=== PATIENT | female | born 1985 | race African-American/Black ===

== ENCOUNTER 2016-08-26 10:21 | Inpatient (IN) | payer OTHER ==
[~2016-08-26] VITALS: Ht 160 cm; Wt 59.0 kg
[2016-08-26 10:40] VITALS: BP 129/76
[2016-08-26] MEDS ORDERED: Clindamycin 900mg 50 ML IVPB ONE (10:45)
--- NOTE | 2016-08-26 11:16 | Emergency Room Report ---
History of Present Illness General Chief Complaint: Skin Rash/Abscess Source: Patient Present Illness HPI 31YOF sent by Dr De La Vega for concern for gluteal infection s/p silicone injections 2 years ago for gluteal enhancement. Surgery was done "illegally" outside of insurance. Patient doesnt give the surgeon's name. Endorses a few days of pain to buttocks, fever measured 102F at home, and "pustules that keep busting" on the right buttock. Denies abd pain, nausea/vomiting, urinary complaints. Allergies: Coded Allergies: IODINE (Verified Allergy, Unknown, 08/26/16) PENICILLINS (Verified Allergy, Unknown, 08/26/16) Patient History Past Medical History: none Past Surgical History: none Pertinent Family History: none Social History: Denies: alcohol use, drug use, smoking Last Menstrual Period: 08/11/16 Now: No Immunizations: UTD Reviewed Nursing Documentation: PMH: Agreed, PSxH: Agreed Nursing Documentation-PMH Past Medical History: No History, Except For Review of Systems All Other Systems: negative except mentioned in HPI Physical Exam Vital Signs Date Time Temp Pulse Resp B/P Pulse Ox O2 Delivery O2 Flow Rate FiO2 08/26/16 10:32 97.9 76 18 121/80 100 Room Air Sp02 EP Interpretation: reviewed, normal General Appearance: normal inspection, well appearing, no apparent distress, alert, GCS 15, non-toxic Head: normocephalic, atraumatic Eyes: bilateral eye EOMI, bilateral eye PERRL ENT: normal ENT inspection, hearing 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, normal voice Neck: normal inspection, full range of motion, supple, no bony tend Respiratory: normal inspection, lungs clear, normal breath sounds, no respiratory distress, no retraction, no wheezing Cardiovascular #1: regular rate, rhythm, no edema Gastrointestinal: normal inspection, normal bowel sounds, non tender, soft, no guarding, no hernia Genitourinary: no CVA tenderness Musculoskeletal: normal inspection, back normal, normal range of motion, Sandy' s Sign negative Neurologic: normal inspection, alert, oriented x3, responsive, bagman/woman III-XII nml as tested, motor strength/tone normal, speech normal Psychiatric: normal inspection, judgement/insight normal, mood/affect normal Skin: normal inspection, normal color, other - RN Consuelo present for buttocks exam: No bean abscess seen or palpated. There is an old healing pustule on right buttock midline. No obvious cellulitis Medical Decision Making Diagnostic Impression: Primary Impression: Buttock pain Additional Impressions: Qualified Codes: Z33.1 - state, incidental Abnormal LFTs ER Course 31YOF with buttock pain, measured fever at home VSS. Afebrile. Labs: No leuks. H&H stable. Urine preg +. UA with hematuria. CXR not done given ECG is NSR. No ischemia. Empiric Abx given Admitting physician requesting MRI LS, pelvis - understands non-emergent MRI unavailable on Weekends. Doesnt want CT. I ordered MRI for tomorrow Endorsed to Dr De La Vega for med/surg admission at 1130am EKG Diagnostic Results Rate: normal Rhythm: NSR ST Segments: no acute changes ASA given to the pt in ED: No Last Vital Signs Date Time Temp Pulse Resp B/P Pulse Ox O2 Delivery O2 Flow Rate FiO2 08/26/16 10:32 97.9 76 18 121/80 100 Room Air Status: improved Disposition: ADMITTED INPATIENT Condition: Serious Referrals: NOT CHOSEN IPA/,REFERRING (PCP) SALAZAR ARAUJO M.D. Aug 26, 2016 11:16
[2016-08-26 11:25] LABS: BASOPHILS % (AUTO) 0.9 % (0.0-2.0); EOSINOPHILS % (AUTO) 1.6 % (0.0-3.0); KETONES,URINE NEGATIVE (NEGATIVE); LEUKOCYTE ESTERASE ,URINE 2+ (NEGATIVE); LYMPHOCYTES % (AUTO) 30.3 % (20.0-45.0); MEAN CORPUSCULAR HEMOGLOBIN 28.1 PG (27.0-31.0); MEAN CORPUSCULAR HGB CONC 32.3 G/DL (32.0-36.0); MEAN CORPUSCULAR VOLUME 87 FL (80-99); MEAN PLATELET VOLUME 6.9 FL (6.5-10.1); MONOCYTES % (AUTO) 11.9 % (1.0-10.0); NEUTROPHILS % (AUTO) 55.3 % (45.0-75.0); NITRITE,URINE NEGATIVE (NEGATIVE); PH,URINE 7 (4.5-8.0); PLATELET COUNT 260 K/UL (150-450); PROTEIN,URINE NEGATIVE (NEGATIVE); RED BLOOD COUNT 4.59 M/UL (4.20-5.40); RED CELL DISTRIBUTION WIDTH 12.6 % (11.6-14.8); UROBILINOGEN,URINE NORMAL MG/DL (0.0-1.0); WHITE BLOOD COUNT 8.3 K/UL (4.8-10.8)
[2016-08-26 11:30] LABS: PROTHROMBIN TIME 10.2 SEC (9.30-11.50)
[2016-08-26 11:33] LABS: ALANINE AMINOTRANSFERASE 272 U/L (3-33); ALBUMIN/GLOBULIN RATIO 1.2 (1.0-2.7); ANION GAP 11 (5-15); APPEARANCE,URINE CLEAR; ASPARTATE AMINO TRANSFERASE 131 U/L (5-40); CALCIUM 9.2 mg/dL (8.6-10.2); CARBON DIOXIDE 28 mEQ/L (20-30); CHLORIDE 96 mEQ/L (98-107); CREATININE 0.9 mg/dL (0.5-0.9); GLOMERULAR FILTRATION RATE > 60 mL/min (>60); HEMOLYSIS 1; LIPASE 21 U/L (< 60); POTASSIUM 3.3 mEQ/L (3.4-4.9); SODIUM 135 mEQ/L (135-145)
[2016-08-26 11:38] LABS: BACTERIA,URINE FEW /HPF; SQUAMOUS EPITHELIAL CELL,UR FEW /LPF (NONE/OCC)
--- NOTE | 2016-08-26 12:38 | Diagnostic Imaging Report ---
Indication: Is in Comparison: None A single view chest radiograph was obtained. Findings: Cardiomediastinal appearance is within normal limits for age. Pulmonary vascularity is appropriate. The diaphragmatic contour is smooth and costophrenic angles are sharp. No pleural effusions are identified. The bones are unremarkable. Impression: No acute findings
[2016-08-26] MEDS ORDERED: Mylanta II UD 30ml ORAL PRN (14:45)
[2016-08-26] MEDS ORDERED: Miralax 17gm pkt ORAL PRN (14:45)
[2016-08-26] MEDS ORDERED: LORazepam Inj 2mg/ml 1ml IV PRN (14:45)
[2016-08-26] MEDS ORDERED: Morphine Sulfate 2mg/ml Inj IVP PRN (14:45)
[2016-08-26 16:00] VITALS: BP 125/78
[2016-08-26] MEDS: Lactobacillus-GG tablet ORAL SCH (17:34)
[2016-08-26] MEDS: D5NS 1,000 ML IV SCH (17:36)
--- NOTE | 2016-08-26 18:36 | History and Physical ---
History of Present Illness General Date patient seen: Aug 26, 2016 Time patient seen: 22:11 Reason for Hospitalization: Abscess Present Illness HPI 31 y/o female presents to the ED with c/o gluteal pain, fevers, and low back pain, she is concerned about a gluteal infection s/p silicone injections 2 years ago for gluteal enhancement. Details surrounding the original silicone injection are unclear. She endorses a few days of pain to buttocks, fever measured 102F at home, and "pustules that keep busting" on the right buttock. Denies abd pain, nausea/vomiting, urinary complaints. She does c/o severe fatigue/malaise, headaches, numbness/tingling down her legs, and dyspnea on exertion. Of note, the pt recently had a , s/p voluntary termination/ performed in [place] on 08/18. Pt has the documentation to support this. Allergies: Coded Allergies: IODINE (Verified Allergy, Unknown, 08/26/16) PENICILLINS (Verified Allergy, Unknown, 08/26/16) Patient History History Provided By: Patient Healthcare decision maker Resuscitation status FC Advanced Directive on File Past Medical/Surgical History Past Medical/Surgical History: (1) No significant past medical history Family History Family History: Patient reports no known family medical history. Social History Social History: (1) No significant social history Review of Systems All Other Systems: negative except mentioned in HPI Physical Exam Physical Exam Narrative General: alert, cooperative, no distress, appears stated age Head: normocephalic, without obvious abnormality, atraumatic Eyes: conjunctivae/corneas clear. PERRL, EOM's intact Throat: lips, mucosa, and tongue normal. MMM Neck: supple, symmetrical, trachea midline, and no JVD Lungs: clear to auscultation bilaterally Heart: regular rate and rhythm, S1, S2 normal, no murmur, click, rub or gallop Abdomen: soft, non-tender, non-distended, bowel sounds normal; no masses or organomegaly Extremities: multiple areas of induration, +rubor, +tenderness to palpation in the gluteal region bilaterally Pulses: 2+ and symmetric Skin: skin color, texture, turgor normal; no rashes or lesions Neurologic: 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, no focal deficits Last 24 Hour Vital Signs Date Time Temp Pulse Resp B/P Pulse Ox O2 Delivery O2 Flow Rate FiO2 08/26/16 16:48 98.1 08/26/16 16:00 98.1 73 18 125/78 98 Room Air 08/26/16 14:33 75 17 117/68 Room Air 08/26/16 10:40 98.0 73 16 129/76 100 Room Air 08/26/16 10:32 97.9 76 18 121/80 100 Room Air Laboratory Tests Test 08/26/16 10:49 08/26/16 11:09 Erythrocyte Sedimentation Rate 31 MM/HR (0-20) H C-Reactive Protein, Quantitative < 0.3 mg/dL (< 0.5) Urine Immunofixation Pending Anti-Nuclear Antibody Screen Pending White Blood Count 8.3 K/UL (4.8-10.8) Red Blood Count 4.59 M/UL (4.20-5.40) Hemoglobin 12.9 G/DL (12.0-16.0) Hematocrit 39.9 % (37.0-47.0) Mean Corpuscular Volume 87 FL (80-99) Mean Corpuscular Hemoglobin 28.1 PG (27.0-31.0) Mean Corpuscular Hemoglobin Concent 32.3 G/DL (32.0-36.0) Red Cell Distribution Width 12.6 % (11.6-14.8) Platelet Count 260 K/UL (150-450) Mean Platelet Volume 6.9 FL (6.5-10.1) Neutrophils (%) (Auto) 55.3 % (45.0-75.0) Lymphocytes (%) (Auto) 30.3 % (20.0-45.0) Monocytes (%) (Auto) 11.9 % (1.0-10.0) H Eosinophils (%) (Auto) 1.6 % (0.0-3.0) Basophils (%) (Auto) 0.9 % (0.0-2.0) Prothrombin Time 10.2 SEC (9.30-11.50) Prothromb Time International Ratio 1.0 (0.9-1.1) Activated Partial Thromboplast Time 25 SEC (23-33) Urine Color Yellow Urine Appearance Clear Urine pH 7 (4.5-8.0) Urine Specific [place] 1.010 (1.005-1.035) Urine Protein Negative (NEGATIVE) Urine Glucose (UA) Negative (NEGATIVE) Urine Ketones Negative (NEGATIVE) Urine Occult Blood 3+ (NEGATIVE) H Urine Nitrite Negative (NEGATIVE) Urine Bilirubin Negative (NEGATIVE) Urine Urobilinogen Normal MG/DL (0.0-1.0) Urine Leukocyte Esterase 2+ (NEGATIVE) H Urine RBC 5-10 /HPF (0 - 2) H Urine WBC 2-4 /HPF (0 - 2) Urine Squamous Epithelial Cells Few /LPF (NONE/OCC) Urine Bacteria Few /HPF (NONE) Urine HCG, Qualitative Positive Sodium Level 135 mEQ/L (135-145) Potassium Level 3.3 mEQ/L (3.4-4.9) L Chloride Level 96 mEQ/L (98-107) L Carbon Dioxide Level 28 mEQ/L (20-30) Anion Gap 11 (5-15) Blood Urea Nitrogen 9 mg/dL (7-23) Creatinine 0.9 mg/dL (0.5-0.9) Estimat Glomerular Filtration Rate > 60 mL/min (>60) Glucose Level 96 mg/dL (74-106) Calcium Level 9.2 mg/dL (8.6-10.2) Total Bilirubin 0.4 mg/dL (0.0-1.2) Aspartate Amino Transf (AST/SGOT) 131 U/L (5-40) H Alanine Aminotransferase (ALT/SGPT) 272 U/L (3-33) H Alkaline Phosphatase 40 U/L (35-104) Total Protein 8.0 g/dL (6.6-8.7) Albumin 4.5 g/dL (3.5-5.2) Globulin 3.5 g/dL Albumin/Globulin Ratio 1.2 (1.0-2.7) Lipase 21 U/L (< 60) Height (Feet): 5 Height (Inches): 3.00 Weight (Pounds): 130 Medications Current Medications Medications (Trade) Dose Ordered Sig/Yamileth Route PRN Reason Start Time Stop Time Status Last Admin Dose Admin Acetaminophen (Tylenol) 650 mg Q4H PRN ORAL Mild Pain (Pain Scale 1-3) 08/26/16 14:45 09/25/16 14:44 Acetaminophen (Tylenol) 650 mg Q4H PRN ORAL fever 08/26/16 14:45 09/25/16 14:44 Al Hydroxide/Mg Hydroxide (Mylanta II) 30 ml Q6H PRN ORAL dyspepsia 08/26/16 14:45 09/25/16 14:44 Bisacodyl (Dulcolax) 10 mg HSPRN PRN RECTAL Constipation 08/26/16 14:45 09/25/16 14:44 Clindamycin HCl/ Dextrose (Cleocin 300mg) 50 ml @ 100 mls/hr Q8HR@0200,1000,1800 IV 08/26/16 17:00 09/02/16 16:59 08/26/16 17:35 Dextrose STAT PRN IV Hypoglycemia 08/26/16 14:45 09/25/16 14:44 Dextrose/Sodium Chloride (D5ns) 1,000 ml @ 50 mls/hr Q20H IV 08/26/16 17:00 09/25/16 16:59 08/26/16 17:36 Diphenhydramine HCl (Benadryl) 25 mg Q6H PRN ORAL Itching/Pruritis 08/26/16 14:45 09/25/16 14:44 Docusate Sodium (Colace) 100 mg EVERY 12 HOURS ORAL 08/26/16 21:00 09/25/16 20:59 Lactobacillus Acidophilus (Culturelle) 1 tab TWICE A DAY ORAL 08/26/16 18:00 09/25/16 17:59 08/26/16 17:34 Lorazepam (Ativan 2mg/ml 1ml) 0.5 mg Q4H PRN IV For Anxiety 08/26/16 14:45 09/02/16 14:44 Magnesium Hydroxide (Mom) 30 ml HSPRN PRN ORAL Constipation 08/26/16 14:45 09/25/16 14:44 Morphine Sulfate (Morphine Sulfate) 2 mg Q4HR PRN IVP Moderate Pain (Pain Scale 4-6) 08/26/16 14:45 09/02/16 14:44 08/26/16 16:18 Morphine Sulfate (Morphine Sulfate) 4 mg Q4HR PRN IVP Severe Pain (Pain Scale 7-10) 08/26/16 14:45 09/02/16 14:44 Ondansetron HCl (Zofran) 4 mg Q6H PRN IVP Nausea & Vomiting 08/26/16 14:45 09/25/16 14:44 Polyethylene Glycol (Miralax) 17 gm HSPRN PRN ORAL Constipation 08/26/16 14:45 09/25/16 14:44 Temazepam (Restoril) 15 mg HSPRN PRN ORAL Insomnia 08/26/16 14:45 09/02/16 14:44 Assessment/Plan Problem List: (1) Abscess Assessment & Plan: Admit to inpatient Will need to r/o AURORA syndrome given silicone injections and onset of systemic symptoms, full autoimmune panel ordered MRI L spine and pelvis to r/o acute abscesses, fluid collections research professor consult due to recent , s/p voluntary termination on 08/18, pt has records that document this. Blood cx x2 Surgical consult Start IV unasyn Supp care Pain control Psychiatry consult as well If patient is required to have surgery, based on the patient's medical history, and other available ancillary data, the patient is a LOW risk for an INTERMEDIATE risk procedure. Per the most recent ACC/AHA guidelines, the patient does not need any further cardiopulmonary testing prior to the procedure and there do not appear to be any clear medical contraindications to proceeding with the proposed procedure. A total of 32 mins of additional time was spent with this patient including coordination of care in addition to face to face time ICD Codes: L02.91 - Cutaneous abscess, unspecified SNOMED: [id number] PETERSON COTTO Aug 26, 2016 18:36
[2016-08-26 20:00] VITALS: BP 140/89
[2016-08-26] MEDS: Docusate 100mg cap ORAL SCH (21:01)
[2016-08-26] MEDS: Morphine Sulfate 4mg/ml Inj IVP PRN (21:02)
[2016-08-27] VITALS (14 sets, daily range): BP systolic 126–157; BP diastolic 72–96
[2016-08-27 07:03] LABS: BASOPHILS % (AUTO) 1.8 % (0.0-2.0); EOSINOPHILS % (AUTO) 3.1 % (0.0-3.0); LYMPHOCYTES % (AUTO) 38.6 % (20.0-45.0); MEAN CORPUSCULAR HEMOGLOBIN 28.1 PG (27.0-31.0); MEAN CORPUSCULAR HGB CONC 32.4 G/DL (32.0-36.0); MEAN CORPUSCULAR VOLUME 87 FL (80-99); MEAN PLATELET VOLUME 5.8 FL (6.5-10.1); MONOCYTES % (AUTO) 8.6 % (1.0-10.0); NEUTROPHILS % (AUTO) 47.8 % (45.0-75.0); PLATELET COUNT 210 K/UL (150-450); RED BLOOD COUNT 4.16 M/UL (4.20-5.40); RED CELL DISTRIBUTION WIDTH 12.6 % (11.6-14.8)
[2016-08-27 07:24] LABS: ANION GAP 14 (5-15); CALCIUM 8.9 mg/dL (8.6-10.2); CARBON DIOXIDE 25 mEQ/L (20-30); CHLORIDE 101 mEQ/L (98-107); CREATININE 0.8 mg/dL (0.5-0.9); GLOMERULAR FILTRATION RATE > 60 mL/min (>60); HEMOLYSIS 1; SODIUM 140 mEQ/L (135-145)
--- NOTE | 2016-08-27 08:59 | Consultation ---
Consult Note Consult Note Chart Reviewed Patient is in MRI Urine HCG Pos LFT elevated Serum B-HCG now - Stat Assessment/Plan B-HCG now Full evaluation to follow KEN CASEY Aug 27, 2016 08:58
[2016-08-27] MEDS: Lactobacillus-GG tablet ORAL SCH ×2 (09:50→18:31)
[2016-08-27] MEDS: Docusate 100mg cap ORAL SCH ×2 (09:50→21:23)
[2016-08-27] MEDS: Morphine Sulfate 4mg/ml Inj IVP PRN (09:51)
[2016-08-27] MEDS: D5NS 1,000 ML IV SCH (13:10)
--- NOTE | 2016-08-27 13:39 | Diagnostic Imaging Report ---
Indication: Silicone Injections and back/buttock pain Technique: MRI examination of the Lumbar spine was performed in a 1.5 Rachael magnet. Sequences obtained include sagittal and axial T1 and T2 fast spin echo, and sagittal STIR. No IV gadolinium was given Comparison: none Findings: Multinodular subcutaneous foci exhibiting low T1/high T2 signal noted posterior to the lower part of the lumbar spine and visualized gluteal region consistent with silicone injections. There is no confluent fluid collection or abscess identified. All of the foci. Extrafascial within the subcutaneous space. Lumbar spine demonstrates normal bone marrow signal for age. The configuration and signal of the intervertebral discs appear normal. Facet joints appear unremarkable. There is no neural impingement or canal stenosis identified. Conus medullaris is demonstrated at L1 and appears unremarkable. Impression: Subcutaneous silicone injections noted as described above. Negative examination of the lumbar spine otherwise.
--- NOTE | 2016-08-27 13:43 | Diagnostic Imaging Report ---
Indication: Silicone injections Technique: MRI of the pelvis was imaged in a 1.5 Rachael magnet. Pulse sequences obtained include multiplanar T1 fast spin-echo, STIR, T2 FSE w/ fat saturation. Comparison: None Findings: Examination demonstrates multiple mainly subcutaneous foci overlying the gluteal regions bilaterally consistent with the given history of silicone injections. No confluent areas or abnormal fluid collections are definitely seen to suggest abscess. Some of the foci extend into the superficial fibers of the gluteus musculature. Bone marrow signal is normal. The study was not performed for internal derangement or evaluation of the acetabula/hips. That said no gross abnormalities are identified. Impression: Subcutaneous silicone injections as described above.
--- NOTE | 2016-08-27 14:16 | Pre-Procedure Note/Attestation ---
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 I attest that, if there was a reasonable possibility of needing a blood transfusion, the patient (or the patient's legal sales representative church [employer]) was given the [place] Department [employer] standardized written summary, pursuant to the Edgardo Geraldine Blood Safety Act ([place] Health and Safety Code # 1645, as amended). I attest that I re-evaluated the patient just prior to the surgery and that there has been no change in the patient's H&P, except as documented below: Betty Chance M.D. Aug 27, 2016 14:16
[2016-08-27] MEDS ORDERED: Bacitracin 50000 Units Vial ONE (14:22)
[2016-08-27] MEDS ORDERED: Propofol 10mg/ml 20ml IV ONE ×2 (14:26→14:30)
[2016-08-27] MEDS ORDERED: LR 1000ml ONE (14:30)
[2016-08-27] MEDS ORDERED: Midazolam 2mg/2ml Inj ONE (14:30)
[2016-08-27] MEDS ORDERED: Sterile Water Irrig 1000ml IRRIG ONE (14:30)
[2016-08-27] MEDS ORDERED: NS Irrig 1000ml ONE (14:30)
[2016-08-27] MEDS ORDERED: Morphine Sulfate 10mg/ml Inj ONE (14:30)
[2016-08-27] MEDS ORDERED: fentaNYL 100 mcg/2 mL IV ONE (14:30)
--- NOTE | 2016-08-27 15:08 | General Progress Note ---
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 Blood cx x2 Surgical consult appreciated, pt will need surgical debridement Cont IV unasyn Supp care Pain control Psychiatry consult appreciated If patient is required to have surgery, based on the patient's medical history, and other available ancillary data, the patient is a LOW risk for an INTERMEDIATE risk procedure. Per the most recent ACC/AHA guidelines, the patient does not need any further cardiopulmonary testing prior to the procedure and there do not appear to be any clear medical contraindications to proceeding with the proposed procedure. A total of 32 mins of additional time was spent with this patient including coordination of care in addition to face to face time ICD Codes: L02.91 - Cutaneous abscess, unspecified SNOMED: [id number] Subjective Date patient seen: Aug 27, 2016 Time patient seen: 15:06 ROS Limited/Unobtainable: No Allergies: Coded Allergies: IODINE (Verified Allergy, Unknown, 08/26/16) PENICILLINS (Verified Allergy, Unknown, 08/26/16) Subjective No acute overnight events, no new complaints. No chest pain or dyspnea, pain well controlled. Objective Last 24 Hour Vital Signs Date Time Temp Pulse Resp B/P Pulse Ox O2 Delivery O2 Flow Rate FiO2 08/27/16 11:45 97.8 84 20 135/80 99 Room Air 08/27/16 10:21 97.9 08/27/16 07:54 97.9 100 20 126/72 98 Room Air 08/27/16 06:44 97.3 78 19 138/80 100 Room Air 08/27/16 04:00 98.0 77 18 135/78 Room Air 08/27/16 00:00 97.7 74 20 135/87 100 Room Air 08/26/16 20:00 97.5 76 20 140/89 100 Room Air 08/26/16 16:48 98.1 08/26/16 16:00 98.1 73 18 125/78 98 Room Air Intake and Output 08/26/16 08/27/16 19:00 07:00 Intake Total 250 ml 1400 ml Balance 250 ml 1400 ml Intake Oral 200 ml 800 ml IV Total 50 ml 600 ml # Voids 1 3 Laboratory Tests 08/27/16 05:25: White Blood Count [Pending], Red Blood Count 4.16L, Hemoglobin 11.7L, Hematocrit 36.0L, Mean Corpuscular Volume 87, Mean Corpuscular Hemoglobin 28.1, Mean Corpuscular Hemoglobin Concent 32.4, Red Cell Distribution Width 12.6, Platelet Count 210, Mean Platelet Volume 5.8L, Neutrophils (%) (Auto) 47.8, Lymphocytes (%) (Auto) 38.6, Monocytes (%) (Auto) 8.6, Eosinophils (%) (Auto) 3.1H, Basophils (%) (Auto) 1.8, Lymphocytes [Pending], Lupus Anticoagulant [ Pending], Lupus Anticoagulant PTT Baseline [Pending], Lupus Anticoag DRVVT Screen Ratio [Pending], DRVVT Confirmation Interpretation [Pending], Hexagonal Phase Comment [Pending], Sodium Level 140, Potassium Level 4.0, Chloride Level 101, Carbon Dioxide Level 25, Anion Gap 14, Blood Urea Nitrogen 10, Creatinine 0.8, Estimat Glomerular Filtration Rate > 60, Glucose Level 90, Calcium Level 8.9, Human Chorionic Gonadotropin, Quant 39, Immunoglobulin G [Pending], Immunoglobulin A [Pending], Immunoglobulin M [Pending], Immunofixation Screen [ Pending], Percent CD3 Cells [Pending], Absolute CD3 Count [Pending], Percent CD4 Cells [Pending], Absolute CD4 Count [Pending], T-Lymphocyte CD4/CD8 Ratio [ Pending], Percent CD8 Cells [Pending], Absolute CD8 Count [Pending] Height (Feet): 5 Height (Inches): 3.00 Weight (Pounds): 130 Objective General: alert, cooperative, no distress, appears stated age Head: normocephalic, without obvious abnormality, atraumatic Eyes: conjunctivae/corneas clear. PERRL, EOM's intact Throat: lips, mucosa, and tongue normal. MMM Neck: supple, symmetrical, trachea midline, and no JVD Lungs: clear to auscultation bilaterally Heart: regular rate and rhythm, S1, S2 normal, no murmur, click, rub or gallop Abdomen: soft, non-tender, non-distended, bowel sounds normal; no masses or organomegaly Extremities: +tenderness to palpation, +rubor, +indurations (multiple) in bilateral gluteal area Pulses: 2+ and symmetric Skin: skin color, texture, turgor normal; no rashes or lesions Neurologic: 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, no focal deficits PETERSON COTTO Aug 27, 2016 15:08
[2016-08-27] MEDS ORDERED: Clindamycin 600mg 50 ML IV ONE (15:10)
[2016-08-27] MEDS ORDERED: LR 1000ml 1,000 ML IVLG SCH (16:16)
--- NOTE | 2016-08-27 16:21 | Anethesia Preoperative Eval ---
Anesthesia Pre-op PMH/ROS General Date of Evaluation: Aug 27, 2016 Time of Evaluation: 14:20 Anesthesiologist: Fatuma ASA Score: ASA 1 Mallampati Score Class I : Soft palate, uvula, fauces, pillars visible Class II: Soft palate, uvula, fauces visible Class III: Soft palate, base of uvula visible Class IV: Only hard plate visible Mallampati Classification: Class II Diagnosis: Necrotic tissue bilateral buttocks, cellulitis Surgical Procedure: Debridement of necrotic tissue Allergies: Coded Allergies: IODINE (Verified Allergy, Unknown, 08/26/16) PENICILLINS (Verified Allergy, Unknown, 08/26/16) Medications: see eMAR Past Medical History Cardiovascular: Denies: CAD, HTN, NM, arrhythmia, other, valve dz Pulmonary: Denies: COPD, NORBERT, asthma, other Gastrointestinal/Genitourinary: Denies: CRI, ESRD, GERD, other Neurologic/Psychiatric: Denies: CVA, TIA, dementia, depression/anxiety, other Endocrine: Denies: DM, hypothyroidism, other, steroids HEENT: Denies: MI'KMAQ (L), MI'KMAQ (R), cataract (L), cataract (R), glaucoma, other Hematology/Immune: Denies: DVT, anemia, bleeding disorder, other Musculoskeletal/Integumentary: Denies: DDD, DJD, OA, RA, edema, other PMH Narrative: Denies significant PMH PSxH Narrative: Sinus surgery, C/S, buttocks surgery Anesthesia Pre-op Phys. Exam Physician Exam Last Vital Signs Date Time Temp Pulse Resp B/P Pulse Ox O2 Delivery O2 Flow Rate FiO2 08/27/16 11:45 97.8 84 20 135/80 99 Room Air Constitutional: NAD Neurologic: CN 2-12 intact Cardiovascular: RRR, no M/R/G Respiratory: CTA Gastrointestinal: S/NT/ND Airway Exam Mallampati Score: Class II MO: full ROM: full Teeth: intact Anesthesia Pre-op A/P Labs Hematology Test 08/27/16 05:25 White Blood Count Pending Red Blood Count 4.16 M/UL (4.20-5.40) L Hemoglobin 11.7 G/DL (12.0-16.0) L Hematocrit 36.0 % (37.0-47.0) L Mean Corpuscular Volume 87 FL (80-99) Mean Corpuscular Hemoglobin 28.1 PG (27.0-31.0) Mean Corpuscular Hemoglobin Concent 32.4 G/DL (32.0-36.0) Red Cell Distribution Width 12.6 % (11.6-14.8) Platelet Count 210 K/UL (150-450) Mean Platelet Volume 5.8 FL (6.5-10.1) L Neutrophils (%) (Auto) 47.8 % (45.0-75.0) Lymphocytes (%) (Auto) 38.6 % (20.0-45.0) Monocytes (%) (Auto) 8.6 % (1.0-10.0) Eosinophils (%) (Auto) 3.1 % (0.0-3.0) H Basophils (%) (Auto) 1.8 % (0.0-2.0) Lymphocytes Pending Coagulation Test 08/27/16 05:25 Lupus Anticoagulant Pending Lupus Anticoagulant PTT Baseline Pending Lupus Anticoag DRVVT Screen Ratio Pending DRVVT Confirmation Interpretation Pending Hexagonal Phase Comment Pending Chemistry Test 08/27/16 05:25 Sodium Level 140 mEQ/L (135-145) Potassium Level 4.0 mEQ/L (3.4-4.9) Chloride Level 101 mEQ/L (98-107) Carbon Dioxide Level 25 mEQ/L (20-30) Anion Gap 14 (5-15) Blood Urea Nitrogen 10 mg/dL (7-23) Creatinine 0.8 mg/dL (0.5-0.9) Estimat Glomerular Filtration Rate > 60 mL/min (>60) Glucose Level 90 mg/dL (74-106) Calcium Level 8.9 mg/dL (8.6-10.2) Human Chorionic Gonadotropin, Quant 39 mIU/mL Risk Assessment & Plan Assessment: Healthy female for debridement of necrotic tissue b/l buttocks Plan: GETA, transfusion Status Change Before Surgery: No Pre-Antibiotics Drug: Clindamycin Given Within 1 Hr of Incision: Yes Time Given: 14:55 TEMITOPE DEE M.D. Aug 27, 2016 16:21
--- NOTE | 2016-08-27 16:22 | Immediate Post-Op Evaluation ---
Immediate Post-Op Evalulation Immediate Post-Op Evalulation Procedure: Debridement of necrotic tissue bilateral buttocks Date of Evaluation: Aug 27, 2016 Time of Evaluation: 17:05 IV Fluids: 1500 Blood Products: 250 Estimated Blood Loss: 300 Urinary Output: 150 Blood Pressure Systolic: 157 Blood Pressure Diastolic: 94 Pulse Rate: 104 Respiratory Rate: 15 O2 Sat by Pulse Oximetry: 100 Temperature (Fahrenheit): 97.4 Pain Score (1-10): 4 Nausea: No Vomiting: No Complications No complication Patient Status: awake, patent, extubated, none Hydration Status: adequate Drug: Clindamycin Given Within 1 Hr of Incision: Yes Time Given: 14:55 TEMITOPE DEE M.D. Aug 27, 2016 16:22
[2016-08-27] MEDS ORDERED: Meperidine 25mg/0.5ml Inj IV PRN (16:30)
[2016-08-27] MEDS ORDERED: LORazepam Inj 2mg/ml 1ml IV PRN (16:30)
[2016-08-27] MEDS ORDERED: DiphenhydrAMINE 50mg/ml Inj IVP PRN ×2 (16:30→16:45)
[2016-08-27] MEDS ORDERED: Hydromorphone 0.5mg/0.5ml inj IVP PRN (16:30)
[2016-08-27] MEDS ORDERED: LORazepam 1mg tab ORAL PRN (16:45)
[2016-08-27] MEDS ORDERED: Naloxone 0.4mg/ml Inj IVP PRN (16:45)
[2016-08-27] MEDS ORDERED: Rate Change PCA 1 Each MISC PRN (16:45)
--- NOTE | 2016-08-27 16:48 | Operative Note - PDOC ---
Operative Note Operative Note Date of Operation/Procedure: Aug 27, 2016 Pre-op Diagnosis: bilateral buttock soft tissue necrosis, cellulitis, open wounds buttocks Procedure: staged debridement of bilateral buttock necrotic soft tissue, flap delay and vac placement Post-op Diagnosis: same Post-op Diagnosis: same as pre-op Surgeon: tricia Kiln Transfer Operator: claudio Anesthesiologist: sandra Anesthesia: general Specimen: yes - b/l buttock necrotis soft tissue Complications: none Condition: stable Fluids: 1 prbc Estimated Blood Loss: volume - 300 Drains: wound vac Implant(s) used?: No Indications for Procedure bilateral buttock necrotic soft tissue open wound cellulitis Description of Procedure see op note Betty Chance M.D. Aug 27, 2016 16:48
[2016-08-27] MEDS: PCA HYDROmorphone 1mg/ml 30 ML IV PRN (17:05)
[2016-08-27] MEDS: LR 1000ml 1,000 ML IV SCH (18:47)
[2016-08-27] MEDS: PCA shift volume MISC SCH (19:00)
[2016-08-28 00:07] VITALS: BP 125/80
[2016-08-28 04:00] VITALS: BP 110/57
--- NOTE | 2016-08-28 04:45 | Consultation ---
DATE OF CONSULTATION: 08/26/2016 CONSULTING PHYSICIAN: Horacio Good M.D. REASON FOR CONSULT: Assessment of mental capacity preoperatively. This is a late dictation due to inability of using the dictation service of the hospital yesterday. The patient is seen, chart reviewed, and case discussed with the staff. Per staff, the patient has been doing okay. She does not have any behavioral issues. On [id number], the patient denies having any past psychiatric history and denies ever being on any psychotropic medications. The patient also understands the nature of the operation. We discussed the following points with the patient. 1. The patient understands that it is impossible to remove all the particles. 2. She understands also that some of the particles may migrate to other parts of her body. 3. She understands that she may need multiple surgeries in several years after this surgery. 4. She also understands that there is a chance that this could be cosmetically disfiguring. 5. She also understands that there is a chance that she may not improve after the surgery. She, however, understands that and still wants to move forward with the surgery. PAST PSYCHIATRIC HISTORY: Denies any. MEDICATIONS: The patient is not on any psychotropic medications. SOCIAL HISTORY: The patient lives in a private resident. INTOXICATION: Denies history of alcohol or drug abuse. MENTAL STATUS EXAMINATION: The patient is alert and oriented to place, person, time, and situation. Fairly groomed female. Mood is euthymic. Affect is full range. She denies auditory or visual hallucinations. Denies suicidal or homicidal ideations. ASSESSMENT: No psychiatric diagnosis. PLAN: 1. From the psychiatric standpoint, the patient has a mental capacity to make decision about this operation. She understands all the risks and benefits of this operation and agrees to all that. 2. Thank you for this interesting consult. Horacio Good DR: RAMESH JOB#: [id number] CC:
[2016-08-28] MEDS: Heparin 5000 units/ml inj SUBQ SCH ×3 (05:59→21:00)
[2016-08-28] MEDS: LR 1000ml 1,000 ML IV SCH ×3 (06:00→18:36)
[2016-08-28 06:32] LABS: EOSINOPHILS % (AUTO) 1.3 % (0.0-3.0); LYMPHOCYTES % (AUTO) 19.2 % (20.0-45.0); MEAN CORPUSCULAR HEMOGLOBIN 28.2 PG (27.0-31.0); MEAN CORPUSCULAR HGB CONC 32.9 G/DL (32.0-36.0); MEAN CORPUSCULAR VOLUME 86 FL (80-99); MEAN PLATELET VOLUME 6.4 FL (6.5-10.1); MONOCYTES % (AUTO) 7.8 % (1.0-10.0); NEUTROPHILS % (AUTO) 70.8 % (45.0-75.0); PLATELET COUNT 184 K/UL (150-450); RED BLOOD COUNT 3.99 M/UL (4.20-5.40); WHITE BLOOD COUNT 9.6 K/UL (4.8-10.8)
[2016-08-28 06:45] LABS: ANION GAP 11 (5-15); CALCIUM 8.4 mg/dL (8.6-10.2); CARBON DIOXIDE 28 mEQ/L (20-30); CHLORIDE 97 mEQ/L (98-107); CREATININE 0.9 mg/dL (0.5-0.9); GLOMERULAR FILTRATION RATE > 60 mL/min (>60); HEMOLYSIS 2; POTASSIUM 3.8 mEQ/L (3.4-4.9); SODIUM 136 mEQ/L (135-145)
[2016-08-28] MEDS: PCA shift volume MISC SCH ×2 (07:23→19:21)
[2016-08-28 08:00] VITALS: BP 105/81
--- NOTE | 2016-08-28 10:47 | 48 Hour Post Anesthesia Eval ---
Post Anesthesia Evaluation Procedure: Debridement of necrotic tissue bilateral buttocks Date of Evaluation: Aug 28, 2016 Time of Evaluation: 09:10 Blood Pressure Systolic: 105 0: 81 Pulse Rate: 78 Respiratory Rate: 18 Temperature (Fahrenheit): 97.7 O2 Sat by Pulse Oximetry: 93 Airway: patent Nausea: No Vomiting: No Pain Intensity: 2 Hydration Status: adequate Cardiopulmonary Status: Stable Mental Status/LOC: patient returned to baseline Follow-up Care/Observations: As per surgery Post-Anesthesia Complications: No anesthetic complication Follow-up care needed: N/A TEMITOPE DEE M.D. Aug 28, 2016 10:46
[2016-08-28] MEDS: Lactobacillus-GG tablet ORAL SCH ×2 (11:24→18:36)
[2016-08-28] MEDS: Docusate 100mg cap ORAL SCH ×2 (11:24→21:00)
[2016-08-28 12:00] VITALS: BP 111/74
[2016-08-28 12:19] LABS: IMMUNOGLOBULIN A 133 mg/dL (87-352); IMMUNOGLOBULIN G 1273 mg/dL (700-1600); IMMUNOGLOBULIN M 123 mg/dL (26-217)
[2016-08-28 13:19] LABS: CD3 ABSOLUTE 1960 /uL (622-2402); CD4 ABSOLUTE 1400 /uL (359-1519); CD8 ABSOLUTE 501 /uL (109-897); LYMPHOCYTES ABSOLUTE 2.8 x10E3/uL (0.7-3.1); LYMPHS 40 % (.); WBC 7.1 x10E3/uL (3.4-10.8)
--- NOTE | 2016-08-28 14:14 | General Progress Note ---
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 Per the most recent ACC/AHA guidelines, the patient does not need any further cardiopulmonary testing prior to the procedure and there do not appear to be any clear medical contraindications to proceeding with the proposed procedure. A total of 32 mins of additional time was spent with this patient including coordination of care in addition to face to face time ICD Codes: L02.91 - Cutaneous abscess, unspecified SNOMED: 658351660 Subjective Date patient seen: Aug 28, 2016 Time patient seen: 14:12 ROS Limited/Unobtainable: No Allergies: Coded Allergies: IODINE (Verified Allergy, Unknown, 08/26/16) PENICILLINS (Verified Allergy, Unknown, 08/26/16) Subjective s/p debridement of buttocks, POD#1, no periop or postop complications. No chest pain or dyspnea, pain well controlled. Objective Last 24 Hour Vital Signs Date Time Temp Pulse Resp B/P Pulse Ox O2 Delivery O2 Flow Rate FiO2 08/28/16 12:00 17 08/28/16 12:00 98.8 80 17 111/74 98 Room Air 08/28/16 10:46 78 18 93 08/28/16 08:00 16 08/28/16 08:00 97.7 78 18 105/81 93 Room Air 08/28/16 06:30 98.4 08/28/16 04:00 98.4 105 17 110/57 100 Nasal Cannula 2.0 08/28/16 04:00 16 08/28/16 00:07 98.1 89 19 125/80 100 Nasal Cannula 2.0 08/28/16 00:00 16 08/27/16 20:05 97.3 77 19 132/73 100 Nasal Cannula 2.0 08/27/16 20:00 16 08/27/16 19:05 16 08/27/16 18:35 16 08/27/16 18:05 16 08/27/16 17:48 97.8 73 16 132/87 100 Nasal Cannula 3.0 08/27/16 17:45 15 08/27/16 17:40 74 14 142/92 100 Nasal Cannula 3.0 08/27/16 17:38 97.8 08/27/16 17:37 97.8 08/27/16 17:37 97.8 08/27/16 17:30 80 13 138/94 100 Nasal Cannula 3.0 08/27/16 17:30 16 08/27/16 17:15 88 18 144/93 100 Nasal Cannula 3.0 08/27/16 17:15 21 08/27/16 17:10 93 20 149/96 100 Nasal Cannula 3.0 08/27/16 17:05 22 08/27/16 17:05 103 21 137/84 100 Simple Mask 6.0 08/27/16 17:01 104 15 100 08/27/16 17:00 106 24 157/94 100 Simple Mask 6.0 08/27/16 16:55 97.0 110 22 151/92 100 Simple Mask 6.0 Intake and Output 08/27/16 08/28/16 19:00 07:00 Intake Total 1875 ml 1440 ml Output Total 550 ml 1550 ml Balance 1325 ml -110 ml Intake Oral 240 ml IV Total 1625 ml 1200 ml Blood Product 250 ml Output Urine Total 250 ml 1100 ml Estimated Blood Loss 300 ml Other 450 ml # Voids 1 # Bowel Movements 1 Laboratory Tests 08/28/16 05:50: White Blood Count 9.6, Red Blood Count 3.99L, Hemoglobin 11.3L, Hematocrit 34.3L , Mean Corpuscular Volume 86, Mean Corpuscular Hemoglobin 28.2, Mean Corpuscular Hemoglobin Concent 32.9, Red Cell Distribution Width 13.0, Platelet Count 184, Mean Platelet Volume 6.4L, Neutrophils (%) (Auto) 70.8, Lymphocytes ( %) (Auto) 19.2L, Monocytes (%) (Auto) 7.8, Eosinophils (%) (Auto) 1.3, Basophils (%) (Auto) 1.0, Sodium Level 136, Potassium Level 3.8, Chloride Level 97L, Carbon Dioxide Level 28, Anion Gap 11, Blood Urea Nitrogen 8, Creatinine 0.9, Estimat Glomerular Filtration Rate > 60, Glucose Level 98, Calcium Level 8.4L Height (Feet): 5 Height (Inches): 3.00 Weight (Pounds): 130 Neck: paraspinous muscle tender Objective General: alert, cooperative, no distress, appears stated age Head: normocephalic, without obvious abnormality, atraumatic Eyes: conjunctivae/corneas clear. PERRL, EOM's intact Throat: lips, mucosa, and tongue normal. MMM Neck: supple, symmetrical, trachea midline, and no JVD Lungs: clear to auscultation bilaterally Heart: regular rate and rhythm, S1, S2 normal, no murmur, click, rub or gallop Abdomen: soft, non-tender, non-distended, bowel sounds normal; no masses or organomegaly Extremities: +tenderness to palpation, +rubor, +indurations (multiple) in bilateral gluteal area. Incisions c/d/i Pulses: 2+ and symmetric Skin: skin color, texture, turgor normal; no rashes or lesions Neurologic: 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, no focal deficits PETERSON COTTO Aug 28, 2016 14:14
--- NOTE | 2016-08-28 14:53 | Pre-Procedure Note/Attestation ---
Pre-Procedure Note/Attestation Complete Prior to Procedure Planned Procedure: bilateral Procedure Narrative: to or for staged debridement of bilateral buttock and back necrotic soft tissue , possible advancement flap closure and any necessary procedures Indications for Procedure Pre-Operative Diagnosis: bilateral buttock soft tissue necrosis, cellulitis, open wounds buttocks Attestation I attest that I discussed the nature of the procedure; its benefits; risks and complications; and alternatives (and the risks and benefits of such alternatives ), prior to the procedure, with the patient (or the patient's legal inbound customer service representative). I attest that, if there was a reasonable possibility of needing a blood transfusion, the patient (or the patient's legal inbound customer service representative) was given the [place] Department [employer] standardized written summary, pursuant to the Edgardo Jo Blood Safety Act ([place] Health and Safety Code # 1645, as amended). I attest that I re-evaluated the patient just prior to the surgery and that there has been no change in the patient's H&P, except as documented below: Betty Chance M.D. Aug 28, 2016 14:53
--- NOTE | 2016-08-28 15:00 | General Progress Note ---
Progress Note Progress Note pt doing well and reports resolution of pre-op symptoms including back/buttock pain and burning and itching and fatigue as well as shortness of breath and is getting more oxygen in lungs. AF/VSS H/H stable PE: flaps viable (-) collection/signs of infection VACS in place, output appropriate A/P. 1. cont abx, DVT ppx, OOB w assistance 2. cont vac 3. daily cbc 4. to OR for stage 2 debridement tmw and likely flap closure; NPO/IVF after MN 5. minimal pressure/sitting on buttocks Betty Chance M.D. Aug 28, 2016 15:00
[2016-08-28] MEDS ORDERED: D5NS 1000ml IV ONE (15:52)
[2016-08-28] MEDS ORDERED: Tubing IV Secondary IV ONE (15:52)
[2016-08-28] MEDS ORDERED: D5W 275ml ONE (15:52)
[2016-08-28 16:00] VITALS: BP 113/61
--- NOTE | 2016-08-28 16:09 | Anethesia Preoperative Eval ---
Anesthesia Pre-op PMH/ROS General Date of Evaluation: Aug 28, 2016 Time of Evaluation: 16:06 Anesthesiologist: Kendrick ASA Score: ASA 2 Mallampati Score Class I : Soft palate, uvula, fauces, pillars visible Class II: Soft palate, uvula, fauces visible Class III: Soft palate, base of uvula visible Class IV: Only hard plate visible Mallampati Classification: Class II Surgeon: Robson Diagnosis: Bilateral buttock soft tissue necrosis Surgical Procedure: Bilateral buttok wounds revision Anesthesia History: none Family History: no anesthesia problems Allergies: Coded Allergies: IODINE (Verified Allergy, Unknown, 08/26/16) PENICILLINS (Verified Allergy, Unknown, 08/26/16) Medications: see eMAR Past Medical History Cardiovascular: Denies: CAD, HTN, NM, arrhythmia, other, valve dz Pulmonary: Denies: COPD, NORBERT, asthma, other Gastrointestinal/Genitourinary: Reports: GERD - mild, Denies: CRI, ESRD, other Neurologic/Psychiatric: Denies: CVA, TIA, dementia, depression/anxiety, other Endocrine: Denies: DM, hypothyroidism, other, steroids HEENT: Denies: MESA GRANDE (L), M[place] (R), cataract (L), cataract (R), glaucoma, other Hematology/Immune: Denies: DVT, anemia, bleeding disorder, other Musculoskeletal/Integumentary: Denies: DDD, DJD, OA, RA, edema, other PMH Narrative: as above PSxH Narrative: Bilateral debridement Anesthesia Pre-op Phys. Exam Physician Exam Last Vital Signs Date Time Temp Pulse Resp B/P Pulse Ox O2 Delivery O2 Flow Rate FiO2 08/28/16 12:00 17 08/28/16 12:00 98.8 80 111/74 98 Room Air 08/28/16 04:00 2.0 Constitutional: NAD Neurologic: CN 2-12 intact Cardiovascular: RRR, no M/R/G Respiratory: CTA Gastrointestinal: S/NT/ND Airway Exam Mallampati Score: Class II MO: full Neck: flexible ROM: full Teeth: intact Dentures: no lower, no upper Anesthesia Pre-op A/P Labs Hematology Test 08/28/16 05:50 White Blood Count 9.6 K/UL (4.8-10.8) Red Blood Count 3.99 M/UL (4.20-5.40) L Hemoglobin 11.3 G/DL (12.0-16.0) L Hematocrit 34.3 % (37.0-47.0) L Mean Corpuscular Volume 86 FL (80-99) Mean Corpuscular Hemoglobin 28.2 PG (27.0-31.0) Mean Corpuscular Hemoglobin Concent 32.9 G/DL (32.0-36.0) Red Cell Distribution Width 13.0 % (11.6-14.8) Platelet Count 184 K/UL (150-450) Mean Platelet Volume 6.4 FL (6.5-10.1) L Neutrophils (%) (Auto) 70.8 % (45.0-75.0) Lymphocytes (%) (Auto) 19.2 % (20.0-45.0) L Monocytes (%) (Auto) 7.8 % (1.0-10.0) Eosinophils (%) (Auto) 1.3 % (0.0-3.0) Basophils (%) (Auto) 1.0 % (0.0-2.0) Chemistry Test 08/28/16 05:50 Sodium Level 136 mEQ/L (135-145) Potassium Level 3.8 mEQ/L (3.4-4.9) Chloride Level 97 mEQ/L (98-107) L Carbon Dioxide Level 28 mEQ/L (20-30) Anion Gap 11 (5-15) Blood Urea Nitrogen 8 mg/dL (7-23) Creatinine 0.9 mg/dL (0.5-0.9) Estimat Glomerular Filtration Rate > 60 mL/min (>60) Glucose Level 98 mg/dL (74-106) Calcium Level 8.4 mg/dL (8.6-10.2) L Risk Assessment & Plan Assessment: ASA 2 Plan: GA with ETT prone position Status Change Before Surgery: RAVI Chino M.D. Aug 28, 2016 16:09
[2016-08-28] MEDS: PCA HYDROmorphone 1mg/ml 30 ML IV PRN (19:27)
[2016-08-28 20:26] VITALS: BP 105/71
[2016-08-29] VITALS (15 sets, daily range): BP systolic 106–157; BP diastolic 44–85
[2016-08-29 05:09] LABS: BASOPHILS % (AUTO) 0.9 % (0.0-2.0); EOSINOPHILS % (AUTO) 1.2 % (0.0-3.0); LYMPHOCYTES % (AUTO) 16.5 % (20.0-45.0); MEAN CORPUSCULAR HEMOGLOBIN 27.7 PG (27.0-31.0); MEAN CORPUSCULAR HGB CONC 32.4 G/DL (32.0-36.0); MEAN CORPUSCULAR VOLUME 85 FL (80-99); MEAN PLATELET VOLUME 6.4 FL (6.5-10.1); MONOCYTES % (AUTO) 8.2 % (1.0-10.0); NEUTROPHILS % (AUTO) 73.3 % (45.0-75.0); PLATELET COUNT 163 K/UL (150-450); RED BLOOD COUNT 3.68 M/UL (4.20-5.40); RED CELL DISTRIBUTION WIDTH 13.2 % (11.6-14.8)
[2016-08-29] MEDS: Heparin 5000 units/ml inj SUBQ SCH ×3 (05:20→20:54)
[2016-08-29] MEDS: LR 1000ml 1,000 ML IV SCH ×2 (05:37→20:47)
[2016-08-29 05:47] LABS: ANION GAP 6 (5-15); CALCIUM 8.3 mg/dL (8.6-10.2); CARBON DIOXIDE 26 mEQ/L (20-30); CHLORIDE 97 mEQ/L (98-107); CREATININE 0.8 mg/dL (0.5-0.9); GLOMERULAR FILTRATION RATE > 60 mL/min (>60); HEMOLYSIS 5; POTASSIUM 3.9 mEQ/L (3.4-4.9); SODIUM 129 mEQ/L (135-145)
[2016-08-29] MEDS: PCA shift volume MISC SCH ×2 (07:00→19:56)
[2016-08-29] MEDS: Docusate 100mg cap ORAL SCH ×2 (09:00→20:48)
[2016-08-29] MEDS: Lactobacillus-GG tablet ORAL SCH ×2 (09:00→20:48)
[2016-08-29] MEDS ORDERED: Clindamycin 4 ML ONE (13:27)
[2016-08-29] MEDS ORDERED: Propofol 10mg/ml 20ml IV ONE (13:30)
[2016-08-29] MEDS ORDERED: Glycopyrrolate 0.2mg/ml 1ml Vial ONE (13:30)
[2016-08-29] MEDS ORDERED: Neostigmine 1mg/ml 10ml Inj ONE (13:30)
[2016-08-29] MEDS ORDERED: Sterile Water Irrig 1000ml IRRIG ONE (13:30)
[2016-08-29] MEDS ORDERED: LR 1000ml ONE (13:30)
[2016-08-29] MEDS ORDERED: NS Irrig 1000ml ONE ×2 (13:30)
[2016-08-29] MEDS ORDERED: Nimbex 2mg/ml Inj 10ML IVP ONE (13:30)
[2016-08-29] MEDS ORDERED: Lidocaine 1% MPF 10mg/ml 5ml ONE (13:30)
[2016-08-29] MEDS ORDERED: fentaNYL 100 mcg/2 mL IV ONE (13:30)
[2016-08-29] MEDS ORDERED: Midazolam 2mg/2ml Inj ONE (13:30)
[2016-08-29] MEDS ORDERED: Dexamethasone Elixir 0.25mg/2.5ml ONE (13:30)
[2016-08-29] MEDS ORDERED: Bacitracin 50000 Units Vial ONE (13:36)
[2016-08-29] MEDS ORDERED: NS Irrig 1000ml IRRIG ONE (13:40)
[2016-08-29] MEDS ORDERED: LR 1000ml 1,000 ML IVLG SCH (14:17)
--- NOTE | 2016-08-29 14:19 | Immediate Post-Op Evaluation ---
Immediate Post-Op Evalulation Immediate Post-Op Evalulation Procedure: Debridement of necrotic tissue bilateral buttocks, closure Date of Evaluation: Aug 29, 2016 Time of Evaluation: 17:54 IV Fluids: 1000 LR Blood Products: 0 Estimated Blood Loss: 150 Urinary Output: 400 Blood Pressure Systolic: 157 Blood Pressure Diastolic: 44 Pulse Rate: 88 Respiratory Rate: 16 O2 Sat by Pulse Oximetry: 100 Temperature (Fahrenheit): 97.2 Pain Score (1-10): 2 Nausea: No Vomiting: No Complications 0 Patient Status: awake, reacts, patent, extubated, none Hydration Status: adequate Dru Gram Ancef IV Given Within 1 Hr of Incision: Yes Time Given: 13:46 Tomas Morgan MD Aug 29, 2016 14:19
[2016-08-29] MEDS ORDERED: Norco 5mg/325mg tab ORAL PRN (14:30)
[2016-08-29] MEDS ORDERED: Midazolam 2mg/2ml Inj IVP PRN (14:30)
[2016-08-29] MEDS ORDERED: Hydromorphone 0.5mg/0.5ml inj IVP PRN (14:30)
[2016-08-29] MEDS ORDERED: Meperidine 25mg/0.5ml Inj IV PRN (14:30)
[2016-08-29] MEDS ORDERED: LORazepam Inj 2mg/ml 1ml IV PRN (14:30)
[2016-08-29] MEDS ORDERED: Norco 7.5mg/325mg tab ORAL PRN (14:30)
[2016-08-29] MEDS ORDERED: fentaNYL 100 mcg/2 mL IV PRN (14:30)
[2016-08-29] MEDS ORDERED: Atropine Inj 1mg/10ml Syr IV PRN (14:30)
[2016-08-29] MEDS ORDERED: Metoclopramide 10mg/2ml Inj IVP PRN (14:30)
[2016-08-29] MEDS ORDERED: Oxycodone/Acetaminophen 5-325 ORAL PRN (14:30)
[2016-08-29] MEDS ORDERED: Bacitracin Oint 15gm Tube TOPIC ONE (16:31)
--- NOTE | 2016-08-29 17:23 | Operative Note - PDOC ---
Operative Note Operative Note Pre-op Diagnosis: bilateral buttock soft tissue necrosis, cellulitis, open wounds buttocks Procedure: staged debridement of bilateral buttock necrotic soft tissue, flap delay and vac placement Post-op Diagnosis: same Post-op Diagnosis: same as pre-op Surgeon: tricia Tax Assistant: claudio Anesthesiologist: sherry Anesthesia: general Specimen: yes - b/l buttock and back necrotic soft tissue and skin Complications: none Condition: stable Estimated Blood Loss: volume - 300 Drains: ILIANA - x5 Indications for Procedure staged debridement of necrotic soft tissue from b/l back/hip/buttock and advancement flap closure over drains Description of Procedure see dictation Betty Chance M.D. Aug 29, 2016 17:23
[2016-08-29] MEDS ORDERED: Rate Change PCA 1 Each MISC PRN (17:30)
[2016-08-29] MEDS ORDERED: DiphenhydrAMINE 50mg/ml Inj IVP PRN (17:30)
[2016-08-29] MEDS ORDERED: LORazepam 1mg tab ORAL PRN (17:30)
[2016-08-29] MEDS ORDERED: Naloxone 0.4mg/ml Inj IVP PRN (17:30)
[2016-08-29] MEDS: PCA HYDROmorphone 1mg/ml 30 ML IV PRN (18:00)
[2016-08-29] MEDS: DiphenhydrAMINE 50mg/ml Inj IVP PRN ×2 (18:45→18:47)
--- NOTE | 2016-08-29 21:29 | General Progress Note ---
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 , s/p voluntary termination on 08/18 , pt has records that document this, cleared for surgery by OBGyn f/u Blood cx x2 Wound care per Surgery Cont IV unasyn Supp care Pain control Psychiatry consult appreciated A total of 32 mins of additional time was spent with this patient including coordination of care in addition to face to face time ICD Codes: L02.91 - Cutaneous abscess, unspecified SNOMED: [id number] Subjective Date patient seen: Aug 29, 2016 Time patient seen: 21:28 ROS Limited/Unobtainable: No Allergies: Coded Allergies: IODINE (Verified Allergy, Unknown, 08/26/16) PENICILLINS (Verified Allergy, Unknown, 08/26/16) Subjective s/p debridement of buttocks, POD#2, no periop or postop complications. No chest pain or dyspnea, pain well controlled. Objective Last 24 Hour Vital Signs Date Time Temp Pulse Resp B/P Pulse Ox O2 Delivery O2 Flow Rate FiO2 08/29/16 20:30 97.9 103 18 124/70 99 Nasal Cannula 2.0 08/29/16 20:00 16 08/29/16 19:30 102.0 109 18 123/70 99 Nasal Cannula 2.0 08/29/16 19:00 98.5 100 18 130/71 100 Nasal Cannula 3.0 08/29/16 18:45 102 16 133/72 100 Nasal Cannula 3.0 08/29/16 18:45 16 08/29/16 18:30 86 18 132/61 100 Nasal Cannula 3.0 08/29/16 18:30 14 08/29/16 18:20 97.2 08/29/16 18:20 97.2 08/29/16 18:20 96 14 130/72 100 Nasal Cannula 3.0 08/29/16 18:15 15 08/29/16 18:10 98 15 125/75 100 Nasal Cannula 6.0 08/29/16 18:00 88 16 121/77 100 Simple Mask 6.0 08/29/16 18:00 16 08/29/16 17:45 92 20 145/71 100 Simple Mask 6.0 08/29/16 17:44 88 16 100 08/29/16 17:43 97.3 89 18 157/44 100 Simple Mask 6.0 08/29/16 12:00 18 08/29/16 12:00 99.9 101 20 106/69 99 Room Air 08/29/16 08:00 18 08/29/16 08:00 98.1 87 18 113/85 99 Room Air 08/29/16 04:00 97.9 107 20 124/72 96 Room Air 08/29/16 00:08 98.1 99 18 122/74 95 Room Air Intake and Output 08/28/16 08/29/16 19:00 07:00 Intake Total 2000 ml 800 ml Output Total 500 ml 1760 ml Balance 1500 ml -960 ml Intake Oral 550 ml IV Total 1450 ml 800 ml Output Urine Total 300 ml 1550 ml Drainage Total 200 ml 210 ml # Bowel Movements 1 Laboratory Tests 08/29/16 04:40: White Blood Count 12.0H, Red Blood Count 3.68L, Hemoglobin 10.2L, Hematocrit 31.5L, Mean Corpuscular Volume 85, Mean Corpuscular Hemoglobin 27.7, Mean Corpuscular Hemoglobin Concent 32.4, Red Cell Distribution Width 13.2, Platelet Count 163, Mean Platelet Volume 6.4L, Neutrophils (%) (Auto) 73.3, Lymphocytes ( %) (Auto) 16.5L, Monocytes (%) (Auto) 8.2, Eosinophils (%) (Auto) 1.2, Basophils (%) (Auto) 0.9, Sodium Level 129L, Potassium Level 3.9, Chloride Level 97L, Carbon Dioxide Level 26, Anion Gap 6, Blood Urea Nitrogen 7, Creatinine 0.8, Estimat Glomerular Filtration Rate > 60, Glucose Level 124H, Calcium Level 8.3L Height (Feet): 5 Height (Inches): 3.00 Weight (Pounds): 130 Objective General: alert, cooperative, no distress, appears stated age Head: normocephalic, without obvious abnormality, atraumatic Eyes: conjunctivae/corneas clear. PERRL, EOM's intact Throat: lips, mucosa, and tongue normal. MMM Neck: supple, symmetrical, trachea midline, and no JVD Lungs: clear to auscultation bilaterally Heart: regular rate and rhythm, S1, S2 normal, no murmur, click, rub or gallop Abdomen: soft, non-tender, non-distended, bowel sounds normal; no masses or organomegaly Extremities: +tenderness to palpation, +rubor, +indurations (multiple) in bilateral gluteal area. Incisions c/d/i Pulses: 2+ and symmetric Skin: skin color, texture, turgor normal; no rashes or lesions Neurologic: 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, no focal deficits PETERSON COTTO Aug 29, 2016 21:29
[2016-08-30 00:30] VITALS: BP 100/56
[2016-08-30] MEDS: LR 1000ml 1,000 ML IV SCH ×2 (00:52→07:18)
[2016-08-30 04:00] VITALS: BP 122/65
[2016-08-30] MEDS: Heparin 5000 units/ml inj SUBQ SCH ×3 (05:12→21:13)
[2016-08-30 06:19] LABS: BASOPHILS % (AUTO) 0.5 % (0.0-2.0); EOSINOPHILS % (AUTO) 0.1 % (0.0-3.0); LYMPHOCYTES % (AUTO) 10.2 % (20.0-45.0); MEAN CORPUSCULAR HGB CONC 32.6 G/DL (32.0-36.0); MEAN CORPUSCULAR VOLUME 86 FL (80-99); MEAN PLATELET VOLUME 5.9 FL (6.5-10.1); MONOCYTES % (AUTO) 8.5 % (1.0-10.0); NEUTROPHILS % (AUTO) 80.8 % (45.0-75.0); PLATELET COUNT 145 K/UL (150-450); RED BLOOD COUNT 3.29 M/UL (4.20-5.40); RED CELL DISTRIBUTION WIDTH 13.1 % (11.6-14.8)
[2016-08-30 07:05] LABS: ANION GAP 11 (5-15); CALCIUM 8.8 mg/dL (8.6-10.2); CARBON DIOXIDE 27 mEQ/L (20-30); CHLORIDE 97 mEQ/L (98-107); CREATININE 0.9 mg/dL (0.5-0.9); GLOMERULAR FILTRATION RATE > 60 mL/min (>60); HEMOLYSIS 3; POTASSIUM 4.2 mEQ/L (3.4-4.9); SODIUM 135 mEQ/L (135-145)
[2016-08-30] MEDS: PCA shift volume MISC SCH ×2 (07:14→19:14)
[2016-08-30 08:00] VITALS: BP 127/74
[2016-08-30] MEDS: Docusate 100mg cap ORAL SCH ×2 (08:45→20:11)
[2016-08-30] MEDS: Lactobacillus-GG tablet ORAL SCH ×2 (08:45→17:17)
--- NOTE | 2016-08-30 10:36 | General Progress Note ---
Progress Note Progress Note Pt feels great Tmax 101, VSS PE: flaps viable incision c/d/i (-) signs infection/collections ILIANA appropriate SS H/H 9.7 A/P POD # ! s/p debridement and flap closure of b/l buttocks and back necrotic soft tissue 1. ILIANA teaching, I & O 2. Cont IV abx 3. DVT ppx/ OOB/ minimal supine position 4. Incentive spirometer 5. repeat am cbc 6. d/c HUSEYIN beltre Tansar M.D. Aug 30, 2016 10:36
[2016-08-30 12:00] VITALS: BP 118/58
--- NOTE | 2016-08-30 12:03 | 48 Hour Post Anesthesia Eval ---
Post Anesthesia Evaluation Procedure: Debridement of necrotic tissue bilateral buttocks, closure Date of Evaluation: Aug 30, 2016 Time of Evaluation: 12:01 Blood Pressure Systolic: 108 0: 65 Pulse Rate: 72 Respiratory Rate: 20 Temperature (Fahrenheit): 97.5 O2 Sat by Pulse Oximetry: 98 Airway: patent Nausea: No Vomiting: No Pain Intensity: 3 Hydration Status: adequate Cardiopulmonary Status: stable Mental Status/LOC: patient returned to baseline Follow-up Care/Observations: n/a Post-Anesthesia Complications: none Follow-up care needed: N/A RAVI BALDWIN M.D. Aug 30, 2016 12:03
[2016-08-30 16:00] VITALS: BP 112/64
--- NOTE | 2016-08-30 17:11 | General Progress Note ---
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 , s/p voluntary termination on 08/18 , pt has records that document this, cleared for surgery by OBGyn f/u Blood cx x2 Wound care per Surgery Cont IV unasyn Supp care Pain control Psychiatry consult appreciated A total of 32 mins of additional time was spent with this patient including coordination of care in addition to face to face time ICD Codes: L02.91 - Cutaneous abscess, unspecified SNOMED: [id number] Subjective Date patient seen: Aug 30, 2016 Time patient seen: 17:10 ROS Limited/Unobtainable: No Allergies: Coded Allergies: IODINE (Verified Allergy, Unknown, 08/26/16) PENICILLINS (Verified Allergy, Unknown, 08/26/16) Subjective s/p debridement of buttocks, POD#3, no periop or postop complications. No chest pain or dyspnea, pain well controlled. Objective Last 24 Hour Vital Signs Date Time Temp Pulse Resp B/P Pulse Ox O2 Delivery O2 Flow Rate FiO2 08/30/16 16:00 18 08/30/16 14:13 98.2 08/30/16 13:44 97.5 08/30/16 12:03 72 20 98 08/30/16 12:00 100.2 122 18 118/58 98 Room Air 08/30/16 12:00 18 08/30/16 09:49 99.7 08/30/16 08:49 101.5 08/30/16 08:00 98.6 122 20 127/74 96 Room Air 08/30/16 08:00 18 08/30/16 04:00 16 08/30/16 04:00 98.2 104 18 122/65 99 Room Air 08/30/16 00:30 97.9 83 18 100/56 99 Room Air 08/30/16 00:00 16 08/29/16 21:30 98.1 102 16 116/67 99 Nasal Cannula 2.0 08/29/16 20:30 97.9 103 18 124/70 99 Nasal Cannula 2.0 08/29/16 20:00 16 08/29/16 19:30 102.0 109 18 123/70 99 Nasal Cannula 2.0 08/29/16 19:00 98.5 100 18 130/71 100 Nasal Cannula 3.0 08/29/16 18:45 102 16 133/72 100 Nasal Cannula 3.0 08/29/16 18:45 16 08/29/16 18:30 86 18 132/61 100 Nasal Cannula 3.0 08/29/16 18:30 14 08/29/16 18:20 97.2 08/29/16 18:20 97.2 08/29/16 18:20 96 14 130/72 100 Nasal Cannula 3.0 08/29/16 18:15 15 08/29/16 18:10 98 15 125/75 100 Nasal Cannula 6.0 08/29/16 18:00 88 16 121/77 100 Simple Mask 6.0 08/29/16 18:00 16 08/29/16 17:45 92 20 145/71 100 Simple Mask 6.0 08/29/16 17:44 88 16 100 08/29/16 17:43 97.3 89 18 157/44 100 Simple Mask 6.0 Intake and Output 08/29/16 08/30/16 19:00 07:00 Intake Total 1050 ml Output Total 1800 ml 2330 ml Balance -1800 ml -1280 ml Intake Oral 800 ml IV Total 250 ml Output Urine Total 1800 ml 2150 ml Drainage Total 180 ml Laboratory Tests 08/30/16 05:15: White Blood Count 15.0H, Red Blood Count 3.29L, Hemoglobin 9.2L, Hematocrit 28.2L, Mean Corpuscular Volume 86, Mean Corpuscular Hemoglobin 28.0, Mean Corpuscular Hemoglobin Concent 32.6, Red Cell Distribution Width 13.1, Platelet Count 145L, Mean Platelet Volume 5.9L, Neutrophils (%) (Auto) 80.8H, Lymphocytes (%) (Auto) 10.2L, Monocytes (%) (Auto) 8.5, Eosinophils (%) (Auto) 0.1, Basophils (%) (Auto) 0.5, Sodium Level 135, Potassium Level 4.2, Chloride Level 97L, Carbon Dioxide Level 27, Anion Gap 11, Blood Urea Nitrogen 7, Creatinine 0.9, Estimat Glomerular Filtration Rate > 60, Glucose Level 135H, Calcium Level 8.8 Height (Feet): 5 Height (Inches): 3.00 Weight (Pounds): 130 Objective General: alert, cooperative, no distress, appears stated age Head: normocephalic, without obvious abnormality, atraumatic Eyes: conjunctivae/corneas clear. PERRL, EOM's intact Throat: lips, mucosa, and tongue normal. MMM Neck: supple, symmetrical, trachea midline, and no JVD Lungs: clear to auscultation bilaterally Heart: regular rate and rhythm, S1, S2 normal, no murmur, click, rub or gallop Abdomen: soft, non-tender, non-distended, bowel sounds normal; no masses or organomegaly Extremities: +tenderness to palpation, +rubor, +indurations (multiple) in bilateral gluteal area. Incisions c/d/i Pulses: 2+ and symmetric Skin: skin color, texture, turgor normal; no rashes or lesions Neurologic: 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, no focal deficits PETERSON COTTO Aug 30, 2016 17:11
--- NOTE | 2016-08-30 17:31 | Consultation ---
History of Present Illness General Date patient seen: Aug 30, 2016 Present Illness Allergies: Coded Allergies: IODINE (Verified Allergy, Unknown, 08/26/16) PENICILLINS (Verified Allergy, Unknown, 08/26/16) Patient History Healthcare decision maker SELF Resuscitation status Full Code Advanced Directive on File Physical Exam Last 24 Hour Vital Signs Date Time Temp Pulse Resp B/P Pulse Ox O2 Delivery O2 Flow Rate FiO2 08/30/16 16:00 18 08/30/16 14:13 98.2 08/30/16 13:44 97.5 08/30/16 12:03 72 20 98 08/30/16 12:00 100.2 122 18 118/58 98 Room Air 08/30/16 12:00 18 08/30/16 09:49 99.7 08/30/16 08:49 101.5 08/30/16 08:00 98.6 122 20 127/74 96 Room Air 08/30/16 08:00 18 08/30/16 04:00 16 08/30/16 04:00 98.2 104 18 122/65 99 Room Air 08/30/16 00:30 97.9 83 18 100/56 99 Room Air 08/30/16 00:00 16 08/29/16 21:30 98.1 102 16 116/67 99 Nasal Cannula 2.0 08/29/16 20:30 97.9 103 18 124/70 99 Nasal Cannula 2.0 08/29/16 20:00 16 08/29/16 19:30 102.0 109 18 123/70 99 Nasal Cannula 2.0 08/29/16 19:00 98.5 100 18 130/71 100 Nasal Cannula 3.0 08/29/16 18:45 102 16 133/72 100 Nasal Cannula 3.0 08/29/16 18:45 16 08/29/16 18:30 86 18 132/61 100 Nasal Cannula 3.0 08/29/16 18:30 14 08/29/16 18:20 97.2 08/29/16 18:20 97.2 08/29/16 18:20 96 14 130/72 100 Nasal Cannula 3.0 08/29/16 18:15 15 08/29/16 18:10 98 15 125/75 100 Nasal Cannula 6.0 08/29/16 18:00 88 16 121/77 100 Simple Mask 6.0 08/29/16 18:00 16 08/29/16 17:45 92 20 145/71 100 Simple Mask 6.0 08/29/16 17:44 88 16 100 08/29/16 17:43 97.3 89 18 157/44 100 Simple Mask 6.0 Intake and Output 08/29/16 08/30/16 19:00 07:00 Intake Total 1050 ml Output Total 1800 ml 2330 ml Balance -1800 ml -1280 ml Intake Oral 800 ml IV Total 250 ml Output Urine Total 1800 ml 2150 ml Drainage Total 180 ml Laboratory Tests Test 08/30/16 05:15 White Blood Count 15.0 K/UL (4.8-10.8) H Red Blood Count 3.29 M/UL (4.20-5.40) L Hemoglobin 9.2 G/DL (12.0-16.0) L Hematocrit 28.2 % (37.0-47.0) L Mean Corpuscular Volume 86 FL (80-99) Mean Corpuscular Hemoglobin 28.0 PG (27.0-31.0) Mean Corpuscular Hemoglobin Concent 32.6 G/DL (32.0-36.0) Red Cell Distribution Width 13.1 % (11.6-14.8) Platelet Count 145 K/UL (150-450) L Mean Platelet Volume 5.9 FL (6.5-10.1) L Neutrophils (%) (Auto) 80.8 % (45.0-75.0) H Lymphocytes (%) (Auto) 10.2 % (20.0-45.0) L Monocytes (%) (Auto) 8.5 % (1.0-10.0) Eosinophils (%) (Auto) 0.1 % (0.0-3.0) Basophils (%) (Auto) 0.5 % (0.0-2.0) Sodium Level 135 mEQ/L (135-145) Potassium Level 4.2 mEQ/L (3.4-4.9) Chloride Level 97 mEQ/L (98-107) L Carbon Dioxide Level 27 mEQ/L (20-30) Anion Gap 11 (5-15) Blood Urea Nitrogen 7 mg/dL (7-23) Creatinine 0.9 mg/dL (0.5-0.9) Estimat Glomerular Filtration Rate > 60 mL/min (>60) Glucose Level 135 mg/dL (74-106) H Calcium Level 8.8 mg/dL (8.6-10.2) Height (Feet): 5 Height (Inches): 3.00 Weight (Pounds): 130 Medications Current Medications Medications (Trade) Dose Ordered Sig/Yamileth Route PRN Reason Start Time Stop Time Status Last Admin Dose Admin Acetaminophen (Tylenol) 650 mg Q4H PRN ORAL fever 08/26/16 14:45 09/25/16 14:44 08/30/16 13:14 Acetaminophen (Tylenol) 650 mg Q4H PRN ORAL Mild Pain (Pain Scale 1-3) 08/26/16 14:45 09/25/16 14:44 Al Hydroxide/Mg Hydroxide (Mylanta II) 30 ml Q6H PRN ORAL dyspepsia 08/26/16 14:45 09/25/16 14:44 Bisacodyl (Dulcolax) 10 mg HSPRN PRN RECTAL Constipation 08/26/16 14:45 09/25/16 14:44 Clindamycin HCl/ Dextrose (Cleocin 300mg) 50 ml @ 100 mls/hr Q8HR@0200,1000,1800 IV 08/26/16 17:00 09/02/16 16:59 08/30/16 17:17 Dextrose STAT PRN IV Hypoglycemia 08/26/16 14:45 09/25/16 14:44 Diphenhydramine HCl (Benadryl) 25 mg Q6H PRN IVP Itching/Pruritis 08/29/16 17:30 08/31/16 17:29 Docusate Sodium (Colace) 100 mg EVERY 12 HOURS ORAL 08/26/16 21:00 09/25/16 20:59 08/30/16 08:45 Heparin Sodium (Porcine) 5000 units 5,000 units EVERY 8 HOURS SUBQ 08/28/16 06:00 09/27/16 05:59 08/30/16 05:12 Hydromorphone HCl (Dilaudid) 2 mg Q3H PRN SUBQ Severe Pain (Pain Scale 7-10) 08/29/16 17:45 08/31/16 17:44 08/29/16 23:02 Hydromorphone HCl (Dilaudid) 2 mg Q4H PRN IVP Moderate Pain (Pain Scale 4-6) 08/29/16 17:45 08/31/16 17:44 08/30/16 13:14 Hydromorphone HCl (ARCHITECTURAL ADMINISTRATIVE ASSISTANT Dilaudid) 30 ml @ 0 mls/hr Q24H PRN IV For Pain 08/29/16 17:30 08/31/16 17:29 08/29/16 18:00 Lactobacillus Acidophilus (Culturelle) 1 tab TWICE A DAY ORAL 08/26/16 18:00 09/25/16 17:59 08/30/16 17:17 Lorazepam (Ativan) 1 mg Q4H PRN ORAL Muscle Spasm 08/29/16 17:30 08/31/16 17:29 Magnesium Hydroxide (Mom) 30 ml HSPRN PRN ORAL Constipation 08/26/16 14:45 09/25/16 14:44 Miscellaneous Medication (ARCHITECTURAL ADMINISTRATIVE ASSISTANT Rate Change) 1 ea DAILY PRN MISC rate change 08/29/16 17:30 08/31/16 17:29 Miscellaneous Medication (ARCHITECTURAL ADMINISTRATIVE ASSISTANT shift volume) 1 ea Q12HR@0700,1900 MISC 08/29/16 19:00 08/31/16 18:59 08/30/16 07:14 Naloxone HCl (Narcan) 0.1 mg Q1M PRN IVP RR<10/min OR SBP<90 mmHg 08/29/16 17:30 08/31/16 17:29 Ondansetron HCl (Zofran) 4 mg Q6H PRN IVP Nausea & Vomiting 08/29/16 17:30 08/31/16 17:29 Ondansetron HCl (Zofran) 4 mg Q6H PRN IVP Nausea & Vomiting 08/31/16 17:45 09/30/16 17:44 Polyethylene Glycol (Miralax) 17 gm HSPRN PRN ORAL Constipation 08/26/16 14:45 09/25/16 14:44 Temazepam (Restoril) 15 mg HSPRN PRN ORAL Insomnia 08/26/16 14:45 09/02/16 14:44 08/29/16 22:58 Assessment/Plan Assessment/Plan (1) Bilateral buttock soft tissue necrosis, cellulitis, open wounds buttocks (2) Abscess (3) Intractable pain (4) Staged debridement of bilateral buttock necrotic soft tissue, flap delay and vac placement Seen dictated NELLY JACK Aug 30, 2016 17:31
[2016-08-30] MEDS: PCA HYDROmorphone 1mg/ml 30 ML IV PRN (17:54)
[2016-08-30 20:00] VITALS: BP 123/65
[2016-08-31] VITALS: BP 151/67
[2016-08-31 04:00] VITALS: BP 134/74
[2016-08-31] MEDS: Heparin 5000 units/ml inj SUBQ SCH ×3 (05:07→20:27)
[2016-08-31 06:51] LABS: ANION GAP 11 (5-15); CALCIUM 8.3 mg/dL (8.6-10.2); CARBON DIOXIDE 27 mEQ/L (20-30); CHLORIDE 92 mEQ/L (98-107); CREATININE 0.8 mg/dL (0.5-0.9); GLOMERULAR FILTRATION RATE > 60 mL/min (>60); HEMOLYSIS 0; POTASSIUM 3.5 mEQ/L (3.4-4.9); SODIUM 130 mEQ/L (135-145)
[2016-08-31 07:04] LABS: MEAN CORPUSCULAR HEMOGLOBIN 28.3 PG (27.0-31.0); MEAN CORPUSCULAR HGB CONC 33.1 G/DL (32.0-36.0); MEAN CORPUSCULAR VOLUME 86 FL (80-99); PLATELET COUNT 178 K/UL (150-450); RED BLOOD COUNT 2.95 M/UL (4.20-5.40); RED CELL DISTRIBUTION WIDTH 12.8 % (11.6-14.8); WHITE BLOOD COUNT 18.8 K/UL (4.8-10.8)
--- NOTE | 2016-08-31 07:15 | Consultation ---
DATE OF CONSULTATION: 08/30/2016 PAIN MANAGEMENT CONSULTATION CONSULTING PHYSICIAN: Paulo Singh M.D. REFERRING PHYSICIAN: Ana María Christiansen M.D. PHYSICIAN CHILD WELFARE ASSISTANT: Andreas Gilbert CHIEF COMPLAINT: Buttock pain. HISTORY OF PRESENT ILLNESS: This is a 31-year-old female who is being seen on the medical/surgical floor of [facility] for initial comprehensive pain management consultation. The patient was admitted to the hospital on 08/26/2016 under the care of Dr. Christiansen complaining of buttock pain, reporting it at 10/10. It is a constant, sharp, and stabbing pain, which is burning, increased with movement and has been minimally reduced with CODING SUPPORT SPECIALIST Dilaudid, which is 0.2 mg lockout interval every 6 minutes and she has used 9 mg in less than four hours. At this time, the patient is in pain. Wound VAC applied. The patient is status post debridement and flap delay. Due the the pain, we were consulted so that the patient would have adequate pain control while here in the hospital. PAST MEDICAL HISTORY: Thyroid issues. PAST SURGICAL HISTORY: . MEDICATIONS: Medications here in the hospital are Tylenol, Mylanta, Dulcolax, dextrose, Benadryl, Colace, heparin, Dilaudid, Ativan, Narcan, Zofran, MiraLax, and Restoril. ALLERGIES: Penicillin and iodine. SOCIAL HISTORY: Denies smoking tobacco, drinking alcohol, or drug abuse. REVIEW OF SYSTEMS: Denies rash, fever, chills, sweating, dizziness, drowsiness, blurred vision, sore throat, or change in her weight. No shortness of breath or chest pain. No nausea, vomiting, or blood in the stool or urine. No bowel or bladder incontinence. She is complaining of buttock pain. PHYSICAL EXAMINATION: GENERAL: Alert, awake, and oriented x3. VITAL SIGNS: Blood pressure 118/58, heart rate is 102, oxygen saturation 98%, respiratory rate is 18, and temperature is 100 degrees Fahrenheit. Height is 5 feet 3 inches and weight is 130 pounds. HEENT: PERRLA. NECK: Range of motion is full in all directions. No tenderness to paracervical muscles. No adenopathy. LUNGS: Clear. HEART: Regular. ABDOMEN: Benign. BACK: Range of motion is decreased in flexion and extension with tenderness to paraspinal muscles with bandages noted on the buttock area with wound VAC seen. Tenderness to palpation. EXTREMITIES: Upper extremity range of motion is full in all directions. Motor is intact. No cyanosis. No clubbing. No edema. Sensory is intact. Reflexes are unobtainable. No adenopathy. Lower extremity range of motion is diseased due to the patient's clinical condition. Motor is intact. No cyanosis. No clubbing. No edema. Sensory is intact. Reflexes are unobtainable. No adenopathy. ASSESSMENT AND PLAN: This is a 31-year-old female with bilateral buttock soft tissue necrosis, cellulitis, open wounds on the buttocks, abscess, intractable pain, status post staged debridement of the bilateral buttock necrotic soft tissue with flap delay and VAC placement. The patient will be continued on CODING SUPPORT SPECIALIST Dilaudid 0.2 mg lockout interval at 6 minutes, Dilaudid 2 mg IV every four hours as needed for moderate pain. And Dilaudid 2 mg subcutaneous every three hours as needed for severe pain. She will be started on Neurontin 300 mg tablet at bedtime. The patient was discussed with Dr. Singh and Dr. Singh concurred. We will follow the patient. Thank you very much for the courtesy of this consultation. Paulo Singh M.D. WM Gilbert DR: Toña JOB#: [id number] CC:
[2016-08-31] MEDS: PCA shift volume MISC SCH (07:31)
[2016-08-31 08:00] VITALS: BP 127/67
[2016-08-31 08:22] LABS: BAND NEUTROPHILS % (MANUAL) 1 % (0-8); BASOPHILS % (MANUAL) 0 % (0-2); EOSINOPHILS % (MANUAL) 2 % (0-3); LYMPHOCYTES % (MANUAL) 16 % (20-45); NEUTROPHILS % (MANUAL) 70 % (45-75); PLATELET ESTIMATE ADEQUATE; PLATELET MORPHOLOGY NORMAL; TOTAL CELLS COUNTED 100
[2016-08-31 08:23] LABS: HYPOCHROMASIA 1+
[2016-08-31] MEDS: Lactobacillus-GG tablet ORAL SCH ×2 (08:44→18:23)
[2016-08-31] MEDS: Docusate 100mg cap ORAL SCH ×2 (08:44→20:25)
[2016-08-31 08:48] LABS: APPEARANCE,URINE CLEAR; KETONES,URINE NEGATIVE (NEGATIVE); LEUKOCYTE ESTERASE ,URINE 1+ (NEGATIVE); NITRITE,URINE NEGATIVE (NEGATIVE); PH,URINE 7 (4.5-8.0); PROTEIN,URINE NEGATIVE (NEGATIVE); UROBILINOGEN,URINE NORMAL MG/DL (0.0-1.0)
[2016-08-31 09:02] LABS: BACTERIA,URINE FEW /HPF; SQUAMOUS EPITHELIAL CELL,UR FEW /LPF (NONE/OCC)
--- NOTE | 2016-08-31 09:56 | General Progress Note ---
Assessment/Plan Assessment/Plan (1) Bilateral buttock soft tissue necrosis, cellulitis, open wounds buttocks (2) Abscess (3) Intractable pain (4) Staged debridement of bilateral buttock necrotic soft tissue, flap delay and vac placement The patient is to be dicontinued off the TAX EXPERT Dilaudid, and we will continued the Dilaudid Injection at 1mg IVP Q4H PRN severe pain, Neurontin. We will start Percocet 10/325mg PO 1 tab Q4H PRN pain to transition from Injection to PO medication. The patient was discussed with Dr. Singh and concurred. Subjective Date patient seen: Aug 31, 2016 Time patient seen: 09:45 - am Constitutional: Reports: chills, fever, weakness HEENT: Reports: no symptoms Cardiovascular: Reports: no symptoms Respiratory: Reports: no symptoms Gastrointestinal/Abdominal: Reports: no symptoms Genitourinary: Reports: no symptoms Neurologic/Psychiatric: Reports: weakness Endocrine: Reports: no symptoms Hematologic/Lymphatic: Reports: no symptoms Allergies: Coded Allergies: IODINE (Verified Allergy, Unknown, 08/26/16) PENICILLINS (Verified Allergy, Unknown, 08/26/16) Subjective Patient reports that her pain has been reduced on the TAX EXPERT Dilaudid and has used 7.2mg of it in the last 24hrs. She is c/o feeling fever and chills. Dr. Christiansen has ordered cultures and will asses the patient for infection. Objective Last 24 Hour Vital Signs Date Time Temp Pulse Resp B/P Pulse Ox O2 Delivery O2 Flow Rate FiO2 08/31/16 08:00 16 08/31/16 08:00 98.6 112 18 127/67 98 Room Air 08/31/16 05:40 100.4 08/31/16 04:00 102.0 124 18 134/74 99 Room Air 08/31/16 04:00 16 08/31/16 00:00 99.5 118 18 151/67 99 Room Air 08/31/16 00:00 16 08/30/16 20:00 99.0 126 20 123/65 100 Room Air 08/30/16 20:00 16 08/30/16 18:24 98.2 08/30/16 16:00 96.8 118 20 112/64 99 Room Air 08/30/16 16:00 18 08/30/16 13:44 97.5 08/30/16 12:03 72 20 98 08/30/16 12:00 100.2 122 18 118/58 98 Room Air 08/30/16 12:00 18 Intake and Output 08/30/16 08/31/16 19:00 07:00 Intake Total 480 ml Output Total 1120 ml 265 ml Balance -640 ml -265 ml Intake Oral 480 ml Output Urine Total 950 ml Drainage Total 150 ml 220 ml Other 20 ml 45 ml # Voids 2 Laboratory Tests 08/31/16 05:50: White Blood Count 18.8H, Red Blood Count 2.95L, Hemoglobin 8.4L, Hematocrit 25.3L, Mean Corpuscular Volume 86, Mean Corpuscular Hemoglobin 28.3, Mean Corpuscular Hemoglobin Concent 33.1, Red Cell Distribution Width 12.8, Platelet Count 178, Mean Platelet Volume 6.0L, Neutrophils (%) (Auto) , Lymphocytes (%) ( Auto) , Monocytes (%) (Auto) , Eosinophils (%) (Auto) , Basophils (%) (Auto) , Differential Total Cells Counted 100, Neutrophils % (Manual) 70, Lymphocytes % ( Manual) 16L, Monocytes % (Manual) 11H, Eosinophils % (Manual) 2, Basophils % ( Manual) 0, Band Neutrophils 1, Platelet Estimate Adequate, Platelet Morphology Normal, Hypochromasia 1+, Sodium Level 130L, Potassium Level 3.5, Chloride Level 92L, Carbon Dioxide Level 27, Anion Gap 11, Blood Urea Nitrogen 6L, Creatinine 0.8, Estimat Glomerular Filtration Rate > 60, Glucose Level 116H, Calcium Level 8.3L 08/31/16 08:31: Urine Color Pale yellow, Urine Appearance Clear, Urine pH 7, Urine Specific [place] 1.005, Urine Protein Negative, Urine Glucose (UA) Negative, Urine Ketones Negative, Urine Occult Blood 2+H, Urine Nitrite Negative, Urine Bilirubin Negative, Urine Urobilinogen Normal, Urine Leukocyte Esterase 1+H, Urine RBC 2-4H, Urine WBC 2-4, Urine Squamous Epithelial Cells Few, Urine Bacteria Few Height (Feet): 5 Height (Inches): 3.00 Weight (Pounds): 130 General Appearance: no apparent distress, alert EENT: PERRL/EOMI, normal ENT inspection Neck: non-tender, normal alignment Cardiovascular: normal rate, regular rhythm Respiratory/Chest: lungs clear, normal breath sounds Abdomen: non tender, soft Extremities: non-tender Edema: no edema noted Arm (L), no edema noted Arm (R), no edema noted Leg (L), no edema noted Leg (R), no edema noted Pedal (L), no edema noted Pedal (R), no edema noted Generalized Neurologic: alert, oriented x 3 Skin: other - bandages applied to buttock area with tenderness to palpation NELLY JACK Aug 31, 2016 09:56
[2016-08-31] MEDS ORDERED: Tubing IV Secondary IV ONE (10:00)
[2016-08-31] MEDS ORDERED: LR 1000ml ONE (10:00)
--- NOTE | 2016-08-31 11:00 | Diagnostic Imaging Report ---
Indication: Fever, status post recent surgery Technique: One view of the chest Comparison: 08/26/2016 Findings: Lungs and pleural spaces are clear. Heart size is normal . No significant change Impression: No acute process
[2016-08-31 12:00] VITALS: BP 100/56
--- NOTE | 2016-08-31 14:36 | Infectious Diseases Prog Note ---
Assessment/Plan Assessment/Plan Full consult dictated: A) 1) fevers, leukocytosis post-op 2) s/p debridement of bilateral buttock necrosis with cellulitis, now with open wounds and wound vac/flap 3) hx gluteal silicone infectios 4) recent terminated 5) r/u AURORA autoimmune syndrome 6) pain mgt, anemia, hyponatremia 7) allergies - pcn and iodine, sh-negative, mar noted, notes and records reviewed 8) d/w RN P) 1) clindamycin and ciprofloxacin 2) check cultures 3) watch labs 4) continue treatment per Dr. Christiansen and surgery 5) orders noted and entered 6) d/w Dr. Christiansen 7) thank you Subjective Allergies: Coded Allergies: IODINE (Verified Allergy, Unknown, 08/26/16) PENICILLINS (Verified Allergy, Unknown, 08/26/16) Objective Vital Signs Last 24 Hour Vital Signs Date Time Temp Pulse Resp B/P Pulse Ox O2 Delivery O2 Flow Rate FiO2 08/31/16 13:15 100.4 08/31/16 12:00 97.9 106 20 100/56 98 Room Air 08/31/16 12:00 16 08/31/16 08:00 16 08/31/16 08:00 98.6 112 18 127/67 98 Room Air 08/31/16 05:40 100.4 08/31/16 04:00 102.0 124 18 134/74 99 Room Air 08/31/16 04:00 16 08/31/16 00:00 99.5 118 18 151/67 99 Room Air 08/31/16 00:00 16 08/30/16 20:00 99.0 126 20 123/65 100 Room Air 08/30/16 20:00 16 08/30/16 18:24 98.2 08/30/16 16:00 96.8 118 20 112/64 99 Room Air 08/30/16 16:00 18 Height (Feet): 5 Height (Inches): 3.00 Weight (Pounds): 130 Laboratory Tests Test 08/31/16 05:50 08/31/16 08:31 08/31/16 08:45 White Blood Count 18.8 K/UL (4.8-10.8) H Red Blood Count 2.95 M/UL (4.20-5.40) L Hemoglobin 8.4 G/DL (12.0-16.0) L Hematocrit 25.3 % (37.0-47.0) L Mean Corpuscular Volume 86 FL (80-99) Mean Corpuscular Hemoglobin 28.3 PG (27.0-31.0) Mean Corpuscular Hemoglobin Concent 33.1 G/DL (32.0-36.0) Red Cell Distribution Width 12.8 % (11.6-14.8) Platelet Count 178 K/UL (150-450) Mean Platelet Volume 6.0 FL (6.5-10.1) L Neutrophils (%) (Auto) % (45.0-75.0) Lymphocytes (%) (Auto) % (20.0-45.0) Monocytes (%) (Auto) % (1.0-10.0) Eosinophils (%) (Auto) % (0.0-3.0) Basophils (%) (Auto) % (0.0-2.0) Differential Total Cells Counted 100 Neutrophils % (Manual) 70 % (45-75) Lymphocytes % (Manual) 16 % (20-45) L Monocytes % (Manual) 11 % (1-10) H Eosinophils % (Manual) 2 % (0-3) Basophils % (Manual) 0 % (0-2) Band Neutrophils 1 % (0-8) Platelet Estimate Adequate Platelet Morphology Normal Hypochromasia 1+ Sodium Level 130 mEQ/L (135-145) L Potassium Level 3.5 mEQ/L (3.4-4.9) Chloride Level 92 mEQ/L (98-107) L Carbon Dioxide Level 27 mEQ/L (20-30) Anion Gap 11 (5-15) Blood Urea Nitrogen 6 mg/dL (7-23) L Creatinine 0.8 mg/dL (0.5-0.9) Estimat Glomerular Filtration Rate > 60 mL/min (>60) Glucose Level 116 mg/dL (74-106) H Calcium Level 8.3 mg/dL (8.6-10.2) L Urine Color Pale yellow Pending Urine Appearance Clear Pending Urine pH 7 (4.5-8.0) Pending Urine Specific [place] 1.005 (1.005-1.035) Pending Urine Protein Negative (NEGATIVE) Pending Urine Glucose (UA) Negative (NEGATIVE) Pending Urine Ketones Negative (NEGATIVE) Pending Urine Occult Blood 2+ (NEGATIVE) H Pending Urine Nitrite Negative (NEGATIVE) Pending Urine Bilirubin Negative (NEGATIVE) Pending Urine Urobilinogen Normal MG/DL (0.0-1.0) Pending Urine Leukocyte Esterase 1+ (NEGATIVE) H Pending Urine RBC 2-4 /HPF (0 - 2) H Pending Urine WBC 2-4 /HPF (0 - 2) Pending Urine Squamous Epithelial Cells Few /LPF (NONE/OCC) Pending Urine Bacteria Few /HPF (NONE) Pending Current Medications Medications (Trade) Dose Ordered Sig/Yamileth Route PRN Reason Start Time Stop Time Status Last Admin Dose Admin Acetaminophen (Tylenol) 650 mg Q4H PRN ORAL fever 08/26/16 14:45 09/25/16 14:44 08/31/16 04:32 Acetaminophen (Tylenol) 650 mg Q4H PRN ORAL Mild Pain (Pain Scale 1-3) 08/26/16 14:45 09/25/16 14:44 Al Hydroxide/Mg Hydroxide (Mylanta II) 30 ml Q6H PRN ORAL dyspepsia 08/26/16 14:45 09/25/16 14:44 Bisacodyl (Dulcolax) 10 mg HSPRN PRN RECTAL Constipation 08/26/16 14:45 09/25/16 14:44 Ciprofloxacin (Cipro 400mg/ 200ml premix bag) 200 ml @ 200 mls/hr Q12HR IV 08/31/16 12:30 09/07/16 12:29 08/31/16 12:35 Dextrose (Dextrose 50%) STAT PRN IV Hypoglycemia 08/26/16 14:45 09/25/16 14:44 Docusate Sodium (Colace) 100 mg EVERY 12 HOURS ORAL 08/26/16 21:00 09/25/16 20:59 08/31/16 08:44 Gabapentin (Neurontin) 300 mg BEDTIME ORAL 08/30/16 21:00 09/29/16 20:59 08/30/16 20:11 Heparin Sodium (Porcine) (Heparin 5000 units/ml) 5,000 units EVERY 8 HOURS SUBQ 08/28/16 06:00 09/27/16 05:59 08/30/16 05:12 Hydromorphone HCl 1 mg 1 mg Q4H PRN IVP Severe Pain (Pain Scale 7-10) 08/31/16 09:30 09/07/16 09:29 Lactobacillus Acidophilus (Culturelle) 1 tab TWICE A DAY ORAL 08/26/16 18:00 09/25/16 17:59 08/31/16 08:44 Magnesium Hydroxide (Mom) 30 ml HSPRN PRN ORAL Constipation 08/26/16 14:45 09/25/16 14:44 Naloxone HCl (Narcan) 0.1 mg Q1M PRN IVP RR<10/min OR SBP<90 mmHg 08/29/16 17:30 08/31/16 17:29 Ondansetron HCl (Zofran) 4 mg Q6H PRN IVP Nausea & Vomiting 08/31/16 17:45 09/30/16 17:44 Oxycodone/ Acetaminophen (Percocet 10/325) 1 tab Q4H PRN ORAL MODERATE BREAKTHROUGH PAIN 08/31/16 09:30 09/07/16 09:29 08/31/16 12:16 Polyethylene Glycol (Miralax) 17 gm HSPRN PRN ORAL Constipation 08/26/16 14:45 09/25/16 14:44 Temazepam (Restoril) 15 mg HSPRN PRN ORAL Insomnia 08/26/16 14:45 09/02/16 14:44 08/29/16 22:58 BLU KATHLEEN Aug 31, 2016 14:36
[2016-08-31] MEDS: HYDROmorphone 1mg/ml Carpuject IVP PRN ×3 (14:39→22:59)
--- NOTE | 2016-08-31 15:29 | General Progress Note ---
Progress Note Progress Note pt doing well except for fever TM 102, VSS PE: buttock incision c/d/i flaps viable ? area erythema/tender (-) fluctuance (-) collections b/l calves soft (-) edema WBC 18 H/H 8.5/24 A/P 1. d/c clindamycin; change to CIPRO IV BID 2. fever workup per medicine- CXR, U/A, blood cx 3. CT pelvis if fever persists 4. IS/ DVT ppx 5. OOB, freq position changes; Betty De La Torre M.D. Aug 31, 2016 15:29
[2016-08-31 16:00] VITALS: BP 137/68
--- NOTE | 2016-08-31 16:31 | General Progress Note ---
Assessment/Plan Problem List: (1) Abscess Assessment & Plan: s/p debridement of buttocks POD#4 R/o AURORA syndrome given silicone injections and onset of systemic symptoms, full autoimmune panel ordered Blood cx, UA, CXR Wound care per Surgery Cont IV clindamycin, add IV cipro per ID recs Supp care Pain control A total of 32 mins of additional time was spent with this patient including coordination of care in addition to face to face time ICD Codes: L02.91 - Cutaneous abscess, unspecified SNOMED: [id number] Subjective Date patient seen: Aug 31, 2016 Time patient seen: 16:27 ROS Limited/Unobtainable: No Allergies: Coded Allergies: IODINE (Verified Allergy, Unknown, 08/26/16) PENICILLINS (Verified Allergy, Unknown, 08/26/16) Subjective s/p debridement of buttocks, POD#4, no periop or postop complications. No chest pain or dyspnea, pain well controlled. Pt spiked fever of 102 earlier this AM, wbc up to 18. CXR, UA, blood cx sent. Pt denies cough or dyspnea, Objective Last 24 Hour Vital Signs Date Time Temp Pulse Resp B/P Pulse Ox O2 Delivery O2 Flow Rate FiO2 08/31/16 15:09 98.2 08/31/16 14:00 14 08/31/16 13:15 100.4 08/31/16 12:00 97.9 106 20 100/56 98 Room Air 08/31/16 12:00 16 08/31/16 08:00 16 08/31/16 08:00 98.6 112 18 127/67 98 Room Air 08/31/16 05:40 100.4 08/31/16 04:00 102.0 124 18 134/74 99 Room Air 08/31/16 04:00 16 08/31/16 00:00 99.5 118 18 151/67 99 Room Air 08/31/16 00:00 16 08/30/16 20:00 99.0 126 20 123/65 100 Room Air 08/30/16 20:00 16 08/30/16 18:24 98.2 Intake and Output 08/30/16 08/31/16 19:00 07:00 Intake Total 480 ml Output Total 1120 ml 265 ml Balance -640 ml -265 ml Intake Oral 480 ml Output Urine Total 950 ml Drainage Total 150 ml 220 ml Other 20 ml 45 ml # Voids 2 Laboratory Tests 08/31/16 05:50: White Blood Count 18.8H, Red Blood Count 2.95L, Hemoglobin 8.4L, Hematocrit 25.3L, Mean Corpuscular Volume 86, Mean Corpuscular Hemoglobin 28.3, Mean Corpuscular Hemoglobin Concent 33.1, Red Cell Distribution Width 12.8, Platelet Count 178, Mean Platelet Volume 6.0L, Neutrophils (%) (Auto) , Lymphocytes (%) ( Auto) , Monocytes (%) (Auto) , Eosinophils (%) (Auto) , Basophils (%) (Auto) , Differential Total Cells Counted 100, Neutrophils % (Manual) 70, Lymphocytes % ( Manual) 16L, Monocytes % (Manual) 11H, Eosinophils % (Manual) 2, Basophils % ( Manual) 0, Band Neutrophils 1, Platelet Estimate Adequate, Platelet Morphology Normal, Hypochromasia 1+, Sodium Level 130L, Potassium Level 3.5, Chloride Level 92L, Carbon Dioxide Level 27, Anion Gap 11, Blood Urea Nitrogen 6L, Creatinine 0.8, Estimat Glomerular Filtration Rate > 60, Glucose Level 116H, Calcium Level 8.3L 08/31/16 08:31: Urine Color Pale yellow, Urine Appearance Clear, Urine pH 7, Urine Specific [place] 1.005, Urine Protein Negative, Urine Glucose (UA) Negative, Urine Ketones Negative, Urine Occult Blood 2+H, Urine Nitrite Negative, Urine Bilirubin Negative, Urine Urobilinogen Normal, Urine Leukocyte Esterase 1+H, Urine RBC 2-4H, Urine WBC 2-4, Urine Squamous Epithelial Cells Few, Urine Bacteria Few 08/31/16 08:45: Urine Color [Pending], Urine Appearance [Pending], Urine pH [Pending], Urine Specific [place] [Pending], Urine Protein [Pending], Urine Glucose (UA) [Pending ], Urine Ketones [Pending], Urine Occult Blood [Pending], Urine Nitrite [Pending ], Urine Bilirubin [Pending], Urine Urobilinogen [Pending], Urine Leukocyte Esterase [Pending], Urine RBC [Pending], Urine WBC [Pending], Urine Squamous Epithelial Cells [Pending], Urine Bacteria [Pending] Height (Feet): 5 Height (Inches): 3.00 Weight (Pounds): 130 Objective General: alert, cooperative, no distress, appears stated age Head: normocephalic, without obvious abnormality, atraumatic Eyes: conjunctivae/corneas clear. PERRL, EOM's intact Throat: lips, mucosa, and tongue normal. MMM Neck: supple, symmetrical, trachea midline, and no JVD Lungs: clear to auscultation bilaterally Heart: regular rate and rhythm, S1, S2 normal, no murmur, click, rub or gallop Abdomen: soft, non-tender, non-distended, bowel sounds normal; no masses or organomegaly Extremities: +tenderness to palpation, +rubor, +indurations (multiple) in bilateral gluteal area. Incisions c/d/i Pulses: 2+ and symmetric Skin: skin color, texture, turgor normal; no rashes or lesions Neurologic: 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, no focal deficits PETERSON COTTO Aug 31, 2016 16:31
[2016-08-31 20:00] VITALS: BP 119/65
--- NOTE | 2016-08-31 21:45 | Consultation ---
DATE OF CONSULTATION: 08/31/2016 INFECTIOUS DISEASE CONSULTATION CONSULTING PHYSICIAN: Alyssa Zavala M.D. ATTENDING PHYSICIAN: Ana María Christiansen M.D. REASON FOR CONSULTATION: Leukocytosis and fevers. CHIEF COMPLAINT: The patient's chief complaint coming in is bilateral buttock abscess, cellulitis, and necrosis. HISTORY OF PRESENT ILLNESS: This is a 31-year-old female with history of silicone injections in the bilateral buttock area, gluteal. The patient was admitted to [facility] with bilateral buttock necrosis and cellulitis. The patient at the time of admission had back pain and fevers. The patient underwent debridement of the bilateral buttock area with open wounds and wound VAC. The patient now has postoperative fevers and leukocytosis with white count of 18.8. Her temperatures have been as high as 102 degrees. Infectious disease consultation requested for antibiotic management in this patient. The patient is allergic to penicillin. She was on clindamycin. I am adding Cipro and this was discussed with Dr. Christiansen. The patient has been recultured. Imaging studies showed today chest x-ray is negative. MAR was noted. Orders were noted. Notes were reviewed. Case was discussed with RN. PAST MEDICAL HISTORY: She has no other significant past medical history. No history of diabetes or hypertension. She does have history of bilateral gluteal silicone injections. MEDICATIONS: Upon reviewing the MAR, the patient is on the following medications. She is on clindamycin, Cipro, Zofran, Percocet, Dilaudid, Neurontin, Narcan, heparin, lactobacillus, acetaminophen, bisacodyl, MOM, MiraLAX, Restoril, and Mylanta. Please see medications in medical order and past medical history in medical order. ALLERGIES: Iodine and penicillin. SOCIAL HISTORY: Negative for smoking, alcohol, or drug use. FAMILY HISTORY: Noncontributory. REVIEW OF SYSTEMS: Constitutional: She has generalized weakness, fatigue, and postoperative pain. She has fevers, but no chills at this time. Head And Neck: No head pain or neck pain. No thrush or dysphagia. Cardiac: On pressors. No chest pain. Gastrointestinal: No nausea, vomiting, or diarrhea. Genitourinary: She has no Mason. Pulmonary: No congestion or shortness of breath. Skin: No rash or itching. She has wound VAC and drains. Extremities: No extremity pain. Neurologic: No seizures. PHYSICAL EXAMINATION: GENERAL: Alert, responsive, in no acute distress, oriented x3. VITAL SIGNS: Temperature 102 degrees. Pulse rate 106, respiratory rate 16, temperature 97.9 degrees at this time, blood pressure 100/56, and saturation 98%. HEAD AND NECK: Oral exam, no thrush. Eye exam, no icterus. Neck is supple. No JVD. No sinus tenderness. Normocephalic. No facial droop. No neck stiffness. LUNGS: Clear bilaterally. No rhonchi or crackles. HEART: Regular. No gallop or murmur. Tachycardic. ABDOMEN: Soft. Positive bowel sounds. SKIN: No rash or dermatitis. MUSCULOSKELETAL: No effusion or contractures. Lower extremities without cellulitis. PERIPHERAL VASCULAR: No cyanosis or gangrene. GENITOURINARY: No Mason. LINES: Line sites are without phlebitis. NEUROLOGIC: Intact. Alert and oriented x3. Wounds were reviewed with the RN at the bedside and was limited exam because of the pain, but the wound incision looks clean and dry, the one on the right buttock, otherwise it is limited exam because of pain. LABORATORY AND DIAGNOSTIC DATA: Laboratory data are as follows. Creatinine 0.8. White count 18.8 and hemoglobin 9.4. Cultures are pending. UA was pending. Chest x-ray was negative. Previous MRI of the pelvis showed subcutaneous silicone injections, but no of fluid collections definitely seen to suggest abscess. ASSESSMENT AND PLAN: 1. The patient has bilateral buttock necrosis with cellulitis and questionable abscess. The patient is status post bleeding with open wounds. The patient has postoperative leukocytosis and fevers. The patient will be continued on clindamycin and Cipro because of penicillin allergy. Continue antibiotics. Check cultures and labs. Chest x-ray is negative. Check urinalysis. Certainly, it is common to have postoperative fevers and leukocytosis. The surgery was done on 08/29/2016. Continue antibiotics, clindamycin and Cipro pending cultures and labs. 2. History of bilateral gluteal silicone injections. 3. Rule out AURORA syndrome, which is an autoimmune syndrome. 4. Recent terminated . 5. Pain management. 6. Anemia. 7. 8. Continue treatment per Dr. Christiansen and Surgery. 9. Allergies to iodine and penicillin. 10. MAR was noted. 11. Case was discussed with RN. 12. Social history is negative. 13. Family history noncontributory. 14. Case was discussed with Dr. Christiansen. 15. Notes were reviewed. Alyssa Zavala M.D. DR: BERTIN JOB#: [id number] CC:
[2016-08-31] MEDS: Clindamycin 600mg 50 ML IVPB SCH (22:00)
[2016-09-01] VITALS: BP 130/58
[2016-09-01] MEDS: HYDROmorphone 1mg/ml Carpuject IVP PRN ×5 (02:59→21:19)
--- NOTE | 2016-09-01 03:00 | Consultation ---
DATE OF CONSULTATION: 08/27/2016 EMERGENCY CONSULTATION SURGEON: Betty Chance M.D. HISTORY OF PRESENT ILLNESS: This is a 31-year-old female, who presented to the emergency room at [facility] yesterday complaining of open wound of her right buttocks as well as in the past having bilateral buttock pain and back pain as well as fevers and chills as well as paresthesias of bilateral lower extremities over the past couple of days that acutely worsened. The patient was admitted to the medical service at [facility] and treated with IV antibiotics for cellulitis of bilateral buttocks as well as for her open wound. Ordered MRIs of her lumbar spine and pelvis. MRI of the lumbar spine showed some migration of foreign material, likely silicone up to L3 on her lumbar spine. Pelvic MRI showed significant infiltration of bilateral gluteus soft tissue and subcutaneous tissue as well as gluteus frank muscles, there is drain likely through the patient's open wound of the right buttock. I was consulted by Dr. Christiansen to see the patient on an emergent basis. The patient stated that several years ago, she received injections into bilateral buttocks and hips of unknown material, likely silicone. The patient has been intermittently hospitalized over the past many years for open wound infection. She also [place] and have it removed with an incision in the midportion of bilateral buttocks. The patient states that she has burning and itching of her buttocks. She has back pain and buttock pain, some leg swelling, and now she has chronic symptoms such as edema, low energy and difficulty breathing. PHYSICAL EXAMINATION: Bilateral buttocks were hypoinflated, significant multiple tender nodules on bilateral buttocks, the skin less than a mm thick on the right buttock. There was an opening giving the diagnosis of an open wound. There is erythema and warmth of bilateral buttocks consistent with cellulitis. The buttocks appeared as if they were two basketball size balls. The patient has had intermittent problems that had progressed to the point that she could not take it any more with pain, burning, itching, and paresthesias of her legs, for which she presented to the emergency room and recurrent infections and an open wound. I explained to the patient she would benefit from emergent exploratory operation and staged debridement of bilateral buttocks and back necrotic soft tissue, treatment with VAC therapy. The patient has been cleared by the medical team. Blood work was done to rule out AURORA syndrome and she was asked to be seen by a psychiatrist and pain management to optimize for the operation. Betty Chance M.D. DR: Popeye JOB#: [id number] CC:
[2016-09-01 04:00] VITALS: BP 114/71
[2016-09-01] MEDS: Clindamycin 600mg 50 ML IVPB SCH ×3 (06:00→21:18)
--- NOTE | 2016-09-01 06:00 | Operative Note - Dictated ---
DATE OF OPERATION: 08/27/2016 NOTE: "POOR AUDIO QUALITY" SURGEON: Betty Chance M.D. SUPERVISOR FORCE ADJUSTMENT SURGEON: Lory Cabral M.D. ANESTHESIOLOGIST: Edgardo Burris M.D. ANESTHESIA: General endotracheal tube anesthesia. PREOPERATIVE DIAGNOSES: 1. Open wound, right buttock. 2. Cellulitis of bilateral buttocks. 3. Bilateral buttocks and hip and back soft tissue necrosis secondary to foreign body reaction. POSTOPERATIVE DIAGNOSES: 1. Open wound, right buttock. 2. Cellulitis of bilateral buttocks. 3. Bilateral buttocks and hip and back soft tissue necrosis secondary to foreign body reaction. PROCEDURE PERFORMED: 1. Staged partial removal of foreign material from bilateral buttocks, hips, and back. 2. Elevation in the right superiorly based gluteal fasciocutaneous flap. 3. Elevation in the right inferiorly based gluteal fasciocutaneous flap. 4. Elevation in the left superiorly based gluteal fasciocutaneous flap. 5. Elevation in the left inferiorly based gluteal fasciocutaneous flap. 6. Radical resection of 600 sq.cm of right buttock and hip necrotic soft tissue mass. 7. Radical resection of 484 sq.cm of left buttock and hip necrotic soft tissue mass. 8. Debridement of bilateral necrotic gluteus frank muscle. 9. Pulse jet lavage irrigation of bilateral buttocks open wounds. 10. Wound VAC placement in the bilateral buttocks. INDICATION FOR THE OPERATION: This is a 31-year-old female where I previously dictated an emergency consultation on when I saw the patient earlier in the day emergently for soft tissue necrosis of bilateral buttocks as well as cellulitis of bilateral buttocks and open wound in the right buttock secondary to foreign material that was injected to her. The patient has been on the medical service injected getting intravenous antibiotics with some improvement of her cellulitis. She was also worked up for AURORA syndrome with blood work pending. She was also seen by a psychiatrist, who was asked to see the patient and has the capacity to understand what she was about to undergo until the following details that this was a staged partial removal of foreign material that was injected into bilateral buttocks and her hips that migrated to the back. There is no guarantee she would get better, with the possibility she would get worse, with the possibility the silicone may migrate and certainly would not going to be taking all of it out because that will be impossible do so and there is a strong likelihood that some of the silicone has already migrated and will continue to migrate in the future. It was also told to the patient that this has the potential for being cosmetically disfiguring. There could be a very poor cosmetic outcome and she may need multiple surgeries over many years. The benefits of the proposed operation would be to debulk and remove as much of the foreign body burden as possible, which should take the pressure off of the buttocks and her back and the nerves of the paraspinal muscles and the gluteus frank muscle that should relieve her pain and the neuropathy for which she presented to the emergency room. This will also allow her immune system to reset so she is not going to be as prone to recurrent infection and opportunistic infections and to try to prevent further migration of the material to other parts of the body. We told the patient that this would be a staged procedure. The goal today would be to elevate four flaps of her buttocks, delay them and debride and debulk as much of the foreign material as we can safely based on amount of blood loss, the amount of soft tissue necrosis that can be debrided until they need to delay the flaps as the skin is very thin and likely will need to be debrided because it is going to necrose in a couple of days and we treated it with a wound VAC therapy in the interim and continue her on intravenous antibiotics. It was explained to the patient since her skin is paper thin, she is at very, very high risk for wound dehiscence, wound break down, poor scarring, and need for multiple operations and infections. We explained to the patient it is unknown how much of the foreign material we would take out but we would take out whatever is visible and palpable in a safe and effective manner. We told that she may have poor scarring, the wound may break down, and she may need multiple reconstructive surgeries over the next many years. Her buttocks may come out cosmetically deformed and disfigured, however, we wonder if she did nothing, the skin would eventually necrose requiring much more radical surgeries and grafts and flaps. The risks and benefits of the proposed operation include, but not limited to bleeding, hematoma, seroma, infection, DVT, pulmonary embolism, myocardial infarction, and . Necrosis of skin flaps, open wounds, delayed healing, hypertrophic scarring, keloid scarring, skin necrosis, damage to sensory and motor nerves, difficulty ambulating, chronic pain, and embolization of the silicone to other parts of the body. This was all discussed with the patient and all questions were answered. In the preop holding area, we are going to use the same incision, which was previously made by another surgeon couple of years ago and in the mid-portion of her buttocks, the areas corresponding to MRI of soft tissue necrosis and physical exam mass findings were reinforced with a surgical marker. DESCRIPTION OF PROCEDURE: The patient was taken to the operating room and SCDs were put on. Perioperative antibiotics were given. The patient was then placed under general endotracheal tube anesthesia in the supine position. She was then flipped to the prone position. After appropriate position and padding on the operating room table, the area was prepped and draped in the usual clean and sterile manner and the anus was covered with a blue towel and an Ioban dressing was placed. We started the operation with a #10 scalpel and used electrocautery all the way down to the gluteus frank muscle fascia. We then elevated four flaps, left and right superiorly based gluteal fasciocutaneous flaps and left and right inferiorly based gluteal fasciocutaneous flaps with electrocautery going approximately 12 cm superior and 5 cm inferior to the incision that we made. After doing this, in a plane just deep to Alfredo fascia with a combination of sharp dissection and electrocautery debulk, a significant amount of soft tissue necrosis, which is lot of silicone granulomas, liquid silicone as well as soft tissue necrosis in the right buttock that we radically debrided 600 sq. cm of soft tissue necrotic mass. In the left buttock and hip, we radically debrided 400 sq. cm of necrotic soft tissue mass. We then had to debride bilateral gluteus frank muscle, but 15% of that that was necrotic, with electrocautery as well. Sharp dissection of superficial and intramuscular granulomas that we saw were popped, superficial to the granulomas and the skin flaps were also popped. After doing this, a significant amount of debulking and then elevating the flaps, we decided at this point we would irrigate the wound with antibiotic irrigation of 2 liters and ensured hemostasis with electrocautery. We then placed the wound VAC sponges so that we can truly delay the flap and that needs to be debrided. So, again after using electrocautery for hemostasis, we then placed the VAC sponges underneath each buttocks incision. Stapled the wound partially closed, set the wound VAC to 125 mmHg, and then flipped the patient over, extubated her, transferred to recovery room in stable condition. SPECIMENS: 1. skin 2. Right buttock necrotic soft tissue mass. 3. Left buttock necrotic soft tissue mass. ESTIMATED BLOOD LOSS: 250 mL. She got one unit of packed red blood cells. DRAINS: Wound VAC, bilateral buttocks. COMPLICATIONS: None. CONDITION: Stable. Betty Chance M.D. DR: SEN JOB#: [id number] CC: GABRIEL
--- NOTE | 2016-09-01 06:45 | Operative Note - Dictated ---
DATE OF OPERATION: 08/29/2016 SURGEON: Betty Chance M.D. UTILITY TELLER SURGEON: Lory Cabral M.D. ANESTHESIOLOGIST: Tomas Morgan M.D. ANESTHESIA: General endotracheal tube anesthesia. PREOPERATIVE DIAGNOSES: 1. Open bilateral buttock wounds status post radical debridement and resection of necrotic soft tissue. 2. Open wound right buttock. 3. Cellulitis of bilateral buttocks. 4. Bilateral buttock and hip and back soft tissue necrosis secondary to foreign body reaction. POSTOPERATIVE DIAGNOSES: 1. Open bilateral buttock wounds status post radical debridement and resection of necrotic soft tissue. 2. Open wound right buttock. 3. Cellulitis of bilateral buttocks. 4. Bilateral buttock and hip and back soft tissue necrosis secondary to foreign body reaction. OPERATIONS PERFORMED: 1. Staged partial removal of foreign bodies from bilateral buttocks, hips, and back. 2. Radical resection of 391 sq. cm in the right buttock and hip necrotic soft tissue mass. 3. Radical resection of 330 sq. cm in the left buttock and hip necrotic soft tissue mass. 4. Removal of 30 sq. cm of back foreign body/necrotic soft tissue. 5. Complex closure of 6 cm lumbar spine wound. 6. Local tissue rearrangement of 600 sq. cm of left buttock closure of open wound. 7. A 600 sq. cm local tissue rearrangement of right buttock wound closure. 8. Debridement of bilateral necrotic gluteus frank muscles. 9. Pulse lavage irrigation of bilateral buttocks. INDICATIONS OF PROCEDURE: This is a 31-year-old female, who I previously operated two days prior. In the interim, the patient has been treated with wound VAC therapy and intravenous antibiotics. The patient has reported resolution of pre-operating symptoms. The patient reports increased ability to breathe, increased energy, resolution of fatigue, resolution of buttock pain and burning and itching and is now able to ambulate without pain and discomfort. Her vitals and blood counts have remained stable on the floor. Today, the plan is to take the patient back for further debulking of the necrotic soft tissue in bilateral buttocks. A separate vertical incision was made in the back to remove the foreign material that was evident on MRI and tender on exam, probably a palpable mass. Again, we are going to debride and debulk more soft tissues from the buttocks and hips, as well as debride the skin and perform an internal rotation advancement flap closure since they suctioned an extensive amount of excess skin secondary to the debulking. So, today we are going to re-elevate the angulated flaps and debride them as necessary and back up in rotation flaps for closure with drains. Risks and benefits of the operation were fully discussed with the patient. Previous operation reiterated today. The patient agreed to proceed and signed informed consent. All questions were answered. DESCRIPTION OF PROCEDURE: The patient was taken to the operating room in the supine position and placed under general endotracheal tube anesthesia. Perioperative antibiotics were confirmed and SCDs were placed in bilateral lower extremities. The patient's wound VAC was removed. The area was prepped and draped in the usual clean and sterile manner. Ioban dressing was placed on top of the blue towel to block any bowel flow. We first started the operation by exploring for any bleeding. There was nothing significant. We then performed further debridement of the right buttock necrotic soft tissue mass, elevating the flaps, left and right superior and inferior gluteal fasciocutaneous flaps, and we elevated and incised the deep fascia on top of the gluteus frank muscle. After doing this, there was a significant amount of residual soft tissue necrotic tissue, superficial silicone granulomas and liquid silicone that was removed and radically excised, 391 sq. cm right buttock and hip necrotic soft tissue mass, 330 sq. cm of left buttock necrotic soft tissue mass, dissection and electrocautery and clipping. We also debrided the skin flaps with #10 scalpel as well. After we popped the superficial silicone granulomas and bilateral gluteus frank muscles which were necrotic involved, these were debrided sharply with electrocautery. We also quinn picked through the muscle and removed superficial silicone granulomas and bilateral gluteus frank muscle as possible. We then ensured hemostasis with electrocautery with pulse lavage with 2 liters of antibiotic irrigation. At this point, we then used Toombs clamps, we marked the proposed skin excision with Toombs clamps and made a local tissue rearrangement of 600 sq. cm of adjacent tissue transfer that was performed in right and left buttock in the same manner. Then we rotated the skin to close the space. After sterilely prepping the skin and ensuring hemostasis, we placed four 10 mm ILIANA drains. They were taken out through a separate anterior lateral hip incision. Stab incision sutured with 2-0 silk sutures and the drains in the subcutaneous. We then closed in the following manner, we lined up and approximated the Scarps's fascia in interrupted fashion with 0 Vicryl suture and approximated the deep dermis in interrupted fashion with 2-0 Vicryl and closed the subcuticular layer with a 3-0 Monocril suture. The midportion of the right buttock skin incision was reinforced with a running 3-0 Chromic suture because there was no substance to the dermis and the epidermis was paperthin. This was explained to the patient pre-operatively that this portion of the skin may not survive or heal. There was good capillary refill to the skin flaps with minimal tension and excellent contour was achieved. We then turned our incision to the back since the patient had mid gluteal incision, so we made a 6 cm vertical incision in the lumbar spine overlying the palpable fluctuant mass and correlating with the MRI findings. . We dissected down to the paraspinal muscles. We then elevated the deep Alfredo's fascia and we removed 30 sq cm of foreign material and soft tissue necrosis in the back and electrocautery was used for hemostasis. We irrigated and closed the 6 cm wound in a complex manner with #0 Vicryl sutures to approximate the Alfredo fascia, 2-0 Vicryl to approximate the deep dermis and a running 3-0 Monocryl subcuticular suture. Prior to doing this, we tried to close some of the space with 3-0 Vicryl in a progressive tension suturing technique. Sutures were also placed with 7 mm ILIANA in the back of space taken out through a separate stab incision secured with a 2-0 silk suture. Getting back to the bilateral gluteus wounds that we had, we also closed some of the space with progressive tension suture technique with #0 Vicryl sutures. At this point, all drains were attached to bulb suction. We then placed bacitracin, Xeroform, and gauze sterile dressing at all incisions. We then flipped the patient, extubated, and transferred to the recovery room in stable condition. FINDINGS: As above. ESTIMATED BLOOD LOSS: 250 mL. SPECIMENS: 1. Right buttock and hip necrotic soft tissue. 2. Left buttock and hip necrotic soft tissue. 3. Foreign material from the back/necrotic soft tissue. 4. Skin from bilateral buttocks. DRAINS: Five 10 mm ILIANA back and 10 mm ILIANA x4 in the bilateral buttocks. Betty Chance M.D. DR: HALLEY JOB#: [id number] CC: GABRIEL
[2016-09-01] MEDS: Heparin 5000 units/ml inj SUBQ SCH ×3 (06:49→21:19)
[2016-09-01] MEDS: Docusate 100mg cap ORAL SCH ×2 (08:11→20:07)
[2016-09-01] MEDS: Lactobacillus-GG tablet ORAL SCH ×2 (08:12→17:04)
[2016-09-01 08:15] VITALS: BP 115/68
[2016-09-01 08:36] LABS: ALANINE AMINOTRANSFERASE 51 U/L (3-33); ALBUMIN/GLOBULIN RATIO 0.8 (1.0-2.7); ANION GAP 12 (5-15); ASPARTATE AMINO TRANSFERASE 31 U/L (5-40); CALCIUM 8.8 mg/dL (8.6-10.2); CARBON DIOXIDE 29 mEQ/L (20-30); CHLORIDE 94 mEQ/L (98-107); CREATININE 0.8 mg/dL (0.5-0.9); GLOMERULAR FILTRATION RATE > 60 mL/min (>60); HEMOLYSIS 3; POTASSIUM 3.8 mEQ/L (3.4-4.9); SODIUM 135 mEQ/L (135-145); TOTAL PROTEIN 6.3 g/dL (6.6-8.7)
[2016-09-01 08:59] LABS: BASOPHILS % (AUTO) 0.9 % (0.0-2.0); EOSINOPHILS % (AUTO) 2.5 % (0.0-3.0); MEAN CORPUSCULAR HEMOGLOBIN 29.3 PG (27.0-31.0); MEAN CORPUSCULAR HGB CONC 33.6 G/DL (32.0-36.0); MEAN CORPUSCULAR VOLUME 87 FL (80-99); MEAN PLATELET VOLUME 5.1 FL (6.5-10.1); MONOCYTES % (AUTO) 9.1 % (1.0-10.0); NEUTROPHILS % (AUTO) 72.6 % (45.0-75.0); PLATELET COUNT 183 K/UL (150-450); RED BLOOD COUNT 2.98 M/UL (4.20-5.40); RED CELL DISTRIBUTION WIDTH 12.6 % (11.6-14.8); WHITE BLOOD COUNT 17.2 K/UL (4.8-10.8)
[2016-09-01 11:52] VITALS: BP 125/73
--- NOTE | 2016-09-01 12:54 | General Progress Note ---
Progress Note Progress Note pt doing better afebrile since yesterday, VSS PE: buttock incision c/d/i (-) signs infection or collections, (+) flaps viable CXR: (-) U/A (+) diptheroids WBC down to 17 (18) H/H stable A/P1. cont cipro and abx per ID 2. f/u urine and blood cx 3. RN to do daily xeroform dressing changes 4. d/c home when afebrile and WBC normalizes (trends down) on two weeks Cipro and pain rx 5. OOB, DVT ppx 6. f/u with Dr. ETHAN Cabral on 09/06/16 at [address] [facility], [address] Cabral will be covering for me from 09/02/16 on Betty Chance M.D. Sep 01, 2016 12:54
--- NOTE | 2016-09-01 14:01 | General Progress Note ---
Assessment/Plan Problem List: (1) Abscess Assessment & Plan: s/p debridement of buttocks POD#5 R/o AURORA syndrome given silicone injections and onset of systemic symptoms, full autoimmune panel ordered Blood cx, UA shows diphteroids, CXR neg Wound care per Surgery Cont IV clindamycin, add IV cipro per ID recs Supp care Pain control A total of 32 mins of additional time was spent with this patient including coordination of care in addition to face to face time ICD Codes: L02.91 - Cutaneous abscess, unspecified SNOMED: [id number] Subjective Date patient seen: Sep 01, 2016 Time patient seen: 14:00 ROS Limited/Unobtainable: No Allergies: Coded Allergies: IODINE (Verified Allergy, Unknown, 08/26/16) PENICILLINS (Verified Allergy, Unknown, 08/26/16) Subjective s/p debridement of buttocks, POD#5, no periop or postop complications. No chest pain or dyspnea, pain well controlled. Pt spiked fever of 102 earlier this AM, wbc up to 18. CXR, UA, blood cx sent. Pt denies cough or dyspnea, Objective Last 24 Hour Vital Signs Date Time Temp Pulse Resp B/P Pulse Ox O2 Delivery O2 Flow Rate FiO2 09/01/16 11:52 98.5 100 21 125/73 99 Nasal Cannula 2.0 09/01/16 08:15 97.9 100 20 115/68 97 Nasal Cannula 2.0 09/01/16 04:00 97.5 91 20 114/71 99 Room Air 09/01/16 03:29 98.2 09/01/16 01:38 98.2 09/01/16 00:00 98.2 113 24 130/58 100 Room Air 08/31/16 20:00 97.9 97 18 119/65 100 Room Air 08/31/16 16:00 98.1 101 20 137/68 99 Room Air Intake and Output 08/31/16 09/01/16 19:00 07:00 Intake Total 910 ml 580 ml Output Total 183 ml 125 ml Balance 727 ml 455 ml Intake Oral 660 ml 480 ml IV Total 250 ml 100 ml Drainage Total 153 ml 105 ml Other 30 ml 20 ml # Voids 3 3 Laboratory Tests 09/01/16 07:05: White Blood Count 17.2H, Red Blood Count 2.98L, Hemoglobin 8.7L, Hematocrit 26.0L, Mean Corpuscular Volume 87, Mean Corpuscular Hemoglobin 29.3, Mean Corpuscular Hemoglobin Concent 33.6, Red Cell Distribution Width 12.6, Platelet Count 183, Mean Platelet Volume 5.1L, Neutrophils (%) (Auto) 72.6, Lymphocytes ( %) (Auto) 15.0L, Monocytes (%) (Auto) 9.1, Eosinophils (%) (Auto) 2.5, Basophils (%) (Auto) 0.9, Sodium Level 135, Potassium Level 3.8, Chloride Level 94L, Carbon Dioxide Level 29, Anion Gap 12, Blood Urea Nitrogen 5L, Creatinine 0.8, Estimat Glomerular Filtration Rate > 60, Glucose Level 112H, Calcium Level 8.8, Total Bilirubin 0.3, Aspartate Amino Transf (AST/SGOT) 31, Alanine Aminotransferase (ALT/SGPT) 51H, Alkaline Phosphatase 74, Total Protein 6.3L, Albumin 2.9L, Globulin 3.4, Albumin/Globulin Ratio 0.8L Height (Feet): 5 Height (Inches): 3.00 Weight (Pounds): 130 Objective General: alert, cooperative, no distress, appears stated age Head: normocephalic, without obvious abnormality, atraumatic Eyes: conjunctivae/corneas clear. PERRL, EOM's intact Throat: lips, mucosa, and tongue normal. MMM Neck: supple, symmetrical, trachea midline, and no JVD Lungs: clear to auscultation bilaterally Heart: regular rate and rhythm, S1, S2 normal, no murmur, click, rub or gallop Abdomen: soft, non-tender, non-distended, bowel sounds normal; no masses or organomegaly Extremities: +tenderness to palpation, +rubor, +indurations (multiple) in bilateral gluteal area. Incisions c/d/i Pulses: 2+ and symmetric Skin: skin color, texture, turgor normal; no rashes or lesions Neurologic: 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, no focal deficits PETERSON COTTO Sep 01, 2016 14:01
[2016-09-01 16:03] VITALS: BP 101/54
[2016-09-01 20:00] VITALS: BP 108/62
[2016-09-02] VITALS: BP 105/61
[2016-09-02 04:00] VITALS: BP 121/77
[2016-09-02] MEDS: Clindamycin 600mg 50 ML IVPB SCH ×3 (05:30→22:00)
[2016-09-02] MEDS: Heparin 5000 units/ml inj SUBQ SCH ×3 (05:39→20:37)
[2016-09-02 08:49] VITALS: BP 119/70
[2016-09-02] MEDS: Lactobacillus-GG tablet ORAL SCH ×2 (08:49→18:00)
[2016-09-02] MEDS: Docusate 100mg cap ORAL SCH ×2 (08:49→20:36)
[2016-09-02 11:08] LABS: BASOPHILS % (AUTO) 1.3 % (0.0-2.0); LYMPHOCYTES % (AUTO) 9.3 % (20.0-45.0); MEAN CORPUSCULAR HEMOGLOBIN 27.1 PG (27.0-31.0); MEAN CORPUSCULAR HGB CONC 32.1 G/DL (32.0-36.0); MEAN CORPUSCULAR VOLUME 84 FL (80-99); MEAN PLATELET VOLUME 6.2 FL (6.5-10.1); MONOCYTES % (AUTO) 10.6 % (1.0-10.0); NEUTROPHILS % (AUTO) 75.9 % (45.0-75.0); PLATELET COUNT 258 K/UL (150-450); RED BLOOD COUNT 3.11 M/UL (4.20-5.40); RED CELL DISTRIBUTION WIDTH 12.5 % (11.6-14.8); WHITE BLOOD COUNT 13.8 K/UL (4.8-10.8)
[2016-09-02 11:17] LABS: ANION GAP 14 (5-15); CALCIUM 8.8 mg/dL (8.6-10.2); CARBON DIOXIDE 27 mEQ/L (20-30); CHLORIDE 94 mEQ/L (98-107); CREATININE 0.7 mg/dL (0.5-0.9); GLOMERULAR FILTRATION RATE > 60 mL/min (>60); HEMOLYSIS 1; POTASSIUM 3.7 mEQ/L (3.4-4.9); SODIUM 135 mEQ/L (135-145)
[2016-09-02 12:00] VITALS: BP 111/61
--- NOTE | 2016-09-02 12:38 | Infectious Diseases Prog Note ---
Assessment/Plan Assessment/Plan A) 1) fevers, leukocytosis post-op - improved 2) s/p debridement of bilateral buttock necrosis with cellulitis, now with open wounds and wound vac/flap 3) hx gluteal silicone infectios 4) recent terminated 5) r/u AURORA autoimmune syndrome 6) pain mgt, anemia, hyponatremia 7) allergies - pcn and iodine, sh-negative, mar noted, notes and records reviewed 8) d/w RN P) 1) clindamycin and ciprofloxacin for soft tissue infection coverage - day # 3 of abx 2) check final cultures, urine culture with diphtheroids is a contaminant 3) watch labs 4) continue treatment per Dr. Christiansen and surgery 5) orders noted and entered 6) d/w patient and answered questions Subjective Constitutional: Denies: fever HEENT: Denies: congestion Respiratory: Denies: shortness of breath Cardiovascular: Denies: chest pain Gastrointestinal/Abdominal: Denies: diarrhea, nausea, vomiting Genitourinary: Reports: other - no beltre Neurologic: Denies: headache Psychiatric: Denies: depression Skin: Denies: rash Hematologic: Denies: bleeding Musculoskeletal: Reports: pain Allergies: Coded Allergies: IODINE (Verified Allergy, Unknown, 08/26/16) PENICILLINS (Verified Allergy, Unknown, 08/26/16) Objective Vital Signs Last 24 Hour Vital Signs Date Time Temp Pulse Resp B/P Pulse Ox O2 Delivery O2 Flow Rate FiO2 09/02/16 08:49 97.7 92 18 119/70 99 Room Air 09/02/16 04:00 97.3 87 18 121/77 100 Room Air 09/02/16 00:00 97.5 105 18 105/61 99 Room Air 09/01/16 20:00 98.2 102 18 108/62 100 Room Air 09/01/16 16:03 99.0 103 20 101/54 99 Nasal Cannula 2.0 Height (Feet): 5 Height (Inches): 3.00 Weight (Pounds): 130 General Appearance: no acute distress HEENT: normocephalic, atraumatic, anicteric, mucous membranes moist, PERRL, EOMI, pharynx normal, supple, no JVD Respiratory/Chest: lungs clear, normal breath sounds, no respiratory distress, no accessory muscle use Cardiovascular: normal rate, regular rhythm, no gallop/murmur Abdomen: normal bowel sounds, soft, non tender, no organomegaly, non distended Genitourinary: other - no beltre Extremities: no cyanosis, other - wounds covered Skin: no rash 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, alert, oriented x 3, responsive Lymphatic: no neck adenopathy Musculoskeletal: normal muscle bulk Objective Labs Test 08/31/16 05:50 08/31/16 08:31 09/01/16 07:05 09/02/16 10:36 White Blood Count 18.8 K/UL (4.8-10.8) 17.2 K/UL (4.8-10.8) 13.8 K/UL (4.8-10.8) Red Blood Count 2.95 M/UL (4.20-5.40) 2.98 M/UL (4.20-5.40) 3.11 M/UL (4.20-5.40) Hemoglobin 8.4 G/DL (12.0-16.0) 8.7 G/DL (12.0-16.0) 8.4 G/DL (12.0-16.0) Hematocrit 25.3 % (37.0-47.0) 26.0 % (37.0-47.0) 26.3 % (37.0-47.0) Mean Corpuscular Volume 86 FL (80-99) 87 FL (80-99) 84 FL (80-99) Mean Corpuscular Hemoglobin 28.3 PG (27.0-31.0) 29.3 PG (27.0-31.0) 27.1 PG (27.0-31.0) Mean Corpuscular Hemoglobin Concent 33.1 G/DL (32.0-36.0) 33.6 G/DL (32.0-36.0) 32.1 G/DL (32.0-36.0) Red Cell Distribution Width 12.8 % (11.6-14.8) 12.6 % (11.6-14.8) 12.5 % (11.6-14.8) Platelet Count 178 K/UL (150-450) 183 K/UL (150-450) 258 K/UL (150-450) Mean Platelet Volume 6.0 FL (6.5-10.1) 5.1 FL (6.5-10.1) 6.2 FL (6.5-10.1) Neutrophils (%) (Auto) % (45.0-75.0) 72.6 % (45.0-75.0) 75.9 % (45.0-75.0) Lymphocytes (%) (Auto) % (20.0-45.0) 15.0 % (20.0-45.0) 9.3 % (20.0-45.0) Monocytes (%) (Auto) % (1.0-10.0) 9.1 % (1.0-10.0) 10.6 % (1.0-10.0) Eosinophils (%) (Auto) % (0.0-3.0) 2.5 % (0.0-3.0) 3.0 % (0.0-3.0) Basophils (%) (Auto) % (0.0-2.0) 0.9 % (0.0-2.0) 1.3 % (0.0-2.0) Differential Total Cells Counted 100 Neutrophils % (Manual) 70 % (45-75) Lymphocytes % (Manual) 16 % (20-45) Monocytes % (Manual) 11 % (1-10) Eosinophils % (Manual) 2 % (0-3) Basophils % (Manual) 0 % (0-2) Band Neutrophils 1 % (0-8) Platelet Estimate Adequate Platelet Morphology Normal Hypochromasia 1+ Sodium Level 130 mEQ/L (135-145) 135 mEQ/L (135-145) 135 mEQ/L (135-145) Potassium Level 3.5 mEQ/L (3.4-4.9) 3.8 mEQ/L (3.4-4.9) 3.7 mEQ/L (3.4-4.9) Chloride Level 92 mEQ/L (98-107) 94 mEQ/L (98-107) 94 mEQ/L (98-107) Carbon Dioxide Level 27 mEQ/L (20-30) 29 mEQ/L (20-30) 27 mEQ/L (20-30) Anion Gap 11 (5-15) 12 (5-15) 14 (5-15) Blood Urea Nitrogen 6 mg/dL (7-23) 5 mg/dL (7-23) 7 mg/dL (7-23) Creatinine 0.8 mg/dL (0.5-0.9) 0.8 mg/dL (0.5-0.9) 0.7 mg/dL (0.5-0.9) Estimat Glomerular Filtration Rate > 60 mL/min (>60) > 60 mL/min (>60) > 60 mL/min (>60) Glucose Level 116 mg/dL (74-106) 112 mg/dL (74-106) 116 mg/dL (74-106) Calcium Level 8.3 mg/dL (8.6-10.2) 8.8 mg/dL (8.6-10.2) 8.8 mg/dL (8.6-10.2) Urine Color Pale yellow Urine Appearance Clear Urine pH 7 (4.5-8.0) Urine Specific [place] 1.005 (1.005-1.035) Urine Protein Negative (NEGATIVE) Urine Glucose (UA) Negative (NEGATIVE) Urine Ketones Negative (NEGATIVE) Urine Occult Blood 2+ (NEGATIVE) Urine Nitrite Negative (NEGATIVE) Urine Bilirubin Negative (NEGATIVE) Urine Urobilinogen Normal MG/DL (0.0-1.0) Urine Leukocyte Esterase 1+ (NEGATIVE) Urine RBC 2-4 /HPF (0 - 2) Urine WBC 2-4 /HPF (0 - 2) Urine Squamous Epithelial Cells Few /LPF (NONE/OCC) Urine Bacteria Few /HPF (NONE) Total Bilirubin 0.3 mg/dL (0.0-1.2) Aspartate Amino Transf (AST/SGOT) 31 U/L (5-40) Alanine Aminotransferase (ALT/SGPT) 51 U/L (3-33) Alkaline Phosphatase 74 U/L (35-104) Total Protein 6.3 g/dL (6.6-8.7) Albumin 2.9 g/dL (3.5-5.2) Globulin 3.4 g/dL Albumin/Globulin Ratio 0.8 (1.0-2.7) chest x-ray - negative mri pelvis - report noted Microbiology Date/Time Source Procedure Growth Status 08/31/16 08:45 Blood Blood Culture - Preliminary NO GROWTH AFTER 24 HOURS Resulted 08/31/16 08:45 Blood Blood Culture - Preliminary NO GROWTH AFTER 24 HOURS Resulted 08/31/16 08:31 Urine,Clean Catch Urine Culture - Final Diphtheroids Complete Laboratory Tests Test 09/02/16 10:36 White Blood Count 13.8 K/UL (4.8-10.8) H Red Blood Count 3.11 M/UL (4.20-5.40) L Hemoglobin 8.4 G/DL (12.0-16.0) L Hematocrit 26.3 % (37.0-47.0) L Mean Corpuscular Volume 84 FL (80-99) Mean Corpuscular Hemoglobin 27.1 PG (27.0-31.0) Mean Corpuscular Hemoglobin Concent 32.1 G/DL (32.0-36.0) Red Cell Distribution Width 12.5 % (11.6-14.8) Platelet Count 258 K/UL (150-450) Mean Platelet Volume 6.2 FL (6.5-10.1) L Neutrophils (%) (Auto) 75.9 % (45.0-75.0) H Lymphocytes (%) (Auto) 9.3 % (20.0-45.0) L Monocytes (%) (Auto) 10.6 % (1.0-10.0) H Eosinophils (%) (Auto) 3.0 % (0.0-3.0) Basophils (%) (Auto) 1.3 % (0.0-2.0) Sodium Level 135 mEQ/L (135-145) Potassium Level 3.7 mEQ/L (3.4-4.9) Chloride Level 94 mEQ/L (98-107) L Carbon Dioxide Level 27 mEQ/L (20-30) Anion Gap 14 (5-15) Blood Urea Nitrogen 7 mg/dL (7-23) Creatinine 0.7 mg/dL (0.5-0.9) Estimat Glomerular Filtration Rate > 60 mL/min (>60) Glucose Level 116 mg/dL (74-106) H Calcium Level 8.8 mg/dL (8.6-10.2) Current Medications Medications (Trade) Dose Ordered Sig/Yamileth Route PRN Reason Start Time Stop Time Status Last Admin Dose Admin Acetaminophen (Tylenol) 650 mg Q4H PRN ORAL fever 08/26/16 14:45 09/25/16 14:44 08/31/16 04:32 Acetaminophen (Tylenol) 650 mg Q4H PRN ORAL Mild Pain (Pain Scale 1-3) 08/26/16 14:45 09/25/16 14:44 Al Hydroxide/Mg Hydroxide (Mylanta II) 30 ml Q6H PRN ORAL dyspepsia 08/26/16 14:45 09/25/16 14:44 Bisacodyl (Dulcolax) 10 mg HSPRN PRN RECTAL Constipation 08/26/16 14:45 09/25/16 14:44 Ciprofloxacin 200 ml @ 200 mls/hr Q12HR IV 08/31/16 12:30 09/07/16 12:29 09/02/16 08:49 Clindamycin HCl/ Dextrose (Cleocin 600mg) 50 ml @ 100 mls/hr Q8HR IVPB 08/31/16 22:00 09/07/16 21:59 09/02/16 05:30 Dextrose (Dextrose 50%) STAT PRN IV Hypoglycemia 08/26/16 14:45 09/25/16 14:44 Docusate Sodium (Colace) 100 mg EVERY 12 HOURS ORAL 08/26/16 21:00 09/25/16 20:59 09/02/16 08:49 Gabapentin (Neurontin) 300 mg BEDTIME ORAL 08/30/16 21:00 09/29/16 20:59 09/01/16 20:07 Heparin Sodium (Porcine) (Heparin 5000 units/ml) 5,000 units EVERY 8 HOURS SUBQ 08/28/16 06:00 09/27/16 05:59 09/02/16 05:39 Hydromorphone HCl 1 mg 1 mg Q4H PRN IVP Severe Pain (Pain Scale 7-10) 08/31/16 09:30 09/07/16 09:29 09/01/16 21:19 Lactobacillus Acidophilus (Culturelle) 1 tab TWICE A DAY ORAL 08/26/16 18:00 09/25/16 17:59 09/02/16 08:49 Magnesium Hydroxide (Mom) 30 ml HSPRN PRN ORAL Constipation 08/26/16 14:45 09/25/16 14:44 Ondansetron HCl (Zofran) 4 mg Q6H PRN IVP Nausea & Vomiting 08/31/16 17:45 09/30/16 17:44 09/02/16 08:54 Oxycodone/ Acetaminophen (Percocet 10/325) 1 tab Q4H PRN ORAL MODERATE BREAKTHROUGH PAIN 08/31/16 09:30 09/07/16 09:29 09/02/16 05:33 Polyethylene Glycol (Miralax) 17 gm HSPRN PRN ORAL Constipation 08/26/16 14:45 09/25/16 14:44 Temazepam (Restoril) 15 mg HSPRN PRN ORAL Insomnia 08/26/16 14:45 09/02/16 14:44 08/29/16 22:58 BLU KATHLEEN Sep 02, 2016 12:38
[2016-09-02] MEDS: HYDROmorphone 1mg/ml Carpuject IVP PRN ×2 (12:43→20:36)
--- NOTE | 2016-09-02 12:50 | General Progress Note ---
Progress Note Progress Note pt doing great AF/VSS PE: flaps viable; 1 x 0.2 cm superficial partial thickness open wound right inferior buttocks (-) signs infection/collections ILIANA appropriate SS Provena VAC in place WBC down to 13 A/P 1. cont IV abx; d/c home w/ CIPRO BID x 14 additional days in addition to ID recs 2. transition to PO pain rx 3. silvadene cream BID to right buttock partially open wound 4. no showers; ILIANA teaching; strict I & O 5. minimal sitting/laying on buttocks 6. f/u w Dr Cabral on this Thur 8 am; Dr Cabral covering for me from here on in 7. d/c per medical service 8. repeat am WBC Betty Chance M.D. Sep 02, 2016 12:50
--- NOTE | 2016-09-02 13:39 | General Progress Note ---
Assessment/Plan Problem List: (1) Abscess Assessment & Plan: s/p debridement of buttocks POD#6 R/o AURORA syndrome given silicone injections and onset of systemic symptoms, full autoimmune panel ordered Blood cx, UA shows diphteroids, CXR neg Wound care per Surgery Cont IV clindamycin, add IV cipro per ID recs Supp care Pain control A total of 32 mins of additional time was spent with this patient including coordination of care in addition to face to face time ICD Codes: L02.91 - Cutaneous abscess, unspecified SNOMED: [id number] Subjective Date patient seen: Sep 02, 2016 Time patient seen: 13:39 ROS Limited/Unobtainable: No Allergies: Coded Allergies: IODINE (Verified Allergy, Unknown, 08/26/16) PENICILLINS (Verified Allergy, Unknown, 08/26/16) Subjective s/p debridement of buttocks, POD#6, no periop or postop complications. No chest pain or dyspnea, pain well controlled. Pt spiked fever of 102 earlier this AM, wbc up to 18. CXR, UA, blood cx sent. Pt denies cough or dyspnea, Objective Last 24 Hour Vital Signs Date Time Temp Pulse Resp B/P Pulse Ox O2 Delivery O2 Flow Rate FiO2 09/02/16 12:00 97.9 94 18 111/61 99 Room Air 09/02/16 08:49 97.7 92 18 119/70 99 Room Air 09/02/16 04:00 97.3 87 18 121/77 100 Room Air 09/02/16 00:00 97.5 105 18 105/61 99 Room Air 09/01/16 20:00 98.2 102 18 108/62 100 Room Air 09/01/16 16:03 99.0 103 20 101/54 99 Nasal Cannula 2.0 Intake and Output 09/01/16 09/02/16 19:00 07:00 Intake Total 1420 ml 800 ml Output Total 130 ml 77 ml Balance 1290 ml 723 ml Intake Oral 1420 ml 800 ml Drainage Total 110 ml 67 ml Other 20 ml 10 ml # Voids 3 4 Laboratory Tests 09/02/16 10:36: White Blood Count 13.8H, Red Blood Count 3.11L, Hemoglobin 8.4L, Hematocrit 26.3L, Mean Corpuscular Volume 84, Mean Corpuscular Hemoglobin 27.1, Mean Corpuscular Hemoglobin Concent 32.1, Red Cell Distribution Width 12.5, Platelet Count 258, Mean Platelet Volume 6.2L, Neutrophils (%) (Auto) 75.9H, Lymphocytes (%) (Auto) 9.3L, Monocytes (%) (Auto) 10.6H, Eosinophils (%) (Auto) 3.0, Basophils (%) (Auto) 1.3, Sodium Level 135, Potassium Level 3.7, Chloride Level 94L, Carbon Dioxide Level 27, Anion Gap 14, Blood Urea Nitrogen 7, Creatinine 0.7, Estimat Glomerular Filtration Rate > 60, Glucose Level 116H, Calcium Level 8.8 Height (Feet): 5 Height (Inches): 3.00 Weight (Pounds): 130 Objective General: alert, cooperative, no distress, appears stated age Head: normocephalic, without obvious abnormality, atraumatic Eyes: conjunctivae/corneas clear. PERRL, EOM's intact Throat: lips, mucosa, and tongue normal. MMM Neck: supple, symmetrical, trachea midline, and no JVD Lungs: clear to auscultation bilaterally Heart: regular rate and rhythm, S1, S2 normal, no murmur, click, rub or gallop Abdomen: soft, non-tender, non-distended, bowel sounds normal; no masses or organomegaly Extremities: +tenderness to palpation, +rubor, +indurations (multiple) in bilateral gluteal area. Incisions c/d/i Pulses: 2+ and symmetric Skin: skin color, texture, turgor normal; no rashes or lesions Neurologic: 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, no focal deficits PETERSON COTTO Sep 02, 2016 13:39
[2016-09-02] MEDS: Silver Sulfadiazine Cream 25gm TOPIC SCH (14:52)
[2016-09-02 16:00] VITALS: BP 140/89
--- NOTE | 2016-09-02 16:06 | General Progress Note ---
Assessment/Plan Assessment/Plan (1) Bilateral buttock soft tissue necrosis, cellulitis, open wounds buttocks (2) Abscess (3) Intractable pain (4) Staged debridement of bilateral buttock necrotic soft tissue, flap delay The patient is to be continued on the Dilaudid and Percocet. The patient was discussed with Dr. Singh and concurred. Subjective Date patient seen: Sep 02, 2016 Time patient seen: 03:00 - pm Allergies: Coded Allergies: IODINE (Verified Allergy, Unknown, 08/26/16) PENICILLINS (Verified Allergy, Unknown, 08/26/16) Subjective Constitutional: Reports: no symptoms HEENT: Reports: no symptoms Cardiovascular: Reports: no symptoms Respiratory: Reports: no symptoms Gastrointestinal/Abdominal: Reports: no symptoms Genitourinary: Reports: no symptoms Neurologic/Psychiatric: Reports: weakness Endocrine: Reports: no symptoms Hematologic/Lymphatic: Reports: no symptoms Subjective Pain has been a controlled well and is at a 4/10 at this time. No longer c/o fever. Objective Last 24 Hour Vital Signs Date Time Temp Pulse Resp B/P Pulse Ox O2 Delivery O2 Flow Rate FiO2 09/02/16 12:00 97.9 94 18 111/61 99 Room Air 09/02/16 08:49 97.7 92 18 119/70 99 Room Air 09/02/16 04:00 97.3 87 18 121/77 100 Room Air 09/02/16 00:00 97.5 105 18 105/61 99 Room Air 09/01/16 20:00 98.2 102 18 108/62 100 Room Air Intake and Output 09/01/16 09/02/16 19:00 07:00 Intake Total 1420 ml 800 ml Output Total 130 ml 77 ml Balance 1290 ml 723 ml Intake Oral 1420 ml 800 ml Drainage Total 110 ml 67 ml Other 20 ml 10 ml # Voids 3 4 Laboratory Tests 09/02/16 10:36: White Blood Count 13.8H, Red Blood Count 3.11L, Hemoglobin 8.4L, Hematocrit 26.3L, Mean Corpuscular Volume 84, Mean Corpuscular Hemoglobin 27.1, Mean Corpuscular Hemoglobin Concent 32.1, Red Cell Distribution Width 12.5, Platelet Count 258, Mean Platelet Volume 6.2L, Neutrophils (%) (Auto) 75.9H, Lymphocytes (%) (Auto) 9.3L, Monocytes (%) (Auto) 10.6H, Eosinophils (%) (Auto) 3.0, Basophils (%) (Auto) 1.3, Sodium Level 135, Potassium Level 3.7, Chloride Level 94L, Carbon Dioxide Level 27, Anion Gap 14, Blood Urea Nitrogen 7, Creatinine 0.7, Estimat Glomerular Filtration Rate > 60, Glucose Level 116H, Calcium Level 8.8 Height (Feet): 5 Height (Inches): 3.00 Weight (Pounds): 130 Objective General Appearance: no apparent distress, alert EENT: PERRL/EOMI, normal ENT inspection Neck: non-tender, normal alignment Cardiovascular: normal rate, regular rhythm Respiratory/Chest: lungs clear, normal breath sounds Abdomen: non tender, soft Extremities: non-tender Edema: no edema noted Arm (L), no edema noted Arm (R), no edema noted Leg (L), no edema noted Leg (R), no edema noted Pedal (L), no edema noted Pedal (R), no edema noted Generalized Neurologic: alert, oriented x 3 Skin: other - bandages applied to buttock area with tenderness to palpation NELLY JACK Sep 02, 2016 16:06
[2016-09-02 20:05] VITALS: BP 116/61
[2016-09-02] MEDS ORDERED: NS 275ml ONE (20:49)
[2016-09-02] MEDS ORDERED: Tubing IV Secondary IV ONE (20:49)
--- NOTE | 2016-09-02 22:50 | Cardiology Report ---
APPROVED REPORT EKG Measurement Heart [id number] Normal sinus rhythm Normal ECG
[2016-09-03 00:19] VITALS: BP 103/50
[2016-09-03 04:00] VITALS: BP 102/57
[2016-09-03] MEDS: Clindamycin 600mg 50 ML IVPB SCH ×3 (06:00→21:24)
[2016-09-03] MEDS: Heparin 5000 units/ml inj SUBQ SCH ×3 (06:00→21:26)
[2016-09-03 07:06] LABS: ANION GAP 14 (5-15); CALCIUM 8.7 mg/dL (8.6-10.2); CARBON DIOXIDE 26 mEQ/L (20-30); CHLORIDE 95 mEQ/L (98-107); CREATININE 0.8 mg/dL (0.5-0.9); GLOMERULAR FILTRATION RATE > 60 mL/min (>60); HEMOLYSIS 2; SODIUM 135 mEQ/L (135-145)
[2016-09-03 07:27] LABS: BASOPHILS % (AUTO) 2.2 % (0.0-2.0); LYMPHOCYTES % (AUTO) 18.8 % (20.0-45.0); MEAN CORPUSCULAR HEMOGLOBIN 29.5 PG (27.0-31.0); MEAN CORPUSCULAR HGB CONC 34.3 G/DL (32.0-36.0); MEAN CORPUSCULAR VOLUME 86 FL (80-99); MEAN PLATELET VOLUME 4.9 FL (6.5-10.1); MONOCYTES % (AUTO) 11.9 % (1.0-10.0); NEUTROPHILS % (AUTO) 63.1 % (45.0-75.0); PLATELET COUNT 239 K/UL (150-450); RED BLOOD COUNT 2.81 M/UL (4.20-5.40); RED CELL DISTRIBUTION WIDTH 12.7 % (11.6-14.8); WHITE BLOOD COUNT 12.9 K/UL (4.8-10.8)
[2016-09-03 08:00] VITALS: BP 106/65
[2016-09-03] MEDS: Docusate 100mg cap ORAL SCH ×2 (08:33→21:24)
[2016-09-03] MEDS: Lactobacillus-GG tablet ORAL SCH ×2 (08:33→17:50)
[2016-09-03] MEDS: Silver Sulfadiazine Cream 25gm TOPIC SCH (08:33)
--- NOTE | 2016-09-03 08:46 | General Progress Note ---
Assessment/Plan Assessment/Plan (1) Bilateral buttock soft tissue necrosis, cellulitis, open wounds buttocks (2) Abscess (3) Intractable pain (4) Staged debridement of bilateral buttock necrotic soft tissue, flap delay The patient is to be continued on the Dilaudid and Percocet. The patient was discussed with Dr. Singh and concurred. Subjective Date patient seen: Sep 03, 2016 Time patient seen: 08:45 - am Allergies: Coded Allergies: IODINE (Verified Allergy, Unknown, 08/26/16) PENICILLINS (Verified Allergy, Unknown, 08/26/16) Subjective Constitutional: Reports: no symptoms HEENT: Reports: no symptoms Cardiovascular: Reports: no symptoms Respiratory: Reports: no symptoms Gastrointestinal/Abdominal: Reports: no symptoms Genitourinary: Reports: no symptoms Neurologic/Psychiatric: Reports: weakness Endocrine: Reports: no symptoms Hematologic/Lymphatic: Reports: no symptoms Subjective She is sitting up in chair and pain is a 3/10 at this time. Objective Last 24 Hour Vital Signs Date Time Temp Pulse Resp B/P Pulse Ox O2 Delivery O2 Flow Rate FiO2 09/03/16 04:00 98.1 78 19 102/57 98 Room Air 09/03/16 00:19 98.1 95 19 103/50 98 Room Air 09/02/16 20:05 98.2 107 20 116/61 98 Room Air 09/02/16 16:00 97.0 120 18 140/89 97 Room Air 09/02/16 12:00 97.9 94 18 111/61 99 Room Air 09/02/16 08:49 97.7 92 18 119/70 99 Room Air Intake and Output 09/02/16 09/03/16 19:00 07:00 Intake Total 770 ml 240 ml Output Total 125 ml 100 ml Balance 645 ml 140 ml Intake Oral 720 ml 240 ml IV Total 50 ml Drainage Total 120 ml 95 ml Other 5 ml 5 ml # Voids 2 2 Laboratory Tests 09/02/16 10:36: White Blood Count 13.8H, Red Blood Count 3.11L, Hemoglobin 8.4L, Hematocrit 26.3L, Mean Corpuscular Volume 84, Mean Corpuscular Hemoglobin 27.1, Mean Corpuscular Hemoglobin Concent 32.1, Red Cell Distribution Width 12.5, Platelet Count 258, Mean Platelet Volume 6.2L, Neutrophils (%) (Auto) 75.9H, Lymphocytes (%) (Auto) 9.3L, Monocytes (%) (Auto) 10.6H, Eosinophils (%) (Auto) 3.0, Basophils (%) (Auto) 1.3, Sodium Level 135, Potassium Level 3.7, Chloride Level 94L, Carbon Dioxide Level 27, Anion Gap 14, Blood Urea Nitrogen 7, Creatinine 0.7, Estimat Glomerular Filtration Rate > 60, Glucose Level 116H, Calcium Level 8.8 09/03/16 05:55: White Blood Count 12.9H, Red Blood Count 2.81L, Hemoglobin 8.3L, Hematocrit 24.1L, Mean Corpuscular Volume 86, Mean Corpuscular Hemoglobin 29.5, Mean Corpuscular Hemoglobin Concent 34.3, Red Cell Distribution Width 12.7, Platelet Count 239, Mean Platelet Volume 4.9L, Neutrophils (%) (Auto) 63.1, Lymphocytes ( %) (Auto) 18.8L, Monocytes (%) (Auto) 11.9H, Eosinophils (%) (Auto) 4.0H, Basophils (%) (Auto) 2.2H, Sodium Level 135, Potassium Level 4.0, Chloride Level 95L, Carbon Dioxide Level 26, Anion Gap 14, Blood Urea Nitrogen 6L, Creatinine 0.8, Estimat Glomerular Filtration Rate > 60, Glucose Level 105, Calcium Level 8.7 Height (Feet): 5 Height (Inches): 3.00 Weight (Pounds): 130 Objective General Appearance: no apparent distress, alert EENT: PERRL/EOMI, normal ENT inspection Neck: non-tender, normal alignment Cardiovascular: normal rate, regular rhythm Respiratory/Chest: lungs clear, normal breath sounds Abdomen: non tender, soft Extremities: non-tender Edema: no edema noted Arm (L), no edema noted Arm (R), no edema noted Leg (L), no edema noted Leg (R), no edema noted Pedal (L), no edema noted Pedal (R), no edema noted Generalized Neurologic: alert, oriented x 3 Skin: other - bandages applied to buttock area with tenderness to palpation NELLY JACK Sep 03, 2016 08:46
[2016-09-03 12:00] VITALS: BP 127/93
--- NOTE | 2016-09-03 15:04 | General Progress Note ---
Assessment/Plan Problem List: (1) Abscess Assessment & Plan: s/p debridement of buttocks POD#7 R/o AURORA syndrome given silicone injections and onset of systemic symptoms, full autoimmune panel ordered Blood cx, UA shows diphteroids, CXR neg Wound care per Surgery Cont IV clindamycin and IV cipro per ID recs Supp care Pain control A total of 32 mins of additional time was spent with this patient including coordination of care in addition to face to face time ICD Codes: L02.91 - Cutaneous abscess, unspecified SNOMED: 566815960 Subjective Date patient seen: Sep 03, 2016 Time patient seen: 15:03 ROS Limited/Unobtainable: No Allergies: Coded Allergies: IODINE (Verified Allergy, Unknown, 08/26/16) PENICILLINS (Verified Allergy, Unknown, 08/26/16) Subjective s/p debridement of buttocks, POD#7, no periop or postop complications. No chest pain or dyspnea, pain well controlled. No more fevers/chills, wbc decreasing Objective Last 24 Hour Vital Signs Date Time Temp Pulse Resp B/P Pulse Ox O2 Delivery O2 Flow Rate FiO2 09/03/16 12:00 97.5 91 20 127/93 100 Room Air 09/03/16 08:00 96.4 82 18 106/65 98 Room Air 09/03/16 04:00 98.1 78 19 102/57 98 Room Air 09/03/16 00:19 98.1 95 19 103/50 98 Room Air 09/02/16 20:05 98.2 107 20 116/61 98 Room Air 09/02/16 16:00 97.0 120 18 140/89 97 Room Air Intake and Output 09/02/16 09/03/16 19:00 07:00 Intake Total 770 ml 240 ml Output Total 125 ml 100 ml Balance 645 ml 140 ml Intake Oral 720 ml 240 ml IV Total 50 ml Drainage Total 120 ml 95 ml Other 5 ml 5 ml # Voids 2 2 Laboratory Tests 09/03/16 05:55: White Blood Count 12.9H, Red Blood Count 2.81L, Hemoglobin 8.3L, Hematocrit 24.1L, Mean Corpuscular Volume 86, Mean Corpuscular Hemoglobin 29.5, Mean Corpuscular Hemoglobin Concent 34.3, Red Cell Distribution Width 12.7, Platelet Count 239, Mean Platelet Volume 4.9L, Neutrophils (%) (Auto) 63.1, Lymphocytes ( %) (Auto) 18.8L, Monocytes (%) (Auto) 11.9H, Eosinophils (%) (Auto) 4.0H, Basophils (%) (Auto) 2.2H, Sodium Level 135, Potassium Level 4.0, Chloride Level 95L, Carbon Dioxide Level 26, Anion Gap 14, Blood Urea Nitrogen 6L, Creatinine 0.8, Estimat Glomerular Filtration Rate > 60, Glucose Level 105, Calcium Level 8.7 Height (Feet): 5 Height (Inches): 3.00 Weight (Pounds): 130 Objective General: alert, cooperative, no distress, appears stated age Head: normocephalic, without obvious abnormality, atraumatic Eyes: conjunctivae/corneas clear. PERRL, EOM's intact Throat: lips, mucosa, and tongue normal. MMM Neck: supple, symmetrical, trachea midline, and no JVD Lungs: clear to auscultation bilaterally Heart: regular rate and rhythm, S1, S2 normal, no murmur, click, rub or gallop Abdomen: soft, non-tender, non-distended, bowel sounds normal; no masses or organomegaly Extremities: +tenderness to palpation, +rubor, +indurations (multiple) in bilateral gluteal area. Incisions c/d/i Pulses: 2+ and symmetric Skin: skin color, texture, turgor normal; no rashes or lesions Neurologic: 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, no focal deficits PETERSON COTTO Sep 03, 2016 15:04
[2016-09-03 16:00] VITALS: BP 110/61
[2016-09-03] MEDS: HYDROmorphone 1mg/ml Carpuject IVP PRN ×2 (16:35→22:14)
[2016-09-03 20:00] VITALS: BP 98/60
[2016-09-04] VITALS (9 sets, daily range): BP systolic 102–136; BP diastolic 46–92
[2016-09-04] MEDS: Clindamycin 600mg 50 ML IVPB SCH ×2 (05:22→13:38)
[2016-09-04] MEDS: Heparin 5000 units/ml inj SUBQ SCH ×3 (05:29→23:16)
[2016-09-04 07:27] LABS: BASOPHILS % (AUTO) 1.3 % (0.0-2.0); EOSINOPHILS % (AUTO) 4.2 % (0.0-3.0); LYMPHOCYTES % (AUTO) 21.2 % (20.0-45.0); MEAN CORPUSCULAR HEMOGLOBIN 27.2 PG (27.0-31.0); MEAN CORPUSCULAR HGB CONC 32.1 G/DL (32.0-36.0); MEAN CORPUSCULAR VOLUME 85 FL (80-99); MEAN PLATELET VOLUME 4.9 FL (6.5-10.1); MONOCYTES % (AUTO) 13.1 % (1.0-10.0); NEUTROPHILS % (AUTO) 60.2 % (45.0-75.0); PLATELET COUNT 302 K/UL (150-450); RED CELL DISTRIBUTION WIDTH 12.9 % (11.6-14.8); WHITE BLOOD COUNT 13.4 K/UL (4.8-10.8)
[2016-09-04] MEDS: Milk of Magnesia 30ml Ud ORAL PRN (07:44)
[2016-09-04] MEDS: Lactobacillus-GG tablet ORAL SCH ×2 (08:26→17:31)
[2016-09-04] MEDS: Silver Sulfadiazine Cream 25gm TOPIC SCH (08:26)
[2016-09-04] MEDS: Docusate 100mg cap ORAL SCH ×2 (08:26→21:10)
--- NOTE | 2016-09-04 08:55 | General Progress Note ---
Assessment/Plan Assessment/Plan (1) Bilateral buttock soft tissue necrosis, cellulitis, open wounds buttocks (2) Abscess (3) Intractable pain (4) Staged debridement of bilateral buttock necrotic soft tissue, flap delay The patient is to be continued on the Dilaudid and Percocet. The patient was discussed with Dr. Singh and concurred. Subjective Date patient seen: Sep 04, 2016 Time patient seen: 08:00 - am Allergies: Coded Allergies: IODINE (Verified Allergy, Unknown, 08/26/16) PENICILLINS (Verified Allergy, Unknown, 08/26/16) Subjective Constitutional: Reports: no symptoms HEENT: Reports: no symptoms Cardiovascular: Reports: no symptoms Respiratory: Reports: no symptoms Gastrointestinal/Abdominal: Reports: no symptoms Genitourinary: Reports: no symptoms Neurologic/Psychiatric: Reports: weakness Endocrine: Reports: no symptoms Hematologic/Lymphatic: Reports: no symptoms Subjective Pain is tolerated on the medication and is 4/10 Objective Last 24 Hour Vital Signs Date Time Temp Pulse Resp B/P Pulse Ox O2 Delivery O2 Flow Rate FiO2 09/04/16 08:00 98.1 101 20 134/87 96 Room Air 09/04/16 04:00 98.4 89 19 104/58 99 Room Air 09/04/16 00:09 98.6 95 19 102/54 97 Room Air 09/03/16 20:00 97.9 98 20 98/60 99 Room Air 09/03/16 16:00 96.4 93 20 110/61 97 Room Air 09/03/16 12:00 97.5 91 20 127/93 100 Room Air Intake and Output 09/03/16 09/04/16 19:00 07:00 Intake Total 800 ml 150 ml Output Total 72 ml Balance 800 ml 78 ml Intake Oral 800 ml 150 ml Drainage Total 70 ml Other 2 ml # Voids 3 2 Laboratory Tests 09/04/16 04:30: White Blood Count 13.4H, Red Blood Count 3.00L, Hemoglobin 8.1L, Hematocrit 25.4L, Mean Corpuscular Volume 85, Mean Corpuscular Hemoglobin 27.2, Mean Corpuscular Hemoglobin Concent 32.1, Red Cell Distribution Width 12.9, Platelet Count 302, Mean Platelet Volume 4.9L, Neutrophils (%) (Auto) 60.2, Lymphocytes ( %) (Auto) 21.2, Monocytes (%) (Auto) 13.1H, Eosinophils (%) (Auto) 4.2H, Basophils (%) (Auto) 1.3 Height (Feet): 5 Height (Inches): 3.00 Weight (Pounds): 130 Objective General Appearance: no apparent distress, alert EENT: PERRL/EOMI, normal ENT inspection Neck: non-tender, normal alignment Cardiovascular: normal rate, regular rhythm Respiratory/Chest: lungs clear, normal breath sounds Abdomen: non tender, soft Extremities: non-tender Edema: no edema noted Arm (L), no edema noted Arm (R), no edema noted Leg (L), no edema noted Leg (R), no edema noted Pedal (L), no edema noted Pedal (R), no edema noted Generalized Neurologic: alert, oriented x 3 Skin: other - bandages applied to buttock area with tenderness to palpation NELLY JACK Sep 04, 2016 08:55
[2016-09-04] MEDS ORDERED: Lactulose 20gm/30ml UDC ORAL PRN (09:15)
[2016-09-04] MEDS: HYDROmorphone 1mg/ml Carpuject IVP PRN ×4 (10:35→23:12)
--- NOTE | 2016-09-04 10:55 | Infectious Diseases Prog Note ---
Assessment/Plan Assessment/Plan A) 1) fevers, leukocytosis post-op - improved overall, mild leukocytosis persists, fevers resolved 2) s/p debridement of bilateral buttock necrosis with cellulitis, now with open wounds and wound vac/flap 3) hx gluteal silicone infectios 4) recent terminated 5) r/u AURORA autoimmune syndrome 6) pain mgt, anemia, hyponatremia 7) allergies - pcn and iodine, sh-negative, mar noted, notes and records reviewed 8) d/w RN P) 1) clindamycin and ciprofloxacin for soft tissue infection coverage - day # 5 of abx 2) check final cultures, urine culture with diphtheroids is a contaminant 3) watch labs 4) continue treatment per Dr. Christiansen and surgery 5) orders noted and entered 6) d/w patient and answered questions Subjective Constitutional: Denies: fever HEENT: Denies: congestion Respiratory: Denies: shortness of breath Cardiovascular: Denies: chest pain Gastrointestinal/Abdominal: Denies: nausea Genitourinary: Denies: other Neurologic: Denies: headache, numbness Psychiatric: Denies: depression Skin: Denies: rash Musculoskeletal: Denies: pain Allergies: Coded Allergies: IODINE (Verified Allergy, Unknown, 08/26/16) PENICILLINS (Verified Allergy, Unknown, 08/26/16) Objective Vital Signs Last 24 Hour Vital Signs Date Time Temp Pulse Resp B/P Pulse Ox O2 Delivery O2 Flow Rate FiO2 09/04/16 08:00 98.1 101 20 134/87 96 Room Air 09/04/16 04:00 98.4 89 19 104/58 99 Room Air 09/04/16 00:09 98.6 95 19 102/54 97 Room Air 09/03/16 20:00 97.9 98 20 98/60 99 Room Air 09/03/16 16:00 96.4 93 20 110/61 97 Room Air 09/03/16 12:00 97.5 91 20 127/93 100 Room Air Height (Feet): 5 Height (Inches): 3.00 Weight (Pounds): 130 General Appearance: no acute distress HEENT: normocephalic, atraumatic, anicteric, mucous membranes moist, PERRL, EOMI, pharynx normal, supple, no JVD Respiratory/Chest: lungs clear, normal breath sounds, no respiratory distress, no accessory muscle use Cardiovascular: normal rate, regular rhythm, no gallop/murmur, no JVD Abdomen: normal bowel sounds, soft, non tender, no organomegaly, non distended Genitourinary: other - no beltre Extremities: no cyanosis Skin: no rash, other - wounds - covered Neurologic/Psychiatric: circuit tester II-XII 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, alert, oriented x 3 Lymphatic: no neck adenopathy Musculoskeletal: no effusion Objective Labs Test 08/31/16 05:50 08/31/16 08:31 09/01/16 07:05 09/02/16 10:36 White Blood Count 18.8 K/UL (4.8-10.8) 17.2 K/UL (4.8-10.8) 13.8 K/UL (4.8-10.8) Red Blood Count 2.95 M/UL (4.20-5.40) 2.98 M/UL (4.20-5.40) 3.11 M/UL (4.20-5.40) Hemoglobin 8.4 G/DL (12.0-16.0) 8.7 G/DL (12.0-16.0) 8.4 G/DL (12.0-16.0) Hematocrit 25.3 % (37.0-47.0) 26.0 % (37.0-47.0) 26.3 % (37.0-47.0) Mean Corpuscular Volume 86 FL (80-99) 87 FL (80-99) 84 FL (80-99) Mean Corpuscular Hemoglobin 28.3 PG (27.0-31.0) 29.3 PG (27.0-31.0) 27.1 PG (27.0-31.0) Mean Corpuscular Hemoglobin Concent 33.1 G/DL (32.0-36.0) 33.6 G/DL (32.0-36.0) 32.1 G/DL (32.0-36.0) Red Cell Distribution Width 12.8 % (11.6-14.8) 12.6 % (11.6-14.8) 12.5 % (11.6-14.8) Platelet Count 178 K/UL (150-450) 183 K/UL (150-450) 258 K/UL (150-450) Mean Platelet Volume 6.0 FL (6.5-10.1) 5.1 FL (6.5-10.1) 6.2 FL (6.5-10.1) Neutrophils (%) (Auto) % (45.0-75.0) 72.6 % (45.0-75.0) 75.9 % (45.0-75.0) Lymphocytes (%) (Auto) % (20.0-45.0) 15.0 % (20.0-45.0) 9.3 % (20.0-45.0) Monocytes (%) (Auto) % (1.0-10.0) 9.1 % (1.0-10.0) 10.6 % (1.0-10.0) Eosinophils (%) (Auto) % (0.0-3.0) 2.5 % (0.0-3.0) 3.0 % (0.0-3.0) Basophils (%) (Auto) % (0.0-2.0) 0.9 % (0.0-2.0) 1.3 % (0.0-2.0) Differential Total Cells Counted 100 Neutrophils % (Manual) 70 % (45-75) Lymphocytes % (Manual) 16 % (20-45) Monocytes % (Manual) 11 % (1-10) Eosinophils % (Manual) 2 % (0-3) Basophils % (Manual) 0 % (0-2) Band Neutrophils 1 % (0-8) Platelet Estimate Adequate Platelet Morphology Normal Hypochromasia 1+ Sodium Level 130 mEQ/L (135-145) 135 mEQ/L (135-145) 135 mEQ/L (135-145) Potassium Level 3.5 mEQ/L (3.4-4.9) 3.8 mEQ/L (3.4-4.9) 3.7 mEQ/L (3.4-4.9) Chloride Level 92 mEQ/L (98-107) 94 mEQ/L (98-107) 94 mEQ/L (98-107) Carbon Dioxide Level 27 mEQ/L (20-30) 29 mEQ/L (20-30) 27 mEQ/L (20-30) Anion Gap 11 (5-15) 12 (5-15) 14 (5-15) Blood Urea Nitrogen 6 mg/dL (7-23) 5 mg/dL (7-23) 7 mg/dL (7-23) Creatinine 0.8 mg/dL (0.5-0.9) 0.8 mg/dL (0.5-0.9) 0.7 mg/dL (0.5-0.9) Estimat Glomerular Filtration Rate > 60 mL/min (>60) > 60 mL/min (>60) > 60 mL/min (>60) Glucose Level 116 mg/dL (74-106) 112 mg/dL (74-106) 116 mg/dL (74-106) Calcium Level 8.3 mg/dL (8.6-10.2) 8.8 mg/dL (8.6-10.2) 8.8 mg/dL (8.6-10.2) Urine Color Pale yellow Urine Appearance Clear Urine pH 7 (4.5-8.0) Urine Specific [place] 1.005 (1.005-1.035) Urine Protein Negative (NEGATIVE) Urine Glucose (UA) Negative (NEGATIVE) Urine Ketones Negative (NEGATIVE) Urine Occult Blood 2+ (NEGATIVE) Urine Nitrite Negative (NEGATIVE) Urine Bilirubin Negative (NEGATIVE) Urine Urobilinogen Normal MG/DL (0.0-1.0) Urine Leukocyte Esterase 1+ (NEGATIVE) Urine RBC 2-4 /HPF (0 - 2) Urine WBC 2-4 /HPF (0 - 2) Urine Squamous Epithelial Cells Few /LPF (NONE/OCC) Urine Bacteria Few /HPF (NONE) Total Bilirubin 0.3 mg/dL (0.0-1.2) Aspartate Amino Transf (AST/SGOT) 31 U/L (5-40) Alanine Aminotransferase (ALT/SGPT) 51 U/L (3-33) Alkaline Phosphatase 74 U/L (35-104) Total Protein 6.3 g/dL (6.6-8.7) Albumin 2.9 g/dL (3.5-5.2) Globulin 3.4 g/dL Albumin/Globulin Ratio 0.8 (1.0-2.7) chest x-ray - negative mri pelvis - report noted Microbiology Date/Time Source Procedure Growth Status 08/31/16 08:45 Blood Blood Culture - Preliminary NO GROWTH AFTER 72 HOURS Resulted 08/31/16 08:31 Urine,Clean Catch Urine Culture - Final Diphtheroids Complete Laboratory Tests Test 09/04/16 04:30 White Blood Count 13.4 K/UL (4.8-10.8) H Red Blood Count 3.00 M/UL (4.20-5.40) L Hemoglobin 8.1 G/DL (12.0-16.0) L Hematocrit 25.4 % (37.0-47.0) L Mean Corpuscular Volume 85 FL (80-99) Mean Corpuscular Hemoglobin 27.2 PG (27.0-31.0) Mean Corpuscular Hemoglobin Concent 32.1 G/DL (32.0-36.0) Red Cell Distribution Width 12.9 % (11.6-14.8) Platelet Count 302 K/UL (150-450) Mean Platelet Volume 4.9 FL (6.5-10.1) L Neutrophils (%) (Auto) 60.2 % (45.0-75.0) Lymphocytes (%) (Auto) 21.2 % (20.0-45.0) Monocytes (%) (Auto) 13.1 % (1.0-10.0) H Eosinophils (%) (Auto) 4.2 % (0.0-3.0) H Basophils (%) (Auto) 1.3 % (0.0-2.0) Current Medications Medications (Trade) Dose Ordered Sig/Yamileth Route PRN Reason Start Time Stop Time Status Last Admin Dose Admin Acetaminophen (Tylenol) 650 mg Q4H PRN ORAL fever 08/26/16 14:45 09/25/16 14:44 08/31/16 04:32 Acetaminophen (Tylenol) 650 mg Q4H PRN ORAL Mild Pain (Pain Scale 1-3) 08/26/16 14:45 09/25/16 14:44 Al Hydroxide/Mg Hydroxide (Mylanta II) 30 ml Q6H PRN ORAL dyspepsia 08/26/16 14:45 09/25/16 14:44 Bisacodyl (Dulcolax) 10 mg HSPRN PRN RECTAL Constipation 09/04/16 09:28 09/25/16 14:44 Ciprofloxacin 200 ml @ 200 mls/hr Q12HR IV 08/31/16 12:30 09/07/16 12:29 09/04/16 08:25 Clindamycin HCl/ Dextrose (Cleocin 600mg) 50 ml @ 100 mls/hr Q8HR IVPB 08/31/16 22:00 09/07/16 21:59 09/04/16 05:22 Dextrose (Dextrose 50%) STAT PRN IV Hypoglycemia 08/26/16 14:45 09/25/16 14:44 Docusate Sodium (Colace) 100 mg EVERY 12 HOURS ORAL 08/26/16 21:00 09/25/16 20:59 09/04/16 08:26 Ferrous Sulfate (Feosol) 325 mg THREE TIMES A DAY ORAL 09/02/16 18:00 10/02/16 17:59 09/04/16 08:26 Gabapentin (Neurontin) 300 mg BEDTIME ORAL 08/30/16 21:00 09/29/16 20:59 09/03/16 21:24 Heparin Sodium (Porcine) (Heparin 5000 units/ml) 5,000 units EVERY 8 HOURS SUBQ 08/28/16 06:00 09/27/16 05:59 09/04/16 05:29 Hydromorphone HCl 1 mg 1 mg Q4H PRN IVP Severe Pain (Pain Scale 7-10) 08/31/16 09:30 09/07/16 09:29 09/04/16 10:35 Lactobacillus Acidophilus (Culturelle) 1 tab TWICE A DAY ORAL 08/26/16 18:00 09/25/16 17:59 09/04/16 08:26 Lactulose (Cephulac) 30 gm Q4H PRN ORAL constipation 09/04/16 09:15 10/04/16 09:14 Magnesium Hydroxide (Mom) 30 ml HSPRN PRN ORAL Constipation 08/26/16 14:45 09/25/16 14:44 09/04/16 07:44 Ondansetron HCl (Zofran) 4 mg Q6H PRN IVP Nausea & Vomiting 08/31/16 17:45 09/30/16 17:44 09/04/16 10:34 Oxycodone/ Acetaminophen (Percocet 10/325) 1 tab Q4H PRN ORAL MODERATE BREAKTHROUGH PAIN 08/31/16 09:30 09/07/16 09:29 09/04/16 04:35 Polyethylene Glycol (Miralax) 17 gm HSPRN PRN ORAL Constipation 09/04/16 09:29 09/25/16 14:44 Silver Sulfadiazine (Silvadene Cream 25gm) 1 applic DAILY TOPIC 09/02/16 14:00 10/02/16 13:59 09/04/16 08:26 BLU KATHLEEN Sep 04, 2016 10:55
[2016-09-04 16:48] LABS: APPEARANCE,URINE CLEAR; KETONES,URINE NEGATIVE (NEGATIVE); LEUKOCYTE ESTERASE ,URINE 1+ (NEGATIVE); NITRITE,URINE NEGATIVE (NEGATIVE); PH,URINE 7 (4.5-8.0); PROTEIN,URINE NEGATIVE (NEGATIVE); UROBILINOGEN,URINE NORMAL MG/DL (0.0-1.0)
[2016-09-04 17:01] LABS: BACTERIA,URINE FEW /HPF; RBC,URINE 0-2 /HPF (0 - 2); SQUAMOUS EPITHELIAL CELL,UR MODERATE /LPF (NONE/OCC); TRICHOMONAS,URINE FEW /HPF
--- NOTE | 2016-09-04 18:32 | General Progress Note ---
Assessment/Plan Problem List: (1) Abscess Assessment & Plan: s/p debridement of buttocks POD#8 Check blood cx x2, CXR, UA. d/w ID will broaden IV abx to vanco/aztreonam/flagyl stat CT pelvis, no contrast to r/o abscess or free air, d/w Surgery R/o AURORA syndrome given silicone injections and onset of systemic symptoms, full autoimmune panel ordered Blood cx, UA shows diphteroids, CXR neg Wound care per Surgery Cont IV clindamycin and IV cipro per ID recs Supp care Pain control A total of 32 mins of additional time was spent with this patient including coordination of care in addition to face to face time ICD Codes: L02.91 - Cutaneous abscess, unspecified SNOMED: [id number] Subjective Date patient seen: Sep 04, 2016 Time patient seen: 18:30 ROS Limited/Unobtainable: No Allergies: Coded Allergies: IODINE (Verified Allergy, Unknown, 08/26/16) PENICILLINS (Verified Allergy, Unknown, 08/26/16) Subjective s/p debridement of buttocks, POD#8, earlier today pt c/o chills, fever 101.8, tachy in the 130s, IV fluids ordered and cultured up, pt feels slightly better now. No chest pain or dyspnea, pain well controlled. No dysuria Objective Last 24 Hour Vital Signs Date Time Temp Pulse Resp B/P Pulse Ox O2 Delivery O2 Flow Rate FiO2 09/04/16 17:30 99.5 115 111/55 Room Air 09/04/16 16:30 101.8 126 107/52 Room Air 09/04/16 16:18 101.8 09/04/16 16:02 99.0 133 20 128/50 99 Room Air 09/04/16 14:30 97.9 119 120/92 Room Air 09/04/16 12:15 97.7 100 20 136/80 98 Room Air 09/04/16 08:00 98.1 101 20 134/87 96 Room Air 09/04/16 04:00 98.4 89 19 104/58 99 Room Air 09/04/16 00:09 98.6 95 19 102/54 97 Room Air 09/03/16 20:00 97.9 98 20 98/60 99 Room Air Intake and Output 09/03/16 09/04/16 19:00 07:00 Intake Total 800 ml 150 ml Output Total 72 ml Balance 800 ml 78 ml Intake Oral 800 ml 150 ml Drainage Total 70 ml Other 2 ml # Voids 3 2 Laboratory Tests 09/04/16 04:30: White Blood Count 13.4H, Red Blood Count 3.00L, Hemoglobin 8.1L, Hematocrit 25.4L, Mean Corpuscular Volume 85, Mean Corpuscular Hemoglobin 27.2, Mean Corpuscular Hemoglobin Concent 32.1, Red Cell Distribution Width 12.9, Platelet Count 302, Mean Platelet Volume 4.9L, Neutrophils (%) (Auto) 60.2, Lymphocytes ( %) (Auto) 21.2, Monocytes (%) (Auto) 13.1H, Eosinophils (%) (Auto) 4.2H, Basophils (%) (Auto) 1.3 09/04/16 16:30: Urine Color Pale yellow, Urine Appearance Clear, Urine pH 7, Urine Specific [place] 1.010, Urine Protein Negative, Urine Glucose (UA) Negative, Urine Ketones Negative, Urine Occult Blood Negative, Urine Nitrite Negative, Urine Bilirubin Negative, Urine Urobilinogen Normal, Urine Leukocyte Esterase 1+H, Urine RBC 0-2, Urine WBC 2-4, Urine Squamous Epithelial Cells ModerateH, Urine Bacteria Few, Urine Trichomonas FewH Height (Feet): 5 Height (Inches): 3.00 Weight (Pounds): 130 Objective General: alert, cooperative, no distress, appears stated age Head: normocephalic, without obvious abnormality, atraumatic Eyes: conjunctivae/corneas clear. PERRL, EOM's intact Throat: lips, mucosa, and tongue normal. MMM Neck: supple, symmetrical, trachea midline, and no JVD Lungs: clear to auscultation bilaterally Heart: regular rate and rhythm, S1, S2 normal, no murmur, click, rub or gallop Abdomen: soft, non-tender, non-distended, bowel sounds normal; no masses or organomegaly Extremities: +tenderness to palpation, +rubor, +indurations (multiple) in bilateral gluteal area. Incisions c/d/i, +malodorous Pulses: 2+ and symmetric Skin: skin color, texture, turgor normal; no rashes or lesions Neurologic: 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, no focal deficits PETERSON COTTO Sep 04, 2016 18:32
[2016-09-04] MEDS ORDERED: Vancomycin 1gm/D5W 275ml IVPB ONE ×2 (20:00)
[2016-09-04] MEDS: metroNIDAZOLE 500mg 100 ML IVPB SCH (23:13)
[2016-09-05] VITALS: BP 142/62
[2016-09-05] MEDS: Aztreonam Inj 1 GM in D5W 55 ML IVPB SCH ×4 (00:40→23:45)
[2016-09-05] MEDS: Miralax 17gm pkt ORAL PRN (01:47)
[2016-09-05] MEDS: Milk of Magnesia 30ml Ud ORAL PRN (01:47)
[2016-09-05 04:05] VITALS: BP 116/60
[2016-09-05] MEDS: metroNIDAZOLE 500mg 100 ML IVPB SCH ×3 (06:32→22:22)
[2016-09-05] MEDS: Heparin 5000 units/ml inj SUBQ SCH ×4 (06:34→22:23)
[2016-09-05] MEDS: HYDROmorphone 1mg/ml Carpuject IVP PRN ×4 (06:36→19:42)
[2016-09-05 08:00] VITALS: BP 122/55
--- NOTE | 2016-09-05 08:34 | General Progress Note ---
Assessment/Plan Assessment/Plan (1) Bilateral buttock soft tissue necrosis, cellulitis, open wounds buttocks (2) Abscess (3) Intractable pain (4) Staged debridement of bilateral buttock necrotic soft tissue, flap delay The patient is to be continued on the Dilaudid and Percocet. The patient was discussed with Dr. Singh and concurred. Subjective Date patient seen: Sep 05, 2016 Time patient seen: 07:45 - am Allergies: Coded Allergies: IODINE (Verified Allergy, Unknown, 08/26/16) PENICILLINS (Verified Allergy, Unknown, 08/26/16) Subjective Constitutional: Reports: no symptoms HEENT: Reports: no symptoms Cardiovascular: Reports: no symptoms Respiratory: Reports: no symptoms Gastrointestinal/Abdominal: Reports: no symptoms Genitourinary: Reports: no symptoms Neurologic/Psychiatric: Reports: weakness Endocrine: Reports: no symptoms Hematologic/Lymphatic: Reports: no symptoms Subjective She is in bed in no acute distress. Pain is a 4/10 and reduced on the medications. Objective Last 24 Hour Vital Signs Date Time Temp Pulse Resp B/P Pulse Ox O2 Delivery O2 Flow Rate FiO2 09/05/16 07:06 98.1 09/05/16 04:05 98.1 97 18 116/60 98 Room Air 09/05/16 00:00 97.9 89 18 142/62 99 Room Air 09/04/16 20:22 97.7 97 19 102/46 100 Room Air 09/04/16 17:30 99.5 115 111/55 Room Air 09/04/16 16:30 101.8 126 107/52 Room Air 09/04/16 16:18 101.8 09/04/16 16:02 99.0 133 20 128/50 99 Room Air 09/04/16 14:30 97.9 119 120/92 Room Air 09/04/16 12:15 97.7 100 20 136/80 98 Room Air Intake and Output 09/04/16 09/05/16 19:00 07:00 Intake Total 2359 ml 2325.000 ml Output Total 150 ml 110 ml Balance 2209 ml 2215.000 ml Intake Oral 840 ml 240 ml IV Total 1519 ml 2085.000 ml Drainage Total 140 ml 100 ml Other 10 ml 10 ml # Voids 4 2 Laboratory Tests 09/04/16 16:30: Urine Color Pale yellow, Urine Appearance Clear, Urine pH 7, Urine Specific [place] 1.010, Urine Protein Negative, Urine Glucose (UA) Negative, Urine Ketones Negative, Urine Occult Blood Negative, Urine Nitrite Negative, Urine Bilirubin Negative, Urine Urobilinogen Normal, Urine Leukocyte Esterase 1+H, Urine RBC 0-2, Urine WBC 2-4, Urine Squamous Epithelial Cells ModerateH, Urine Bacteria Few, Urine Trichomonas FewH Height (Feet): 5 Height (Inches): 3.00 Weight (Pounds): 130 Objective General Appearance: no apparent distress, alert EENT: PERRL/EOMI, normal ENT inspection Neck: non-tender, normal alignment Cardiovascular: normal rate, regular rhythm Respiratory/Chest: lungs clear, normal breath sounds Abdomen: non tender, soft Extremities: non-tender Edema: no edema noted Arm (L), no edema noted Arm (R), no edema noted Leg (L), no edema noted Leg (R), no edema noted Pedal (L), no edema noted Pedal (R), no edema noted Generalized Neurologic: alert, oriented x 3 Skin: other - bandages applied to buttock area with tenderness to palpation NELLY JACK Sep 05, 2016 08:34
--- NOTE | 2016-09-05 08:37 | Diagnostic Imaging Report ---
Indication: Is of breath Technique: One view of the chest Comparison: 08/31/2016 Findings: Lungs and pleural spaces are clear. Heart size is normal. No significant change Impression: No acute process
[2016-09-05] MEDS: Docusate 100mg cap ORAL SCH ×2 (08:41→22:22)
[2016-09-05] MEDS: Vancomycin 750mg/D5W 275ml IVPB SCH ×4 (08:41→19:42)
[2016-09-05] MEDS: Lactobacillus-GG tablet ORAL SCH ×2 (08:41→17:37)
[2016-09-05] MEDS: Silver Sulfadiazine Cream 25gm TOPIC SCH (08:50)
--- NOTE | 2016-09-05 09:07 | Diagnostic Imaging Report ---
Indication: Postoperative pain, status post buttock debridement of patient with prior silicone injections Technique: Noncontrast spiral acquisitions obtained through the pelvis. No IV contrast given due to prior history of contrast reaction. Multiplanar reconstructions generated. Total dose length product 356 mGycm. CTDIvol(s) 12 mGy. Dose reduction achieved using automated exposure control Comparison: MRI pelvis 08/26/2016 Findings: There has been interim debulking of the bilateral buttocks subcutaneous fat. Multiple drains are now present. There is stranding considerable of the residual subcutaneous fat as well as skin thickening. Although evaluation for such is somewhat limited in the absence of IV contrast, there are no findings to suggest fluid collection or abscess. Drains appear to be well positioned. Some residual nodules remain. No bony abnormality. The included pelvic viscera are unremarkable. Impression: Interim surgery for debulking of the bilateral buttocks indication status post local injections. Although evaluation is somewhat limited in the absence of there are no unexpected findings or findings to suggest postoperative abscess This agrees with the preliminary interpretation provided overnight by Dr. Pardo. Findings also discussed by phone with referring surgeon The CT scanner at [facility] is accredited by the [employer] and the scans are performed using protocols designed to limit radiation exposure to as low as reasonably achievable to attain images of sufficient resolution adequate for diagnostic evaluation.
--- NOTE | 2016-09-05 11:49 | Infectious Diseases Prog Note ---
Assessment/Plan Assessment/Plan A) 1) fevers, leukocytosis post-op - febrile again with tachycardia, ? sepsis, ? right buttock wound infection, ? other, ct pelvis negative for abscess -PE w/u in process, ua benign, doppler us legs negative for DVT, v/q scan pending - ua benign, chest x-ray negative 2) s/p debridement of bilateral buttock necrosis with cellulitis, now with open wounds and wound vac/flap 3) hx gluteal silicone infectios 4) recent terminated 5) r/u AURORA autoimmune syndrome 6) pain mgt, anemia, hyponatremia 7) allergies - pcn and iodine, sh-negative, mar noted, notes and records reviewed 8) d/w RN P) 1) change abx to vancomycin, flagyl and aztreonam 2) check final cultures, v/q scan, bc, labs 3) surgery f/u on wounds, ? debridement 4) continue treatment per Dr. Christiansen and surgery 5) orders noted and entered 6) d/w patient and answered questions Subjective Constitutional: Denies: fever HEENT: Denies: congestion Respiratory: Denies: shortness of breath Cardiovascular: Denies: chest pain Gastrointestinal/Abdominal: Denies: diarrhea, nausea, vomiting Genitourinary: Reports: other - no beltre Neurologic: Denies: headache Psychiatric: Denies: depression Skin: Denies: rash Hematologic: Denies: bleeding Musculoskeletal: Denies: pain Allergies: Coded Allergies: IODINE (Verified Allergy, Unknown, 08/26/16) PENICILLINS (Verified Allergy, Unknown, 08/26/16) Objective Vital Signs Last 24 Hour Vital Signs Date Time Temp Pulse Resp B/P Pulse Ox O2 Delivery O2 Flow Rate FiO2 09/05/16 08:00 98.2 101 18 122/55 98 Room Air 09/05/16 07:06 98.1 09/05/16 04:05 98.1 97 18 116/60 98 Room Air 09/05/16 00:00 97.9 89 18 142/62 99 Room Air 09/04/16 20:22 97.7 97 19 102/46 100 Room Air 09/04/16 17:30 99.5 115 111/55 Room Air 09/04/16 16:30 101.8 126 107/52 Room Air 09/04/16 16:18 101.8 09/04/16 16:02 99.0 133 20 128/50 99 Room Air 09/04/16 14:30 97.9 119 120/92 Room Air 09/04/16 12:15 97.7 100 20 136/80 98 Room Air Height (Feet): 5 Height (Inches): 3.00 Weight (Pounds): 130 General Appearance: no acute distress HEENT: normocephalic, atraumatic, anicteric, mucous membranes moist, PERRL, EOMI, pharynx normal, supple, no JVD Respiratory/Chest: lungs clear, normal breath sounds, no respiratory distress, no accessory muscle use Cardiovascular: normal rate, regular rhythm, no gallop/murmur, no JVD Abdomen: normal bowel sounds, soft, non tender, no organomegaly, non distended Genitourinary: other - no beltre Extremities: no cyanosis Skin: no rash, other - wounds - right buttocks 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, alert, oriented x 3, responsive Lymphatic: no neck adenopathy Musculoskeletal: no effusion Objective Labs Test 08/31/16 05:50 08/31/16 08:31 09/01/16 07:05 09/02/16 10:36 White Blood Count 18.8 K/UL (4.8-10.8) 17.2 K/UL (4.8-10.8) 13.8 K/UL (4.8-10.8) Red Blood Count 2.95 M/UL (4.20-5.40) 2.98 M/UL (4.20-5.40) 3.11 M/UL (4.20-5.40) Hemoglobin 8.4 G/DL (12.0-16.0) 8.7 G/DL (12.0-16.0) 8.4 G/DL (12.0-16.0) Hematocrit 25.3 % (37.0-47.0) 26.0 % (37.0-47.0) 26.3 % (37.0-47.0) Mean Corpuscular Volume 86 FL (80-99) 87 FL (80-99) 84 FL (80-99) Mean Corpuscular Hemoglobin 28.3 PG (27.0-31.0) 29.3 PG (27.0-31.0) 27.1 PG (27.0-31.0) Mean Corpuscular Hemoglobin Concent 33.1 G/DL (32.0-36.0) 33.6 G/DL (32.0-36.0) 32.1 G/DL (32.0-36.0) Red Cell Distribution Width 12.8 % (11.6-14.8) 12.6 % (11.6-14.8) 12.5 % (11.6-14.8) Platelet Count 178 K/UL (150-450) 183 K/UL (150-450) 258 K/UL (150-450) Mean Platelet Volume 6.0 FL (6.5-10.1) 5.1 FL (6.5-10.1) 6.2 FL (6.5-10.1) Neutrophils (%) (Auto) % (45.0-75.0) 72.6 % (45.0-75.0) 75.9 % (45.0-75.0) Lymphocytes (%) (Auto) % (20.0-45.0) 15.0 % (20.0-45.0) 9.3 % (20.0-45.0) Monocytes (%) (Auto) % (1.0-10.0) 9.1 % (1.0-10.0) 10.6 % (1.0-10.0) Eosinophils (%) (Auto) % (0.0-3.0) 2.5 % (0.0-3.0) 3.0 % (0.0-3.0) Basophils (%) (Auto) % (0.0-2.0) 0.9 % (0.0-2.0) 1.3 % (0.0-2.0) Differential Total Cells Counted 100 Neutrophils % (Manual) 70 % (45-75) Lymphocytes % (Manual) 16 % (20-45) Monocytes % (Manual) 11 % (1-10) Eosinophils % (Manual) 2 % (0-3) Basophils % (Manual) 0 % (0-2) Band Neutrophils 1 % (0-8) Platelet Estimate Adequate Platelet Morphology Normal Hypochromasia 1+ Sodium Level 130 mEQ/L (135-145) 135 mEQ/L (135-145) 135 mEQ/L (135-145) Potassium Level 3.5 mEQ/L (3.4-4.9) 3.8 mEQ/L (3.4-4.9) 3.7 mEQ/L (3.4-4.9) Chloride Level 92 mEQ/L (98-107) 94 mEQ/L (98-107) 94 mEQ/L (98-107) Carbon Dioxide Level 27 mEQ/L (20-30) 29 mEQ/L (20-30) 27 mEQ/L (20-30) Anion Gap 11 (5-15) 12 (5-15) 14 (5-15) Blood Urea Nitrogen 6 mg/dL (7-23) 5 mg/dL (7-23) 7 mg/dL (7-23) Creatinine 0.8 mg/dL (0.5-0.9) 0.8 mg/dL (0.5-0.9) 0.7 mg/dL (0.5-0.9) Estimat Glomerular Filtration Rate > 60 mL/min (>60) > 60 mL/min (>60) > 60 mL/min (>60) Glucose Level 116 mg/dL (74-106) 112 mg/dL (74-106) 116 mg/dL (74-106) Calcium Level 8.3 mg/dL (8.6-10.2) 8.8 mg/dL (8.6-10.2) 8.8 mg/dL (8.6-10.2) Urine Color Pale yellow Urine Appearance Clear Urine pH 7 (4.5-8.0) Urine Specific [place] 1.005 (1.005-1.035) Urine Protein Negative (NEGATIVE) Urine Glucose (UA) Negative (NEGATIVE) Urine Ketones Negative (NEGATIVE) Urine Occult Blood 2+ (NEGATIVE) Urine Nitrite Negative (NEGATIVE) Urine Bilirubin Negative (NEGATIVE) Urine Urobilinogen Normal MG/DL (0.0-1.0) Urine Leukocyte Esterase 1+ (NEGATIVE) Urine RBC 2-4 /HPF (0 - 2) Urine WBC 2-4 /HPF (0 - 2) Urine Squamous Epithelial Cells Few /LPF (NONE/OCC) Urine Bacteria Few /HPF (NONE) Total Bilirubin 0.3 mg/dL (0.0-1.2) Aspartate Amino Transf (AST/SGOT) 31 U/L (5-40) Alanine Aminotransferase (ALT/SGPT) 51 U/L (3-33) Alkaline Phosphatase 74 U/L (35-104) Total Protein 6.3 g/dL (6.6-8.7) Albumin 2.9 g/dL (3.5-5.2) Globulin 3.4 g/dL Albumin/Globulin Ratio 0.8 (1.0-2.7) chest x-ray - negative mri pelvis - report noted \ 09/04 - pelvic ct - no abscess 09/04 - chest x-ray - negative for pna Microbiology Date/Time Source Procedure Growth Status 08/31/16 08:45 Blood Blood Culture - Preliminary NO GROWTH AFTER 4 DAYS Resulted 08/31/16 08:31 Urine,Clean Catch Urine Culture - Final Diphtheroids Complete Laboratory Tests Test 09/04/16 16:30 Urine Color Pale yellow Urine Appearance Clear Urine pH 7 (4.5-8.0) Urine Specific [place] 1.010 (1.005-1.035) Urine Protein Negative (NEGATIVE) Urine Glucose (UA) Negative (NEGATIVE) Urine Ketones Negative (NEGATIVE) Urine Occult Blood Negative (NEGATIVE) Urine Nitrite Negative (NEGATIVE) Urine Bilirubin Negative (NEGATIVE) Urine Urobilinogen Normal MG/DL (0.0-1.0) Urine Leukocyte Esterase 1+ (NEGATIVE) H Urine RBC 0-2 /HPF (0 - 2) Urine WBC 2-4 /HPF (0 - 2) Urine Squamous Epithelial Cells Moderate /LPF (NONE/OCC) H Urine Bacteria Few /HPF (NONE) Urine Trichomonas Few /HPF (NONE) H Current Medications Medications (Trade) Dose Ordered Sig/Ymaileth Route PRN Reason Start Time Stop Time Status Last Admin Dose Admin Acetaminophen (Tylenol) 650 mg Q4H PRN ORAL fever 08/26/16 14:45 09/25/16 14:44 09/04/16 15:13 Acetaminophen (Tylenol) 650 mg Q4H PRN ORAL Mild Pain (Pain Scale 1-3) 08/26/16 14:45 09/25/16 14:44 Al Hydroxide/Mg Hydroxide (Mylanta II) 30 ml Q6H PRN ORAL dyspepsia 08/26/16 14:45 09/25/16 14:44 Aztreonam 1 gm/ Dextrose 55 ml @ 110 mls/hr Q8H IVPB 09/04/16 23:00 09/11/16 22:59 09/05/16 06:32 Bisacodyl (Dulcolax) 10 mg HSPRN PRN RECTAL Constipation 09/04/16 09:28 09/25/16 14:44 Dextrose (Dextrose 50%) STAT PRN IV Hypoglycemia 08/26/16 14:45 09/25/16 14:44 Docusate Sodium (Colace) 100 mg EVERY 12 HOURS ORAL 08/26/16 21:00 09/25/16 20:59 09/05/16 08:41 Ferrous Sulfate (Feosol) 325 mg THREE TIMES A DAY ORAL 09/02/16 18:00 10/02/16 17:59 09/05/16 08:41 Gabapentin (Neurontin) 300 mg BEDTIME ORAL 08/30/16 21:00 09/29/16 20:59 09/04/16 21:10 Heparin Sodium (Porcine) (Heparin 5000 units/ml) 5,000 units EVERY 8 HOURS SUBQ 08/28/16 06:00 09/27/16 05:59 09/05/16 06:34 Hydromorphone HCl (Dilaudid) 1 mg Q4H PRN IVP Severe Pain (Pain Scale 7-10) 08/31/16 09:30 09/07/16 09:29 09/05/16 06:36 Lactobacillus Acidophilus (Culturelle) 1 tab TWICE A DAY ORAL 08/26/16 18:00 09/25/16 17:59 09/05/16 08:41 Lactulose (Cephulac) 30 gm Q4H PRN ORAL constipation 09/04/16 09:15 10/04/16 09:14 Magnesium Hydroxide (Mom) 30 ml HSPRN PRN ORAL Constipation 08/26/16 14:45 09/25/16 14:44 09/05/16 01:47 Metronidazole 100 ml @ 100 mls/hr Q8HR IVPB 09/04/16 22:00 09/11/16 21:59 09/05/16 06:32 Ondansetron HCl (Zofran) 4 mg Q6H PRN IVP Nausea & Vomiting 08/31/16 17:45 09/30/16 17:44 09/04/16 10:34 Oxycodone/ Acetaminophen (Percocet 10/325) 1 tab Q4H PRN ORAL MODERATE BREAKTHROUGH PAIN 08/31/16 09:30 09/07/16 09:29 09/04/16 04:35 Polyethylene Glycol 17 gm 17 gm HSPRN PRN ORAL Constipation 09/04/16 09:29 09/25/16 14:44 09/05/16 01:47 Silver Sulfadiazine (Silvadene Cream 25gm) 1 applic DAILY TOPIC 09/02/16 14:00 10/02/16 13:59 09/05/16 08:50 Sodium Chloride (Sodium Chloride 1000ml bag) 1,000 ml @ 125 mls/hr Q8H IV 09/04/16 17:00 10/04/16 16:59 09/05/16 08:41 Vancomycin HCl 1 ea 1 ea DAILY MISC 09/04/16 18:45 10/04/16 18:44 Vancomycin HCl/ Dextrose (Vancomycin/D5W) 275 ml @ 183.708 mls/hr Q12HR@0800,2000 IVPB 09/05/16 08:00 09/10/16 07:59 09/05/16 08:41 BLU KATHLEEN Sep 05, 2016 11:49
[2016-09-05 12:00] VITALS: BP 112/50
--- NOTE | 2016-09-05 15:42 | General Progress Note ---
Assessment/Plan Problem List: (1) Abscess Assessment & Plan: s/p debridement of buttocks POD#9 f/u blood cx x2, CXR, UA. d/w ID will broaden IV abx to vanco/aztreonam/flagyl CT pelvis neg for abscess or free air, d/w Surgery NPO today for surgical followup later this evening f/u V/Q scan, duplex LE neg R/o AURORA syndrome given silicone injections and onset of systemic symptoms, full autoimmune panel ordered Wound care per Surgery Supp care Pain control A total of 32 mins of additional time was spent with this patient including coordination of care in addition to face to face time ICD Codes: L02.91 - Cutaneous abscess, unspecified SNOMED: [id number] Subjective Date patient seen: Sep 05, 2016 Time patient seen: 15:40 ROS Limited/Unobtainable: No Allergies: Coded Allergies: IODINE (Verified Allergy, Unknown, 08/26/16) PENICILLINS (Verified Allergy, Unknown, 08/26/16) Subjective s/p debridement of buttocks, POD#9, no further c/o chills, afebrile, Hr normalized, IV abx broadened, duplex LE neg, pt feels better now. No chest pain or dyspnea, pain well controlled. No dysuria Objective Last 24 Hour Vital Signs Date Time Temp Pulse Resp B/P Pulse Ox O2 Delivery O2 Flow Rate FiO2 09/05/16 12:00 97.9 86 17 112/50 95 Room Air 09/05/16 08:00 98.2 101 18 122/55 98 Room Air 09/05/16 07:06 98.1 09/05/16 04:05 98.1 97 18 116/60 98 Room Air 09/05/16 00:00 97.9 89 18 142/62 99 Room Air 09/04/16 20:22 97.7 97 19 102/46 100 Room Air 09/04/16 17:30 99.5 115 111/55 Room Air 09/04/16 16:30 101.8 126 107/52 Room Air 09/04/16 16:18 101.8 09/04/16 16:02 99.0 133 20 128/50 99 Room Air Intake and Output 09/04/16 09/05/16 19:00 07:00 Intake Total 2359 ml 2325.000 ml Output Total 150 ml 110 ml Balance 2209 ml 2215.000 ml Intake Oral 840 ml 240 ml IV Total 1519 ml 2085.000 ml Drainage Total 140 ml 100 ml Other 10 ml 10 ml # Voids 4 2 Laboratory Tests 09/04/16 16:30: Urine Color Pale yellow, Urine Appearance Clear, Urine pH 7, Urine Specific [place] 1.010, Urine Protein Negative, Urine Glucose (UA) Negative, Urine Ketones Negative, Urine Occult Blood Negative, Urine Nitrite Negative, Urine Bilirubin Negative, Urine Urobilinogen Normal, Urine Leukocyte Esterase 1+H, Urine RBC 0-2, Urine WBC 2-4, Urine Squamous Epithelial Cells ModerateH, Urine Bacteria Few, Urine Trichomonas FewH Height (Feet): 5 Height (Inches): 3.00 Weight (Pounds): 130 Objective General: alert, cooperative, no distress, appears stated age Head: normocephalic, without obvious abnormality, atraumatic Eyes: conjunctivae/corneas clear. PERRL, EOM's intact Throat: lips, mucosa, and tongue normal. MMM Neck: supple, symmetrical, trachea midline, and no JVD Lungs: clear to auscultation bilaterally Heart: regular rate and rhythm, S1, S2 normal, no murmur, click, rub or gallop Abdomen: soft, non-tender, non-distended, bowel sounds normal; no masses or organomegaly Extremities: +tenderness to palpation, +rubor, +indurations (multiple) in bilateral gluteal area. Incisions c/d/i, +malodorous Pulses: 2+ and symmetric Skin: skin color, texture, turgor normal; no rashes or lesions Neurologic: 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, no focal deficits PETERSON COTTO Sep 05, 2016 15:42
[2016-09-05 16:20] VITALS: BP 136/66
--- NOTE | 2016-09-05 16:43 | Diagnostic Imaging Report ---
Indications: Shortness of breath and chest pain Technique: IV administration 5.5 mCi 99m technetium macroaggregated albumin. Images obtained over the lungs in multiple projections. Previously, patient inhaled 40 mCi aerosolized 99M technetium DTPA. Images obtained over the lungs in multiple projections Comparison: Reference made to chest 09/04/2016 Findings: There is slight heterogeneity to tracer distribution on the perfusion images, most likely related to attenuation by overlying structures. No segmental or subsegmental perfusion defects. Normal aerosol images. No perfusion/aerosol mismatch Impression: Findings are deemed low probability for pulmonary embolus
[2016-09-05 20:00] VITALS: BP 117/79
[2016-09-05] MEDS ORDERED: Lidocaine 1% Plain 30 ml INJ ONE (21:00)
--- NOTE | 2016-09-05 22:14 | General Progress Note ---
Subjective Date patient seen: Sep 05, 2016 Allergies: Coded Allergies: IODINE (Verified Allergy, Unknown, 08/26/16) PENICILLINS (Verified Allergy, Unknown, 08/26/16) Subjective Patient seen and examined. Wound of the right buttocks with superior area of skin breakdown with some drainage Inferior aspect with 1 cm opening. Impression: Wound Infection of Right Buttocks Plan: Wound I&D tonight with 3 areas packed with Iodophor gauze. Local Wound Care with change of packing in 48 hours. Leave drains in for now. Continue antibiotics Objective Last 24 Hour Vital Signs Date Time Temp Pulse Resp B/P Pulse Ox O2 Delivery O2 Flow Rate FiO2 09/05/16 20:00 98.1 97 18 117/79 99 Room Air 09/05/16 16:20 97.0 106 20 136/66 97 Room Air 09/05/16 12:00 97.9 86 17 112/50 95 Room Air 09/05/16 08:00 98.2 101 18 122/55 98 Room Air 09/05/16 07:06 98.1 09/05/16 04:05 98.1 97 18 116/60 98 Room Air 09/05/16 00:00 97.9 89 18 142/62 99 Room Air Intake and Output 09/04/16 09/05/16 19:00 07:00 Intake Total 2359 ml 2325.000 ml Output Total 150 ml 110 ml Balance 2209 ml 2215.000 ml Intake Oral 840 ml 240 ml IV Total 1519 ml 2085.000 ml Drainage Total 140 ml 100 ml Other 10 ml 10 ml # Voids 4 2 Height (Feet): 5 Height (Inches): 3.00 Weight (Pounds): 130 Bebo Cabral M.D. (Steven) Sep 05, 2016 22:14
[2016-09-06] MEDS: HYDROmorphone 1mg/ml Carpuject IVP PRN ×5 (02:39→22:02)
[2016-09-06 04:00] VITALS: BP 122/75
[2016-09-06] MEDS: metroNIDAZOLE 500mg 100 ML IVPB SCH ×3 (05:15→22:27)
[2016-09-06] MEDS: Heparin 5000 units/ml inj SUBQ SCH ×3 (05:15→22:32)
[2016-09-06] MEDS: Aztreonam Inj 1 GM in D5W 55 ML IVPB SCH ×3 (06:19→22:41)
[2016-09-06 07:20] LABS: MEAN CORPUSCULAR HGB CONC 32.7 G/DL (32.0-36.0); MEAN CORPUSCULAR VOLUME 86 FL (80-99); PLATELET COUNT 300 K/UL (150-450); RED BLOOD COUNT 2.62 M/UL (4.20-5.40); RED CELL DISTRIBUTION WIDTH 13.5 % (11.6-14.8); WHITE BLOOD COUNT 14.8 K/UL (4.8-10.8)
[2016-09-06 07:34] LABS: ANION GAP 13 (5-15); CALCIUM 8.1 mg/dL (8.6-10.2); CARBON DIOXIDE 23 mEQ/L (20-30); CHLORIDE 100 mEQ/L (98-107); CREATININE 0.7 mg/dL (0.5-0.9); GLOMERULAR FILTRATION RATE > 60 mL/min (>60); HEMOLYSIS 0; POTASSIUM 4.2 mEQ/L (3.4-4.9); SODIUM 136 mEQ/L (135-145)
[2016-09-06 07:53] VITALS: BP 126/69
[2016-09-06] MEDS: Silver Sulfadiazine Cream 25gm TOPIC SCH (08:39)
[2016-09-06] MEDS: Lactobacillus-GG tablet ORAL SCH ×2 (08:39→18:12)
[2016-09-06] MEDS: Vancomycin 1250mg/D5W 275ml IVPB SCH ×4 (08:39→22:27)
[2016-09-06] MEDS: Docusate 100mg cap ORAL SCH ×2 (08:39→22:02)
--- NOTE | 2016-09-06 08:41 | General Progress Note ---
Assessment/Plan Assessment/Plan (1) Bilateral buttock soft tissue necrosis, cellulitis, open wounds buttocks (2) Abscess (3) Intractable pain (4) Staged debridement of bilateral buttock necrotic soft tissue, flap delay The patient is to be continued on the Dilaudid and Percocet. The patient was discussed with Dr. Singh and concurred. Subjective Date patient seen: Sep 06, 2016 Time patient seen: 07:00 - am Allergies: Coded Allergies: IODINE (Verified Allergy, Unknown, 08/26/16) PENICILLINS (Verified Allergy, Unknown, 08/26/16) Subjective Constitutional: Reports: no symptoms HEENT: Reports: no symptoms Cardiovascular: Reports: no symptoms Respiratory: Reports: no symptoms Gastrointestinal/Abdominal: Reports: no symptoms Genitourinary: Reports: no symptoms Neurologic/Psychiatric: Reports: weakness Endocrine: Reports: no symptoms Hematologic/Lymphatic: Reports: no symptoms Subjective Patient is feeling down that she is unable to be discharged and needs a blood transfusion Her pain has been controlled on the Percocet and Dilaudid. He pain is a 4/10. Objective Last 24 Hour Vital Signs Date Time Temp Pulse Resp B/P Pulse Ox O2 Delivery O2 Flow Rate FiO2 09/06/16 07:53 97.7 95 20 126/69 98 Room Air 09/06/16 04:00 97.0 82 18 122/75 100 Room Air 09/05/16 20:00 98.1 97 18 117/79 99 Room Air 09/05/16 16:20 97.0 106 20 136/66 97 Room Air 09/05/16 12:00 97.9 86 17 112/50 95 Room Air Intake and Output 09/05/16 09/06/16 18:59 06:59 Intake Total 2277.4 ml 1000 ml Output Total 126 ml 95 ml Balance 2151.4 ml 905 ml Intake Oral 350 ml IV Total 1927.4 ml 1000 ml Drainage Total 118 ml 85 ml Other 8 ml 10 ml # Voids 4 # Bowel Movements 2 Laboratory Tests 09/06/16 07:00: White Blood Count 14.8H, Red Blood Count 2.62L, Hemoglobin 7.4L, Hematocrit 22.5L, Mean Corpuscular Volume 86, Mean Corpuscular Hemoglobin 28.0, Mean Corpuscular Hemoglobin Concent 32.7, Red Cell Distribution Width 13.5, Platelet Count 300, Mean Platelet Volume 6.0L, Neutrophils (%) (Auto) , Lymphocytes (%) ( Auto) , Monocytes (%) (Auto) , Eosinophils (%) (Auto) , Basophils (%) (Auto) , Neutrophils % (Manual) [Pending], Lymphocytes % (Manual) [Pending], Platelet Estimate [Pending], Platelet Morphology [Pending], Sodium Level 136, Potassium Level 4.2, Chloride Level 100, Carbon Dioxide Level 23, Anion Gap 13, Blood Urea Nitrogen 4L, Creatinine 0.7, Estimat Glomerular Filtration Rate > 60, Glucose Level 101, Calcium Level 8.1L, Vancomycin Level Trough 6.7 Height (Feet): 5 Height (Inches): 3.00 Weight (Pounds): 130 Objective General Appearance: no apparent distress, alert EENT: PERRL/EOMI, normal ENT inspection Neck: non-tender, normal alignment Cardiovascular: normal rate, regular rhythm Respiratory/Chest: lungs clear, normal breath sounds Abdomen: non tender, soft Extremities: non-tender Edema: no edema noted Arm (L), no edema noted Arm (R), no edema noted Leg (L), no edema noted Leg (R), no edema noted Pedal (L), no edema noted Pedal (R), no edema noted Generalized Neurologic: alert, oriented x 3 Skin: other - bandages applied to buttock area with tenderness to palpation NELLY JACK Sep 06, 2016 08:41
[2016-09-06 10:18] LABS: BAND NEUTROPHILS % (MANUAL) 1 % (0-8); EOSINOPHILS % (MANUAL) 4 % (0-3); LYMPHOCYTES % (MANUAL) 12 % (20-45); NEUTROPHILS % (MANUAL) 72 % (45-75); TOTAL CELLS COUNTED 100
[2016-09-06 10:19] LABS: ANISOCYTOSIS 1+; BASOPHILS % (MANUAL) 0 % (0-2); HYPOCHROMASIA 1+; MICROCYTES 1+; PLATELET ESTIMATE ADEQUATE; PLATELET MORPHOLOGY NORMAL; POLYCHROMASIA OCCASIONAL
[2016-09-06 12:30] VITALS: BP 130/85
--- NOTE | 2016-09-06 14:19 | Infectious Diseases Prog Note ---
Assessment/Plan Assessment/Plan A) 1) right buttock wound infection, ? abscess - I/D per surgery, wound culture pending, fevers better, still with leukocytosis, pelvic ct without abscess 2) s/p debridement of bilateral buttock necrosis with cellulitis, now with open wounds and wound vac/flap 3) hx gluteal silicone infections 4) recent terminated 5) r/u AURORA autoimmune syndrome 6) pain mgt, anemia, hyponatremia 7) allergies - pcn and iodine, sh-negative, mar noted, notes and records reviewed 8) d/w RN P) 1) vancomycin, flagyl and aztreonam 2) check wound culture and labs 3) surgery f/u on wounds 4) continue treatment per Dr. Christiansen and surgery 5) orders noted and entered 6) d/w patient and answered questions Subjective Constitutional: Denies: fever HEENT: Denies: congestion Respiratory: Denies: shortness of breath Cardiovascular: Denies: chest pain Gastrointestinal/Abdominal: Denies: diarrhea, nausea, vomiting Genitourinary: Reports: other - no beltre, Denies: dysuria, frequency, hematuria Neurologic: Denies: headache Psychiatric: Denies: depression Skin: Denies: rash Hematologic: Denies: bleeding Musculoskeletal: Denies: pain Allergies: Coded Allergies: IODINE (Verified Allergy, Unknown, 08/26/16) PENICILLINS (Verified Allergy, Unknown, 08/26/16) Objective Vital Signs Last 24 Hour Vital Signs Date Time Temp Pulse Resp B/P Pulse Ox O2 Delivery O2 Flow Rate FiO2 09/06/16 12:30 98.1 95 20 130/85 100 Room Air 09/06/16 07:53 97.7 95 20 126/69 98 Room Air 09/06/16 04:00 97.0 82 18 122/75 100 Room Air 09/05/16 20:00 98.1 97 18 117/79 99 Room Air 09/05/16 16:20 97.0 106 20 136/66 97 Room Air Height (Feet): 5 Height (Inches): 3.00 Weight (Pounds): 130 General Appearance: no acute distress HEENT: normocephalic, atraumatic, anicteric, mucous membranes moist, PERRL, EOMI, pharynx normal, supple, no JVD Respiratory/Chest: lungs clear, normal breath sounds, no respiratory distress, no accessory muscle use Cardiovascular: normal rate, regular rhythm, no gallop/murmur, no JVD Abdomen: normal bowel sounds, soft, non tender, no organomegaly, non distended Genitourinary: other - no beltre Extremities: no cyanosis Skin: no rash, other - wound covered Neurologic/Psychiatric: private investigator surveillance II-XII 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, alert, oriented x 3, responsive Lymphatic: no neck adenopathy Musculoskeletal: no effusion Objective Labs Test 08/31/16 05:50 08/31/16 08:31 09/01/16 07:05 09/02/16 10:36 White Blood Count 18.8 K/UL (4.8-10.8) 17.2 K/UL (4.8-10.8) 13.8 K/UL (4.8-10.8) Red Blood Count 2.95 M/UL (4.20-5.40) 2.98 M/UL (4.20-5.40) 3.11 M/UL (4.20-5.40) Hemoglobin 8.4 G/DL (12.0-16.0) 8.7 G/DL (12.0-16.0) 8.4 G/DL (12.0-16.0) Hematocrit 25.3 % (37.0-47.0) 26.0 % (37.0-47.0) 26.3 % (37.0-47.0) Mean Corpuscular Volume 86 FL (80-99) 87 FL (80-99) 84 FL (80-99) Mean Corpuscular Hemoglobin 28.3 PG (27.0-31.0) 29.3 PG (27.0-31.0) 27.1 PG (27.0-31.0) Mean Corpuscular Hemoglobin Concent 33.1 G/DL (32.0-36.0) 33.6 G/DL (32.0-36.0) 32.1 G/DL (32.0-36.0) Red Cell Distribution Width 12.8 % (11.6-14.8) 12.6 % (11.6-14.8) 12.5 % (11.6-14.8) Platelet Count 178 K/UL (150-450) 183 K/UL (150-450) 258 K/UL (150-450) Mean Platelet Volume 6.0 FL (6.5-10.1) 5.1 FL (6.5-10.1) 6.2 FL (6.5-10.1) Neutrophils (%) (Auto) % (45.0-75.0) 72.6 % (45.0-75.0) 75.9 % (45.0-75.0) Lymphocytes (%) (Auto) % (20.0-45.0) 15.0 % (20.0-45.0) 9.3 % (20.0-45.0) Monocytes (%) (Auto) % (1.0-10.0) 9.1 % (1.0-10.0) 10.6 % (1.0-10.0) Eosinophils (%) (Auto) % (0.0-3.0) 2.5 % (0.0-3.0) 3.0 % (0.0-3.0) Basophils (%) (Auto) % (0.0-2.0) 0.9 % (0.0-2.0) 1.3 % (0.0-2.0) Differential Total Cells Counted 100 Neutrophils % (Manual) 70 % (45-75) Lymphocytes % (Manual) 16 % (20-45) Monocytes % (Manual) 11 % (1-10) Eosinophils % (Manual) 2 % (0-3) Basophils % (Manual) 0 % (0-2) Band Neutrophils 1 % (0-8) Platelet Estimate Adequate Platelet Morphology Normal Hypochromasia 1+ Sodium Level 130 mEQ/L (135-145) 135 mEQ/L (135-145) 135 mEQ/L (135-145) Potassium Level 3.5 mEQ/L (3.4-4.9) 3.8 mEQ/L (3.4-4.9) 3.7 mEQ/L (3.4-4.9) Chloride Level 92 mEQ/L (98-107) 94 mEQ/L (98-107) 94 mEQ/L (98-107) Carbon Dioxide Level 27 mEQ/L (20-30) 29 mEQ/L (20-30) 27 mEQ/L (20-30) Anion Gap 11 (5-15) 12 (5-15) 14 (5-15) Blood Urea Nitrogen 6 mg/dL (7-23) 5 mg/dL (7-23) 7 mg/dL (7-23) Creatinine 0.8 mg/dL (0.5-0.9) 0.8 mg/dL (0.5-0.9) 0.7 mg/dL (0.5-0.9) Estimat Glomerular Filtration Rate > 60 mL/min (>60) > 60 mL/min (>60) > 60 mL/min (>60) Glucose Level 116 mg/dL (74-106) 112 mg/dL (74-106) 116 mg/dL (74-106) Calcium Level 8.3 mg/dL (8.6-10.2) 8.8 mg/dL (8.6-10.2) 8.8 mg/dL (8.6-10.2) Urine Color Pale yellow Urine Appearance Clear Urine pH 7 (4.5-8.0) Urine Specific Gray 1.005 (1.005-1.035) Urine Protein Negative (NEGATIVE) Urine Glucose (UA) Negative (NEGATIVE) Urine Ketones Negative (NEGATIVE) Urine Occult Blood 2+ (NEGATIVE) Urine Nitrite Negative (NEGATIVE) Urine Bilirubin Negative (NEGATIVE) Urine Urobilinogen Normal MG/DL (0.0-1.0) Urine Leukocyte Esterase 1+ (NEGATIVE) Urine RBC 2-4 /HPF (0 - 2) Urine WBC 2-4 /HPF (0 - 2) Urine Squamous Epithelial Cells Few /LPF (NONE/OCC) Urine Bacteria Few /HPF (NONE) Total Bilirubin 0.3 mg/dL (0.0-1.2) Aspartate Amino Transf (AST/SGOT) 31 U/L (5-40) Alanine Aminotransferase (ALT/SGPT) 51 U/L (3-33) Alkaline Phosphatase 74 U/L (35-104) Total Protein 6.3 g/dL (6.6-8.7) Albumin 2.9 g/dL (3.5-5.2) Globulin 3.4 g/dL Albumin/Globulin Ratio 0.8 (1.0-2.7) chest x-ray - negative mri pelvis - report noted \ 09/04 - pelvic ct - no abscess 09/04 - chest x-ray - negative for pna v/q scan - low probability for PE Microbiology Date/Time Source Procedure Growth Status 09/04/16 16:45 Blood Blood Culture - Preliminary NO GROWTH AFTER 24 HOURS Resulted 09/04/16 16:35 Blood Blood Culture - Preliminary NO GROWTH AFTER 24 HOURS Resulted 09/05/16 11:00 Wound Gram Stain - Final Resulted 09/05/16 11:00 Wound Wound Culture - Preliminary Resulted Laboratory Tests Test 09/06/16 07:00 White Blood Count 14.8 K/UL (4.8-10.8) H Red Blood Count 2.62 M/UL (4.20-5.40) L Hemoglobin 7.4 G/DL (12.0-16.0) L Hematocrit 22.5 % (37.0-47.0) L Mean Corpuscular Volume 86 FL (80-99) Mean Corpuscular Hemoglobin 28.0 PG (27.0-31.0) Mean Corpuscular Hemoglobin Concent 32.7 G/DL (32.0-36.0) Red Cell Distribution Width 13.5 % (11.6-14.8) Platelet Count 300 K/UL (150-450) Mean Platelet Volume 6.0 FL (6.5-10.1) L Neutrophils (%) (Auto) % (45.0-75.0) Lymphocytes (%) (Auto) % (20.0-45.0) Monocytes (%) (Auto) % (1.0-10.0) Eosinophils (%) (Auto) % (0.0-3.0) Basophils (%) (Auto) % (0.0-2.0) Differential Total Cells Counted 100 Neutrophils % (Manual) 72 % (45-75) Lymphocytes % (Manual) 12 % (20-45) L Monocytes % (Manual) 11 % (1-10) H Eosinophils % (Manual) 4 % (0-3) H Basophils % (Manual) 0 % (0-2) Band Neutrophils 1 % (0-8) Platelet Estimate Adequate Platelet Morphology Normal Polychromasia Occasional Hypochromasia 1+ Anisocytosis 1+ Microcytosis 1+ Sodium Level 136 mEQ/L (135-145) Potassium Level 4.2 mEQ/L (3.4-4.9) Chloride Level 100 mEQ/L (98-107) Carbon Dioxide Level 23 mEQ/L (20-30) Anion Gap 13 (5-15) Blood Urea Nitrogen 4 mg/dL (7-23) L Creatinine 0.7 mg/dL (0.5-0.9) Estimat Glomerular Filtration Rate > 60 mL/min (>60) Glucose Level 101 mg/dL (74-106) Calcium Level 8.1 mg/dL (8.6-10.2) L Vancomycin Level Trough 6.7 ug/mL (5.0-12.0) Current Medications Medications (Trade) Dose Ordered Sig/Yamileth Route PRN Reason Start Time Stop Time Status Last Admin Dose Admin Acetaminophen (Tylenol) 650 mg Q4H PRN ORAL fever 08/26/16 14:45 09/25/16 14:44 09/04/16 15:13 Acetaminophen (Tylenol) 650 mg Q4H PRN ORAL Mild Pain (Pain Scale 1-3) 08/26/16 14:45 09/25/16 14:44 09/06/16 08:47 Al Hydroxide/Mg Hydroxide (Mylanta II) 30 ml Q6H PRN ORAL dyspepsia 08/26/16 14:45 09/25/16 14:44 Aztreonam 1 gm/ Dextrose 55 ml @ 110 mls/hr Q8H IVPB 09/04/16 23:00 09/11/16 22:59 09/06/16 06:19 Bisacodyl (Dulcolax) 10 mg HSPRN PRN RECTAL Constipation 09/04/16 09:28 09/25/16 14:44 Dextrose (Dextrose 50%) STAT PRN IV Hypoglycemia 08/26/16 14:45 09/25/16 14:44 Docusate Sodium (Colace) 100 mg EVERY 12 HOURS ORAL 08/26/16 21:00 09/25/16 20:59 09/06/16 08:39 Ferrous Sulfate (Feosol) 325 mg THREE TIMES A DAY ORAL 09/02/16 18:00 10/02/16 17:59 09/06/16 13:46 Gabapentin (Neurontin) 300 mg BEDTIME ORAL 08/30/16 21:00 09/29/16 20:59 09/05/16 22:22 Heparin Sodium (Porcine) (Heparin 5000 units/ml) 5,000 units EVERY 8 HOURS SUBQ 08/28/16 06:00 09/27/16 05:59 09/06/16 05:15 Hydromorphone HCl (Dilaudid) 1 mg Q4H PRN IVP Severe Pain (Pain Scale 7-10) 08/31/16 09:30 09/07/16 09:29 09/06/16 13:47 Lactobacillus Acidophilus (Culturelle) 1 tab TWICE A DAY ORAL 08/26/16 18:00 09/25/16 17:59 09/06/16 08:39 Lactulose (Cephulac) 30 gm Q4H PRN ORAL constipation 09/04/16 09:15 10/04/16 09:14 Magnesium Hydroxide (Mom) 30 ml HSPRN PRN ORAL Constipation 08/26/16 14:45 09/25/16 14:44 09/05/16 01:47 Metronidazole 100 ml @ 100 mls/hr Q8HR IVPB 09/04/16 22:00 09/11/16 21:59 09/06/16 13:46 Ondansetron HCl (Zofran) 4 mg Q6H PRN IVP Nausea & Vomiting 08/31/16 17:45 09/30/16 17:44 09/05/16 22:30 Oxycodone/ Acetaminophen (Percocet 10/325) 1 tab Q4H PRN ORAL MODERATE BREAKTHROUGH PAIN 08/31/16 09:30 09/07/16 09:29 09/04/16 04:35 Polyethylene Glycol 17 gm 17 gm HSPRN PRN ORAL Constipation 09/04/16 09:29 09/25/16 14:44 09/05/16 01:47 Silver Sulfadiazine (Silvadene Cream 25gm) 1 applic DAILY TOPIC 09/02/16 14:00 10/02/16 13:59 09/06/16 08:39 Sodium Chloride (Sodium Chloride 1000ml bag) 1,000 ml @ 125 mls/hr Q8H IV 09/04/16 17:00 10/04/16 16:59 09/06/16 08:38 Vancomycin HCl 1 ea 1 ea DAILY MISC 09/04/16 18:45 10/04/16 18:44 09/06/16 09:05 Vancomycin HCl/ Dextrose (Vancomycin/D5W) 275 ml @ 183.333 mls/hr Q12HR IVPB 09/06/16 09:00 09/11/16 08:59 09/06/16 08:39 BLU KATHLEEN Sep 06, 2016 14:19
[2016-09-06 16:15] VITALS: BP 137/95
--- NOTE | 2016-09-06 18:27 | General Progress Note ---
Assessment/Plan Problem List: (1) Abscess Assessment & Plan: s/p bedside I+D last night by surgery POD#1 s/p debridement of buttocks POD#10 f/u blood cx x2, cont IV abx to vanco/aztreonam/flagyl CT pelvis neg for abscess or free air, d/w Surgery f/u V/Q scan, duplex LE neg R/o AURORA syndrome given silicone injections and onset of systemic symptoms, full autoimmune panel ordered Wound care per Surgery Supp care Pain control A total of 32 mins of additional time was spent with this patient including coordination of care in addition to face to face time ICD Codes: L02.91 - Cutaneous abscess, unspecified SNOMED: [id number] Subjective Date patient seen: Sep 06, 2016 Time patient seen: 18:25 ROS Limited/Unobtainable: No Allergies: Coded Allergies: IODINE (Verified Allergy, Unknown, 08/26/16) PENICILLINS (Verified Allergy, Unknown, 08/26/16) Subjective Last night had bedside I+D in 3 areas in the buttocks POD#1. No further c/o chills, afebrile. No chest pain or dyspnea, pain well controlled. No dysuria Objective Last 24 Hour Vital Signs Date Time Temp Pulse Resp B/P Pulse Ox O2 Delivery O2 Flow Rate FiO2 09/06/16 16:15 98.1 88 20 137/95 100 Room Air 09/06/16 12:30 98.1 95 20 130/85 100 Room Air 09/06/16 07:53 97.7 95 20 126/69 98 Room Air 09/06/16 04:00 97.0 82 18 122/75 100 Room Air 09/05/16 20:00 98.1 97 18 117/79 99 Room Air Intake and Output 09/05/16 09/06/16 19:00 07:00 Intake Total 2247.4 ml 875 ml Output Total 126 ml 95 ml Balance 2121.4 ml 780 ml Intake Oral 350 ml IV Total 1897.4 ml 875 ml Drainage Total 118 ml 85 ml Other 8 ml 10 ml # Voids 4 # Bowel Movements 2 Laboratory Tests 09/06/16 07:00: White Blood Count 14.8H, Red Blood Count 2.62L, Hemoglobin 7.4L, Hematocrit 22.5L, Mean Corpuscular Volume 86, Mean Corpuscular Hemoglobin 28.0, Mean Corpuscular Hemoglobin Concent 32.7, Red Cell Distribution Width 13.5, Platelet Count 300, Mean Platelet Volume 6.0L, Neutrophils (%) (Auto) , Lymphocytes (%) ( Auto) , Monocytes (%) (Auto) , Eosinophils (%) (Auto) , Basophils (%) (Auto) , Differential Total Cells Counted 100, Neutrophils % (Manual) 72, Lymphocytes % ( Manual) 12L, Monocytes % (Manual) 11H, Eosinophils % (Manual) 4H, Basophils % ( Manual) 0, Band Neutrophils 1, Platelet Estimate Adequate, Platelet Morphology Normal, Polychromasia Occasional, Hypochromasia 1+, Anisocytosis 1+, Microcytosis 1+, Sodium Level 136, Potassium Level 4.2, Chloride Level 100, Carbon Dioxide Level 23, Anion Gap 13, Blood Urea Nitrogen 4L, Creatinine 0.7, Estimat Glomerular Filtration Rate > 60, Glucose Level 101, Calcium Level 8.1L, Vancomycin Level Trough 6.7 Height (Feet): 5 Height (Inches): 3.00 Weight (Pounds): 130 Objective General: alert, cooperative, no distress, appears stated age Head: normocephalic, without obvious abnormality, atraumatic Eyes: conjunctivae/corneas clear. PERRL, EOM's intact Throat: lips, mucosa, and tongue normal. MMM Neck: supple, symmetrical, trachea midline, and no JVD Lungs: clear to auscultation bilaterally Heart: regular rate and rhythm, S1, S2 normal, no murmur, click, rub or gallop Abdomen: soft, non-tender, non-distended, bowel sounds normal; no masses or organomegaly Extremities: +tenderness to palpation, +rubor, +indurations (multiple) in bilateral gluteal area. Incisions c/d/i, +malodorous Pulses: 2+ and symmetric Skin: skin color, texture, turgor normal; no rashes or lesions Neurologic: 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, no focal deficits PETERSON COTTO Sep 06, 2016 18:27
[2016-09-06 20:00] VITALS: BP 147/81
[2016-09-07] VITALS (7 sets, daily range): BP systolic 99–156; BP diastolic 56–81
[2016-09-07] MEDS: HYDROmorphone 1mg/ml Carpuject IVP PRN ×4 (02:35→20:35)
[2016-09-07] MEDS: metroNIDAZOLE 500mg 100 ML IVPB SCH ×3 (06:57→22:21)
[2016-09-07] MEDS: Aztreonam Inj 1 GM in D5W 55 ML IVPB SCH ×3 (06:57→22:21)
[2016-09-07] MEDS: Heparin 5000 units/ml inj SUBQ SCH ×3 (07:00→22:23)
[2016-09-07 07:18] LABS: BASOPHILS % (AUTO) 1.1 % (0.0-2.0); EOSINOPHILS % (AUTO) 3.7 % (0.0-3.0); LYMPHOCYTES % (AUTO) 18.1 % (20.0-45.0); MEAN CORPUSCULAR HEMOGLOBIN 28.6 PG (27.0-31.0); MEAN CORPUSCULAR HGB CONC 33.5 G/DL (32.0-36.0); MEAN CORPUSCULAR VOLUME 86 FL (80-99); MEAN PLATELET VOLUME 4.9 FL (6.5-10.1); NEUTROPHILS % (AUTO) 68.1 % (45.0-75.0); PLATELET COUNT 292 K/UL (150-450); RED BLOOD COUNT 3.36 M/UL (4.20-5.40); RED CELL DISTRIBUTION WIDTH 13.3 % (11.6-14.8); WHITE BLOOD COUNT 14.7 K/UL (4.8-10.8)
[2016-09-07] MEDS: Vancomycin 1250mg/D5W 275ml IVPB SCH ×4 (09:08→20:36)
[2016-09-07] MEDS: Lactobacillus-GG tablet ORAL SCH ×2 (09:09→18:26)
[2016-09-07] MEDS: Silver Sulfadiazine Cream 25gm TOPIC SCH (09:09)
[2016-09-07] MEDS: Docusate 100mg cap ORAL SCH ×2 (09:09→20:28)
[2016-09-07 09:14] LABS: OTHERS PATHOLOGIST COMMENT
--- NOTE | 2016-09-07 09:36 | General Progress Note ---
Assessment/Plan Assessment/Plan (1) Bilateral buttock soft tissue necrosis, cellulitis, open wounds buttocks (2) Abscess (3) Intractable pain (4) Staged debridement of bilateral buttock necrotic soft tissue, flap delay The patient is to be continued on the Dilaudid and Percocet. The patient was discussed with Dr. Singh and concurred. Subjective Time patient seen: 07:15 - am Allergies: Coded Allergies: IODINE (Verified Allergy, Unknown, 08/26/16) PENICILLINS (Verified Allergy, Unknown, 08/26/16) Subjective Constitutional: Reports: no symptoms HEENT: Reports: no symptoms Cardiovascular: Reports: no symptoms Respiratory: Reports: no symptoms Gastrointestinal/Abdominal: Reports: N/V Genitourinary: Reports: no symptoms Neurologic/Psychiatric: Reports: weakness Endocrine: Reports: no symptoms Hematologic/Lymphatic: Reports: no symptoms Subjective Patient is in no acute distress has been using the Dilaudid more than the Percocet due to c/o N/V caused by antibiotics. I advised patient that if N/V is reduced to use the Percocet. She understands. Objective Last 24 Hour Vital Signs Date Time Temp Pulse Resp B/P Pulse Ox O2 Delivery O2 Flow Rate FiO2 09/07/16 08:00 98.2 84 18 125/75 96 Room Air 09/07/16 04:00 98.0 81 18 99/56 99 Room Air 09/07/16 02:45 97.6 98 18 156/81 99 Room Air 09/07/16 00:00 98.6 84 18 112/65 98 Room Air 09/06/16 20:00 99.0 88 18 147/81 100 Room Air 09/06/16 16:15 98.1 88 20 137/95 100 Room Air 09/06/16 12:30 98.1 95 20 130/85 100 Room Air Intake and Output 09/06/16 09/07/16 19:00 07:00 Intake Total 1865 ml Output Total 140 ml Balance 1865 ml -140 ml Intake Oral 1240 ml IV Total 625 ml Drainage Total 60 ml Other 80 ml # Voids 3 2 Laboratory Tests 09/07/16 06:25: White Blood Count 14.7H, Red Blood Count 3.36L, Hemoglobin 9.6L, Hematocrit 28.8L, Mean Corpuscular Volume 86, Mean Corpuscular Hemoglobin 28.6, Mean Corpuscular Hemoglobin Concent 33.5, Red Cell Distribution Width 13.3, Platelet Count 292, Mean Platelet Volume 4.9L, Neutrophils (%) (Auto) 68.1, Lymphocytes ( %) (Auto) 18.1L, Monocytes (%) (Auto) 9.0, Eosinophils (%) (Auto) 3.7H, Basophils (%) (Auto) 1.1 Height (Feet): 5 Height (Inches): 3.00 Weight (Pounds): 130 Objective General Appearance: no apparent distress, alert EENT: PERRL/EOMI, normal ENT inspection Neck: non-tender, normal alignment Cardiovascular: normal rate, regular rhythm Respiratory/Chest: lungs clear, normal breath sounds Abdomen: non tender, soft Extremities: non-tender Edema: no edema noted Arm (L), no edema noted Arm (R), no edema noted Leg (L), no edema noted Leg (R), no edema noted Pedal (L), no edema noted Pedal (R), no edema noted Generalized Neurologic: alert, oriented x 3 Skin: other - bandages applied to buttock area with tenderness to palpation NELLY JACK Sep 07, 2016 09:36
[2016-09-07] MEDS ORDERED: Tubing IV Secondary IV ONE (10:43)
[2016-09-07] MEDS ORDERED: NS 275ml ONE (10:43)
[2016-09-07] MEDS ORDERED: NS 550ML IV ONE (10:49)
[2016-09-07] MEDS ORDERED: Tubing Blood Filter IV ONE (10:49)
[2016-09-07] MEDS ORDERED: HYDROmorphone 1mg/ml Carpuject IVP ONE (12:30)
--- NOTE | 2016-09-07 12:44 | Infectious Diseases Prog Note ---
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 Christiansen and surgery 5) orders noted and entered 6) d/w patient and answered questions Subjective Constitutional: Denies: fever HEENT: Denies: congestion Respiratory: Denies: shortness of breath Cardiovascular: Denies: chest pain Gastrointestinal/Abdominal: Denies: diarrhea, nausea, vomiting Genitourinary: Reports: other - no beltre Neurologic: Denies: headache Psychiatric: Denies: depression Skin: Denies: rash Hematologic: Denies: bleeding Musculoskeletal: Denies: pain Allergies: Coded Allergies: IODINE (Verified Allergy, Unknown, 08/26/16) PENICILLINS (Verified Allergy, Unknown, 08/26/16) Objective Vital Signs Last 24 Hour Vital Signs Date Time Temp Pulse Resp B/P Pulse Ox O2 Delivery O2 Flow Rate FiO2 09/07/16 12:00 97.9 86 18 137/66 98 Room Air 09/07/16 08:00 98.2 84 18 125/75 96 Room Air 09/07/16 04:00 98.0 81 18 99/56 99 Room Air 09/07/16 02:45 97.6 98 18 156/81 99 Room Air 09/07/16 00:00 98.6 84 18 112/65 98 Room Air 09/06/16 20:00 99.0 88 18 147/81 100 Room Air 09/06/16 16:15 98.1 88 20 137/95 100 Room Air Height (Feet): 5 Height (Inches): 3.00 Weight (Pounds): 130 General Appearance: no acute distress HEENT: normocephalic, atraumatic, anicteric, mucous membranes moist, PERRL, EOMI, pharynx normal, supple, no JVD Respiratory/Chest: lungs clear, normal breath sounds, no respiratory distress, no accessory muscle use Cardiovascular: normal rate, regular rhythm, no gallop/murmur, no JVD Abdomen: normal bowel sounds, soft, non tender, no organomegaly, non distended Genitourinary: other - no beltre Extremities: no cyanosis Skin: no rash, other - wounds noted and look clean on right buttock, examined with RN in room 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, alert, oriented x 3, responsive Lymphatic: no neck adenopathy Musculoskeletal: no effusion Objective Labs Test 08/31/16 05:50 08/31/16 08:31 09/01/16 07:05 09/02/16 10:36 White Blood Count 18.8 K/UL (4.8-10.8) 17.2 K/UL (4.8-10.8) 13.8 K/UL (4.8-10.8) Red Blood Count 2.95 M/UL (4.20-5.40) 2.98 M/UL (4.20-5.40) 3.11 M/UL (4.20-5.40) Hemoglobin 8.4 G/DL (12.0-16.0) 8.7 G/DL (12.0-16.0) 8.4 G/DL (12.0-16.0) Hematocrit 25.3 % (37.0-47.0) 26.0 % (37.0-47.0) 26.3 % (37.0-47.0) Mean Corpuscular Volume 86 FL (80-99) 87 FL (80-99) 84 FL (80-99) Mean Corpuscular Hemoglobin 28.3 PG (27.0-31.0) 29.3 PG (27.0-31.0) 27.1 PG (27.0-31.0) Mean Corpuscular Hemoglobin Concent 33.1 G/DL (32.0-36.0) 33.6 G/DL (32.0-36.0) 32.1 G/DL (32.0-36.0) Red Cell Distribution Width 12.8 % (11.6-14.8) 12.6 % (11.6-14.8) 12.5 % (11.6-14.8) Platelet Count 178 K/UL (150-450) 183 K/UL (150-450) 258 K/UL (150-450) Mean Platelet Volume 6.0 FL (6.5-10.1) 5.1 FL (6.5-10.1) 6.2 FL (6.5-10.1) Neutrophils (%) (Auto) % (45.0-75.0) 72.6 % (45.0-75.0) 75.9 % (45.0-75.0) Lymphocytes (%) (Auto) % (20.0-45.0) 15.0 % (20.0-45.0) 9.3 % (20.0-45.0) Monocytes (%) (Auto) % (1.0-10.0) 9.1 % (1.0-10.0) 10.6 % (1.0-10.0) Eosinophils (%) (Auto) % (0.0-3.0) 2.5 % (0.0-3.0) 3.0 % (0.0-3.0) Basophils (%) (Auto) % (0.0-2.0) 0.9 % (0.0-2.0) 1.3 % (0.0-2.0) Differential Total Cells Counted 100 Neutrophils % (Manual) 70 % (45-75) Lymphocytes % (Manual) 16 % (20-45) Monocytes % (Manual) 11 % (1-10) Eosinophils % (Manual) 2 % (0-3) Basophils % (Manual) 0 % (0-2) Band Neutrophils 1 % (0-8) Platelet Estimate Adequate Platelet Morphology Normal Hypochromasia 1+ Sodium Level 130 mEQ/L (135-145) 135 mEQ/L (135-145) 135 mEQ/L (135-145) Potassium Level 3.5 mEQ/L (3.4-4.9) 3.8 mEQ/L (3.4-4.9) 3.7 mEQ/L (3.4-4.9) Chloride Level 92 mEQ/L (98-107) 94 mEQ/L (98-107) 94 mEQ/L (98-107) Carbon Dioxide Level 27 mEQ/L (20-30) 29 mEQ/L (20-30) 27 mEQ/L (20-30) Anion Gap 11 (5-15) 12 (5-15) 14 (5-15) Blood Urea Nitrogen 6 mg/dL (7-23) 5 mg/dL (7-23) 7 mg/dL (7-23) Creatinine 0.8 mg/dL (0.5-0.9) 0.8 mg/dL (0.5-0.9) 0.7 mg/dL (0.5-0.9) Estimat Glomerular Filtration Rate > 60 mL/min (>60) > 60 mL/min (>60) > 60 mL/min (>60) Glucose Level 116 mg/dL (74-106) 112 mg/dL (74-106) 116 mg/dL (74-106) Calcium Level 8.3 mg/dL (8.6-10.2) 8.8 mg/dL (8.6-10.2) 8.8 mg/dL (8.6-10.2) Urine Color Pale yellow Urine Appearance Clear Urine pH 7 (4.5-8.0) Urine Specific [place] 1.005 (1.005-1.035) Urine Protein Negative (NEGATIVE) Urine Glucose (UA) Negative (NEGATIVE) Urine Ketones Negative (NEGATIVE) Urine Occult Blood 2+ (NEGATIVE) Urine Nitrite Negative (NEGATIVE) Urine Bilirubin Negative (NEGATIVE) Urine Urobilinogen Normal MG/DL (0.0-1.0) Urine Leukocyte Esterase 1+ (NEGATIVE) Urine RBC 2-4 /HPF (0 - 2) Urine WBC 2-4 /HPF (0 - 2) Urine Squamous Epithelial Cells Few /LPF (NONE/OCC) Urine Bacteria Few /HPF (NONE) Total Bilirubin 0.3 mg/dL (0.0-1.2) Aspartate Amino Transf (AST/SGOT) 31 U/L (5-40) Alanine Aminotransferase (ALT/SGPT) 51 U/L (3-33) Alkaline Phosphatase 74 U/L (35-104) Total Protein 6.3 g/dL (6.6-8.7) Albumin 2.9 g/dL (3.5-5.2) Globulin 3.4 g/dL Albumin/Globulin Ratio 0.8 (1.0-2.7) chest x-ray - negative mri pelvis - report noted \ 09/04 - pelvic ct - no abscess 09/04 - chest x-ray - negative for pna v/q scan - low probability for PE Microbiology Date/Time Source Procedure Growth Status 09/04/16 16:45 Blood Blood Culture - Preliminary NO GROWTH AFTER 48 HOURS Resulted 09/04/16 16:35 Blood Blood Culture - Preliminary NO GROWTH AFTER 48 HOURS Resulted 09/05/16 11:00 Wound Gram Stain - Final Resulted 09/05/16 11:00 Wound Culture - Preliminary Gram Negative Ramy Staphylococcus Sp Coag Neg Resulted Laboratory Tests Test 09/07/16 06:25 White Blood Count 14.7 K/UL (4.8-10.8) H Red Blood Count 3.36 M/UL (4.20-5.40) L Hemoglobin 9.6 G/DL (12.0-16.0) L Hematocrit 28.8 % (37.0-47.0) L Mean Corpuscular Volume 86 FL (80-99) Mean Corpuscular Hemoglobin 28.6 PG (27.0-31.0) Mean Corpuscular Hemoglobin Concent 33.5 G/DL (32.0-36.0) Red Cell Distribution Width 13.3 % (11.6-14.8) Platelet Count 292 K/UL (150-450) Mean Platelet Volume 4.9 FL (6.5-10.1) L Neutrophils (%) (Auto) 68.1 % (45.0-75.0) Lymphocytes (%) (Auto) 18.1 % (20.0-45.0) L Monocytes (%) (Auto) 9.0 % (1.0-10.0) Eosinophils (%) (Auto) 3.7 % (0.0-3.0) H Basophils (%) (Auto) 1.1 % (0.0-2.0) cr - 0.7 Current Medications Medications (Trade) Dose Ordered Sig/Yamileth Route PRN Reason Start Time Stop Time Status Last Admin Dose Admin Acetaminophen (Tylenol) 650 mg Q4H PRN ORAL fever 08/26/16 14:45 09/25/16 14:44 09/04/16 15:13 Acetaminophen (Tylenol) 650 mg Q4H PRN ORAL Mild Pain (Pain Scale 1-3) 08/26/16 14:45 09/25/16 14:44 09/06/16 08:47 Al Hydroxide/Mg Hydroxide (Mylanta II) 30 ml Q6H PRN ORAL dyspepsia 08/26/16 14:45 09/25/16 14:44 Aztreonam 1 gm/ Dextrose 55 ml @ 110 mls/hr Q8H IVPB 09/04/16 23:00 09/11/16 22:59 09/07/16 06:57 Bisacodyl (Dulcolax) 10 mg HSPRN PRN RECTAL Constipation 09/04/16 09:28 09/25/16 14:44 Dextrose (Dextrose 50%) STAT PRN IV Hypoglycemia 08/26/16 14:45 09/25/16 14:44 Docusate Sodium (Colace) 100 mg EVERY 12 HOURS ORAL 08/26/16 21:00 09/25/16 20:59 09/07/16 09:09 Ferrous Sulfate (Feosol) 325 mg THREE TIMES A DAY ORAL 09/02/16 18:00 10/02/16 17:59 09/07/16 12:28 Gabapentin (Neurontin) 300 mg BEDTIME ORAL 08/30/16 21:00 09/29/16 20:59 09/06/16 22:02 Heparin Sodium (Porcine) (Heparin 5000 units/ml) 5,000 units EVERY 8 HOURS SUBQ 08/28/16 06:00 09/27/16 05:59 09/07/16 07:00 Hydromorphone HCl (Dilaudid) 1 mg Q4H PRN IVP Severe Pain (Pain Scale 7-10) 09/07/16 09:45 09/14/16 09:44 09/07/16 09:57 Lactobacillus Acidophilus (Culturelle) 1 tab TWICE A DAY ORAL 08/26/16 18:00 09/25/16 17:59 09/07/16 09:09 Lactulose (Cephulac) 30 gm Q4H PRN ORAL constipation 09/04/16 09:15 10/04/16 09:14 Magnesium Hydroxide (Mom) 30 ml HSPRN PRN ORAL Constipation 08/26/16 14:45 09/25/16 14:44 09/05/16 01:47 Metronidazole 100 ml @ 100 mls/hr Q8HR IVPB 09/04/16 22:00 09/11/16 21:59 09/07/16 06:57 Ondansetron HCl (Zofran) 4 mg Q6H PRN IVP Nausea & Vomiting 08/31/16 17:45 09/30/16 17:44 09/06/16 20:07 Oxycodone/ Acetaminophen (Percocet 10/325) 1 tab Q4H PRN ORAL Moderate Pain (Pain Scale 4-6) 09/07/16 09:45 09/14/16 09:44 Polyethylene Glycol 17 gm 17 gm HSPRN PRN ORAL Constipation 09/04/16 09:29 09/25/16 14:44 09/05/16 01:47 Silver Sulfadiazine (Silvadene Cream 25gm) 1 applic DAILY TOPIC 09/02/16 14:00 10/02/16 13:59 09/07/16 09:09 Sodium Chloride (Sodium Chloride 1000ml bag) 1,000 ml @ 125 mls/hr Q8H IV 09/04/16 17:00 10/04/16 16:59 09/07/16 09:08 Vancomycin HCl 1 ea 1 ea DAILY MISC 09/04/16 18:45 10/04/16 18:44 09/07/16 09:09 Vancomycin HCl/ Dextrose (Vancomycin/D5W) 275 ml @ 183.333 mls/hr Q12HR IVPB 09/06/16 09:00 09/11/16 08:59 09/07/16 09:08 BUL KATHLEEN Sep 07, 2016 12:43
--- NOTE | 2016-09-07 19:07 | General Progress Note ---
Assessment/Plan Problem List: (1) Abscess Assessment & Plan: s/p bedside I+D last night by surgery POD#2 cont IV abx to vanco/aztreonam/flagyl CT pelvis neg for abscess or free air, d/w Surgery Neg V/Q scan, duplex LE neg R/o AURORA syndrome given silicone injections and onset of systemic symptoms, full autoimmune panel ordered, will f/u results Wound care per Surgery Supp care Pain control A total of 32 mins of additional time was spent with this patient including coordination of care in addition to face to face time Upon review of previous documentation including the ED note, it states that the patient was sent into the ED by me. I believe this represents a miscommunication between myself and the ED physician, Dr. Shen. The pt was referred to go to the ED by another physician, who asked me to evaluate her in the ED upon arrival for possible admission. I then called the ED physician and provided them advanced notice that the pt was en route to the ED along with some background medical history of the patient to assist in their medical evaluation. I had not seen this patient prior to her arrival in the ED. I will f /u with Dr. Adame on Saturday to discuss this matter and clarify the medical record. ICD Codes: L02.91 - Cutaneous abscess, unspecified SNOMED: 326869384 Subjective Date patient seen: Sep 07, 2016 Time patient seen: 18:58 ROS Limited/Unobtainable: No Allergies: Coded Allergies: IODINE (Verified Allergy, Unknown, 08/26/16) PENICILLINS (Verified Allergy, Unknown, 08/26/16) Subjective Last night had bedside I+D in 3 areas in the buttocks POD#2. No further c/o chills, afebrile. No chest pain or dyspnea, pain well controlled. No dysuria Upon discussion with pt, she shared with me additional historical info about her disease. She states that she went to the ED in [place] twice before in the past 6 months, and both times received abx and was sent home, with ED doctors telling her that she needed a special surgeon to treat her. She then sought one of these surgeons, and her insurance company denied authorization initially for the MRI, then after approving the MRI, the surgery was denied on unclear grounds , the pt then continued to have pain in the area, with lumbar radiculopathy symptoms, burning, fevers of 102 at home, fatigue, malaise. Objective Last 24 Hour Vital Signs Date Time Temp Pulse Resp B/P Pulse Ox O2 Delivery O2 Flow Rate FiO2 09/07/16 16:00 97.7 83 19 129/59 98 Room Air 09/07/16 12:00 97.9 86 18 137/66 98 Room Air 09/07/16 08:00 98.2 84 18 125/75 96 Room Air 09/07/16 04:00 98.0 81 18 99/56 99 Room Air 09/07/16 02:45 97.6 98 18 156/81 99 Room Air 09/07/16 00:00 98.6 84 18 112/65 98 Room Air 09/06/16 20:00 99.0 88 18 147/81 100 Room Air Intake and Output 09/06/16 09/07/16 19:00 07:00 Intake Total 2240 ml 125 ml Output Total 140 ml Balance 2240 ml -15 ml Intake Oral 1240 ml IV Total 1000 ml 125 ml Drainage Total 60 ml Other 80 ml # Voids 3 2 Laboratory Tests 09/07/16 06:25: White Blood Count 14.7H, Red Blood Count 3.36L, Hemoglobin 9.6L, Hematocrit 28.8L, Mean Corpuscular Volume 86, Mean Corpuscular Hemoglobin 28.6, Mean Corpuscular Hemoglobin Concent 33.5, Red Cell Distribution Width 13.3, Platelet Count 292, Mean Platelet Volume 4.9L, Neutrophils (%) (Auto) 68.1, Lymphocytes ( %) (Auto) 18.1L, Monocytes (%) (Auto) 9.0, Eosinophils (%) (Auto) 3.7H, Basophils (%) (Auto) 1.1 Height (Feet): 5 Height (Inches): 3.00 Weight (Pounds): 130 Objective General: alert, cooperative, no distress, appears stated age Head: normocephalic, without obvious abnormality, atraumatic Eyes: conjunctivae/corneas clear. PERRL, EOM's intact Throat: lips, mucosa, and tongue normal. MMM Neck: supple, symmetrical, trachea midline, and no JVD Lungs: clear to auscultation bilaterally Heart: regular rate and rhythm, S1, S2 normal, no murmur, click, rub or gallop Abdomen: soft, non-tender, non-distended, bowel sounds normal; no masses or organomegaly Extremities: dressing appear clean/dry/intact, drains present Pulses: 2+ and symmetric Skin: skin color, texture, turgor normal; no rashes or lesions Neurologic: 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, no focal deficits PETERSON COTTO Sep 07, 2016 19:07
[2016-09-08 00:36] VITALS: BP 114/64
[2016-09-08] MEDS: HYDROmorphone 1mg/ml Carpuject IVP PRN ×3 (01:38→14:26)
[2016-09-08 04:00] VITALS: BP 124/76
[2016-09-08] MEDS: metroNIDAZOLE 500mg 100 ML IVPB SCH ×3 (06:00→22:23)
[2016-09-08] MEDS: Heparin 5000 units/ml inj SUBQ SCH ×3 (06:00→22:34)
[2016-09-08] MEDS: Aztreonam Inj 1 GM in D5W 55 ML IVPB SCH ×3 (07:09→22:22)
[2016-09-08 08:00] VITALS: BP 121/90
[2016-09-08] MEDS: Docusate 100mg cap ORAL SCH ×2 (08:29→20:14)
[2016-09-08] MEDS: Silver Sulfadiazine Cream 25gm TOPIC SCH (08:29)
[2016-09-08] MEDS: Lactobacillus-GG tablet ORAL SCH ×2 (08:29→17:47)
[2016-09-08] MEDS: Vancomycin 1250mg/D5W 275ml IVPB SCH ×4 (08:30→20:14)
--- NOTE | 2016-09-08 12:03 | General Progress Note ---
Assessment/Plan Problem List: (1) Abscess Assessment & Plan: s/p bedside I+D by surgery POD#4 Plan for surgical re-eval tomorrow, if wounds look improved, hope to be able to dc pt home on Saturday cont IV abx to vanco/aztreonam/flagyl CT pelvis neg for abscess or free air, d/w Surgery Neg V/Q scan, duplex LE neg R/o AURORA syndrome given silicone injections and onset of systemic symptoms, full autoimmune panel ordered, will f/u results Wound care per Surgery Supp care Pain control A total of 32 mins of additional time was spent with this patient including coordination of care in addition to face to face time Upon review of previous documentation including the ED note, it states that the patient was sent into the ED by me. I believe this represents a miscommunication between myself and the ED physician, Dr. Shen. The pt was referred to go to the ED by another physician, who asked me to evaluate her in the ED upon arrival for possible admission. I then called the ED physician and provided them advanced notice that the pt was en route to the ED along with some background medical history of the patient to assist in their medical evaluation. I had not seen this patient prior to her arrival in the ED. I will f /u with Dr. Adame on Saturday to discuss this matter and clarify the medical record. ICD Codes: L02.91 - Cutaneous abscess, unspecified SNOMED: [id number] Subjective Date patient seen: Sep 08, 2016 Time patient seen: 12:01 ROS Limited/Unobtainable: No Allergies: Coded Allergies: IODINE (Verified Allergy, Unknown, 08/26/16) PENICILLINS (Verified Allergy, Unknown, 08/26/16) Subjective Last night had bedside I+D in 3 areas in the buttocks POD#3. No further c/o chills, afebrile, still c/o sweats. No chest pain or dyspnea, pain well controlled. No dysuria Upon discussion with pt, she shared with me additional historical info about her disease. She states that she went to the ED in [place] twice before in the past 6 months, and both times received abx and was sent home, with ED doctors telling her that she needed a special surgeon to treat her. She then sought one of these surgeons, and her insurance company denied authorization initially for the MRI, then after approving the MRI, the surgery was denied on unclear grounds , the pt then continued to have pain in the area, with lumbar radiculopathy symptoms, burning, fevers of 102 at home, fatigue, malaise. Objective Last 24 Hour Vital Signs Date Time Temp Pulse Resp B/P Pulse Ox O2 Delivery O2 Flow Rate FiO2 09/08/16 08:00 98.1 93 20 121/90 93 Room Air 09/08/16 04:00 97.5 78 17 124/76 99 Room Air 09/08/16 00:36 97.7 82 19 114/64 96 Room Air 09/07/16 20:18 97.9 89 18 128/76 99 Room Air 09/07/16 16:00 97.7 83 19 129/59 98 Room Air Intake and Output 09/07/16 09/08/16 19:00 07:00 Intake Total 1700 ml 1365 ml Output Total 70 ml Balance 1630 ml 1365 ml Intake Oral 450 ml 240 ml IV Total 1250 ml 1125 ml Drainage Total 50 ml Other 20 ml # Voids 2 2 Laboratory Tests 09/07/16 20:20: Vancomycin Level Trough 11.5 Height (Feet): 5 Height (Inches): 3.00 Weight (Pounds): 130 Objective General: alert, cooperative, no distress, appears stated age Head: normocephalic, without obvious abnormality, atraumatic Eyes: conjunctivae/corneas clear. PERRL, EOM's intact Throat: lips, mucosa, and tongue normal. MMM Neck: supple, symmetrical, trachea midline, and no JVD Lungs: clear to auscultation bilaterally Heart: regular rate and rhythm, S1, S2 normal, no murmur, click, rub or gallop Abdomen: soft, non-tender, non-distended, bowel sounds normal; no masses or organomegaly Extremities: dressing appear clean/dry/intact, drains present Pulses: 2+ and symmetric Skin: skin color, texture, turgor normal; no rashes or lesions Neurologic: 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, no focal deficits PETERSON COTTO Sep 08, 2016 12:03
--- NOTE | 2016-09-08 12:49 | Infectious Diseases Prog Note ---
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 abscess - I/D per surgery , fevers better, still with leukocytosis, pelvic ct without abscess 2) s/p debridement of bilateral buttock necrosis with cellulitis, now with open wounds and wound vac/flap 3) hx gluteal silicone infections 4) recent terminated 5) r/u AURORA autoimmune syndrome 6) pain mgt, anemia, hyponatremia 7) allergies - pcn and iodine, sh-negative, mar noted, notes and records reviewed 8) d/w RN P) 1) vancomycin, flagyl and aztreonam for now 2) check wound culture final and labs 3) surgery f/u on wounds 4) continue treatment per Dr. Christiansen and surgery 5) orders noted and entered 6) d/w patient and answered questions 7) d/w micro regarding sensitivities Subjective Constitutional: Denies: fever HEENT: Denies: congestion Respiratory: Denies: shortness of breath Cardiovascular: Denies: chest pain Gastrointestinal/Abdominal: Denies: diarrhea, nausea, vomiting Neurologic: Denies: headache Psychiatric: Denies: depression Skin: Denies: rash Hematologic: Denies: bleeding Musculoskeletal: Denies: pain Allergies: Coded Allergies: IODINE (Verified Allergy, Unknown, 08/26/16) PENICILLINS (Verified Allergy, Unknown, 08/26/16) Objective Vital Signs Last 24 Hour Vital Signs Date Time Temp Pulse Resp B/P Pulse Ox O2 Delivery O2 Flow Rate FiO2 09/08/16 08:00 98.1 93 20 121/90 93 Room Air 09/08/16 04:00 97.5 78 17 124/76 99 Room Air 09/08/16 00:36 97.7 82 19 114/64 96 Room Air 09/07/16 20:18 97.9 89 18 128/76 99 Room Air 09/07/16 16:00 97.7 83 19 129/59 98 Room Air Height (Feet): 5 Height (Inches): 3.00 Weight (Pounds): 130 General Appearance: no acute distress HEENT: normocephalic, atraumatic, anicteric, mucous membranes moist, PERRL, EOMI, pharynx normal, supple, no JVD Respiratory/Chest: lungs clear, normal breath sounds, no respiratory distress, no accessory muscle use Cardiovascular: normal rate, regular rhythm, no gallop/murmur, no JVD Abdomen: normal bowel sounds, soft, non tender, no organomegaly, non distended Genitourinary: other - no beltre Extremities: no cyanosis Skin: no rash Neurologic/Psychiatric: binder selector II-XII 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, no motor/sensory deficits, abnormal gait, alert, oriented x 3, responsive Lymphatic: no neck adenopathy Musculoskeletal: no effusion Objective Labs Test 08/31/16 05:50 08/31/16 08:31 09/01/16 07:05 09/02/16 10:36 White Blood Count 18.8 K/UL (4.8-10.8) 17.2 K/UL (4.8-10.8) 13.8 K/UL (4.8-10.8) Red Blood Count 2.95 M/UL (4.20-5.40) 2.98 M/UL (4.20-5.40) 3.11 M/UL (4.20-5.40) Hemoglobin 8.4 G/DL (12.0-16.0) 8.7 G/DL (12.0-16.0) 8.4 G/DL (12.0-16.0) Hematocrit 25.3 % (37.0-47.0) 26.0 % (37.0-47.0) 26.3 % (37.0-47.0) Mean Corpuscular Volume 86 FL (80-99) 87 FL (80-99) 84 FL (80-99) Mean Corpuscular Hemoglobin 28.3 PG (27.0-31.0) 29.3 PG (27.0-31.0) 27.1 PG (27.0-31.0) Mean Corpuscular Hemoglobin Concent 33.1 G/DL (32.0-36.0) 33.6 G/DL (32.0-36.0) 32.1 G/DL (32.0-36.0) Red Cell Distribution Width 12.8 % (11.6-14.8) 12.6 % (11.6-14.8) 12.5 % (11.6-14.8) Platelet Count 178 K/UL (150-450) 183 K/UL (150-450) 258 K/UL (150-450) Mean Platelet Volume 6.0 FL (6.5-10.1) 5.1 FL (6.5-10.1) 6.2 FL (6.5-10.1) Neutrophils (%) (Auto) % (45.0-75.0) 72.6 % (45.0-75.0) 75.9 % (45.0-75.0) Lymphocytes (%) (Auto) % (20.0-45.0) 15.0 % (20.0-45.0) 9.3 % (20.0-45.0) Monocytes (%) (Auto) % (1.0-10.0) 9.1 % (1.0-10.0) 10.6 % (1.0-10.0) Eosinophils (%) (Auto) % (0.0-3.0) 2.5 % (0.0-3.0) 3.0 % (0.0-3.0) Basophils (%) (Auto) % (0.0-2.0) 0.9 % (0.0-2.0) 1.3 % (0.0-2.0) Differential Total Cells Counted 100 Neutrophils % (Manual) 70 % (45-75) Lymphocytes % (Manual) 16 % (20-45) Monocytes % (Manual) 11 % (1-10) Eosinophils % (Manual) 2 % (0-3) Basophils % (Manual) 0 % (0-2) Band Neutrophils 1 % (0-8) Platelet Estimate Adequate Platelet Morphology Normal Hypochromasia 1+ Sodium Level 130 mEQ/L (135-145) 135 mEQ/L (135-145) 135 mEQ/L (135-145) Potassium Level 3.5 mEQ/L (3.4-4.9) 3.8 mEQ/L (3.4-4.9) 3.7 mEQ/L (3.4-4.9) Chloride Level 92 mEQ/L (98-107) 94 mEQ/L (98-107) 94 mEQ/L (98-107) Carbon Dioxide Level 27 mEQ/L (20-30) 29 mEQ/L (20-30) 27 mEQ/L (20-30) Anion Gap 11 (5-15) 12 (5-15) 14 (5-15) Blood Urea Nitrogen 6 mg/dL (7-23) 5 mg/dL (7-23) 7 mg/dL (7-23) Creatinine 0.8 mg/dL (0.5-0.9) 0.8 mg/dL (0.5-0.9) 0.7 mg/dL (0.5-0.9) Estimat Glomerular Filtration Rate > 60 mL/min (>60) > 60 mL/min (>60) > 60 mL/min (>60) Glucose Level 116 mg/dL (74-106) 112 mg/dL (74-106) 116 mg/dL (74-106) Calcium Level 8.3 mg/dL (8.6-10.2) 8.8 mg/dL (8.6-10.2) 8.8 mg/dL (8.6-10.2) Urine Color Pale yellow Urine Appearance Clear Urine pH 7 (4.5-8.0) Urine Specific [place] 1.005 (1.005-1.035) Urine Protein Negative (NEGATIVE) Urine Glucose (UA) Negative (NEGATIVE) Urine Ketones Negative (NEGATIVE) Urine Occult Blood 2+ (NEGATIVE) Urine Nitrite Negative (NEGATIVE) Urine Bilirubin Negative (NEGATIVE) Urine Urobilinogen Normal MG/DL (0.0-1.0) Urine Leukocyte Esterase 1+ (NEGATIVE) Urine RBC 2-4 /HPF (0 - 2) Urine WBC 2-4 /HPF (0 - 2) Urine Squamous Epithelial Cells Few /LPF (NONE/OCC) Urine Bacteria Few /HPF (NONE) Total Bilirubin 0.3 mg/dL (0.0-1.2) Aspartate Amino Transf (AST/SGOT) 31 U/L (5-40) Alanine Aminotransferase (ALT/SGPT) 51 U/L (3-33) Alkaline Phosphatase 74 U/L (35-104) Total Protein 6.3 g/dL (6.6-8.7) Albumin 2.9 g/dL (3.5-5.2) Globulin 3.4 g/dL Albumin/Globulin Ratio 0.8 (1.0-2.7) chest x-ray - negative mri pelvis - report noted \ 09/04 - pelvic ct - no abscess 09/04 - chest x-ray - negative for pna v/q scan - low probability for PE Microbiology Date/Time Source Procedure Growth Status 09/04/16 16:45 Blood Blood Culture - Preliminary NO GROWTH AFTER 48 HOURS Resulted 09/05/16 11:00 Wound Gram Stain - Final Complete 09/05/16 11:00 Wound Culture - Final Pseudomonas Aeruginosa Staphylococcus Sp Coag Neg Complete 08/31/16 08:31 Urine,Clean Catch Urine Culture - Final Diphtheroids Complete Laboratory Tests Test 09/07/16 20:20 Vancomycin Level Trough 11.5 ug/mL (5.0-12.0) Current Medications Medications (Trade) Dose Ordered Sig/Yamileth Route PRN Reason Start Time Stop Time Status Last Admin Dose Admin Acetaminophen (Tylenol) 650 mg Q4H PRN ORAL fever 08/26/16 14:45 09/25/16 14:44 09/04/16 15:13 Acetaminophen (Tylenol) 650 mg Q4H PRN ORAL Mild Pain (Pain Scale 1-3) 08/26/16 14:45 09/25/16 14:44 09/06/16 08:47 Al Hydroxide/Mg Hydroxide (Mylanta II) 30 ml Q6H PRN ORAL dyspepsia 08/26/16 14:45 09/25/16 14:44 Aztreonam 1 gm/ Dextrose 55 ml @ 110 mls/hr Q8H IVPB 09/04/16 23:00 09/11/16 22:59 09/08/16 07:09 Bisacodyl (Dulcolax) 10 mg HSPRN PRN RECTAL Constipation 09/04/16 09:28 09/25/16 14:44 Dextrose (Dextrose 50%) STAT PRN IV Hypoglycemia 08/26/16 14:45 09/25/16 14:44 Docusate Sodium (Colace) 100 mg EVERY 12 HOURS ORAL 08/26/16 21:00 09/25/16 20:59 09/08/16 08:29 Ferrous Sulfate (Feosol) 325 mg THREE TIMES A DAY ORAL 09/02/16 18:00 10/02/16 17:59 09/08/16 08:29 Gabapentin (Neurontin) 300 mg BEDTIME ORAL 08/30/16 21:00 09/29/16 20:59 09/07/16 20:28 Heparin Sodium (Porcine) (Heparin 5000 units/ml) 5,000 units EVERY 8 HOURS SUBQ 08/28/16 06:00 09/27/16 05:59 09/08/16 06:00 Hydromorphone HCl (Dilaudid) 1 mg Q4H PRN IVP Severe Pain (Pain Scale 7-10) 09/07/16 09:45 09/14/16 09:44 09/08/16 08:28 Lactobacillus Acidophilus (Culturelle) 1 tab TWICE A DAY ORAL 08/26/16 18:00 09/25/16 17:59 09/08/16 08:29 Lactulose (Cephulac) 30 gm Q4H PRN ORAL constipation 09/04/16 09:15 10/04/16 09:14 Magnesium Hydroxide (Mom) 30 ml HSPRN PRN ORAL Constipation 08/26/16 14:45 09/25/16 14:44 09/05/16 01:47 Metronidazole 100 ml @ 100 mls/hr Q8HR IVPB 09/04/16 22:00 09/11/16 21:59 09/08/16 06:00 Ondansetron HCl (Zofran) 4 mg Q6H PRN IVP Nausea & Vomiting 08/31/16 17:45 09/30/16 17:44 09/06/16 20:07 Oxycodone/ Acetaminophen (Percocet 10/325) 1 tab Q4H PRN ORAL Moderate Pain (Pain Scale 4-6) 09/07/16 09:45 09/14/16 09:44 Polyethylene Glycol 17 gm 17 gm HSPRN PRN ORAL Constipation 09/04/16 09:29 09/25/16 14:44 09/05/16 01:47 Silver Sulfadiazine (Silvadene Cream 25gm) 1 applic DAILY TOPIC 09/02/16 14:00 10/02/16 13:59 09/08/16 08:29 Sodium Chloride (Sodium Chloride 1000ml bag) 1,000 ml @ 125 mls/hr Q8H IV 09/04/16 17:00 10/04/16 16:59 09/08/16 10:53 Vancomycin HCl 1 ea 1 ea DAILY MISC 09/04/16 18:45 10/04/16 18:44 09/08/16 08:30 Vancomycin HCl/ Dextrose (Vancomycin/D5W) 275 ml @ 183.333 mls/hr Q12HR IVPB 09/06/16 09:00 09/11/16 08:59 09/08/16 08:30 BLU KATHLEEN Sep 08, 2016 12:49
[2016-09-08 16:00] VITALS: BP 137/81
[2016-09-08] MEDS ORDERED: Tubing IV Secondary IV ONE (17:01)
[2016-09-08] MEDS ORDERED: NS 275ml ONE (17:01)
[2016-09-08] MEDS ORDERED: Tubing Blood Filter IV ONE (17:01)
[2016-09-08 20:00] VITALS: BP 122/73
[2016-09-09] VITALS: BP_SYST 111; BP_SYST 117; BP_DIAS 73; BP_DIAS 77
[2016-09-09 04:00] VITALS: BP 114/79
[2016-09-09] MEDS: metroNIDAZOLE 500mg 100 ML IVPB SCH ×3 (05:35→22:35)
[2016-09-09] MEDS: Aztreonam Inj 1 GM in D5W 55 ML IVPB SCH ×3 (05:35→22:35)
[2016-09-09] MEDS: Heparin 5000 units/ml inj SUBQ SCH ×3 (05:41→22:34)
[2016-09-09 07:09] LABS: ANION GAP 11 (5-15); CALCIUM 8.1 mg/dL (8.6-10.2); CARBON DIOXIDE 25 mEQ/L (20-30); CHLORIDE 103 mEQ/L (98-107); CREATININE 0.7 mg/dL (0.5-0.9); GLOMERULAR FILTRATION RATE > 60 mL/min (>60); HEMOLYSIS 3; POTASSIUM 3.9 mEQ/L (3.4-4.9); SODIUM 139 mEQ/L (135-145)
[2016-09-09 07:12] LABS: BASOPHILS % (AUTO) 1.9 % (0.0-2.0); EOSINOPHILS % (AUTO) 3.7 % (0.0-3.0); MEAN CORPUSCULAR HEMOGLOBIN 28.8 PG (27.0-31.0); MEAN CORPUSCULAR HGB CONC 33.6 G/DL (32.0-36.0); MEAN CORPUSCULAR VOLUME 86 FL (80-99); MEAN PLATELET VOLUME 5.3 FL (6.5-10.1); MONOCYTES % (AUTO) 6.9 % (1.0-10.0); NEUTROPHILS % (AUTO) 63.5 % (45.0-75.0); PLATELET COUNT 342 K/UL (150-450); RED BLOOD COUNT 3.44 M/UL (4.20-5.40); RED CELL DISTRIBUTION WIDTH 13.8 % (11.6-14.8); WHITE BLOOD COUNT 14.5 K/UL (4.8-10.8)
[2016-09-09 08:00] VITALS: BP 124/73
[2016-09-09] MEDS: Docusate 100mg cap ORAL SCH ×2 (08:25→19:58)
[2016-09-09] MEDS: Lactobacillus-GG tablet ORAL SCH ×2 (08:25→17:20)
[2016-09-09] MEDS: Silver Sulfadiazine Cream 25gm TOPIC SCH (08:27)
[2016-09-09] MEDS: Vancomycin 1250mg/D5W 275ml IVPB SCH ×4 (08:43→19:57)
[2016-09-09 12:00] VITALS: BP 111/76
--- NOTE | 2016-09-09 14:03 | General Progress Note ---
Assessment/Plan Assessment/Plan (1) Bilateral buttock soft tissue necrosis, cellulitis, open wounds buttocks (2) Abscess (3) Intractable pain (4) Staged debridement of bilateral buttock necrotic soft tissue, flap delay The patient is to be continued on the Dilaudid and Percocet. The patient was discussed with Dr. Singh and concurred. Subjective Date patient seen: Sep 09, 2016 Time patient seen: 01:00 - pm Allergies: Coded Allergies: IODINE (Verified Allergy, Unknown, 08/26/16) PENICILLINS (Verified Allergy, Unknown, 08/26/16) Subjective Constitutional: Reports: no symptoms HEENT: Reports: no symptoms Cardiovascular: Reports: no symptoms Respiratory: Reports: no symptoms Gastrointestinal/Abdominal: Reports: N/V Genitourinary: Reports: no symptoms Neurologic/Psychiatric: Reports: weakness Endocrine: Reports: no symptoms Hematologic/Lymphatic: Reports: no symptoms Subjective Her pain has been severe due to dressing changes and drainage tubes. She was started on Dilaudid 2mg IV Q4H PRN severe breakthrough pain and continued on Dilaudid 1mg IV Q4H PRN severe pain and Percocet 10/325mg PO 1 tab Q4H Moderate pain. She is comfortable in bed in no sign of pain or distress at this time. Objective Last 24 Hour Vital Signs Date Time Temp Pulse Resp B/P Pulse Ox O2 Delivery O2 Flow Rate FiO2 09/09/16 12:00 97.9 81 17 111/76 98 Room Air 09/09/16 08:00 97.0 79 18 124/73 99 Room Air 09/09/16 04:00 97.6 83 18 114/79 99 Room Air 09/09/16 01:04 97.9 09/09/16 00:00 97.9 89 20 111/77 100 Room Air 09/09/16 00:00 97.9 76 20 117/73 100 Room Air 09/08/16 20:00 97.9 87 18 122/73 100 Room Air 09/08/16 16:00 97.7 94 20 137/81 99 Room Air Intake and Output 09/08/16 09/09/16 19:00 07:00 Intake Total 1910 ml 1625 ml Output Total 1 ml 66 ml Balance 1909 ml 1559 ml Intake Oral 660 ml 400 ml IV Total 1250 ml 1225 ml Output Urine Total 1 ml Drainage Total 41 ml Other 25 ml # Voids 3 2 Laboratory Tests 09/09/16 06:25: White Blood Count 14.5H, Red Blood Count 3.44L, Hemoglobin 9.9L, Hematocrit 29.5L, Mean Corpuscular Volume 86, Mean Corpuscular Hemoglobin 28.8, Mean Corpuscular Hemoglobin Concent 33.6, Red Cell Distribution Width 13.8, Platelet Count 342, Mean Platelet Volume 5.3L, Neutrophils (%) (Auto) 63.5, Lymphocytes ( %) (Auto) 24.0, Monocytes (%) (Auto) 6.9, Eosinophils (%) (Auto) 3.7H, Basophils (%) (Auto) 1.9, Sodium Level 139, Potassium Level 3.9, Chloride Level 103, Carbon Dioxide Level 25, Anion Gap 11, Blood Urea Nitrogen 3L, Creatinine 0.7, Estimat Glomerular Filtration Rate > 60, Glucose Level 101, Calcium Level 8.1L Height (Feet): 5 Height (Inches): 3.00 Weight (Pounds): 130 Objective General Appearance: no apparent distress, alert EENT: PERRL/EOMI, normal ENT inspection Neck: non-tender, normal alignment Cardiovascular: normal rate, regular rhythm Respiratory/Chest: lungs clear, normal breath sounds Abdomen: non tender, soft Extremities: non-tender Edema: no edema noted Arm (L), no edema noted Arm (R), no edema noted Leg (L), no edema noted Leg (R), no edema noted Pedal (L), no edema noted Pedal (R), no edema noted Generalized Neurologic: alert, oriented x 3 Skin: other - bandages applied to buttock area with tenderness to palpation NELLY JACK PRosendo Sep 09, 2016 14:03
--- NOTE | 2016-09-09 14:05 | General Progress Note ---
Assessment/Plan Problem List: (1) Abscess ICD Codes: L02.91 - Cutaneous abscess, unspecified SNOMED: 337663680 (2) Buttock pain ICD Codes: M79.1 - Myalgia SNOMED: 270716233 (3) Sepsis ICD Codes: A41.9 - Sepsis, unspecified organism SNOMED: 71395378 (4) Abnormal LFTs ICD Codes: R79.89 - Other specified abnormal findings of blood chemistry SNOMED: 070022498 Status: stable Assessment/Plan s/p bedside I+D by surgery POD#5 Plan for surgical re-eval later today--if wounds look improved, hope to be able to dc pt home on Saturday cont IV vanco/aztreonam/flagyl CT pelvis neg for abscess or free air, d/w Surgery Neg V/Q scan, duplex LE neg R/o AURORA syndrome given silicone injections and onset of systemic symptoms, full autoimmune panel ordered, will f/u results Wound care per Surgery Supp care Pain control A total of 31 mins of extra time was spent with this patient face to face in addition to normal encounter time for care/coordination and counseling. Subjective Date patient seen: Sep 09, 2016 Time patient seen: 14:04 ROS Limited/Unobtainable: No Constitutional: Reports: no symptoms HEENT: Reports: no symptoms Cardiovascular: Reports: no symptoms Respiratory: Reports: no symptoms Gastrointestinal/Abdominal: Reports: no symptoms Genitourinary: Reports: no symptoms Neurologic/Psychiatric: Reports: no symptoms Endocrine: Reports: no symptoms Hematologic/Lymphatic: Reports: no symptoms Allergies: Coded Allergies: IODINE (Verified Allergy, Unknown, 08/26/16) PENICILLINS (Verified Allergy, Unknown, 08/26/16) All Systems: reviewed and negative except above Subjective Doing well Pain controlled Ambulated yesterday but feels tired today Denies f/c, n/v, d/c, chest pain, SOB, abd pain Objective Last 24 Hour Vital Signs Date Time Temp Pulse Resp B/P Pulse Ox O2 Delivery O2 Flow Rate FiO2 09/09/16 12:59 97.0 09/09/16 12:00 97.9 81 17 111/76 98 Room Air 09/09/16 08:00 97.0 79 18 124/73 99 Room Air 09/09/16 04:00 97.6 83 18 114/79 99 Room Air 09/09/16 00:00 97.9 89 20 111/77 100 Room Air 09/09/16 00:00 97.9 76 20 117/73 100 Room Air 09/08/16 20:00 97.9 87 18 122/73 100 Room Air 09/08/16 16:00 97.7 94 20 137/81 99 Room Air Intake and Output 09/08/16 09/09/16 19:00 07:00 Intake Total 1910 ml 1625 ml Output Total 1 ml 66 ml Balance 1909 ml 1559 ml Intake Oral 660 ml 400 ml IV Total 1250 ml 1225 ml Output Urine Total 1 ml Drainage Total 41 ml Other 25 ml # Voids 3 2 Laboratory Tests 09/09/16 06:25: White Blood Count 14.5H, Red Blood Count 3.44L, Hemoglobin 9.9L, Hematocrit 29.5L, Mean Corpuscular Volume 86, Mean Corpuscular Hemoglobin 28.8, Mean Corpuscular Hemoglobin Concent 33.6, Red Cell Distribution Width 13.8, Platelet Count 342, Mean Platelet Volume 5.3L, Neutrophils (%) (Auto) 63.5, Lymphocytes ( %) (Auto) 24.0, Monocytes (%) (Auto) 6.9, Eosinophils (%) (Auto) 3.7H, Basophils (%) (Auto) 1.9, Sodium Level 139, Potassium Level 3.9, Chloride Level 103, Carbon Dioxide Level 25, Anion Gap 11, Blood Urea Nitrogen 3L, Creatinine 0.7, Estimat Glomerular Filtration Rate > 60, Glucose Level 101, Calcium Level 8.1L Height (Feet): 5 Height (Inches): 3.00 Weight (Pounds): 130 Objective General: alert, cooperative, no distress, appears stated age Head: normocephalic, without obvious abnormality, atraumatic Eyes: conjunctivae/corneas clear. PERRL, EOM's intact Throat: lips, mucosa, and tongue normal. MMM Neck: supple, symmetrical, trachea midline, and no JVD Lungs: clear to auscultation bilaterally Heart: regular rate and rhythm, S1, S2 normal, no murmur, click, rub or gallop Abdomen: soft, non-tender, non-distended, bowel sounds normal; no masses or organomegaly Extremities: extremities normal, atraumatic, no cyanosis or edema +ILIANA drains w/ ss drainage Dressings c/d/i Pulses: 2+ and symmetric Skin: skin color, texture, turgor normal; no rashes or lesions Neurologic: 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, no focal deficits Gabriela Shi M.D. Sep 09, 2016 14:05
[2016-09-09 16:00] VITALS: BP 131/78
[2016-09-09] MEDS: HYDROmorphone 1mg/ml Carpuject IVP PRN (18:11)
--- NOTE | 2016-09-09 20:01 | General Progress Note ---
Subjective Allergies: Coded Allergies: IODINE (Verified Allergy, Unknown, 08/26/16) PENICILLINS (Verified Allergy, Unknown, 08/26/16) Subjective Patient seen and examined. Wound of the right buttocks with superior area of skin breakdown with some drainage Inferior aspect with 1 cm opening. Impression: Wound Infection of Right Buttocks Plan: Wound I&D tonight with 3 areas packed with Iodophor gauze. Local Wound Care with change of packing in 48 hours. Leave drains in for now. Continue antibiotics Objective Last 24 Hour Vital Signs Date Time Temp Pulse Resp B/P Pulse Ox O2 Delivery O2 Flow Rate FiO2 09/09/16 18:41 97.5 09/09/16 16:00 97.5 87 18 131/78 98 Room Air 09/09/16 12:59 97.0 09/09/16 12:00 97.9 81 17 111/76 98 Room Air 09/09/16 08:00 97.0 79 18 124/73 99 Room Air 09/09/16 04:00 97.6 83 18 114/79 99 Room Air 09/09/16 00:00 97.9 89 20 111/77 100 Room Air 09/09/16 00:00 97.9 76 20 117/73 100 Room Air Intake and Output 09/08/16 09/09/16 19:00 07:00 Intake Total 1910 ml 1625 ml Output Total 1 ml 66 ml Balance 1909 ml 1559 ml Intake Oral 660 ml 400 ml IV Total 1250 ml 1225 ml Output Urine Total 1 ml Drainage Total 41 ml Other 25 ml # Voids 3 2 Laboratory Tests 09/09/16 06:25: White Blood Count 14.5H, Red Blood Count 3.44L, Hemoglobin 9.9L, Hematocrit 29.5L, Mean Corpuscular Volume 86, Mean Corpuscular Hemoglobin 28.8, Mean Corpuscular Hemoglobin Concent 33.6, Red Cell Distribution Width 13.8, Platelet Count 342, Mean Platelet Volume 5.3L, Neutrophils (%) (Auto) 63.5, Lymphocytes ( %) (Auto) 24.0, Monocytes (%) (Auto) 6.9, Eosinophils (%) (Auto) 3.7H, Basophils (%) (Auto) 1.9, Sodium Level 139, Potassium Level 3.9, Chloride Level 103, Carbon Dioxide Level 25, Anion Gap 11, Blood Urea Nitrogen 3L, Creatinine 0.7, Estimat Glomerular Filtration Rate > 60, Glucose Level 101, Calcium Level 8.1L Height (Feet): 5 Height (Inches): 3.00 Weight (Pounds): 130 Bebo Cabral M.D. ([facility]) Sep 09, 2016 20:01
--- NOTE | 2016-09-09 20:04 | General Progress Note ---
Subjective Date patient seen: Sep 09, 2016 Allergies: Coded Allergies: IODINE (Verified Allergy, Unknown, 08/26/16) PENICILLINS (Verified Allergy, Unknown, 08/26/16) Subjective Patient seen and examined. Wound of the right buttocks with superior area of skin breakdown with some drainage more clear Inferior aspect with 1 cm opening.Mid Buttock with I&D wound Impression: Wound Infection of Right Buttocks Plan: Local Wound Care with change of packing in 48 hours. Two drains removed from right side. Continue antibiotics Objective Last 24 Hour Vital Signs Date Time Temp Pulse Resp B/P Pulse Ox O2 Delivery O2 Flow Rate FiO2 09/09/16 18:41 97.5 09/09/16 16:00 97.5 87 18 131/78 98 Room Air 09/09/16 12:59 97.0 09/09/16 12:00 97.9 81 17 111/76 98 Room Air 09/09/16 08:00 97.0 79 18 124/73 99 Room Air 09/09/16 04:00 97.6 83 18 114/79 99 Room Air 09/09/16 00:00 97.9 89 20 111/77 100 Room Air 09/09/16 00:00 97.9 76 20 117/73 100 Room Air Intake and Output 09/08/16 09/09/16 19:00 07:00 Intake Total 1910 ml 1625 ml Output Total 1 ml 66 ml Balance 1909 ml 1559 ml Intake Oral 660 ml 400 ml IV Total 1250 ml 1225 ml Output Urine Total 1 ml Drainage Total 41 ml Other 25 ml # Voids 3 2 Laboratory Tests 09/09/16 06:25: White Blood Count 14.5H, Red Blood Count 3.44L, Hemoglobin 9.9L, Hematocrit 29.5L, Mean Corpuscular Volume 86, Mean Corpuscular Hemoglobin 28.8, Mean Corpuscular Hemoglobin Concent 33.6, Red Cell Distribution Width 13.8, Platelet Count 342, Mean Platelet Volume 5.3L, Neutrophils (%) (Auto) 63.5, Lymphocytes ( %) (Auto) 24.0, Monocytes (%) (Auto) 6.9, Eosinophils (%) (Auto) 3.7H, Basophils (%) (Auto) 1.9, Sodium Level 139, Potassium Level 3.9, Chloride Level 103, Carbon Dioxide Level 25, Anion Gap 11, Blood Urea Nitrogen 3L, Creatinine 0.7, Estimat Glomerular Filtration Rate > 60, Glucose Level 101, Calcium Level 8.1L Height (Feet): 5 Height (Inches): 3.00 Weight (Pounds): 130 Bebo Cabral M.D. ([facility]) Sep 09, 2016 20:04
[2016-09-09 20:32] VITALS: BP 134/83
[2016-09-10 00:08] VITALS: BP 116/70
[2016-09-10 04:11] VITALS: BP 120/80
[2016-09-10] MEDS: metroNIDAZOLE 500mg 100 ML IVPB SCH ×3 (05:46→22:52)
[2016-09-10] MEDS: Aztreonam Inj 1 GM in D5W 55 ML IVPB SCH ×4 (05:47→23:56)
[2016-09-10] MEDS: Heparin 5000 units/ml inj SUBQ SCH ×3 (05:49→22:53)
[2016-09-10 07:58] LABS: EOSINOPHILS % (AUTO) 4.7 % (0.0-3.0); LYMPHOCYTES % (AUTO) 23.6 % (20.0-45.0); MEAN CORPUSCULAR HEMOGLOBIN 27.6 PG (27.0-31.0); MEAN CORPUSCULAR HGB CONC 31.8 G/DL (32.0-36.0); MEAN CORPUSCULAR VOLUME 87 FL (80-99); MEAN PLATELET VOLUME 5.4 FL (6.5-10.1); NEUTROPHILS % (AUTO) 65.7 % (45.0-75.0); PLATELET COUNT 316 K/UL (150-450); RED BLOOD COUNT 3.48 M/UL (4.20-5.40); RED CELL DISTRIBUTION WIDTH 13.6 % (11.6-14.8); WHITE BLOOD COUNT 12.8 K/UL (4.8-10.8)
[2016-09-10 08:00] VITALS: BP 117/77
--- NOTE | 2016-09-10 08:11 | General Progress Note ---
Assessment/Plan Assessment/Plan (1) Bilateral buttock soft tissue necrosis, cellulitis, open wounds buttocks (2) Abscess (3) Intractable pain (4) Staged debridement of bilateral buttock necrotic soft tissue, flap delay The patient is to be continued on the Dilaudid and Percocet. The patient was discussed with Dr. Singh and concurred. Subjective Date patient seen: Sep 10, 2016 Time patient seen: 07:00 - am Allergies: Coded Allergies: IODINE (Verified Allergy, Unknown, 08/26/16) PENICILLINS (Verified Allergy, Unknown, 08/26/16) Subjective Constitutional: Reports: no symptoms HEENT: Reports: no symptoms Cardiovascular: Reports: no symptoms Respiratory: Reports: no symptoms Gastrointestinal/Abdominal: Reports: no symptoms Genitourinary: Reports: no symptoms Neurologic/Psychiatric: Reports: weakness Endocrine: Reports: no symptoms Hematologic/Lymphatic: Reports: no symptoms Subjective Pain is has been stable and tolerated on the medications. She continues to c/o burning sharp pain with movement, dressing changes and laying long periods. Patient has been using the Dilaudid which is reducing her pain. Objective Last 24 Hour Vital Signs Date Time Temp Pulse Resp B/P Pulse Ox O2 Delivery O2 Flow Rate FiO2 09/10/16 04:11 97.9 90 18 120/80 99 Room Air 09/10/16 00:08 98.1 95 19 116/70 98 Room Air 09/09/16 20:32 97.7 89 18 134/83 96 Room Air 09/09/16 18:41 97.5 09/09/16 16:00 97.5 87 18 131/78 98 Room Air 09/09/16 12:59 97.0 09/09/16 12:00 97.9 81 17 111/76 98 Room Air Intake and Output 09/09/16 09/10/16 19:00 07:00 Intake Total 2142.5 ml 940 ml Output Total 92 ml 25 ml Balance 2050.5 ml 915 ml Intake Oral 650 ml 440 ml IV Total 1492.5 ml 500 ml Emesis 75 ml Drainage Total 17 ml 15 ml Other 10 ml # Voids 3 3 Laboratory Tests 09/10/16 07:25: White Blood Count 12.8H, Red Blood Count 3.48L, Hemoglobin 9.6L, Hematocrit 30.3L, Mean Corpuscular Volume 87, Mean Corpuscular Hemoglobin 27.6, Mean Corpuscular Hemoglobin Concent 31.8L, Red Cell Distribution Width 13.6, Platelet Count 316, Mean Platelet Volume 5.4L, Neutrophils (%) (Auto) 65.7, Lymphocytes (%) (Auto) 23.6, Monocytes (%) (Auto) 5.0, Eosinophils (%) (Auto) 4.7H, Basophils (%) (Auto) 1.0 Height (Feet): 5 Height (Inches): 3.00 Weight (Pounds): 130 Objective General Appearance: no apparent distress, alert EENT: PERRL/EOMI, normal ENT inspection Neck: non-tender, normal alignment Cardiovascular: normal rate, regular rhythm Respiratory/Chest: lungs clear, normal breath sounds Abdomen: non tender, soft Extremities: non-tender Edema: no edema noted Arm (L), no edema noted Arm (R), no edema noted Leg (L), no edema noted Leg (R), no edema noted Pedal (L), no edema noted Pedal (R), no edema noted Generalized Neurologic: alert, oriented x 3 Skin: other - bandages applied to buttock area with tenderness to palpation NELLY JACK Sep 10, 2016 08:10
[2016-09-10] MEDS ORDERED: Bacitracin Oint UD TOPIC ONE (09:00)
[2016-09-10] MEDS: HYDROmorphone 1mg/ml Carpuject IVP PRN ×2 (09:12→17:18)
[2016-09-10] MEDS: Silver Sulfadiazine Cream 25gm TOPIC SCH (09:31)
[2016-09-10] MEDS: Vancomycin 1250mg/D5W 275ml IVPB SCH ×4 (09:31→20:40)
[2016-09-10] MEDS: Docusate 100mg cap ORAL SCH ×2 (09:31→20:40)
[2016-09-10] MEDS: Lactobacillus-GG tablet ORAL SCH ×2 (09:31→17:17)
--- NOTE | 2016-09-10 11:17 | General Progress Note ---
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 Pt states she feels much better, no further chills/fevers, diaphoretic complaints diminished today compared to last week. No chest pain or dyspnea, no n/v, postop pain much better controlled. Upon discussion with pt, she shared with me additional historical info about her disease. She states that she went to the ED in [place] twice before in the past 6 months, and both times received abx and was sent home, with ED doctors telling her that she needed a special surgeon to treat her. She then sought one of these surgeons, and her insurance company denied authorization initially for the MRI, then after approving the MRI, the surgery was denied on unclear grounds , the pt then continued to have pain in the area, with lumbar radiculopathy symptoms, burning, fevers of 102 at home, fatigue, malaise. Objective Last 24 Hour Vital Signs Date Time Temp Pulse Resp B/P Pulse Ox O2 Delivery O2 Flow Rate FiO2 09/10/16 08:00 98.1 87 18 117/77 97 Room Air 09/10/16 04:11 97.9 90 18 120/80 99 Room Air 09/10/16 00:08 98.1 95 19 116/70 98 Room Air 09/09/16 20:32 97.7 89 18 134/83 96 Room Air 09/09/16 18:41 97.5 09/09/16 16:00 97.5 87 18 131/78 98 Room Air 09/09/16 12:59 97.0 09/09/16 12:00 97.9 81 17 111/76 98 Room Air Intake and Output 09/09/16 09/10/16 19:00 07:00 Intake Total 2142.5 ml 940 ml Output Total 92 ml 25 ml Balance 2050.5 ml 915 ml Intake Oral 650 ml 440 ml IV Total 1492.5 ml 500 ml Emesis 75 ml Drainage Total 17 ml 15 ml Other 10 ml # Voids 3 3 Laboratory Tests 09/10/16 07:25: White Blood Count 12.8H, Red Blood Count 3.48L, Hemoglobin 9.6L, Hematocrit 30.3L, Mean Corpuscular Volume 87, Mean Corpuscular Hemoglobin 27.6, Mean Corpuscular Hemoglobin Concent 31.8L, Red Cell Distribution Width 13.6, Platelet Count 316, Mean Platelet Volume 5.4L, Neutrophils (%) (Auto) 65.7, Lymphocytes (%) (Auto) 23.6, Monocytes (%) (Auto) 5.0, Eosinophils (%) (Auto) 4.7H, Basophils (%) (Auto) 1.0 Height (Feet): 5 Height (Inches): 3.00 Weight (Pounds): 130 Objective General: alert, cooperative, no distress, appears stated age Head: normocephalic, without obvious abnormality, atraumatic Eyes: conjunctivae/corneas clear. PERRL, EOM's intact Throat: lips, mucosa, and tongue normal. MMM Neck: supple, symmetrical, trachea midline, and no JVD Lungs: clear to auscultation bilaterally Heart: regular rate and rhythm, S1, S2 normal, no murmur, click, rub or gallop Abdomen: soft, non-tender, non-distended, bowel sounds normal; no masses or organomegaly Extremities: dressing appear clean/dry/intact, drains present with serosanguinous drainage Pulses: 2+ and symmetric Skin: skin color, texture, turgor normal; no rashes or lesions Neurologic: 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, no focal deficits PETERSON COTTO Sep 10, 2016 11:17
[2016-09-10 12:00] VITALS: BP 130/83
[2016-09-10 15:32] VITALS: BP 135/76
--- NOTE | 2016-09-10 18:56 | Infectious Diseases Prog Note ---
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 Christiansen and surgery 5) orders noted and entered 6) d/w patient and answered questions 7) d/w micro regarding sensitivities Subjective Constitutional: Denies: fever HEENT: Denies: congestion Respiratory: Denies: shortness of breath Cardiovascular: Denies: chest pain Gastrointestinal/Abdominal: Denies: diarrhea, nausea, vomiting Genitourinary: Reports: other - no belrte Neurologic: Denies: headache Psychiatric: Denies: depression Skin: Denies: rash Hematologic: Denies: bleeding Musculoskeletal: Denies: pain Allergies: Coded Allergies: IODINE (Verified Allergy, Unknown, 08/26/16) PENICILLINS (Verified Allergy, Unknown, 08/26/16) Objective Vital Signs Last 24 Hour Vital Signs Date Time Temp Pulse Resp B/P Pulse Ox O2 Delivery O2 Flow Rate FiO2 09/10/16 15:32 97.7 82 18 135/76 99 09/10/16 12:00 97.9 72 18 130/83 99 Room Air 09/10/16 08:00 98.1 87 18 117/77 97 Room Air 09/10/16 04:11 97.9 90 18 120/80 99 Room Air 09/10/16 00:08 98.1 95 19 116/70 98 Room Air 09/09/16 20:32 97.7 89 18 134/83 96 Room Air Height (Feet): 5 Height (Inches): 3.00 Weight (Pounds): 130 General Appearance: no acute distress HEENT: normocephalic, atraumatic, anicteric, mucous membranes moist, PERRL, EOMI, pharynx normal, supple, no JVD Respiratory/Chest: lungs clear, normal breath sounds, no respiratory distress, no accessory muscle use Cardiovascular: normal rate, regular rhythm, no gallop/murmur, no JVD Abdomen: normal bowel sounds, soft, non tender, no organomegaly, non distended Genitourinary: other - no beltre Extremities: no cyanosis Skin: no rash Neurologic/Psychiatric: bilingual spanish 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, no motor/sensory deficits, abnormal gait, alert, oriented x 3, responsive Lymphatic: no neck adenopathy Musculoskeletal: no effusion Objective Labs Test 08/31/16 05:50 08/31/16 08:31 09/01/16 07:05 09/02/16 10:36 White Blood Count 18.8 K/UL (4.8-10.8) 17.2 K/UL (4.8-10.8) 13.8 K/UL (4.8-10.8) Red Blood Count 2.95 M/UL (4.20-5.40) 2.98 M/UL (4.20-5.40) 3.11 M/UL (4.20-5.40) Hemoglobin 8.4 G/DL (12.0-16.0) 8.7 G/DL (12.0-16.0) 8.4 G/DL (12.0-16.0) Hematocrit 25.3 % (37.0-47.0) 26.0 % (37.0-47.0) 26.3 % (37.0-47.0) Mean Corpuscular Volume 86 FL (80-99) 87 FL (80-99) 84 FL (80-99) Mean Corpuscular Hemoglobin 28.3 PG (27.0-31.0) 29.3 PG (27.0-31.0) 27.1 PG (27.0-31.0) Mean Corpuscular Hemoglobin Concent 33.1 G/DL (32.0-36.0) 33.6 G/DL (32.0-36.0) 32.1 G/DL (32.0-36.0) Red Cell Distribution Width 12.8 % (11.6-14.8) 12.6 % (11.6-14.8) 12.5 % (11.6-14.8) Platelet Count 178 K/UL (150-450) 183 K/UL (150-450) 258 K/UL (150-450) Mean Platelet Volume 6.0 FL (6.5-10.1) 5.1 FL (6.5-10.1) 6.2 FL (6.5-10.1) Neutrophils (%) (Auto) % (45.0-75.0) 72.6 % (45.0-75.0) 75.9 % (45.0-75.0) Lymphocytes (%) (Auto) % (20.0-45.0) 15.0 % (20.0-45.0) 9.3 % (20.0-45.0) Monocytes (%) (Auto) % (1.0-10.0) 9.1 % (1.0-10.0) 10.6 % (1.0-10.0) Eosinophils (%) (Auto) % (0.0-3.0) 2.5 % (0.0-3.0) 3.0 % (0.0-3.0) Basophils (%) (Auto) % (0.0-2.0) 0.9 % (0.0-2.0) 1.3 % (0.0-2.0) Differential Total Cells Counted 100 Neutrophils % (Manual) 70 % (45-75) Lymphocytes % (Manual) 16 % (20-45) Monocytes % (Manual) 11 % (1-10) Eosinophils % (Manual) 2 % (0-3) Basophils % (Manual) 0 % (0-2) Band Neutrophils 1 % (0-8) Platelet Estimate Adequate Platelet Morphology Normal Hypochromasia 1+ Sodium Level 130 mEQ/L (135-145) 135 mEQ/L (135-145) 135 mEQ/L (135-145) Potassium Level 3.5 mEQ/L (3.4-4.9) 3.8 mEQ/L (3.4-4.9) 3.7 mEQ/L (3.4-4.9) Chloride Level 92 mEQ/L (98-107) 94 mEQ/L (98-107) 94 mEQ/L (98-107) Carbon Dioxide Level 27 mEQ/L (20-30) 29 mEQ/L (20-30) 27 mEQ/L (20-30) Anion Gap 11 (5-15) 12 (5-15) 14 (5-15) Blood Urea Nitrogen 6 mg/dL (7-23) 5 mg/dL (7-23) 7 mg/dL (7-23) Creatinine 0.8 mg/dL (0.5-0.9) 0.8 mg/dL (0.5-0.9) 0.7 mg/dL (0.5-0.9) Estimat Glomerular Filtration Rate > 60 mL/min (>60) > 60 mL/min (>60) > 60 mL/min (>60) Glucose Level 116 mg/dL (74-106) 112 mg/dL (74-106) 116 mg/dL (74-106) Calcium Level 8.3 mg/dL (8.6-10.2) 8.8 mg/dL (8.6-10.2) 8.8 mg/dL (8.6-10.2) Urine Color Pale yellow Urine Appearance Clear Urine pH 7 (4.5-8.0) Urine Specific [place] 1.005 (1.005-1.035) Urine Protein Negative (NEGATIVE) Urine Glucose (UA) Negative (NEGATIVE) Urine Ketones Negative (NEGATIVE) Urine Occult Blood 2+ (NEGATIVE) Urine Nitrite Negative (NEGATIVE) Urine Bilirubin Negative (NEGATIVE) Urine Urobilinogen Normal MG/DL (0.0-1.0) Urine Leukocyte Esterase 1+ (NEGATIVE) Urine RBC 2-4 /HPF (0 - 2) Urine WBC 2-4 /HPF (0 - 2) Urine Squamous Epithelial Cells Few /LPF (NONE/OCC) Urine Bacteria Few /HPF (NONE) Total Bilirubin 0.3 mg/dL (0.0-1.2) Aspartate Amino Transf (AST/SGOT) 31 U/L (5-40) Alanine Aminotransferase (ALT/SGPT) 51 U/L (3-33) Alkaline Phosphatase 74 U/L (35-104) Total Protein 6.3 g/dL (6.6-8.7) Albumin 2.9 g/dL (3.5-5.2) Globulin 3.4 g/dL Albumin/Globulin Ratio 0.8 (1.0-2.7) chest x-ray - negative mri pelvis - report noted \ 09/04 - pelvic ct - no abscess 09/04 - chest x-ray - negative for pna v/q scan - low probability for PE Microbiology Date/Time Source Procedure Growth Status 09/04/16 16:45 Blood Blood Culture - Final NO GROWTH AFTER 5 DAYS Complete 09/05/16 11:00 Wound Gram Stain - Final Complete 09/05/16 11:00 Wound Culture - Final Pseudomonas Aeruginosa Staphylococcus Sp Coag Neg Complete 08/31/16 08:31 Urine,Clean Catch Urine Culture - Final Diphtheroids Complete Laboratory Tests Test 09/10/16 07:25 White Blood Count 12.8 K/UL (4.8-10.8) H Red Blood Count 3.48 M/UL (4.20-5.40) L Hemoglobin 9.6 G/DL (12.0-16.0) L Hematocrit 30.3 % (37.0-47.0) L Mean Corpuscular Volume 87 FL (80-99) Mean Corpuscular Hemoglobin 27.6 PG (27.0-31.0) Mean Corpuscular Hemoglobin Concent 31.8 G/DL (32.0-36.0) L Red Cell Distribution Width 13.6 % (11.6-14.8) Platelet Count 316 K/UL (150-450) Mean Platelet Volume 5.4 FL (6.5-10.1) L Neutrophils (%) (Auto) 65.7 % (45.0-75.0) Lymphocytes (%) (Auto) 23.6 % (20.0-45.0) Monocytes (%) (Auto) 5.0 % (1.0-10.0) Eosinophils (%) (Auto) 4.7 % (0.0-3.0) H Basophils (%) (Auto) 1.0 % (0.0-2.0) cr - 0.7 Current Medications Medications (Trade) Dose Ordered Sig/Yamileth Route PRN Reason Start Time Stop Time Status Last Admin Dose Admin Acetaminophen (Tylenol) 650 mg Q4H PRN ORAL fever 08/26/16 14:45 09/25/16 14:44 09/04/16 15:13 Acetaminophen (Tylenol) 650 mg Q4H PRN ORAL Mild Pain (Pain Scale 1-3) 08/26/16 14:45 09/25/16 14:44 09/06/16 08:47 Al Hydroxide/Mg Hydroxide (Mylanta II) 30 ml Q6H PRN ORAL dyspepsia 08/26/16 14:45 09/25/16 14:44 Aztreonam 1 gm/ Dextrose 55 ml @ 110 mls/hr Q8H IVPB 09/04/16 23:00 09/13/16 22:59 09/10/16 17:00 Bisacodyl (Dulcolax) 10 mg HSPRN PRN RECTAL Constipation 09/04/16 09:28 09/25/16 14:44 Dextrose (Dextrose 50%) STAT PRN IV Hypoglycemia 08/26/16 14:45 09/25/16 14:44 Docusate Sodium (Colace) 100 mg EVERY 12 HOURS ORAL 08/26/16 21:00 09/25/16 20:59 09/10/16 09:31 Ferrous Sulfate (Feosol) 325 mg THREE TIMES A DAY ORAL 09/02/16 18:00 10/02/16 17:59 09/10/16 17:17 Gabapentin (Neurontin) 300 mg BEDTIME ORAL 08/30/16 21:00 09/29/16 20:59 09/09/16 19:58 Heparin Sodium (Porcine) (Heparin 5000 units/ml) 5,000 units EVERY 8 HOURS SUBQ 08/28/16 06:00 09/27/16 05:59 09/10/16 14:17 Hydromorphone HCl (Dilaudid) 1 mg Q4H PRN IVP Severe Pain (Pain Scale 7-10) 09/07/16 09:45 09/14/16 09:44 09/10/16 17:18 Hydromorphone HCl (Dilaudid) 2 mg Q4H PRN IVP Severe breakthrough pain 09/09/16 16:00 09/16/16 15:59 09/10/16 12:48 Lactobacillus Acidophilus (Culturelle) 1 tab TWICE A DAY ORAL 08/26/16 18:00 09/25/16 17:59 09/10/16 17:17 Lactulose (Cephulac) 30 gm Q4H PRN ORAL constipation 09/04/16 09:15 10/04/16 09:14 Magnesium Hydroxide (Mom) 30 ml HSPRN PRN ORAL Constipation 08/26/16 14:45 09/25/16 14:44 09/05/16 01:47 Metronidazole 100 ml @ 100 mls/hr Q8HR IVPB 09/04/16 22:00 09/13/16 21:59 09/10/16 15:23 Mupirocin (Bactroban Oint) 1 applic DAILY TOPIC 09/10/16 09:00 09/15/16 08:59 09/10/16 10:17 Ondansetron HCl (Zofran) 4 mg Q6H PRN IVP Nausea & Vomiting 08/31/16 17:45 09/30/16 17:44 09/09/16 14:50 Oxycodone/ Acetaminophen (Percocet 10/325) 1 tab Q4H PRN ORAL Moderate Pain (Pain Scale 4-6) 09/07/16 09:45 09/14/16 09:44 Polyethylene Glycol 17 gm 17 gm HSPRN PRN ORAL Constipation 09/04/16 09:29 09/25/16 14:44 09/05/16 01:47 Silver Sulfadiazine (Silvadene Cream 25gm) 1 applic DAILY TOPIC 09/02/16 14:00 10/02/16 13:59 09/10/16 09:31 Sodium Chloride 1,000 ml @ 125 mls/hr Q8H IV 09/04/16 17:00 10/04/16 16:59 09/10/16 09:31 Vancomycin HCl (Vanco rx to dose) 1 ea DAILY PRN MISC . 09/09/16 10:00 10/04/16 18:44 Vancomycin HCl/ Dextrose (Vancomycin/D5W) 275 ml @ 183.333 mls/hr Q12HR IVPB 09/06/16 09:00 09/13/16 08:59 09/10/16 09:31 BLU KATHLEEN Sep 10, 2016 18:56
[2016-09-10 20:19] VITALS: BP 115/71
[2016-09-11 00:16] VITALS: BP 120/80
[2016-09-11 04:27] VITALS: BP 125/83
[2016-09-11] MEDS: Heparin 5000 units/ml inj SUBQ SCH ×3 (06:00→22:33)
[2016-09-11] MEDS: metroNIDAZOLE 500mg 100 ML IVPB SCH ×3 (06:00→22:32)
[2016-09-11] MEDS: Aztreonam Inj 1 GM in D5W 55 ML IVPB SCH ×3 (07:03→23:34)
[2016-09-11 08:00] VITALS: BP 131/64
[2016-09-11] MEDS: Docusate 100mg cap ORAL SCH ×2 (08:25→22:31)
[2016-09-11] MEDS: Miralax 17gm pkt ORAL PRN (08:25)
[2016-09-11] MEDS: Silver Sulfadiazine Cream 25gm TOPIC SCH (08:25)
[2016-09-11] MEDS: Lactobacillus-GG tablet ORAL SCH ×2 (08:25→17:31)
--- NOTE | 2016-09-11 08:49 | General Progress Note ---
Assessment/Plan Assessment/Plan (1) Bilateral buttock soft tissue necrosis, cellulitis, open wounds buttocks (2) Abscess (3) Intractable pain (4) Staged debridement of bilateral buttock necrotic soft tissue, flap delay The patient is to be continued on the Dilaudid and Percocet. The patient was discussed with Dr. Singh and concurred. Subjective Date patient seen: Sep 11, 2016 Time patient seen: 07:00 - am Allergies: Coded Allergies: IODINE (Verified Allergy, Unknown, 08/26/16) PENICILLINS (Verified Allergy, Unknown, 08/26/16) Subjective Constitutional: Reports: no symptoms HEENT: Reports: no symptoms Cardiovascular: Reports: no symptoms Respiratory: Reports: no symptoms Gastrointestinal/Abdominal: Reports: N/V Genitourinary: Reports: no symptoms Neurologic/Psychiatric: Reports: weakness Endocrine: Reports: no symptoms Hematologic/Lymphatic: Reports: no symptoms Subjective Pt again is c/o N/V and has been unable to take tabs. However She will try to use the Zofran before the Percocet. She has been tolerating the pain on the Dilaudid. Objective Last 24 Hour Vital Signs Date Time Temp Pulse Resp B/P Pulse Ox O2 Delivery O2 Flow Rate FiO2 09/11/16 08:00 97.7 95 18 131/64 99 Room Air 09/11/16 04:27 98.1 80 16 125/83 96 Room Air 09/11/16 00:16 97.9 98 18 120/80 99 Room Air 09/10/16 20:19 97.7 97 19 115/71 98 Room Air 09/10/16 15:32 97.7 82 18 135/76 99 09/10/16 12:00 97.9 72 18 130/83 99 Room Air Intake and Output 09/10/16 09/11/16 19:00 07:00 Intake Total 1180 ml 1635 ml Output Total 10 ml 15 ml Balance 1170 ml 1620 ml Intake Oral 400 ml 760 ml IV Total 780 ml 875 ml Drainage Total 10 ml 15 ml # Voids 2 5 Height (Feet): 5 Height (Inches): 3.00 Weight (Pounds): 130 Objective General Appearance: no apparent distress, alert EENT: PERRL/EOMI, normal ENT inspection Neck: non-tender, normal alignment Cardiovascular: normal rate, regular rhythm Respiratory/Chest: lungs clear, normal breath sounds Abdomen: non tender, soft Extremities: non-tender Edema: no edema noted Arm (L), no edema noted Arm (R), no edema noted Leg (L), no edema noted Leg (R), no edema noted Pedal (L), no edema noted Pedal (R), no edema noted Generalized Neurologic: alert, oriented x 3 Skin: other - bandages applied to buttock area with tenderness to palpation NELLY JACK. Sep 11, 2016 08:49
[2016-09-11] MEDS: Vancomycin 1250mg/D5W 275ml IVPB SCH ×4 (09:48→22:32)
[2016-09-11] MEDS: HYDROmorphone 1mg/ml Carpuject IVP PRN ×2 (11:39→22:31)
[2016-09-11 12:00] VITALS: BP 132/93
--- NOTE | 2016-09-11 15:46 | Infectious Diseases Prog Note ---
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 Christiansen and surgery 5) orders noted and entered 6) d/w patient and answered questions 7) d/w Dr. Christiansen Subjective Constitutional: Denies: fever HEENT: Denies: congestion Respiratory: Denies: shortness of breath Cardiovascular: Denies: chest pain Gastrointestinal/Abdominal: Denies: diarrhea, nausea, vomiting Genitourinary: Reports: other - no beltre, Denies: dysuria, hematuria Neurologic: Denies: headache Psychiatric: Denies: depression Skin: Denies: rash Hematologic: Denies: bleeding Musculoskeletal: Denies: pain Allergies: Coded Allergies: IODINE (Verified Allergy, Unknown, 08/26/16) PENICILLINS (Verified Allergy, Unknown, 08/26/16) Objective Vital Signs Last 24 Hour Vital Signs Date Time Temp Pulse Resp B/P Pulse Ox O2 Delivery O2 Flow Rate FiO2 09/11/16 12:09 97.7 09/11/16 12:00 98.2 90 18 132/93 99 Room Air 09/11/16 08:00 97.7 95 18 131/64 99 Room Air 09/11/16 04:27 98.1 80 16 125/83 96 Room Air 09/11/16 00:16 97.9 98 18 120/80 99 Room Air 09/10/16 20:19 97.7 97 19 115/71 98 Room Air Height (Feet): 5 Height (Inches): 3.00 Weight (Pounds): 130 General Appearance: no acute distress HEENT: normocephalic, atraumatic, anicteric, mucous membranes moist, PERRL, EOMI, pharynx normal, supple, no JVD Respiratory/Chest: lungs clear, normal breath sounds, no respiratory distress, no accessory muscle use Cardiovascular: normal rate, regular rhythm, no gallop/murmur, no JVD Abdomen: normal bowel sounds, soft, non tender, no organomegaly, non distended Genitourinary: other - no beltre Extremities: no cyanosis Skin: no rash, no lesions 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0-31.0) 29.3 PG (27.0-31.0) 27.1 PG (27.0-31.0) Mean Corpuscular Hemoglobin Concent 33.1 G/DL (32.0-36.0) 33.6 G/DL (32.0-36.0) 32.1 G/DL (32.0-36.0) Red Cell Distribution Width 12.8 % (11.6-14.8) 12.6 % (11.6-14.8) 12.5 % (11.6-14.8) Platelet Count 178 K/UL (150-450) 183 K/UL (150-450) 258 K/UL (150-450) Mean Platelet Volume 6.0 FL (6.5-10.1) 5.1 FL (6.5-10.1) 6.2 FL (6.5-10.1) Neutrophils (%) (Auto) % (45.0-75.0) 72.6 % (45.0-75.0) 75.9 % (45.0-75.0) Lymphocytes (%) (Auto) % (20.0-45.0) 15.0 % (20.0-45.0) 9.3 % (20.0-45.0) Monocytes (%) (Auto) % (1.0-10.0) 9.1 % (1.0-10.0) 10.6 % (1.0-10.0) Eosinophils (%) (Auto) % (0.0-3.0) 2.5 % (0.0-3.0) 3.0 % (0.0-3.0) Basophils (%) (Auto) % (0.0-2.0) 0.9 % (0.0-2.0) 1.3 % (0.0-2.0) Differential Total Cells Counted 100 Neutrophils % (Manual) 70 % (45-75) Lymphocytes % (Manual) 16 % (20-45) Monocytes % (Manual) 11 % (1-10) Eosinophils % (Manual) 2 % (0-3) Basophils % (Manual) 0 % (0-2) Band Neutrophils 1 % (0-8) Platelet Estimate Adequate Platelet Morphology Normal Hypochromasia 1+ Sodium Level 130 mEQ/L (135-145) 135 mEQ/L (135-145) 135 mEQ/L (135-145) Potassium Level 3.5 mEQ/L (3.4-4.9) 3.8 mEQ/L (3.4-4.9) 3.7 mEQ/L (3.4-4.9) Chloride Level 92 mEQ/L (98-107) 94 mEQ/L (98-107) 94 mEQ/L (98-107) Carbon Dioxide Level 27 mEQ/L (20-30) 29 mEQ/L (20-30) 27 mEQ/L (20-30) Anion Gap 11 (5-15) 12 (5-15) 14 (5-15) Blood Urea Nitrogen 6 mg/dL (7-23) 5 mg/dL (7-23) 7 mg/dL (7-23) Creatinine 0.8 mg/dL (0.5-0.9) 0.8 mg/dL (0.5-0.9) 0.7 mg/dL (0.5-0.9) Estimat Glomerular Filtration Rate > 60 mL/min (>60) > 60 mL/min (>60) > 60 mL/min (>60) Glucose Level 116 mg/dL (74-106) 112 mg/dL (74-106) 116 mg/dL (74-106) Calcium Level 8.3 mg/dL (8.6-10.2) 8.8 mg/dL (8.6-10.2) 8.8 mg/dL (8.6-10.2) Urine Color Pale yellow Urine Appearance Clear Urine pH 7 (4.5-8.0) Urine Specific Allison 1.005 (1.005-1.035) Urine Protein Negative (NEGATIVE) Urine Glucose (UA) Negative (NEGATIVE) Urine Ketones Negative (NEGATIVE) Urine Occult Blood 2+ (NEGATIVE) Urine Nitrite Negative (NEGATIVE) Urine Bilirubin Negative (NEGATIVE) Urine Urobilinogen Normal MG/DL (0.0-1.0) Urine Leukocyte Esterase 1+ (NEGATIVE) Urine RBC 2-4 /HPF (0 - 2) Urine WBC 2-4 /HPF (0 - 2) Urine Squamous Epithelial Cells Few /LPF (NONE/OCC) Urine Bacteria Few /HPF (NONE) Total Bilirubin 0.3 mg/dL (0.0-1.2) Aspartate Amino Transf (AST/SGOT) 31 U/L (5-40) Alanine Aminotransferase (ALT/SGPT) 51 U/L (3-33) Alkaline Phosphatase 74 U/L (35-104) Total Protein 6.3 g/dL (6.6-8.7) Albumin 2.9 g/dL (3.5-5.2) Globulin 3.4 g/dL Albumin/Globulin Ratio 0.8 (1.0-2.7) chest x-ray - negative mri pelvis - report noted \ 09/04 - pelvic ct - no abscess 09/04 - chest x-ray - negative for pna v/q scan - low probability for PE Microbiology Date/Time Source Procedure Growth Status 09/04/16 16:45 Blood Blood Culture - Final NO GROWTH AFTER 5 DAYS Complete 09/05/16 11:00 Wound Gram Stain - Final Complete 09/05/16 11:00 Wound Culture - Final Pseudomonas Aeruginosa Staphylococcus Sp Coag Neg Complete 08/31/16 08:31 Urine,Clean Catch Urine Culture - Final Diphtheroids Complete Labs Test 09/09/16 06:25 09/10/16 07:25 White Blood Count 14.5 K/UL (4.8-10.8) 12.8 K/UL (4.8-10.8) Red Blood Count 3.44 M/UL (4.20-5.40) 3.48 M/UL (4.20-5.40) Hemoglobin 9.9 G/DL (12.0-16.0) 9.6 G/DL (12.0-16.0) Hematocrit 29.5 % (37.0-47.0) 30.3 % (37.0-47.0) Mean Corpuscular Volume 86 FL (80-99) 87 FL (80-99) Mean Corpuscular Hemoglobin 28.8 PG (27.0-31.0) 27.6 PG (27.0-31.0) Mean Corpuscular Hemoglobin Concent 33.6 G/DL (32.0-36.0) 31.8 G/DL (32.0-36.0) Red Cell Distribution Width 13.8 % (11.6-14.8) 13.6 % (11.6-14.8) Platelet Count 342 K/UL (150-450) 316 K/UL (150-450) Mean Platelet Volume 5.3 FL (6.5-10.1) 5.4 FL (6.5-10.1) Neutrophils (%) (Auto) 63.5 % (45.0-75.0) 65.7 % (45.0-75.0) Lymphocytes (%) (Auto) 24.0 % (20.0-45.0) 23.6 % (20.0-45.0) Monocytes (%) (Auto) 6.9 % (1.0-10.0) 5.0 % (1.0-10.0) Eosinophils (%) (Auto) 3.7 % (0.0-3.0) 4.7 % (0.0-3.0) Basophils (%) (Auto) 1.9 % (0.0-2.0) 1.0 % (0.0-2.0) Sodium Level 139 mEQ/L (135-145) Potassium Level 3.9 mEQ/L (3.4-4.9) Chloride Level 103 mEQ/L (98-107) Carbon Dioxide Level 25 mEQ/L (20-30) Anion Gap 11 (5-15) Blood Urea Nitrogen 3 mg/dL (7-23) Creatinine 0.7 mg/dL (0.5-0.9) Estimat Glomerular Filtration Rate > 60 mL/min (>60) Glucose Level 101 mg/dL (74-106) Calcium Level 8.1 mg/dL (8.6-10.2) Current Medications Medications (Trade) Dose Ordered Sig/Yamileth Route PRN Reason Start Time Stop Time Status Last Admin Dose Admin Acetaminophen (Tylenol) 650 mg Q4H PRN ORAL fever 08/26/16 14:45 09/25/16 14:44 09/04/16 15:13 Acetaminophen (Tylenol) 650 mg Q4H PRN ORAL Mild Pain (Pain Scale 1-3) 08/26/16 14:45 09/25/16 14:44 09/06/16 08:47 Al Hydroxide/Mg Hydroxide (Mylanta II) 30 ml Q6H PRN ORAL dyspepsia 08/26/16 14:45 09/25/16 14:44 Aztreonam 1 gm/ Dextrose 55 ml @ 110 mls/hr Q8H IVPB 09/04/16 23:00 09/13/16 22:59 09/11/16 07:03 Bisacodyl (Dulcolax) 10 mg HSPRN PRN RECTAL Constipation 09/04/16 09:28 09/25/16 14:44 Dextrose (Dextrose 50%) STAT PRN IV Hypoglycemia 08/26/16 14:45 09/25/16 14:44 Docusate Sodium (Colace) 100 mg EVERY 12 HOURS ORAL 08/26/16 21:00 09/25/16 20:59 09/11/16 08:25 Ferrous Sulfate (Feosol) 325 mg THREE TIMES A DAY ORAL 09/02/16 18:00 10/02/16 17:59 09/11/16 14:44 Gabapentin (Neurontin) 300 mg BEDTIME ORAL 08/30/16 21:00 09/29/16 20:59 09/10/16 20:40 Heparin Sodium (Porcine) (Heparin 5000 units/ml) 5,000 units EVERY 8 HOURS SUBQ 08/28/16 06:00 09/27/16 05:59 09/11/16 06:00 Hydromorphone HCl (Dilaudid) 1 mg Q4H PRN IVP Severe Pain (Pain Scale 7-10) 09/07/16 09:45 09/14/16 09:44 09/11/16 11:39 Hydromorphone HCl (Dilaudid) 2 mg Q4H PRN IVP Severe breakthrough pain 09/09/16 16:00 09/16/16 15:59 09/11/16 14:45 Lactobacillus Acidophilus (Culturelle) 1 tab TWICE A DAY ORAL 08/26/16 18:00 09/25/16 17:59 09/11/16 08:25 Lactulose (Cephulac) 30 gm Q4H PRN ORAL constipation 09/04/16 09:15 10/04/16 09:14 Magnesium Hydroxide (Mom) 30 ml HSPRN PRN ORAL Constipation 08/26/16 14:45 09/25/16 14:44 09/05/16 01:47 Metronidazole 100 ml @ 100 mls/hr Q8HR IVPB 09/04/16 22:00 09/13/16 21:59 09/11/16 14:44 Mupirocin (Bactroban Oint) 1 applic DAILY TOPIC 09/10/16 09:00 09/15/16 08:59 09/11/16 08:26 Ondansetron HCl (Zofran) 4 mg Q6H PRN IVP Nausea & Vomiting 08/31/16 17:45 09/30/16 17:44 09/11/16 08:34 Oxycodone/ Acetaminophen (Percocet 10/325) 1 tab Q4H PRN ORAL Moderate Pain (Pain Scale 4-6) 09/07/16 09:45 09/14/16 09:44 Polyethylene Glycol 17 gm 17 gm HSPRN PRN ORAL Constipation 09/04/16 09:29 09/25/16 14:44 09/11/16 08:25 Silver Sulfadiazine (Silvadene Cream 25gm) 1 applic DAILY TOPIC 09/02/16 14:00 10/02/16 13:59 09/11/16 08:25 Sodium Chloride 1,000 ml @ 125 mls/hr Q8H IV 09/04/16 17:00 10/04/16 16:59 09/11/16 08:26 Vancomycin HCl (Vanco rx to dose) 1 ea DAILY PRN MISC . 09/09/16 10:00 10/04/16 18:44 Vancomycin HCl/ Dextrose (Vancomycin/D5W) 275 ml @ 183.333 mls/hr Q12HR IVPB 09/06/16 09:00 09/13/16 08:59 09/11/16 09:48 BLU KATHLEEN Sep 11, 2016 15:46
[2016-09-11 16:00] VITALS: BP 135/78
[2016-09-11] MEDS ORDERED: BACTRIM DS TAB1 EAC1 ORAL (16:24)
[2016-09-11] MEDS ORDERED: LEVAQUIN500 MG ORAL (16:24)
[2016-09-11] MEDS ORDERED: ZOFRAN ODT4 MG ORAL (16:25)
[2016-09-11] MEDS ORDERED: PERCOCET 10-321 EACH ORAL (16:25)
--- NOTE | 2016-09-11 18:15 | Operative Note - Dictated ---
DATE OF OPERATION: 09/05/2016 SURGEON: Bebo Cabral M.D. ANESTHESIA: Local. PREOPERATIVE DIAGNOSES: 1. Right buttock abscess/cellulitis. 2. Open wound, right buttock. 3. Partial skin necrosis, right buttock. POSTOPERATIVE DIAGNOSES: 1. Right buttock abscess/cellulitis. 2. Open wound, right buttock. 3. Partial skin necrosis, right buttock. PROCEDURE PERFORMED: 1. Incision and drainage deep complicated of right buttock abscess. 2. Debridement of necrotic skin, right buttock. 3. Exploration of right buttock. INDICATION FOR PROCEDURE: This is a 31-year-old female, who has been in the hospital since 08/26/2016. The patient presented to the emergency room with soft tissue necrosis of her bilateral buttocks and she had an open wound on the right buttock. The patient went to the operating room twice. The most recent one week ago. At which time, she had a radical debridement of bilateral buttocks and flap closure in the past week. The patient has been having fevers and elevated white count. The patient's white count was elevated to near 15 and she was having spiking fevers. The patient had iodine allergy, so we could get the scan with intravenous contrast. However, on clinical exam, on the patient's right buttock, she had area of redness and tenderness. The incision where the skin was very thin, was breaking down. On the inferior gluteal crease, there was a partial open wound that has developed in the past week in the middle of these 2 portions where an area of fluctuance and erythema and tenderness that does not improve. Given the patient's physical exam findings and having fevers and elevated white count and right buttock pain and her left buttock with asymptomatic, it is my impression that there was an abscess underneath and there was open wound, which was dehiscence and needed to be surgically addressed. I explained to the patient after intravenous sedation as well as local anesthesia. I would open up the 3 areas of her wound and I explored the wounds, debride the necrotic tissue, pack the wounds and will send wound cultures. The patient has wound cultures from her, she has [address] in [address] The wound cultures have grown out Pseudomonas and coagulase negative staph or strep. Since, the patient has been on antibiotics on entire admission and the fact that there was still positive wound cultures that we would not adequately treating the infection with appropriate antibiotics or that the wound was colonized with preexisting abscesses and cellulitis from before admission. I explained to the patient that once I incision and drainage, there would be local wound care for several weeks to months. She may need more operations that may be poor scarring, may come out cosmetically disfiguring and again she may need to go to the operating room for formal opening up of the wound and further debridement and VAC therapy. The patient understood this and wished to proceed. Description Of Procedure: As follows: The patient was placed in the prone position, was given intravenous sedation. The area was prepped and draped in usual clean and sterile manner. I used 20 mL of 1% lidocaine with 1:100,000 epinephrine in 3 areas in the right inferior gluteal crease where there is now an open wounds and very thin skin in the midportion of the right buttock incision that was paper-thin and breaking down and in the midportion between these two. After doing this, with a number 15 blade, I made an incision and drainage in these 3 areas. I also considered the debrided the necrotic skin with scissor technique. I then explored the wound by making the incision larger with a clamp. There was some fluid and pus that came out. Wound cultures were sent and the 3 areas after fully explaining and breaking up any loculations, getting whatever fluid that I could out, I then packed the wound with half-inch iodoform packing. I then placed a dry sterile dressing. I left her a Salbador drain and placed, it was not holding suction. At this time, I told the patient if the wound closes . The patient tolerated the exploration, incision and drainage, and debridement well. The wounds were dressed and care was taken back to the medical team. The patient was to be on broad-spectrum antibiotics, was followed by the Infectious Disease doctor. Wound cultures were pending and the nurses are to do the dressing change in the next couple of days. Packing changes again it was reiterated to the patient. She may need to have multiple future operation or extended local wound care by the nurses and may take several weeks to months the wounds to heal. Tze Александр Cabral M.D. DR: HELLEN JOB#: [id number] CC:
[2016-09-11 20:00] VITALS: BP 127/76
[2016-09-12 00:19] VITALS: BP 120/82
[2016-09-12] MEDS: HYDROmorphone 1mg/ml Carpuject IVP PRN ×5 (03:18→20:25)
[2016-09-12 04:00] VITALS: BP 113/74
[2016-09-12] MEDS: metroNIDAZOLE 500mg 100 ML IVPB SCH ×2 (05:54→13:28)
[2016-09-12] MEDS: Heparin 5000 units/ml inj SUBQ SCH ×3 (05:59→20:23)
[2016-09-12] MEDS: Aztreonam Inj 1 GM in D5W 55 ML IVPB SCH ×3 (06:01→22:26)
[2016-09-12 08:00] VITALS: BP 123/72
--- NOTE | 2016-09-12 08:30 | General Progress Note ---
Assessment/Plan Assessment/Plan (1) Bilateral buttock soft tissue necrosis, cellulitis, open wounds buttocks (2) Abscess (3) Intractable pain (4) Staged debridement of bilateral buttock necrotic soft tissue, flap delay The patient is to be continued on the Dilaudid and Percocet. The patient was discussed with Dr. Singh and concurred. Subjective Date patient seen: Sep 12, 2016 Time patient seen: 07:00 - am Allergies: Coded Allergies: IODINE (Verified Allergy, Unknown, 08/26/16) PENICILLINS (Verified Allergy, Unknown, 08/26/16) Subjective Constitutional: Reports: no symptoms HEENT: Reports: no symptoms Cardiovascular: Reports: no symptoms Respiratory: Reports: no symptoms Gastrointestinal/Abdominal: Reports: N/V Genitourinary: Reports: no symptoms Neurologic/Psychiatric: Reports: weakness Endocrine: Reports: no symptoms Hematologic/Lymphatic: Reports: no symptoms Subjective No changes continues to c/o severe pain tolerated on the Dilaudid and Percocet. Continues to c/o N/V and will d/w ID specialist due to antibiotics. Objective Last 24 Hour Vital Signs Date Time Temp Pulse Resp B/P Pulse Ox O2 Delivery O2 Flow Rate FiO2 09/12/16 08:00 97.9 76 17 123/72 96 Room Air 09/12/16 04:00 97.8 83 20 113/74 95 Room Air 09/12/16 00:19 97.9 80 19 120/82 97 Room Air 09/11/16 20:00 97.7 80 19 127/76 97 Room Air 09/11/16 19:50 97.7 09/11/16 18:31 97.7 09/11/16 16:00 97.7 77 19 135/78 97 Room Air 09/11/16 12:09 97.7 09/11/16 12:00 98.2 90 18 132/93 99 Room Air Intake and Output 09/11/16 09/12/16 19:00 07:00 Intake Total 2446.666 ml 1865 ml Output Total 18 ml Balance 2446.666 ml 1847 ml Intake Oral 650 ml 240 ml IV Total 1796.666 ml 1625 ml Drainage Total 10 ml Other 8 ml # Voids 3 2 Height (Feet): 5 Height (Inches): 3.00 Weight (Pounds): 130 Objective General Appearance: no apparent distress, alert EENT: PERRL/EOMI, normal ENT inspection Neck: non-tender, normal alignment Cardiovascular: normal rate, regular rhythm Respiratory/Chest: lungs clear, normal breath sounds Abdomen: non tender, soft Extremities: non-tender Edema: no edema noted Arm (L), no edema noted Arm (R), no edema noted Leg (L), no edema noted Leg (R), no edema noted Pedal (L), no edema noted Pedal (R), no edema noted Generalized Neurologic: alert, oriented x 3 Skin: other - bandages applied to buttock area with tenderness to palpation NELLY JACK Sep 12, 2016 08:30
[2016-09-12] MEDS: Docusate 100mg cap ORAL SCH ×2 (08:46→20:21)
[2016-09-12] MEDS: Lactobacillus-GG tablet ORAL SCH ×2 (08:47→17:29)
[2016-09-12] MEDS: Vancomycin 1250mg/D5W 275ml IVPB SCH ×2 (09:07)
[2016-09-12] MEDS: Silver Sulfadiazine Cream 25gm TOPIC SCH (09:09)
--- NOTE | 2016-09-12 10:42 | Infectious Diseases Prog Note ---
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 abx, ? flagyl 4) hx gluteal silicone infections 5) recent terminated 6) r/u AURORA autoimmune syndrome 7) pain mgt, anemia, hyponatremia 8) allergies - pcn and iodine, sh-negative, mar noted, notes and records reviewed 9) d/w RN P) 1) continue vancomycin and aztreonam and discontinue flagyl - can transition to oral abx levofloxacin and bactrim upon discharge 2) check labs, cr, wbc 3) surgery f/u on wounds 4) continue treatment per Dr. Christiansen and surgery 5) orders noted and entered 6) d/w patient and answered questions 7) d/w pharmacy Subjective Constitutional: Denies: fever HEENT: Denies: congestion Respiratory: Denies: shortness of breath Cardiovascular: Denies: chest pain Gastrointestinal/Abdominal: Reports: nausea, vomiting, Denies: diarrhea Genitourinary: Denies: other Neurologic: Denies: headache Psychiatric: Denies: depression Skin: Denies: rash Hematologic: Denies: bleeding Musculoskeletal: Denies: pain Allergies: Coded Allergies: IODINE (Verified Allergy, Unknown, 08/26/16) PENICILLINS (Verified Allergy, Unknown, 08/26/16) Objective Vital Signs Last 24 Hour Vital Signs Date Time Temp Pulse Resp B/P Pulse Ox O2 Delivery O2 Flow Rate FiO2 09/12/16 08:00 97.9 76 17 123/72 96 Room Air 09/12/16 04:00 97.8 83 20 113/74 95 Room Air 09/12/16 00:19 97.9 80 19 120/82 97 Room Air 09/11/16 20:00 97.7 80 19 127/76 97 Room Air 09/11/16 19:50 97.7 09/11/16 18:31 97.7 09/11/16 16:00 97.7 77 19 135/78 97 Room Air 09/11/16 12:09 97.7 09/11/16 12:00 98.2 90 18 132/93 99 Room Air Height (Feet): 5 Height (Inches): 3.00 Weight (Pounds): 130 General Appearance: no acute distress HEENT: normocephalic, atraumatic, anicteric, mucous membranes moist, PERRL, EOMI, pharynx normal, supple, no JVD Respiratory/Chest: lungs clear, normal breath sounds, no respiratory distress, no accessory muscle use Cardiovascular: normal rate, regular rhythm, no gallop/murmur, no JVD Abdomen: soft, non tender, no organomegaly, non distended Genitourinary: other Extremities: no cyanosis Skin: no rash 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, alert, oriented x 3, responsive Lymphatic: no neck adenopathy Musculoskeletal: no effusion Objective Labs Test 08/31/16 05:50 08/31/16 08:31 09/01/16 07:05 09/02/16 10:36 White Blood Count 18.8 K/UL (4.8-10.8) 17.2 K/UL (4.8-10.8) 13.8 K/UL (4.8-10.8) Red Blood Count 2.95 M/UL (4.20-5.40) 2.98 M/UL (4.20-5.40) 3.11 M/UL (4.20-5.40) Hemoglobin 8.4 G/DL (12.0-16.0) 8.7 G/DL (12.0-16.0) 8.4 G/DL (12.0-16.0) Hematocrit 25.3 % (37.0-47.0) 26.0 % (37.0-47.0) 26.3 % (37.0-47.0) Mean Corpuscular Volume 86 FL (80-99) 87 FL (80-99) 84 FL (80-99) Mean Corpuscular Hemoglobin 28.3 PG (27.0-31.0) 29.3 PG (27.0-31.0) 27.1 PG (27.0-31.0) Mean Corpuscular Hemoglobin Concent 33.1 G/DL (32.0-36.0) 33.6 G/DL (32.0-36.0) 32.1 G/DL (32.0-36.0) Red Cell Distribution Width 12.8 % (11.6-14.8) 12.6 % (11.6-14.8) 12.5 % (11.6-14.8) Platelet Count 178 K/UL (150-450) 183 K/UL (150-450) 258 K/UL (150-450) Mean Platelet Volume 6.0 FL (6.5-10.1) 5.1 FL (6.5-10.1) 6.2 FL (6.5-10.1) Neutrophils (%) (Auto) % (45.0-75.0) 72.6 % (45.0-75.0) 75.9 % (45.0-75.0) Lymphocytes (%) (Auto) % (20.0-45.0) 15.0 % (20.0-45.0) 9.3 % (20.0-45.0) Monocytes (%) (Auto) % (1.0-10.0) 9.1 % (1.0-10.0) 10.6 % (1.0-10.0) Eosinophils (%) (Auto) % (0.0-3.0) 2.5 % (0.0-3.0) 3.0 % (0.0-3.0) Basophils (%) (Auto) % (0.0-2.0) 0.9 % (0.0-2.0) 1.3 % (0.0-2.0) Differential Total Cells Counted 100 Neutrophils % (Manual) 70 % (45-75) Lymphocytes % (Manual) 16 % (20-45) Monocytes % (Manual) 11 % (1-10) Eosinophils % (Manual) 2 % (0-3) Basophils % (Manual) 0 % (0-2) Band Neutrophils 1 % (0-8) Platelet Estimate Adequate Platelet Morphology Normal Hypochromasia 1+ Sodium Level 130 mEQ/L (135-145) 135 mEQ/L (135-145) 135 mEQ/L (135-145) Potassium Level 3.5 mEQ/L (3.4-4.9) 3.8 mEQ/L (3.4-4.9) 3.7 mEQ/L (3.4-4.9) Chloride Level 92 mEQ/L (98-107) 94 mEQ/L (98-107) 94 mEQ/L (98-107) Carbon Dioxide Level 27 mEQ/L (20-30) 29 mEQ/L (20-30) 27 mEQ/L (20-30) Anion Gap 11 (5-15) 12 (5-15) 14 (5-15) Blood Urea Nitrogen 6 mg/dL (7-23) 5 mg/dL (7-23) 7 mg/dL (7-23) Creatinine 0.8 mg/dL (0.5-0.9) 0.8 mg/dL (0.5-0.9) 0.7 mg/dL (0.5-0.9) Estimat Glomerular Filtration Rate > 60 mL/min (>60) > 60 mL/min (>60) > 60 mL/min (>60) Glucose Level 116 mg/dL (74-106) 112 mg/dL (74-106) 116 mg/dL (74-106) Calcium Level 8.3 mg/dL (8.6-10.2) 8.8 mg/dL (8.6-10.2) 8.8 mg/dL (8.6-10.2) Urine Color Pale yellow Urine Appearance Clear Urine pH 7 (4.5-8.0) Urine Specific [place] 1.005 (1.005-1.035) Urine Protein Negative (NEGATIVE) Urine Glucose (UA) Negative (NEGATIVE) Urine Ketones Negative (NEGATIVE) Urine Occult Blood 2+ (NEGATIVE) Urine Nitrite Negative (NEGATIVE) Urine Bilirubin Negative (NEGATIVE) Urine Urobilinogen Normal MG/DL (0.0-1.0) Urine Leukocyte Esterase 1+ (NEGATIVE) Urine RBC 2-4 /HPF (0 - 2) Urine WBC 2-4 /HPF (0 - 2) Urine Squamous Epithelial Cells Few /LPF (NONE/OCC) Urine Bacteria Few /HPF (NONE) Total Bilirubin 0.3 mg/dL (0.0-1.2) Aspartate Amino Transf (AST/SGOT) 31 U/L (5-40) Alanine Aminotransferase (ALT/SGPT) 51 U/L (3-33) Alkaline Phosphatase 74 U/L (35-104) Total Protein 6.3 g/dL (6.6-8.7) Albumin 2.9 g/dL (3.5-5.2) Globulin 3.4 g/dL Albumin/Globulin Ratio 0.8 (1.0-2.7) chest x-ray - negative mri pelvis - report noted \ 09/04 - pelvic ct - no abscess 09/04 - chest x-ray - negative for pna v/q scan - low probability for PE Microbiology Date/Time Source Procedure Growth Status 09/04/16 16:45 Blood Blood Culture - Final NO GROWTH AFTER 5 DAYS Complete 09/05/16 11:00 Wound Gram Stain - Final Complete 09/05/16 11:00 Wound Culture - Final Pseudomonas Aeruginosa Staphylococcus Sp Coag Neg Complete 08/31/16 08:31 Urine,Clean Catch Urine Culture - Final Diphtheroids Complete Labs Test 09/10/16 07:25 White Blood Count 12.8 K/UL (4.8-10.8) Red Blood Count 3.48 M/UL (4.20-5.40) Hemoglobin 9.6 G/DL (12.0-16.0) Hematocrit 30.3 % (37.0-47.0) Mean Corpuscular Volume 87 FL (80-99) Mean Corpuscular Hemoglobin 27.6 PG (27.0-31.0) Mean Corpuscular Hemoglobin Concent 31.8 G/DL (32.0-36.0) Red Cell Distribution Width 13.6 % (11.6-14.8) Platelet Count 316 K/UL (150-450) Mean Platelet Volume 5.4 FL (6.5-10.1) Neutrophils (%) (Auto) 65.7 % (45.0-75.0) Lymphocytes (%) (Auto) 23.6 % (20.0-45.0) Monocytes (%) (Auto) 5.0 % (1.0-10.0) Eosinophils (%) (Auto) 4.7 % (0.0-3.0) Basophils (%) (Auto) 1.0 % (0.0-2.0) cr - 0.7 Current Medications Medications (Trade) Dose Ordered Sig/Yamileth Route PRN Reason Start Time Stop Time Status Last Admin Dose Admin Acetaminophen (Tylenol) 650 mg Q4H PRN ORAL fever 08/26/16 14:45 09/25/16 14:44 09/04/16 15:13 Acetaminophen (Tylenol) 650 mg Q4H PRN ORAL Mild Pain (Pain Scale 1-3) 08/26/16 14:45 09/25/16 14:44 09/12/16 03:20 Acetaminophen/ Butalbital/ Caffeine (Fioricet) 1 tab Q6H PRN ORAL For headache 09/12/16 08:45 10/12/16 08:44 Al Hydroxide/Mg Hydroxide (Mylanta II) 30 ml Q6H PRN ORAL dyspepsia 08/26/16 14:45 09/25/16 14:44 Aztreonam 1 gm/ Dextrose 55 ml @ 110 mls/hr Q8H IVPB 09/04/16 23:00 09/13/16 22:59 09/12/16 06:01 Bisacodyl (Dulcolax) 10 mg HSPRN PRN RECTAL Constipation 09/04/16 09:28 09/25/16 14:44 Dextrose (Dextrose 50%) STAT PRN IV Hypoglycemia 08/26/16 14:45 09/25/16 14:44 Docusate Sodium (Colace) 100 mg EVERY 12 HOURS ORAL 08/26/16 21:00 09/25/16 20:59 09/11/16 22:31 Ferrous Sulfate (Feosol) 325 mg THREE TIMES A DAY ORAL 09/02/16 18:00 10/02/16 17:59 09/11/16 18:56 Gabapentin (Neurontin) 300 mg BEDTIME ORAL 08/30/16 21:00 09/29/16 20:59 09/11/16 22:31 Heparin Sodium (Porcine) (Heparin 5000 units/ml) 5,000 units EVERY 8 HOURS SUBQ 08/28/16 06:00 09/27/16 05:59 09/12/16 05:59 Hydromorphone HCl (Dilaudid) 1 mg Q4H PRN IVP Severe Pain (Pain Scale 7-10) 09/12/16 12:30 09/19/16 12:29 Hydromorphone HCl (Dilaudid) 2 mg Q4H PRN IVP Severe breakthrough pain 09/09/16 16:00 09/16/16 15:59 09/11/16 19:20 Lactobacillus Acidophilus (Culturelle) 1 tab TWICE A DAY ORAL 08/26/16 18:00 09/25/16 17:59 09/11/16 17:31 Lactulose (Cephulac) 30 gm Q4H PRN ORAL constipation 09/04/16 09:15 10/04/16 09:14 Magnesium Hydroxide (Mom) 30 ml HSPRN PRN ORAL Constipation 08/26/16 14:45 09/25/16 14:44 09/05/16 01:47 Metronidazole 100 ml @ 100 mls/hr Q8HR IVPB 09/04/16 22:00 09/13/16 21:59 09/12/16 05:54 Mupirocin (Bactroban Oint) 1 applic DAILY TOPIC 09/10/16 09:00 09/15/16 08:59 09/12/16 09:08 Ondansetron HCl (Zofran) 4 mg Q6H PRN IVP Nausea & Vomiting 08/31/16 17:45 09/30/16 17:44 09/12/16 08:38 Oxycodone/ Acetaminophen (Percocet 10/325) 1 tab Q4H PRN ORAL Moderate Pain (Pain Scale 4-6) 09/12/16 09:00 09/19/16 08:59 Polyethylene Glycol 17 gm 17 gm HSPRN PRN ORAL Constipation 09/04/16 09:29 09/25/16 14:44 09/11/16 08:25 Silver Sulfadiazine (Silvadene Cream 25gm) 1 applic DAILY TOPIC 09/02/16 14:00 10/02/16 13:59 09/12/16 09:09 Sodium Chloride 1,000 ml @ 125 mls/hr Q8H IV 09/04/16 17:00 10/04/16 16:59 09/11/16 17:38 Vancomycin HCl (Vanco rx to dose) 1 ea DAILY PRN MISC . 09/09/16 10:00 10/04/16 18:44 Vancomycin HCl/ Dextrose (Vancomycin/D5W) 275 ml @ 183.333 mls/hr Q12HR IVPB 09/06/16 09:00 09/13/16 08:59 09/12/16 09:07 BLU KATHLEEN Sep 12, 2016 10:42
[2016-09-12 11:15] LABS: BASOPHILS % (AUTO) 1.1 % (0.0-2.0); EOSINOPHILS % (AUTO) 5.8 % (0.0-3.0); LYMPHOCYTES % (AUTO) 23.4 % (20.0-45.0); MEAN CORPUSCULAR HEMOGLOBIN 28.3 PG (27.0-31.0); MEAN CORPUSCULAR HGB CONC 32.5 G/DL (32.0-36.0); MEAN CORPUSCULAR VOLUME 87 FL (80-99); MEAN PLATELET VOLUME 6.5 FL (6.5-10.1); NEUTROPHILS % (AUTO) 60.7 % (45.0-75.0); PLATELET COUNT 317 K/UL (150-450); RED BLOOD COUNT 3.48 M/UL (4.20-5.40); RED CELL DISTRIBUTION WIDTH 14.4 % (11.6-14.8); WHITE BLOOD COUNT 9.9 K/UL (4.8-10.8)
[2016-09-12 11:30] LABS: ALANINE AMINOTRANSFERASE 30 U/L (3-33); ALBUMIN/GLOBULIN RATIO 0.9 (1.0-2.7); ANION GAP 11 (5-15); ASPARTATE AMINO TRANSFERASE 33 U/L (5-40); CALCIUM 8.5 mg/dL (8.6-10.2); CARBON DIOXIDE 27 mEQ/L (20-30); CHLORIDE 100 mEQ/L (98-107); CREATININE 0.7 mg/dL (0.5-0.9); GLOMERULAR FILTRATION RATE > 60 mL/min (>60); HEMOLYSIS 4; POTASSIUM 3.8 mEQ/L (3.4-4.9); SODIUM 138 mEQ/L (135-145); TOTAL PROTEIN 5.6 g/dL (6.6-8.7)
[2016-09-12 12:00] VITALS: BP 135/91
[2016-09-12 16:00] VITALS: BP 118/83
--- NOTE | 2016-09-12 18:23 | General Progress Note ---
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 and onset of systemic symptoms, pos LINDA, pos ESR, low albumin Supp care Pain control ICD Codes: L02.91 - Cutaneous abscess, unspecified SNOMED: 101005405 Subjective Date patient seen: Sep 11, 2016 Time patient seen: 17:30 ROS Limited/Unobtainable: No Allergies: Coded Allergies: IODINE (Verified Allergy, Unknown, 08/26/16) PENICILLINS (Verified Allergy, Unknown, 08/26/16) Subjective This note is being placed today for a visit done yesterday, did not have a chance to document my visit yesterday Pt states she felt that her wound was hardening and was feeling RLE numbness/ tingling, later last night her dc was held due to nausea/vomiting Objective Last 24 Hour Vital Signs Date Time Temp Pulse Resp B/P Pulse Ox O2 Delivery O2 Flow Rate FiO2 09/12/16 16:55 97.5 09/12/16 16:00 97.5 75 17 118/83 96 Room Air 09/12/16 12:00 97.9 81 19 135/91 98 Room Air 09/12/16 11:38 97.9 09/12/16 08:00 97.9 76 17 123/72 96 Room Air 09/12/16 04:00 97.8 83 20 113/74 95 Room Air 09/12/16 00:19 97.9 80 19 120/82 97 Room Air 09/11/16 20:00 97.7 80 19 127/76 97 Room Air 09/11/16 19:50 97.7 09/11/16 18:31 97.7 Intake and Output 09/11/16 09/12/16 19:00 07:00 Intake Total 2446.666 ml 1990 ml Output Total 53 ml Balance 2446.666 ml 1937 ml Intake Oral 650 ml 240 ml IV Total 1796.666 ml 1750 ml Drainage Total 45 ml Other 8 ml # Voids 3 2 Laboratory Tests 6/21/17 11:04: White Blood Count 9.9, Red Blood Count 3.48L, Hemoglobin 9.8L, Hematocrit 30.3L , Mean Corpuscular Volume 87, Mean Corpuscular Hemoglobin 28.3, Mean Corpuscular Hemoglobin Concent 32.5, Red Cell Distribution Width 14.4, Platelet Count 317, Mean Platelet Volume 6.5, Neutrophils (%) (Auto) 60.7, Lymphocytes (% ) (Auto) 23.4, Monocytes (%) (Auto) 9.0, Eosinophils (%) (Auto) 5.8H, Basophils (%) (Auto) 1.1, Sodium Level 138, Potassium Level 3.8, Chloride Level 100, Carbon Dioxide Level 27, Anion Gap 11, Blood Urea Nitrogen 3L, Creatinine 0.7, Estimat Glomerular Filtration Rate > 60, Glucose Level 144H, Calcium Level 8.5L , Total Bilirubin 0.2, Aspartate Amino Transf (AST/SGOT) 33, Alanine Aminotransferase (ALT/SGPT) 30, Alkaline Phosphatase 32L, Total Protein 5.6L, Albumin 2.7L, Globulin 2.9, Albumin/Globulin Ratio 0.9L Height (Feet): 5 Height (Inches): 3.00 Weight (Pounds): 130 Objective General: alert, cooperative, no distress, appears stated age Head: normocephalic, without obvious abnormality, atraumatic Eyes: conjunctivae/corneas clear. PERRL, EOM's intact Throat: lips, mucosa, and tongue normal. MMM Neck: supple, symmetrical, trachea midline, and no JVD Lungs: clear to auscultation bilaterally Heart: regular rate and rhythm, S1, S2 normal, no murmur, click, rub or gallop Abdomen: soft, non-tender, non-distended, bowel sounds normal; no masses or organomegaly Extremities: dressing appear clean/dry/intact, drains present with serosanguinous drainage Pulses: 2+ and symmetric Skin: skin color, texture, turgor normal; no rashes or lesions Neurologic: 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, no focal deficits PETERSON COTTO Sep 12, 2016 18:23
--- NOTE | 2016-09-12 18:25 | General Progress Note ---
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 Cabral to see pt today to re-eval her wounds. No abd pain No further feelings of RLE numbness/tingling, later last night her dc was held due to nausea/vomiting Objective Last 24 Hour Vital Signs Date Time Temp Pulse Resp B/P Pulse Ox O2 Delivery O2 Flow Rate FiO2 09/12/16 16:55 97.5 09/12/16 16:00 97.5 75 17 118/83 96 Room Air 09/12/16 12:00 97.9 81 19 135/91 98 Room Air 09/12/16 11:38 97.9 09/12/16 08:00 97.9 76 17 123/72 96 Room Air 09/12/16 04:00 97.8 83 20 113/74 95 Room Air 09/12/16 00:19 97.9 80 19 120/82 97 Room Air 09/11/16 20:00 97.7 80 19 127/76 97 Room Air 09/11/16 19:50 97.7 09/11/16 18:31 97.7 Intake and Output 09/11/16 09/12/16 19:00 07:00 Intake Total 2446.666 ml 1990 ml Output Total 53 ml Balance 2446.666 ml 1937 ml Intake Oral 650 ml 240 ml IV Total 1796.666 ml 1750 ml Drainage Total 45 ml Other 8 ml # Voids 3 2 Laboratory Tests 09/12/16 11:04: White Blood Count 9.9, Red Blood Count 3.48L, Hemoglobin 9.8L, Hematocrit 30.3L , Mean Corpuscular Volume 87, Mean Corpuscular Hemoglobin 28.3, Mean Corpuscular Hemoglobin Concent 32.5, Red Cell Distribution Width 14.4, Platelet Count 317, Mean Platelet Volume 6.5, Neutrophils (%) (Auto) 60.7, Lymphocytes (% ) (Auto) 23.4, Monocytes (%) (Auto) 9.0, Eosinophils (%) (Auto) 5.8H, Basophils (%) (Auto) 1.1, Sodium Level 138, Potassium Level 3.8, Chloride Level 100, Carbon Dioxide Level 27, Anion Gap 11, Blood Urea Nitrogen 3L, Creatinine 0.7, Estimat Glomerular Filtration Rate > 60, Glucose Level 144H, Calcium Level 8.5L , Total Bilirubin 0.2, Aspartate Amino Transf (AST/SGOT) 33, Alanine Aminotransferase (ALT/SGPT) 30, Alkaline Phosphatase 32L, Total Protein 5.6L, Albumin 2.7L, Globulin 2.9, Albumin/Globulin Ratio 0.9L Height (Feet): 5 Height (Inches): 3.00 Weight (Pounds): 130 Objective General: alert, cooperative, no distress, appears stated age Head: normocephalic, without obvious abnormality, atraumatic Eyes: conjunctivae/corneas clear. PERRL, EOM's intact Throat: lips, mucosa, and tongue normal. MMM Neck: supple, symmetrical, trachea midline, and no JVD Lungs: clear to auscultation bilaterally Heart: regular rate and rhythm, S1, S2 normal, no murmur, click, rub or gallop Abdomen: soft, non-tender, non-distended, bowel sounds normal; no masses or organomegaly Extremities: dressing appear clean/dry/intact, drains present with serosanguinous drainage Pulses: 2+ and symmetric Skin: skin color, texture, turgor normal; no rashes or lesions Neurologic: 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, no focal deficits PETERSON COTTO Sep 12, 2016 18:25
[2016-09-12 20:14] VITALS: BP 118/81
[2016-09-12] MEDS: Vancomycin 1.25 GM in D5W 275 ML IVPB SCH (20:22)
[2016-09-12] MEDS ORDERED: HYDROmorphone 1mg/ml Carpuject IVP ONE (21:10)
[2016-09-12] MEDS ORDERED: Lidocaine 1% MPF 10mg/ml 5ml INJ ONE (21:15)
--- NOTE | 2016-09-12 23:18 | General Progress Note ---
Subjective Date patient seen: Sep 12, 2016 Allergies: Coded Allergies: IODINE (Verified Allergy, Unknown, 08/26/16) PENICILLINS (Verified Allergy, Unknown, 08/26/16) Subjective Patient seen and examined. Wound of the right buttocks Superior area of skin breakdown 3cm with deep undermining 7cm X 3 cm in area with drainage. Inferior aspect with 1 cm opening 10 cm deep undermining area Mid Buttock opening and some blood tingled purulent drainage Impression: Wound Infection of Right Buttocks still with drainage. Opening increase in size. Plan: Two drains. Tentatively to schedule wash -out and wound vac in the OR Continue antibiotics Objective Last 24 Hour Vital Signs Date Time Temp Pulse Resp B/P Pulse Ox O2 Delivery O2 Flow Rate FiO2 09/12/16 22:15 98.8 09/12/16 20:54 98.8 09/12/16 20:14 98.8 82 19 118/81 97 Room Air 09/12/16 16:00 97.5 75 17 118/83 96 Room Air 09/12/16 12:00 97.9 81 19 135/91 98 Room Air 09/12/16 11:38 97.9 09/12/16 08:00 97.9 76 17 123/72 96 Room Air 09/12/16 04:00 97.8 83 20 113/74 95 Room Air 09/12/16 00:19 97.9 80 19 120/82 97 Room Air Intake and Output 09/11/16 09/12/16 19:00 07:00 Intake Total 2446.666 ml 1990 ml Output Total 53 ml Balance 2446.666 ml 1937 ml Intake Oral 650 ml 240 ml IV Total 1796.666 ml 1750 ml Drainage Total 45 ml Other 8 ml # Voids 3 2 Laboratory Tests 09/12/16 11:04: White Blood Count 9.9, Red Blood Count 3.48L, Hemoglobin 9.8L, Hematocrit 30.3L , Mean Corpuscular Volume 87, Mean Corpuscular Hemoglobin 28.3, Mean Corpuscular Hemoglobin Concent 32.5, Red Cell Distribution Width 14.4, Platelet Count 317, Mean Platelet Volume 6.5, Neutrophils (%) (Auto) 60.7, Lymphocytes (% ) (Auto) 23.4, Monocytes (%) (Auto) 9.0, Eosinophils (%) (Auto) 5.8H, Basophils (%) (Auto) 1.1, Sodium Level 138, Potassium Level 3.8, Chloride Level 100, Carbon Dioxide Level 27, Anion Gap 11, Blood Urea Nitrogen 3L, Creatinine 0.7, Estimat Glomerular Filtration Rate > 60, Glucose Level 144H, Calcium Level 8.5L , Total Bilirubin 0.2, Aspartate Amino Transf (AST/SGOT) 33, Alanine Aminotransferase (ALT/SGPT) 30, Alkaline Phosphatase 32L, Total Protein 5.6L, Albumin 2.7L, Globulin 2.9, Albumin/Globulin Ratio 0.9L Height (Feet): 5 Height (Inches): 3.00 Weight (Pounds): 130 Bebo Cabral M.D. (Steven) Sep 12, 2016 23:18
[2016-09-13] VITALS (15 sets, daily range): BP systolic 123–167; BP diastolic 69–96
[2016-09-13] MEDS: HYDROmorphone 1mg/ml Carpuject IVP PRN (02:00)
[2016-09-13] MEDS: Heparin 5000 units/ml inj SUBQ SCH ×3 (06:19→23:57)
[2016-09-13] MEDS: Aztreonam Inj 1 GM in D5W 55 ML IVPB SCH ×3 (07:33→23:54)
[2016-09-13] MEDS: Vancomycin 1.25 GM in D5W 275 ML IVPB SCH ×2 (08:51→21:15)
[2016-09-13] MEDS: Lactobacillus-GG tablet ORAL SCH ×2 (08:52→17:19)
[2016-09-13] MEDS: Docusate 100mg cap ORAL SCH ×2 (08:52→23:53)
[2016-09-13] MEDS: Silver Sulfadiazine Cream 25gm TOPIC SCH (08:53)
[2016-09-13 09:22] LABS: EOSINOPHILS % (AUTO) 7.6 % (0.0-3.0); LYMPHOCYTES % (AUTO) 34.2 % (20.0-45.0); MEAN CORPUSCULAR HEMOGLOBIN 29.3 PG (27.0-31.0); MEAN CORPUSCULAR HGB CONC 32.5 G/DL (32.0-36.0); MEAN CORPUSCULAR VOLUME 90 FL (80-99); MEAN PLATELET VOLUME 5.9 FL (6.5-10.1); NEUTROPHILS % (AUTO) 51.3 % (45.0-75.0); PLATELET COUNT 404 K/UL (150-450); RED CELL DISTRIBUTION WIDTH 14.9 % (11.6-14.8); WHITE BLOOD COUNT 8.5 K/UL (4.8-10.8)
[2016-09-13 09:38] LABS: ANION GAP 12 (5-15); CALCIUM 9.2 mg/dL (8.6-10.2); CARBON DIOXIDE 27 mEQ/L (20-30); CHLORIDE 100 mEQ/L (98-107); CREATININE 0.7 mg/dL (0.5-0.9); GLOMERULAR FILTRATION RATE > 60 mL/min (>60); HEMOLYSIS 2; POTASSIUM 3.6 mEQ/L (3.4-4.9); SODIUM 139 mEQ/L (135-145)
[2016-09-13] MEDS: LR 1000ml 1,000 ML IV SCH ×3 (09:46→21:00)
--- NOTE | 2016-09-13 14:22 | General Progress Note ---
Assessment/Plan Assessment/Plan (1) Bilateral buttock soft tissue necrosis, cellulitis, open wounds buttocks (2) Abscess (3) Intractable pain (4) Staged debridement of bilateral buttock necrotic soft tissue, flap delay The patient is to be continued on the Dilaudid and Percocet. The patient was discussed with Dr. Singh and concurred. Subjective Date patient seen: Sep 13, 2016 Time patient seen: 01:15 - pm Allergies: Coded Allergies: IODINE (Verified Allergy, Unknown, 08/26/16) PENICILLINS (Verified Allergy, Unknown, 08/26/16) Subjective Constitutional: Reports: no symptoms HEENT: Reports: no symptoms Cardiovascular: Reports: no symptoms Respiratory: Reports: no symptoms Gastrointestinal/Abdominal: Reports: no symptoms Genitourinary: Reports: no symptoms Neurologic/Psychiatric: Reports: weakness Endocrine: Reports: no symptoms Hematologic/Lymphatic: Reports: no symptoms Subjective Pt is comfortable at this time and is tolerating the pain on the medication. She is scheduled for surgery tonight with Dr. SAVAGE. Objective Last 24 Hour Vital Signs Date Time Temp Pulse Resp B/P Pulse Ox O2 Delivery O2 Flow Rate FiO2 09/13/16 10:49 97.5 09/13/16 08:38 97.5 79 20 133/86 98 Room Air 09/13/16 04:00 97.6 90 19 124/69 94 Room Air 09/13/16 00:31 97.5 88 20 134/81 99 Room Air 09/12/16 22:15 98.8 09/12/16 20:54 98.8 09/12/16 20:14 98.8 82 19 118/81 97 Room Air 09/12/16 16:00 97.5 75 17 118/83 96 Room Air Intake and Output 09/12/16 09/13/16 19:00 07:00 Intake Total 1700 ml 1565.000 ml Output Total 21 ml Balance 1679 ml 1565.000 ml Intake Oral 450 ml 360 ml IV Total 1250 ml 1205.000 ml Emesis 1 ml Drainage Total 15 ml Other 5 ml # Voids 1 3 Laboratory Tests 09/13/16 08:45: White Blood Count 8.5, Red Blood Count 3.90L, Hemoglobin 11.4L, Hematocrit 35.2L , Mean Corpuscular Volume 90, Mean Corpuscular Hemoglobin 29.3, Mean Corpuscular Hemoglobin Concent 32.5, Red Cell Distribution Width 14.9H, Platelet Count 404, Mean Platelet Volume 5.9L, Neutrophils (%) (Auto) 51.3, Lymphocytes (%) (Auto) 34.2, Monocytes (%) (Auto) 6.0, Eosinophils (%) (Auto) 7.6H, Basophils (%) (Auto) 1.0, Sodium Level 139, Potassium Level 3.6, Chloride Level 100, Carbon Dioxide Level 27, Anion Gap 12, Blood Urea Nitrogen 3L, Creatinine 0.7, Estimat Glomerular Filtration Rate > 60, Glucose Level 124H, Calcium Level 9.2 Height (Feet): 5 Height (Inches): 3.00 Weight (Pounds): 130 Objective General Appearance: no apparent distress, alert EENT: PERRL/EOMI, normal ENT inspection Neck: non-tender, normal alignment Cardiovascular: normal rate, regular rhythm Respiratory/Chest: lungs clear, normal breath sounds Abdomen: non tender, soft Extremities: non-tender Edema: no edema noted Arm (L), no edema noted Arm (R), no edema noted Leg (L), no edema noted Leg (R), no edema noted Pedal (L), no edema noted Pedal (R), no edema noted Generalized Neurologic: alert, oriented x 3 Skin: other - bandages applied to buttock area with tenderness to palpation NELLY JACK Sep 13, 2016 14:22
--- NOTE | 2016-09-13 14:49 | General Progress Note ---
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 Cabral last night, wounds re-packed, decision made for more debridement later this evening. Pain controlled, no fevers/chills, no diaphoresis No further feelings of RLE numbness/tingling, her nausea/vomiting are much improved. Objective Last 24 Hour Vital Signs Date Time Temp Pulse Resp B/P Pulse Ox O2 Delivery O2 Flow Rate FiO2 09/13/16 10:49 97.5 09/13/16 08:38 97.5 79 20 133/86 98 Room Air 09/13/16 04:00 97.6 90 19 124/69 94 Room Air 09/13/16 00:31 97.5 88 20 134/81 99 Room Air 09/12/16 22:15 98.8 09/12/16 20:54 98.8 09/12/16 20:14 98.8 82 19 118/81 97 Room Air 09/12/16 16:00 97.5 75 17 118/83 96 Room Air Intake and Output 09/12/16 09/13/16 19:00 07:00 Intake Total 1700 ml 1565.000 ml Output Total 21 ml Balance 1679 ml 1565.000 ml Intake Oral 450 ml 360 ml IV Total 1250 ml 1205.000 ml Emesis 1 ml Drainage Total 15 ml Other 5 ml # Voids 1 3 Laboratory Tests 09/13/16 08:45: White Blood Count 8.5, Red Blood Count 3.90L, Hemoglobin 11.4L, Hematocrit 35.2L , Mean Corpuscular Volume 90, Mean Corpuscular Hemoglobin 29.3, Mean Corpuscular Hemoglobin Concent 32.5, Red Cell Distribution Width 14.9H, Platelet Count 404, Mean Platelet Volume 5.9L, Neutrophils (%) (Auto) 51.3, Lymphocytes (%) (Auto) 34.2, Monocytes (%) (Auto) 6.0, Eosinophils (%) (Auto) 7.6H, Basophils (%) (Auto) 1.0, Sodium Level 139, Potassium Level 3.6, Chloride Level 100, Carbon Dioxide Level 27, Anion Gap 12, Blood Urea Nitrogen 3L, Creatinine 0.7, Estimat Glomerular Filtration Rate > 60, Glucose Level 124H, Calcium Level 9.2 Height (Feet): 5 Height (Inches): 3.00 Weight (Pounds): 130 Objective General: alert, cooperative, no distress, appears stated age Head: normocephalic, without obvious abnormality, atraumatic Eyes: conjunctivae/corneas clear. PERRL, EOM's intact Throat: lips, mucosa, and tongue normal. MMM Neck: supple, symmetrical, trachea midline, and no JVD Lungs: clear to auscultation bilaterally Heart: regular rate and rhythm, S1, S2 normal, no murmur, click, rub or gallop Abdomen: soft, non-tender, non-distended, bowel sounds normal; no masses or organomegaly Extremities: dressing appear clean/dry/intact, drains present with serosanguinous drainage Pulses: 2+ and symmetric Skin: skin color, texture, turgor normal; no rashes or lesions Neurologic: 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, no focal deficits PETERSON COTTO Sep 13, 2016 14:49
--- NOTE | 2016-09-13 15:29 | Anethesia Preoperative Eval ---
Anesthesia Pre-op PMH/ROS General Date of Evaluation: Sep 13, 2016 Anesthesiologist: Dexter ASA Score: ASA 1 Mallampati Score Class I : Soft palate, uvula, fauces, pillars visible Class II: Soft palate, uvula, fauces visible Class III: Soft palate, base of uvula visible Class IV: Only hard plate visible Mallampati Classification: Class II Surgeon: Tram Diagnosis: Gluteal abscess Surgical Procedure: I&D of gluteal abscess Anesthesia History: none Family History: no anesthesia problems Allergies: Coded Allergies: IODINE (Verified Allergy, Unknown, 08/26/16) PENICILLINS (Verified Allergy, Unknown, 08/26/16) Medications: see eMAR Past Medical History Cardiovascular: Denies: CAD, HTN, [place], arrhythmia, other, valve dz Pulmonary: Denies: COPD, NORBERT, asthma, other Gastrointestinal/Genitourinary: Denies: CRI, ESRD, GERD, other Neurologic/Psychiatric: Denies: CVA, TIA, dementia, depression/anxiety, other Endocrine: Denies: DM, hypothyroidism, other, steroids HEENT: Denies: [facility] (L), [place] (R), cataract (L), cataract (R), glaucoma, other Hematology/Immune: Denies: DVT, anemia, bleeding disorder, other Musculoskeletal/Integumentary: Denies: DDD, DJD, OA, RA, edema, other PSxH Narrative: I&D of gluteal necrotic tissue, c/s, sinus sx Anesthesia Pre-op Phys. Exam Physician Exam Last Vital Signs Date Time Temp Pulse Resp B/P Pulse Ox O2 Delivery O2 Flow Rate FiO2 09/13/16 14:53 97.5 09/13/16 08:38 79 20 133/86 98 Room Air Constitutional: NAD Cardiovascular: RRR Respiratory: CTA Airway Exam Mallampati Score: Class II MO: full ROM: full Teeth: intact Anesthesia Pre-op A/P Labs Hematology Test 09/13/16 08:45 White Blood Count 8.5 K/UL (4.8-10.8) Red Blood Count 3.90 M/UL (4.20-5.40) L Hemoglobin 11.4 G/DL (12.0-16.0) L Hematocrit 35.2 % (37.0-47.0) L Mean Corpuscular Volume 90 FL (80-99) Mean Corpuscular Hemoglobin 29.3 PG (27.0-31.0) Mean Corpuscular Hemoglobin Concent 32.5 G/DL (32.0-36.0) Red Cell Distribution Width 14.9 % (11.6-14.8) H Platelet Count 404 K/UL (150-450) Mean Platelet Volume 5.9 FL (6.5-10.1) L Neutrophils (%) (Auto) 51.3 % (45.0-75.0) Lymphocytes (%) (Auto) 34.2 % (20.0-45.0) Monocytes (%) (Auto) 6.0 % (1.0-10.0) Eosinophils (%) (Auto) 7.6 % (0.0-3.0) H Basophils (%) (Auto) 1.0 % (0.0-2.0) Chemistry Test 09/13/16 08:45 Sodium Level 139 mEQ/L (135-145) Potassium Level 3.6 mEQ/L (3.4-4.9) Chloride Level 100 mEQ/L (98-107) Carbon Dioxide Level 27 mEQ/L (20-30) Anion Gap 12 (5-15) Blood Urea Nitrogen 3 mg/dL (7-23) L Creatinine 0.7 mg/dL (0.5-0.9) Estimat Glomerular Filtration Rate > 60 mL/min (>60) Glucose Level 124 mg/dL (74-106) H Calcium Level 9.2 mg/dL (8.6-10.2) Risk Assessment & Plan Assessment: ASA I Plan: GA Status Change Before Surgery: No Pre-Antibiotics Drug: LETTY CLEVELAND M.D. Sep 13, 2016 15:29
[2016-09-13] MEDS ORDERED: Tubing IV Secondary IV ONE ×2 (16:31→16:33)
[2016-09-13] MEDS ORDERED: Propofol 10mg/ml 20ml IV ONE (17:53)
--- NOTE | 2016-09-13 18:53 | Infectious Diseases Prog Note ---
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 abx, ? flagyl - n/v resolved off flagyl 4) hx gluteal silicone infections 5) recent terminated 6) r/u AURORA autoimmune syndrome 7) pain mgt, anemia, hyponatremia 8) allergies - pcn and iodine, sh-negative, mar noted, notes and records reviewed 9) d/w RN P) 1) continue vancomycin and aztreonam for nowl - can transition to oral abx levofloxacin and bactrim upon discharge 2) check labs, cr, wbc 3) surgery f/u on wounds 4) continue treatment per Dr. Christiansen and surgery 5) orders noted and entered Subjective Constitutional: Denies: fever HEENT: Denies: other Respiratory: Denies: shortness of breath Gastrointestinal/Abdominal: Denies: nausea, vomiting Psychiatric: Denies: depression Skin: Denies: rash Hematologic: Denies: bleeding Allergies: Coded Allergies: IODINE (Verified Allergy, Unknown, 08/26/16) PENICILLINS (Verified Allergy, Unknown, 08/26/16) Objective Vital Signs Last 24 Hour Vital Signs Date Time Temp Pulse Resp B/P Pulse Ox O2 Delivery O2 Flow Rate FiO2 09/13/16 18:40 97.5 09/13/16 16:00 97.2 90 18 125/69 100 09/13/16 08:38 97.5 79 20 133/86 98 Room Air 09/13/16 04:00 97.6 90 19 124/69 94 Room Air 09/13/16 00:31 97.5 88 20 134/81 99 Room Air 09/12/16 22:15 98.8 09/12/16 20:54 98.8 09/12/16 20:14 98.8 82 19 118/81 97 Room Air Height (Feet): 5 Height (Inches): 3.00 Weight (Pounds): 130 HEENT: normocephalic, atraumatic, anicteric, mucous membranes moist Respiratory/Chest: lungs clear, normal breath sounds, no respiratory distress Cardiovascular: normal rate, regular rhythm, no gallop/murmur Abdomen: normal bowel sounds, soft, non tender, no organomegaly Extremities: no cyanosis Skin: no rash 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1 G/DL (32.0-36.0) 33.6 G/DL (32.0-36.0) 32.1 G/DL (32.0-36.0) Red Cell Distribution Width 12.8 % (11.6-14.8) 12.6 % (11.6-14.8) 12.5 % (11.6-14.8) Platelet Count 178 K/UL (150-450) 183 K/UL (150-450) 258 K/UL (150-450) Mean Platelet Volume 6.0 FL (6.5-10.1) 5.1 FL (6.5-10.1) 6.2 FL (6.5-10.1) Neutrophils (%) (Auto) % (45.0-75.0) 72.6 % (45.0-75.0) 75.9 % (45.0-75.0) Lymphocytes (%) (Auto) % (20.0-45.0) 15.0 % (20.0-45.0) 9.3 % (20.0-45.0) Monocytes (%) (Auto) % (1.0-10.0) 9.1 % (1.0-10.0) 10.6 % (1.0-10.0) Eosinophils (%) (Auto) % (0.0-3.0) 2.5 % (0.0-3.0) 3.0 % (0.0-3.0) Basophils (%) (Auto) % (0.0-2.0) 0.9 % (0.0-2.0) 1.3 % (0.0-2.0) Differential Total Cells Counted 100 Neutrophils % (Manual) 70 % (45-75) Lymphocytes % (Manual) 16 % (20-45) Monocytes % (Manual) 11 % (1-10) Eosinophils % (Manual) 2 % (0-3) Basophils % (Manual) 0 % (0-2) Band Neutrophils 1 % (0-8) Platelet Estimate Adequate Platelet Morphology Normal Hypochromasia 1+ Sodium Level 130 mEQ/L (135-145) 135 mEQ/L (135-145) 135 mEQ/L (135-145) Potassium Level 3.5 mEQ/L (3.4-4.9) 3.8 mEQ/L (3.4-4.9) 3.7 mEQ/L (3.4-4.9) Chloride Level 92 mEQ/L (98-107) 94 mEQ/L (98-107) 94 mEQ/L (98-107) Carbon Dioxide Level 27 mEQ/L (20-30) 29 mEQ/L (20-30) 27 mEQ/L (20-30) Anion Gap 11 (5-15) 12 (5-15) 14 (5-15) Blood Urea Nitrogen 6 mg/dL (7-23) 5 mg/dL (7-23) 7 mg/dL (7-23) Creatinine 0.8 mg/dL (0.5-0.9) 0.8 mg/dL (0.5-0.9) 0.7 mg/dL (0.5-0.9) Estimat Glomerular Filtration Rate > 60 mL/min (>60) > 60 mL/min (>60) > 60 mL/min (>60) Glucose Level 116 mg/dL (74-106) 112 mg/dL (74-106) 116 mg/dL (74-106) Calcium Level 8.3 mg/dL (8.6-10.2) 8.8 mg/dL (8.6-10.2) 8.8 mg/dL (8.6-10.2) Urine Color Pale yellow Urine Appearance Clear Urine pH 7 (4.5-8.0) Urine Specific [place] 1.005 (1.005-1.035) Urine Protein Negative (NEGATIVE) Urine Glucose (UA) Negative (NEGATIVE) Urine Ketones Negative (NEGATIVE) Urine Occult Blood 2+ (NEGATIVE) Urine Nitrite Negative (NEGATIVE) Urine Bilirubin Negative (NEGATIVE) Urine Urobilinogen Normal MG/DL (0.0-1.0) Urine Leukocyte Esterase 1+ (NEGATIVE) Urine RBC 2-4 /HPF (0 - 2) Urine WBC 2-4 /HPF (0 - 2) Urine Squamous Epithelial Cells Few /LPF (NONE/OCC) Urine Bacteria Few /HPF (NONE) Total Bilirubin 0.3 mg/dL (0.0-1.2) Aspartate Amino Transf (AST/SGOT) 31 U/L (5-40) Alanine Aminotransferase (ALT/SGPT) 51 U/L (3-33) Alkaline Phosphatase 74 U/L (35-104) Total Protein 6.3 g/dL (6.6-8.7) Albumin 2.9 g/dL (3.5-5.2) Globulin 3.4 g/dL Albumin/Globulin Ratio 0.8 (1.0-2.7) chest x-ray - negative mri pelvis - report noted \ 09/04 - pelvic ct - no abscess 09/04 - chest x-ray - negative for pna v/q scan - low probability for PE Laboratory Tests Test 09/13/16 08:45 White Blood Count 8.5 K/UL (4.8-10.8) Red Blood Count 3.90 M/UL (4.20-5.40) L Hemoglobin 11.4 G/DL (12.0-16.0) L Hematocrit 35.2 % (37.0-47.0) L Mean Corpuscular Volume 90 FL (80-99) Mean Corpuscular Hemoglobin 29.3 PG (27.0-31.0) Mean Corpuscular Hemoglobin Concent 32.5 G/DL (32.0-36.0) Red Cell Distribution Width 14.9 % (11.6-14.8) H Platelet Count 404 K/UL (150-450) Mean Platelet Volume 5.9 FL (6.5-10.1) L Neutrophils (%) (Auto) 51.3 % (45.0-75.0) Lymphocytes (%) (Auto) 34.2 % (20.0-45.0) Monocytes (%) (Auto) 6.0 % (1.0-10.0) Eosinophils (%) (Auto) 7.6 % (0.0-3.0) H Basophils (%) (Auto) 1.0 % (0.0-2.0) Sodium Level 139 mEQ/L (135-145) Potassium Level 3.6 mEQ/L (3.4-4.9) Chloride Level 100 mEQ/L (98-107) Carbon Dioxide Level 27 mEQ/L (20-30) Anion Gap 12 (5-15) Blood Urea Nitrogen 3 mg/dL (7-23) L Creatinine 0.7 mg/dL (0.5-0.9) Estimat Glomerular Filtration Rate > 60 mL/min (>60) Glucose Level 124 mg/dL (74-106) H Calcium Level 9.2 mg/dL (8.6-10.2) Current Medications Medications (Trade) Dose Ordered Sig/Yamileth Route PRN Reason Start Time Stop Time Status Last Admin Dose Admin Acetaminophen (Tylenol) 650 mg Q4H PRN ORAL fever 08/26/16 14:45 09/25/16 14:44 09/04/16 15:13 Acetaminophen (Tylenol) 650 mg Q4H PRN ORAL Mild Pain (Pain Scale 1-3) 08/26/16 14:45 09/25/16 14:44 09/12/16 03:20 Acetaminophen/ Butalbital/ Caffeine 1 tab 1 tab Q6H PRN ORAL For headache 09/12/16 08:45 10/12/16 08:44 09/12/16 10:39 Al Hydroxide/Mg Hydroxide (Mylanta II) 30 ml Q6H PRN ORAL dyspepsia 08/26/16 14:45 09/25/16 14:44 Aztreonam 1 gm/ Dextrose 55 ml @ 110 mls/hr Q8H IVPB 09/12/16 15:00 09/21/16 23:59 09/13/16 15:16 Bisacodyl (Dulcolax) 10 mg HSPRN PRN RECTAL Constipation 09/04/16 09:28 09/25/16 14:44 Dextrose (Dextrose 50%) STAT PRN IV Hypoglycemia 08/26/16 14:45 09/25/16 14:44 Docusate Sodium (Colace) 100 mg EVERY 12 HOURS ORAL 08/26/16 21:00 09/25/16 20:59 09/12/16 20:21 Ferrous Sulfate (Feosol) 325 mg THREE TIMES A DAY ORAL 09/02/16 18:00 10/02/16 17:59 09/12/16 17:29 Gabapentin (Neurontin) 300 mg BEDTIME ORAL 08/30/16 21:00 09/29/16 20:59 09/12/16 20:21 Heparin Sodium (Porcine) (Heparin 5000 units/ml) 5,000 units EVERY 8 HOURS SUBQ 08/28/16 06:00 09/27/16 05:59 09/13/16 06:19 Hydromorphone HCl (Dilaudid) 1 mg Q4H PRN IVP Severe Pain (Pain Scale 7-10) 09/12/16 12:30 09/19/16 12:29 09/12/16 20:25 Hydromorphone HCl (Dilaudid) 2 mg Q4H PRN IVP Severe breakthrough pain 09/09/16 16:00 09/16/16 15:59 09/13/16 18:10 Lactated Ringer's (Lactated Ringer's 1000ml) 1,000 ml @ 125 mls/hr Q8H IV 09/13/16 10:00 10/13/16 09:59 09/13/16 18:10 Lactobacillus Acidophilus (Culturelle) 1 tab TWICE A DAY ORAL 08/26/16 18:00 09/25/16 17:59 09/12/16 17:29 Lactulose (Cephulac) 30 gm Q4H PRN ORAL constipation 09/04/16 09:15 10/04/16 09:14 Magnesium Hydroxide (Mom) 30 ml HSPRN PRN ORAL Constipation 08/26/16 14:45 09/25/16 14:44 09/05/16 01:47 Mupirocin (Bactroban Oint) 1 applic DAILY TOPIC 09/10/16 09:00 09/15/16 08:59 09/12/16 09:08 Ondansetron HCl (Zofran) 4 mg Q6H PRN IVP Nausea & Vomiting 08/31/16 17:45 09/30/16 17:44 09/12/16 16:25 Oxycodone/ Acetaminophen (Percocet 10/325) 1 tab Q4H PRN ORAL Moderate Pain (Pain Scale 4-6) 09/12/16 09:00 09/19/16 08:59 Polyethylene Glycol (Miralax) 17 gm HSPRN PRN ORAL Constipation 09/04/16 09:29 09/25/16 14:44 09/11/16 08:25 Silver Sulfadiazine (Silvadene Cream 25gm) 1 applic DAILY TOPIC 09/02/16 14:00 10/02/16 13:59 09/12/16 09:09 Vancomycin HCl 1 ea 1 ea DAILY PRN MISC . 09/12/16 10:30 10/07/16 23:59 Vancomycin HCl/ Dextrose (Vancomycin/D5W) 275 ml @ 183.333 mls/hr Q12HR IVPB 09/12/16 21:00 09/19/16 23:59 09/13/16 08:51 BLU KATHLEEN Sep 13, 2016 18:53
[2016-09-13] MEDS ORDERED: Bacitracin 50000 Units Vial ONE (19:09)
[2016-09-13] MEDS ORDERED: NS Irrig 1000ml ONE (19:30)
[2016-09-13] MEDS ORDERED: Morphine Sulfate 10mg/ml Inj ONE (19:30)
[2016-09-13] MEDS ORDERED: LR 1000ml ONE (19:30)
[2016-09-13] MEDS ORDERED: Midazolam 2mg/2ml Inj ONE (19:30)
[2016-09-13] MEDS ORDERED: Nimbex 2mg/ml Inj 10ML IVP ONE (19:30)
[2016-09-13] MEDS ORDERED: Metoclopramide 10mg/2ml Inj ONE (19:30)
[2016-09-13] MEDS ORDERED: fentaNYL 100 mcg/2 mL IV ONE (19:30)
[2016-09-13] MEDS ORDERED: Lidocaine 1% MPF 10mg/ml 5ml ONE (19:30)
[2016-09-13] MEDS ORDERED: LR 1000ml 1,000 ML IVLG SCH (20:10)
[2016-09-13] MEDS ORDERED: Metoclopramide 10mg/2ml Inj IVP PRN (20:15)
[2016-09-13] MEDS ORDERED: LORazepam Inj 2mg/ml 1ml IV PRN (20:15)
[2016-09-13] MEDS ORDERED: DiphenhydrAMINE 50mg/ml Inj IVP PRN (20:15)
[2016-09-13] MEDS ORDERED: Hydromorphone 0.5mg/0.5ml inj IVP PRN (20:15)
[2016-09-13] MEDS ORDERED: Midazolam 2mg/2ml Inj IVP PRN (20:15)
[2016-09-13] MEDS ORDERED: fentaNYL 100 mcg/2 mL IV PRN (20:15)
--- NOTE | 2016-09-13 21:03 | Immediate Post-Op Evaluation ---
Immediate Post-Op Evalulation Immediate Post-Op Evalulation Procedure: Debridement of necrotic tissue bilateral buttocks, closure Date of Evaluation: Sep 13, 2016 Time of Evaluation: 21:04 IV Fluids: 600 Blood Products: 0 Estimated Blood Loss: 50 Urinary Output: 0 Blood Pressure Systolic: 123 Blood Pressure Diastolic: 75 Pulse Rate: 75 Respiratory Rate: 16 O2 Sat by Pulse Oximetry: 100 Temperature (Fahrenheit): 97.9 Pain Score (1-10): 0 Nausea: No Vomiting: No Complications 0 Patient Status: awake, reacts, patent, none Hydration Status: adequate Drug: Vanco Given Within 1 Hr of Incision: Yes Time Given: 21:00 LETTY BUENROSTRO M.D. Sep 13, 2016 21:03
--- NOTE | 2016-09-13 21:08 | Operative Note - PDOC ---
Operative Note Operative Note Date of Operation/Procedure: Sep 13, 2016 Pre-op Diagnosis: Buttocks Infection, Collection, Abscess Procedure: Right Buttock Exploration, Irrigation, Debridement, Wash-out and Placement of Wound Vac Post-op Diagnosis: Same Post-op Diagnosis: same as pre-op Surgeon: Marianna Anesthesiologist: Garima Anesthesia: general Specimen: yes - b/l buttock and back necrotic soft tissue and skin Complications: none Condition: stable Estimated Blood Loss: minimal - 50 Drains: wound vac - x5 Bebo Cabral M.D. (Steven) Sep 13, 2016 21:08
[2016-09-14] VITALS: BP 125/74
[2016-09-14 04:00] VITALS: BP 134/87
[2016-09-14] MEDS: LR 1000ml 1,000 ML IV SCH ×3 (06:52→18:00)
[2016-09-14] MEDS: Heparin 5000 units/ml inj SUBQ SCH ×3 (06:54→20:30)
[2016-09-14] MEDS: Aztreonam Inj 1 GM in D5W 55 ML IVPB SCH (07:02)
[2016-09-14 08:22] VITALS: BP 141/88
[2016-09-14] MEDS: Docusate 100mg cap ORAL SCH ×2 (08:50→20:27)
[2016-09-14] MEDS: Vancomycin 1.25 GM in D5W 275 ML IVPB SCH (08:50)
[2016-09-14] MEDS: Lactobacillus-GG tablet ORAL SCH ×2 (08:50→17:59)
[2016-09-14] MEDS: HYDROmorphone 1mg/ml Carpuject IVP PRN ×2 (08:52→13:32)
[2016-09-14] MEDS: Silver Sulfadiazine Cream 25gm TOPIC SCH (08:53)
--- NOTE | 2016-09-14 09:07 | General Progress Note ---
Assessment/Plan Assessment/Plan (1) Bilateral buttock soft tissue necrosis, cellulitis, open wounds buttocks (2) Abscess (3) Intractable pain (4) Staged debridement of bilateral buttock necrotic soft tissue, flap delay The patient is to be continued on the Dilaudid and Percocet. The patient was discussed with Dr. Singh and concurred. Subjective Date patient seen: Sep 14, 2016 Time patient seen: 08:00 - am Allergies: Coded Allergies: IODINE (Verified Allergy, Unknown, 08/26/16) PENICILLINS (Verified Allergy, Unknown, 08/26/16) Subjective Constitutional: Reports: no symptoms HEENT: Reports: no symptoms Cardiovascular: Reports: no symptoms Respiratory: Reports: no symptoms Gastrointestinal/Abdominal: Reports: no symptoms Genitourinary: Reports: no symptoms Neurologic/Psychiatric: Reports: weakness Endocrine: Reports: no symptoms Hematologic/Lymphatic: Reports: no symptoms Subjective Pt is s/p surgery which was done last night. At this time her pain is a 2/10 and tolerated well on the Dilaudid and Percocet. Objective Last 24 Hour Vital Signs Date Time Temp Pulse Resp B/P Pulse Ox O2 Delivery O2 Flow Rate FiO2 09/14/16 08:22 98.2 85 18 141/88 100 Room Air 09/14/16 04:00 98.1 74 20 134/87 97 Room Air 09/14/16 00:00 97.7 102 20 125/74 99 Room Air 09/13/16 23:15 97.2 87 18 144/95 99 Room Air 09/13/16 22:45 98.0 84 18 137/96 100 Room Air 09/13/16 22:30 98.1 74 18 136/85 97 Room Air 09/13/16 22:00 97.5 79 18 154/79 100 09/13/16 21:45 73 20 160/80 100 09/13/16 21:30 81 16 167/89 100 09/13/16 21:20 77 17 159/86 100 09/13/16 21:15 85 14 148/82 100 09/13/16 21:10 83 16 152/81 100 09/13/16 21:03 75 16 100 09/13/16 21:00 80 15 133/91 100 09/13/16 20:58 97.9 75 14 123/75 100 09/13/16 18:40 97.5 09/13/16 16:00 97.2 90 18 125/69 100 Intake and Output 09/13/16 09/14/16 19:00 07:00 Intake Total 990 ml 740 ml Output Total 1203 ml Balance 990 ml -463 ml Intake Oral 240 ml 240 ml IV Total 750 ml 250 ml Blood Product 250 ml Output Urine Total 1 ml Emesis 1 ml Drainage Total 896 ml Estimated Blood Loss 300 ml Other 5 ml # Voids 3 4 # Bowel Movements 1 Height (Feet): 5 Height (Inches): 3.00 Weight (Pounds): 130 Objective General Appearance: no apparent distress, alert EENT: PERRL/EOMI, normal ENT inspection Neck: non-tender, normal alignment Cardiovascular: normal rate, regular rhythm Respiratory/Chest: lungs clear, normal breath sounds Abdomen: non tender, soft Extremities: non-tender Edema: no edema noted Arm (L), no edema noted Arm (R), no edema noted Leg (L), no edema noted Leg (R), no edema noted Pedal (L), no edema noted Pedal (R), no edema noted Generalized Neurologic: alert, oriented x 3 Skin: other - bandages applied to buttock area with tenderness to palpation NELLY JACK Sep 14, 2016 09:07
[2016-09-14] MEDS ORDERED: Tubing IV Secondary IV ONE (10:45)
[2016-09-14] MEDS ORDERED: LR 1000ml ONE (10:45)
--- NOTE | 2016-09-14 11:56 | Infectious Diseases Prog Note ---
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 abx, ? flagyl - n/v resolved off flagyl 4) hx gluteal silicone infections 5) recent terminated 6) r/u AURORA autoimmune syndrome 7) pain mgt, anemia, hyponatremia 8) allergies - pcn and iodine, sh-negative, mar noted, notes and records reviewed 9) d/w RN P) 1) change abx to oral bactrim and levofloxacin 2) check labs, cr, wbc 3) surgery f/u on wounds and wound care 4) continue treatment per Dr. Christiansen and surgery 5) orders noted and entered Subjective Constitutional: Denies: fever HEENT: Denies: congestion Respiratory: Denies: shortness of breath Cardiovascular: Denies: chest pain Gastrointestinal/Abdominal: Denies: diarrhea, nausea, vomiting Genitourinary: Reports: other - no beltre Neurologic: Denies: headache Psychiatric: Denies: depression Skin: Denies: rash Hematologic: Denies: bleeding Musculoskeletal: Denies: pain Allergies: Coded Allergies: IODINE (Verified Allergy, Unknown, 08/26/16) PENICILLINS (Verified Allergy, Unknown, 08/26/16) Objective Vital Signs Last 24 Hour Vital Signs Date Time Temp Pulse Resp B/P Pulse Ox O2 Delivery O2 Flow Rate FiO2 09/14/16 08:22 98.2 85 18 141/88 100 Room Air 09/14/16 04:00 98.1 74 20 134/87 97 Room Air 09/14/16 00:00 97.7 102 20 125/74 99 Room Air 09/13/16 23:15 97.2 87 18 144/95 99 Room Air 09/13/16 22:45 98.0 84 18 137/96 100 Room Air 09/13/16 22:30 98.1 74 18 136/85 97 Room Air 09/13/16 22:00 97.5 79 18 154/79 100 09/13/16 21:45 73 20 160/80 100 09/13/16 21:30 81 16 167/89 100 09/13/16 21:20 77 17 159/86 100 09/13/16 21:15 85 14 148/82 100 09/13/16 21:10 83 16 152/81 100 09/13/16 21:03 75 16 100 09/13/16 21:00 80 15 133/91 100 09/13/16 20:58 97.9 75 14 123/75 100 09/13/16 18:40 97.5 09/13/16 16:00 97.2 90 18 125/69 100 Height (Feet): 5 Height (Inches): 3.00 Weight (Pounds): 130 General Appearance: no acute distress HEENT: normocephalic, atraumatic, anicteric, mucous membranes moist, PERRL, EOMI, pharynx normal, supple, no JVD Respiratory/Chest: lungs clear, normal breath sounds, no respiratory distress, no accessory muscle use Cardiovascular: normal rate, regular rhythm, no gallop/murmur, no JVD Abdomen: normal bowel sounds, soft, non tender, no organomegaly, non distended Genitourinary: other - no beltre Extremities: no cyanosis Skin: no rash 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, alert, oriented x 3, responsive Lymphatic: no neck adenopathy Musculoskeletal: no effusion Objective Labs Test 08/31/16 05:50 08/31/16 08:31 09/01/16 07:05 09/02/16 10:36 White Blood Count 18.8 K/UL (4.8-10.8) 17.2 K/UL (4.8-10.8) 13.8 K/UL (4.8-10.8) Red Blood Count 2.95 M/UL (4.20-5.40) 2.98 M/UL (4.20-5.40) 3.11 M/UL (4.20-5.40) Hemoglobin 8.4 G/DL (12.0-16.0) 8.7 G/DL (12.0-16.0) 8.4 G/DL (12.0-16.0) Hematocrit 25.3 % (37.0-47.0) 26.0 % (37.0-47.0) 26.3 % (37.0-47.0) Mean Corpuscular Volume 86 FL (80-99) 87 FL (80-99) 84 FL (80-99) Mean Corpuscular Hemoglobin 28.3 PG (27.0-31.0) 29.3 PG (27.0-31.0) 27.1 PG (27.0-31.0) Mean Corpuscular Hemoglobin Concent 33.1 G/DL (32.0-36.0) 33.6 G/DL (32.0-36.0) 32.1 G/DL (32.0-36.0) Red Cell Distribution Width 12.8 % (11.6-14.8) 12.6 % (11.6-14.8) 12.5 % (11.6-14.8) Platelet Count 178 K/UL (150-450) 183 K/UL (150-450) 258 K/UL (150-450) Mean Platelet Volume 6.0 FL (6.5-10.1) 5.1 FL (6.5-10.1) 6.2 FL (6.5-10.1) Neutrophils (%) (Auto) % (45.0-75.0) 72.6 % (45.0-75.0) 75.9 % (45.0-75.0) Lymphocytes (%) (Auto) % (20.0-45.0) 15.0 % (20.0-45.0) 9.3 % (20.0-45.0) Monocytes (%) (Auto) % (1.0-10.0) 9.1 % (1.0-10.0) 10.6 % (1.0-10.0) Eosinophils (%) (Auto) % (0.0-3.0) 2.5 % (0.0-3.0) 3.0 % (0.0-3.0) Basophils (%) (Auto) % (0.0-2.0) 0.9 % (0.0-2.0) 1.3 % (0.0-2.0) Differential Total Cells Counted 100 Neutrophils % (Manual) 70 % (45-75) Lymphocytes % (Manual) 16 % (20-45) Monocytes % (Manual) 11 % (1-10) Eosinophils % (Manual) 2 % (0-3) Basophils % (Manual) 0 % (0-2) Band Neutrophils 1 % (0-8) Platelet Estimate Adequate Platelet Morphology Normal Hypochromasia 1+ Sodium Level 130 mEQ/L (135-145) 135 mEQ/L (135-145) 135 mEQ/L (135-145) Potassium Level 3.5 mEQ/L (3.4-4.9) 3.8 mEQ/L (3.4-4.9) 3.7 mEQ/L (3.4-4.9) Chloride Level 92 mEQ/L (98-107) 94 mEQ/L (98-107) 94 mEQ/L (98-107) Carbon Dioxide Level 27 mEQ/L (20-30) 29 mEQ/L (20-30) 27 mEQ/L (20-30) Anion Gap 11 (5-15) 12 (5-15) 14 (5-15) Blood Urea Nitrogen 6 mg/dL (7-23) 5 mg/dL (7-23) 7 mg/dL (7-23) Creatinine 0.8 mg/dL (0.5-0.9) 0.8 mg/dL (0.5-0.9) 0.7 mg/dL (0.5-0.9) Estimat Glomerular Filtration Rate > 60 mL/min (>60) > 60 mL/min (>60) > 60 mL/min (>60) Glucose Level 116 mg/dL (74-106) 112 mg/dL (74-106) 116 mg/dL (74-106) Calcium Level 8.3 mg/dL (8.6-10.2) 8.8 mg/dL (8.6-10.2) 8.8 mg/dL (8.6-10.2) Urine Color Pale yellow Urine Appearance Clear Urine pH 7 (4.5-8.0) Urine Specific [place] 1.005 (1.005-1.035) Urine Protein Negative (NEGATIVE) Urine Glucose (UA) Negative (NEGATIVE) Urine Ketones Negative (NEGATIVE) Urine Occult Blood 2+ (NEGATIVE) Urine Nitrite Negative (NEGATIVE) Urine Bilirubin Negative (NEGATIVE) Urine Urobilinogen Normal MG/DL (0.0-1.0) Urine Leukocyte Esterase 1+ (NEGATIVE) Urine RBC 2-4 /HPF (0 - 2) Urine WBC 2-4 /HPF (0 - 2) Urine Squamous Epithelial Cells Few /LPF (NONE/OCC) Urine Bacteria Few /HPF (NONE) Total Bilirubin 0.3 mg/dL (0.0-1.2) Aspartate Amino Transf (AST/SGOT) 31 U/L (5-40) Alanine Aminotransferase (ALT/SGPT) 51 U/L (3-33) Alkaline Phosphatase 74 U/L (35-104) Total Protein 6.3 g/dL (6.6-8.7) Albumin 2.9 g/dL (3.5-5.2) Globulin 3.4 g/dL Albumin/Globulin Ratio 0.8 (1.0-2.7) chest x-ray - negative mri pelvis - report noted \ 09/04 - pelvic ct - no abscess 09/04 - chest x-ray - negative for pna v/q scan - low probability for PE Microbiology Date/Time Source Procedure Growth Status 09/04/16 16:45 Blood Blood Culture - Final NO GROWTH AFTER 5 DAYS Complete 09/05/16 11:00 Wound Gram Stain - Final Complete 09/05/16 11:00 Wound Culture - Final Pseudomonas Aeruginosa Staphylococcus Sp Coag Neg Complete 08/31/16 08:31 Urine,Clean Catch Urine Culture - Final Diphtheroids Complete Labs Test 09/12/16 11:04 09/13/16 08:45 White Blood Count 9.9 K/UL (4.8-10.8) 8.5 K/UL (4.8-10.8) Red Blood Count 3.48 M/UL (4.20-5.40) 3.90 M/UL (4.20-5.40) Hemoglobin 9.8 G/DL (12.0-16.0) 11.4 G/DL (12.0-16.0) Hematocrit 30.3 % (37.0-47.0) 35.2 % (37.0-47.0) Mean Corpuscular Volume 87 FL (80-99) 90 FL (80-99) Mean Corpuscular Hemoglobin 28.3 PG (27.0-31.0) 29.3 PG (27.0-31.0) Mean Corpuscular Hemoglobin Concent 32.5 G/DL (32.0-36.0) 32.5 G/DL (32.0-36.0) Red Cell Distribution Width 14.4 % (11.6-14.8) 14.9 % (11.6-14.8) Platelet Count 317 K/UL (150-450) 404 K/UL (150-450) Mean Platelet Volume 6.5 FL (6.5-10.1) 5.9 FL (6.5-10.1) Neutrophils (%) (Auto) 60.7 % (45.0-75.0) 51.3 % (45.0-75.0) Lymphocytes (%) (Auto) 23.4 % (20.0-45.0) 34.2 % (20.0-45.0) Monocytes (%) (Auto) 9.0 % (1.0-10.0) 6.0 % (1.0-10.0) Eosinophils (%) (Auto) 5.8 % (0.0-3.0) 7.6 % (0.0-3.0) Basophils (%) (Auto) 1.1 % (0.0-2.0) 1.0 % (0.0-2.0) Sodium Level 138 mEQ/L (135-145) 139 mEQ/L (135-145) Potassium Level 3.8 mEQ/L (3.4-4.9) 3.6 mEQ/L (3.4-4.9) Chloride Level 100 mEQ/L (98-107) 100 mEQ/L (98-107) Carbon Dioxide Level 27 mEQ/L (20-30) 27 mEQ/L (20-30) Anion Gap 11 (5-15) 12 (5-15) Blood Urea Nitrogen 3 mg/dL (7-23) 3 mg/dL (7-23) Creatinine 0.7 mg/dL (0.5-0.9) 0.7 mg/dL (0.5-0.9) Estimat Glomerular Filtration Rate > 60 mL/min (>60) > 60 mL/min (>60) Glucose Level 144 mg/dL (74-106) 124 mg/dL (74-106) Calcium Level 8.5 mg/dL (8.6-10.2) 9.2 mg/dL (8.6-10.2) Total Bilirubin 0.2 mg/dL (0.0-1.2) Aspartate Amino Transf (AST/SGOT) 33 U/L (5-40) Alanine Aminotransferase (ALT/SGPT) 30 U/L (3-33) Alkaline Phosphatase 32 U/L (35-104) Total Protein 5.6 g/dL (6.6-8.7) Albumin 2.7 g/dL (3.5-5.2) Globulin 2.9 g/dL Albumin/Globulin Ratio 0.9 (1.0-2.7) Current Medications Medications (Trade) Dose Ordered Sig/Yamileth Route PRN Reason Start Time Stop Time Status Last Admin Dose Admin Acetaminophen (Tylenol) 650 mg Q4H PRN ORAL fever 08/26/16 14:45 09/25/16 14:44 09/04/16 15:13 Acetaminophen (Tylenol) 650 mg Q4H PRN ORAL Mild Pain (Pain Scale 1-3) 08/26/16 14:45 09/25/16 14:44 09/12/16 03:20 Acetaminophen/ Butalbital/ Caffeine 1 tab 1 tab Q6H PRN ORAL For headache 09/12/16 08:45 10/12/16 08:44 09/12/16 10:39 Al Hydroxide/Mg Hydroxide (Mylanta II) 30 ml Q6H PRN ORAL dyspepsia 08/26/16 14:45 09/25/16 14:44 Aztreonam 1 gm/ Dextrose 55 ml @ 110 mls/hr Q8H IVPB 09/12/16 15:00 09/21/16 23:59 09/14/16 07:02 Bisacodyl (Dulcolax) 10 mg HSPRN PRN RECTAL Constipation 09/04/16 09:28 09/25/16 14:44 Dextrose (Dextrose 50%) STAT PRN IV Hypoglycemia 08/26/16 14:45 09/25/16 14:44 Docusate Sodium (Colace) 100 mg EVERY 12 HOURS ORAL 08/26/16 21:00 09/25/16 20:59 09/14/16 08:50 Ferrous Sulfate (Feosol) 325 mg THREE TIMES A DAY ORAL 09/02/16 18:00 10/02/16 17:59 09/14/16 08:51 Gabapentin (Neurontin) 300 mg BEDTIME ORAL 08/30/16 21:00 09/29/16 20:59 09/13/16 23:58 Heparin Sodium (Porcine) (Heparin 5000 units/ml) 5,000 units EVERY 8 HOURS SUBQ 08/28/16 06:00 09/27/16 05:59 09/14/16 06:54 Hydromorphone HCl (Dilaudid) 1 mg Q4H PRN IVP Severe Pain (Pain Scale 7-10) 09/12/16 12:30 09/19/16 12:29 09/14/16 08:52 Hydromorphone HCl (Dilaudid) 2 mg Q4H PRN IVP Severe breakthrough pain 09/14/16 09:45 09/21/16 09:44 Lactated Ringer's (Lactated Ringer's 1000ml) 1,000 ml @ 125 mls/hr Q8H IV 09/13/16 21:00 10/13/16 20:59 09/14/16 06:52 Lactobacillus Acidophilus (Culturelle) 1 tab TWICE A DAY ORAL 08/26/16 18:00 09/25/16 17:59 09/14/16 08:50 Lactulose (Cephulac) 30 gm Q4H PRN ORAL constipation 09/04/16 09:15 10/04/16 09:14 Magnesium Hydroxide (Mom) 30 ml HSPRN PRN ORAL Constipation 08/26/16 14:45 09/25/16 14:44 09/05/16 01:47 Mupirocin (Bactroban Oint) 1 applic DAILY TOPIC 09/10/16 09:00 09/15/16 08:59 09/14/16 08:51 Ondansetron HCl (Zofran) 4 mg Q6H PRN IVP Nausea & Vomiting 08/31/16 17:45 09/30/16 17:44 09/14/16 02:15 Oxycodone/ Acetaminophen (Percocet 10/325) 1 tab Q4H PRN ORAL Moderate Pain (Pain Scale 4-6) 09/14/16 09:45 09/21/16 09:44 09/14/16 10:54 Polyethylene Glycol (Miralax) 17 gm HSPRN PRN ORAL Constipation 09/04/16 09:29 09/25/16 14:44 09/11/16 08:25 Silver Sulfadiazine (Silvadene Cream 25gm) 1 applic DAILY TOPIC 09/02/16 14:00 10/02/16 13:59 09/12/16 09:09 Vancomycin HCl 1 ea 1 ea DAILY PRN MISC . 09/12/16 10:30 10/07/16 23:59 Vancomycin HCl/ Dextrose (Vancomycin/D5W) 275 ml @ 183.333 mls/hr Q12HR IVPB 09/12/16 21:00 09/19/16 23:59 09/14/16 08:50 BLU KATHLEEN Sep 14, 2016 11:56
[2016-09-14 12:00] VITALS: BP 143/79
[2016-09-14] MEDS: Levofloxacin 500mg tab ORAL SCH (13:31)
--- NOTE | 2016-09-14 14:30 | Operative Note - Dictated ---
DATE OF OPERATION: 09/13/2016 SURGEON: Bebo Cabral M.D. ANESTHESIOLOGIST: Daysi Moore M.D. ANESTHESIA: General endotracheal tube anesthesia. PREOPERATIVE DIAGNOSES: 1. Right buttock open wound 12 x 8 cm. 2. Right buttock abscess/cellulitis. 3. Right inferior gluteal crease 1.5 cm open wound. 4. Right midportion buttock 1.5 cm open wound. POSTOPERATIVE DIAGNOSES: 1. Right buttock open wound 12 x 8 cm. 2. Right buttock abscess/cellulitis. 3. Right inferior gluteal crease 1.5 cm open wound. 4. Right midportion buttock 1.5 cm open wound. PROCEDURES PERFORMED: 1. Exploration of right buttock. 2. Debridement of necrotic tissue from right buttock. 3. Pulse jet lavage irrigation, right buttock. 4. Complex closure of total 3 cm, right buttock, open wounds inferior and mid portion buttocks. 5. Wound VAC placement to right buttock. 6. Wound preparation, 150 sq.cm, right buttock. Indication For Procedure: This is a female who was admitted on 08/26/2016 underwent two operations of radical debridement of bilateral buttocks, and the patient had incision and drainage of her right midportion of her buttocks, the superior portion of the buttock, and inferior portion of the buttock by me a few days ago. The patient has been getting local wound care with packing. The patient has been on IV antibiotics per Infectious Disease team. The patient's wound cultures have grown out Coagulase-negative Staph as well as Pseudomonas. She has been on broad-spectrum antibiotics per the Infectious Disease team. In the past day or two the superior aspect of the midportion of the right buttock main incision started to dehisce and there is now a there is a 12 x 8 cm open wound down to the gluteus frank muscles with exposed sutures and this was a very large wound. The patient was brought to the operating room today for emergent exploration, debridement, washout, and wound VAC placement. Since there are two other incision and drainage sites in the midportion of the buttock that was 1.5 cm and the inferior gluteal crease is 1.5 cm in order to maintain a seal for the VAC machine I told the patient I would ellipse out these two other open areas and closed them and seal them so that there wouldn't be a leak with the VAC machine. We would also prepare the wound for evtual flap closure, wash it out and place a wound VAC. This was explained to the patient and she will need the wound VAC for an unknown amount of time and eventually a closure procedure, either flap closure or a skin graft over drains once the wound was optimal. Risks and benefits were fully discussed including but not limited to, bleeding, infection, hematoma, seroma, wound dehiscence, poor scarring, keloid scarring, and again need for multiple operations and potential cosmetic deformity. The patient understood this and wished to proceed. Description Of Procedure: The patient was taken to the operating room, placed under general endotracheal tube anesthesia after SCDs were placed on bilateral lower extremities. Perioperative antibiotics were confirmed. She was then placed in the prone position after appropriate positioning and padding. I started the operation by prepping and draping the right buttock in the usual clean and sterile manner. Of note, the left buttock has one drain remaining. There were no signs of wound infection in the left buttock. After prepping and draping, I first explored the right buttock by making an incision slightly larger, 12 x 8 cm open wound. I then went inside through a whole bunch of Vicryl sutures. There were some loculations of fluid in between the progressive tension sutures that were placed in prior operation. So, I removed all the foreign material and explored the wound by increasing the size of the wound with a scalpel. I then scraped the wound. There was approximately 150 sq cm wound preparation underneath the skin flaps that was performed by scraping the wound with a curette and back of a bovie scratchpad to remove and fibrinous exudate and to stimulate granulation tissue. I then pulse jet lavage irrigated with three liters of antibiotic irrigation and explored the wounds there were no areas of other loculated pus pockets. I then addressed the two incision and drainage sites that were separate on the midportion of the buttock and inferior portion of the right buttocks. I ellipsed these open incision site wounds with #15 scalpel on both sides. I then closed the subcutaneous tissue and deep dermis with 3-0 Monocryl sutures and then a running 3-0 Prolene for the epidermis. Thus I performed a total of 3 cm of complex closure of right buttock wounds that were separate than her main incision. After performing wound preparation and pule jet lavage I then also debrided some of the necrotic tissue with scissor and scalpel technique. I also sent wound cultures superficial and deep to the lab and placed wound VAC sponge inside the wound set at the VAC machine ar 125 mmHg and there was no leak. The patient was flipped over, extubated, and transferred to recovery room in stable condition. Findings as above. SPECIMENS: Wound cultures and debrided tissues from right buttock. ESTIMATED BLOOD LOSS: Less than 100 mL. COMPLICATIONS: None. CONDITION: Stable. DRAINS: Wound VAC, right buttock. Bebo Cabral M.D. DR: ISHMAEL JOB#: [id number] CC: GABRIEL
[2016-09-14 16:00] VITALS: BP 129/70
--- NOTE | 2016-09-14 16:12 | General Progress Note ---
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 Cabral last night, wounds re-packed. Pain not well controlled this AM, but better this afternoon, no fevers/chills, no diaphoresis No further feelings of RLE numbness/tingling, her nausea/vomiting are much improved. Objective Last 24 Hour Vital Signs Date Time Temp Pulse Resp B/P Pulse Ox O2 Delivery O2 Flow Rate FiO2 09/14/16 12:00 97.9 96 20 143/79 96 Room Air 09/14/16 08:22 98.2 85 18 141/88 100 Room Air 09/14/16 04:00 98.1 74 20 134/87 97 Room Air 09/14/16 00:00 97.7 102 20 125/74 99 Room Air 09/13/16 23:15 97.2 87 18 144/95 99 Room Air 09/13/16 22:45 98.0 84 18 137/96 100 Room Air 09/13/16 22:30 98.1 74 18 136/85 97 Room Air 09/13/16 22:00 97.5 79 18 154/79 100 09/13/16 21:45 73 20 160/80 100 09/13/16 21:30 81 16 167/89 100 09/13/16 21:20 77 17 159/86 100 09/13/16 21:15 85 14 148/82 100 09/13/16 21:10 83 16 152/81 100 09/13/16 21:03 75 16 100 09/13/16 21:00 80 15 133/91 100 09/13/16 20:58 97.9 75 14 123/75 100 09/13/16 18:40 97.5 Intake and Output 09/13/16 09/14/16 19:00 07:00 Intake Total 990 ml 740 ml Output Total 1203 ml Balance 990 ml -463 ml Intake Oral 240 ml 240 ml IV Total 750 ml 250 ml Blood Product 250 ml Output Urine Total 1 ml Emesis 1 ml Drainage Total 896 ml Estimated Blood Loss 300 ml Other 5 ml # Voids 3 4 # Bowel Movements 1 Height (Feet): 5 Height (Inches): 3.00 Weight (Pounds): 130 Objective General: alert, cooperative, no distress, appears stated age Head: normocephalic, without obvious abnormality, atraumatic Eyes: conjunctivae/corneas clear. PERRL, EOM's intact Throat: lips, mucosa, and tongue normal. MMM Neck: supple, symmetrical, trachea midline, and no JVD Lungs: clear to auscultation bilaterally Heart: regular rate and rhythm, S1, S2 normal, no murmur, click, rub or gallop Abdomen: soft, non-tender, non-distended, bowel sounds normal; no masses or organomegaly Extremities: dressing appear clean/dry/intact, +wound vac Pulses: 2+ and symmetric Skin: skin color, texture, turgor normal; no rashes or lesions Neurologic: 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, no focal deficits PETERSON COTTO Sep 14, 2016 16:12
--- NOTE | 2016-09-14 17:57 | 48 Hour Post Anesthesia Eval ---
Post Anesthesia Evaluation Procedure: Debridement of necrotic tissue bilateral buttocks, closure Date of Evaluation: Sep 14, 2016 Time of Evaluation: 17:55 Blood Pressure Systolic: 128 0: 74 Pulse Rate: 68 Respiratory Rate: 20 Temperature (Fahrenheit): 97.6 O2 Sat by Pulse Oximetry: 98 Airway: patent Nausea: No Vomiting: No Pain Intensity: 3 Hydration Status: adequate Cardiopulmonary Status: stable Mental Status/LOC: patient returned to baseline Follow-up Care/Observations: n/a Post-Anesthesia Complications: none Follow-up care needed: N/A RAVI BALDWIN M.D. Sep 14, 2016 17:57
[2016-09-14] MEDS: Bactrim DS (160mg/800mg) tab ORAL SCH (17:59)
[2016-09-14 20:02] VITALS: BP 123/73
[2016-09-15 00:04] VITALS: BP 128/71
[2016-09-15] MEDS: Heparin 5000 units/ml inj SUBQ SCH ×3 (06:09→22:00)
[2016-09-15] MEDS: LR 1000ml 1,000 ML IV SCH ×2 (06:14→14:05)
[2016-09-15 08:00] VITALS: BP 133/77
[2016-09-15] MEDS: Lactobacillus-GG tablet ORAL SCH ×2 (08:42→17:19)
[2016-09-15] MEDS: Bactrim DS (160mg/800mg) tab ORAL SCH ×2 (08:42→17:19)
[2016-09-15] MEDS: Levofloxacin 500mg tab ORAL SCH (08:43)
[2016-09-15] MEDS: Silver Sulfadiazine Cream 25gm TOPIC SCH (08:44)
[2016-09-15] MEDS: Docusate 100mg cap ORAL SCH ×2 (08:44→21:00)
--- NOTE | 2016-09-15 11:02 | Infectious Diseases Prog Note ---
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 abx, ? flagyl - n/v resolved off flagyl 4) hx gluteal silicone infections 5) recent terminated 6) r/u AURORA autoimmune syndrome 7) pain mgt, anemia, hyponatremia 8) allergies - pcn and iodine, sh-negative, mar noted, notes and records reviewed 9) d/w RN P) 1) oral bactrim and levofloxacin 2) check labs, cr, wbc 3) surgery f/u on wounds and wound care 4) continue treatment per Dr. Christiansen and surgery 5) orders noted and entered 6) pt started on diflucan for possible vaginal yeast infection Subjective Constitutional: Denies: fever HEENT: Denies: congestion Respiratory: Denies: shortness of breath Cardiovascular: Denies: chest pain Gastrointestinal/Abdominal: Denies: nausea Neurologic: Denies: headache Psychiatric: Denies: depression Skin: Denies: rash Hematologic: Denies: bleeding Musculoskeletal: Denies: pain Allergies: Coded Allergies: IODINE (Verified Allergy, Unknown, 08/26/16) PENICILLINS (Verified Allergy, Unknown, 08/26/16) Objective Vital Signs Last 24 Hour Vital Signs Date Time Temp Pulse Resp B/P Pulse Ox O2 Delivery O2 Flow Rate FiO2 09/15/16 08:00 97.5 79 20 133/77 96 Room Air 09/15/16 01:42 97.7 09/15/16 00:04 97.7 86 18 128/71 96 Room Air 09/14/16 20:02 98.1 76 19 123/73 98 Room Air 09/14/16 17:57 68 20 98 09/14/16 16:00 98.1 82 20 129/70 98 Room Air 09/14/16 12:00 97.9 96 20 143/79 96 Room Air Height (Feet): 5 Height (Inches): 3.00 Weight (Pounds): 130 General Appearance: no acute distress HEENT: normocephalic, atraumatic, anicteric, mucous membranes moist, PERRL, EOMI, pharynx normal, supple Respiratory/Chest: lungs clear, normal breath sounds, no respiratory distress, no accessory muscle use Cardiovascular: normal rate, regular rhythm, no gallop/murmur, no JVD Abdomen: normal bowel sounds, soft, non tender, no organomegaly, non distended Genitourinary: other - no beltre Extremities: no cyanosis Skin: no rash, other - wounds covered 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/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, alert, oriented x 3, responsive Lymphatic: no neck adenopathy Musculoskeletal: normal muscle bulk Objective Labs Test 08/31/16 05:50 08/31/16 08:31 09/01/16 07:05 09/02/16 10:36 White Blood Count 18.8 K/UL (4.8-10.8) 17.2 K/UL (4.8-10.8) 13.8 K/UL (4.8-10.8) Red Blood Count 2.95 M/UL (4.20-5.40) 2.98 M/UL (4.20-5.40) 3.11 M/UL (4.20-5.40) Hemoglobin 8.4 G/DL (12.0-16.0) 8.7 G/DL (12.0-16.0) 8.4 G/DL (12.0-16.0) Hematocrit 25.3 % (37.0-47.0) 26.0 % (37.0-47.0) 26.3 % (37.0-47.0) Mean Corpuscular Volume 86 FL (80-99) 87 FL (80-99) 84 FL (80-99) Mean Corpuscular Hemoglobin 28.3 PG (27.0-31.0) 29.3 PG (27.0-31.0) 27.1 PG (27.0-31.0) Mean Corpuscular Hemoglobin Concent 33.1 G/DL (32.0-36.0) 33.6 G/DL (32.0-36.0) 32.1 G/DL (32.0-36.0) Red Cell Distribution Width 12.8 % (11.6-14.8) 12.6 % (11.6-14.8) 12.5 % (11.6-14.8) Platelet Count 178 K/UL (150-450) 183 K/UL (150-450) 258 K/UL (150-450) Mean Platelet Volume 6.0 FL (6.5-10.1) 5.1 FL (6.5-10.1) 6.2 FL (6.5-10.1) Neutrophils (%) (Auto) % (45.0-75.0) 72.6 % (45.0-75.0) 75.9 % (45.0-75.0) Lymphocytes (%) (Auto) % (20.0-45.0) 15.0 % (20.0-45.0) 9.3 % (20.0-45.0) Monocytes (%) (Auto) % (1.0-10.0) 9.1 % (1.0-10.0) 10.6 % (1.0-10.0) Eosinophils (%) (Auto) % (0.0-3.0) 2.5 % (0.0-3.0) 3.0 % (0.0-3.0) Basophils (%) (Auto) % (0.0-2.0) 0.9 % (0.0-2.0) 1.3 % (0.0-2.0) Differential Total Cells Counted 100 Neutrophils % (Manual) 70 % (45-75) Lymphocytes % (Manual) 16 % (20-45) Monocytes % (Manual) 11 % (1-10) Eosinophils % (Manual) 2 % (0-3) Basophils % (Manual) 0 % (0-2) Band Neutrophils 1 % (0-8) Platelet Estimate Adequate Platelet Morphology Normal Hypochromasia 1+ Sodium Level 130 mEQ/L (135-145) 135 mEQ/L (135-145) 135 mEQ/L (135-145) Potassium Level 3.5 mEQ/L (3.4-4.9) 3.8 mEQ/L (3.4-4.9) 3.7 mEQ/L (3.4-4.9) Chloride Level 92 mEQ/L (98-107) 94 mEQ/L (98-107) 94 mEQ/L (98-107) Carbon Dioxide Level 27 mEQ/L (20-30) 29 mEQ/L (20-30) 27 mEQ/L (20-30) Anion Gap 11 (5-15) 12 (5-15) 14 (5-15) Blood Urea Nitrogen 6 mg/dL (7-23) 5 mg/dL (7-23) 7 mg/dL (7-23) Creatinine 0.8 mg/dL (0.5-0.9) 0.8 mg/dL (0.5-0.9) 0.7 mg/dL (0.5-0.9) Estimat Glomerular Filtration Rate > 60 mL/min (>60) > 60 mL/min (>60) > 60 mL/min (>60) Glucose Level 116 mg/dL (74-106) 112 mg/dL (74-106) 116 mg/dL (74-106) Calcium Level 8.3 mg/dL (8.6-10.2) 8.8 mg/dL (8.6-10.2) 8.8 mg/dL (8.6-10.2) Urine Color Pale yellow Urine Appearance Clear Urine pH 7 (4.5-8.0) Urine Specific [place] 1.005 (1.005-1.035) Urine Protein Negative (NEGATIVE) Urine Glucose (UA) Negative (NEGATIVE) Urine Ketones Negative (NEGATIVE) Urine Occult Blood 2+ (NEGATIVE) Urine Nitrite Negative (NEGATIVE) Urine Bilirubin Negative (NEGATIVE) Urine Urobilinogen Normal MG/DL (0.0-1.0) Urine Leukocyte Esterase 1+ (NEGATIVE) Urine RBC 2-4 /HPF (0 - 2) Urine WBC 2-4 /HPF (0 - 2) Urine Squamous Epithelial Cells Few /LPF (NONE/OCC) Urine Bacteria Few /HPF (NONE) Total Bilirubin 0.3 mg/dL (0.0-1.2) Aspartate Amino Transf (AST/SGOT) 31 U/L (5-40) Alanine Aminotransferase (ALT/SGPT) 51 U/L (3-33) Alkaline Phosphatase 74 U/L (35-104) Total Protein 6.3 g/dL (6.6-8.7) Albumin 2.9 g/dL (3.5-5.2) Globulin 3.4 g/dL Albumin/Globulin Ratio 0.8 (1.0-2.7) chest x-ray - negative mri pelvis - report noted \ 09/04 - pelvic ct - no abscess 09/04 - chest x-ray - negative for pna v/q scan - low probability for PE Microbiology Date/Time Source Procedure Growth Status 09/04/16 16:45 Blood Blood Culture - Final NO GROWTH AFTER 5 DAYS Complete 09/05/16 11:00 Wound Gram Stain - Final Complete 09/05/16 11:00 Wound Culture - Final Pseudomonas Aeruginosa Staphylococcus Sp Coag Neg Complete 08/31/16 08:31 Urine,Clean Catch Urine Culture - Final Diphtheroids Complete 09/13/16 20:00 Buttock Right Gram Stain - Final Resulted 09/13/16 20:00 Buttock Right Aerobic Culture - Preliminary NO GROWTH Resulted 09/13/16 20:00 Buttock Right Anaerobic Culture - Preliminary NO GROWTH Resulted Labs Test 09/12/16 11:04 09/13/16 08:45 White Blood Count 9.9 K/UL (4.8-10.8) 8.5 K/UL (4.8-10.8) Red Blood Count 3.48 M/UL (4.20-5.40) 3.90 M/UL (4.20-5.40) Hemoglobin 9.8 G/DL (12.0-16.0) 11.4 G/DL (12.0-16.0) Hematocrit 30.3 % (37.0-47.0) 35.2 % (37.0-47.0) Mean Corpuscular Volume 87 FL (80-99) 90 FL (80-99) Mean Corpuscular Hemoglobin 28.3 PG (27.0-31.0) 29.3 PG (27.0-31.0) Mean Corpuscular Hemoglobin Concent 32.5 G/DL (32.0-36.0) 32.5 G/DL (32.0-36.0) Red Cell Distribution Width 14.4 % (11.6-14.8) 14.9 % (11.6-14.8) Platelet Count 317 K/UL (150-450) 404 K/UL (150-450) Mean Platelet Volume 6.5 FL (6.5-10.1) 5.9 FL (6.5-10.1) Neutrophils (%) (Auto) 60.7 % (45.0-75.0) 51.3 % (45.0-75.0) Lymphocytes (%) (Auto) 23.4 % (20.0-45.0) 34.2 % (20.0-45.0) Monocytes (%) (Auto) 9.0 % (1.0-10.0) 6.0 % (1.0-10.0) Eosinophils (%) (Auto) 5.8 % (0.0-3.0) 7.6 % (0.0-3.0) Basophils (%) (Auto) 1.1 % (0.0-2.0) 1.0 % (0.0-2.0) Sodium Level 138 mEQ/L (135-145) 139 mEQ/L (135-145) Potassium Level 3.8 mEQ/L (3.4-4.9) 3.6 mEQ/L (3.4-4.9) Chloride Level 100 mEQ/L (98-107) 100 mEQ/L (98-107) Carbon Dioxide Level 27 mEQ/L (20-30) 27 mEQ/L (20-30) Anion Gap 11 (5-15) 12 (5-15) Blood Urea Nitrogen 3 mg/dL (7-23) 3 mg/dL (7-23) Creatinine 0.7 mg/dL (0.5-0.9) 0.7 mg/dL (0.5-0.9) Estimat Glomerular Filtration Rate > 60 mL/min (>60) > 60 mL/min (>60) Glucose Level 144 mg/dL (74-106) 124 mg/dL (74-106) Calcium Level 8.5 mg/dL (8.6-10.2) 9.2 mg/dL (8.6-10.2) Total Bilirubin 0.2 mg/dL (0.0-1.2) Aspartate Amino Transf (AST/SGOT) 33 U/L (5-40) Alanine Aminotransferase (ALT/SGPT) 30 U/L (3-33) Alkaline Phosphatase 32 U/L (35-104) Total Protein 5.6 g/dL (6.6-8.7) Albumin 2.7 g/dL (3.5-5.2) Globulin 2.9 g/dL Albumin/Globulin Ratio 0.9 (1.0-2.7) Current Medications Medications (Trade) Dose Ordered Sig/Yamileth Route PRN Reason Start Time Stop Time Status Last Admin Dose Admin Acetaminophen (Tylenol) 650 mg Q4H PRN ORAL fever 08/26/16 14:45 09/25/16 14:44 09/04/16 15:13 Acetaminophen (Tylenol) 650 mg Q4H PRN ORAL Mild Pain (Pain Scale 1-3) 08/26/16 14:45 09/25/16 14:44 09/12/16 03:20 Acetaminophen/ Butalbital/ Caffeine 1 tab 1 tab Q6H PRN ORAL For headache 09/12/16 08:45 10/12/16 08:44 09/12/16 10:39 Al Hydroxide/Mg Hydroxide (Mylanta II) 30 ml Q6H PRN ORAL dyspepsia 08/26/16 14:45 09/25/16 14:44 Bisacodyl (Dulcolax) 10 mg HSPRN PRN RECTAL Constipation 09/04/16 09:28 09/25/16 14:44 Dextrose (Dextrose 50%) STAT PRN IV Hypoglycemia 08/26/16 14:45 09/25/16 14:44 Docusate Sodium (Colace) 100 mg EVERY 12 HOURS ORAL 08/26/16 21:00 09/25/16 20:59 09/15/16 08:44 Ferrous Sulfate (Feosol) 325 mg THREE TIMES A DAY ORAL 09/02/16 18:00 10/02/16 17:59 09/15/16 08:43 Fluconazole (Diflucan) 100 mg DAILY ORAL 09/15/16 13:00 09/22/16 12:59 Gabapentin (Neurontin) 300 mg BEDTIME ORAL 08/30/16 21:00 09/29/16 20:59 09/14/16 20:27 Heparin Sodium (Porcine) (Heparin 5000 units/ml) 5,000 units EVERY 8 HOURS SUBQ 08/28/16 06:00 09/27/16 05:59 09/15/16 06:09 Hydromorphone HCl (Dilaudid) 2 mg Q4H PRN IVP for severe 7-10 pain 09/14/16 15:23 09/21/16 15:22 09/15/16 10:43 Lactated Ringer's (Lactated Ringer's 1000ml) 1,000 ml @ 125 mls/hr Q8H IV 09/13/16 21:00 10/13/16 20:59 09/15/16 06:14 Lactobacillus Acidophilus (Culturelle) 1 tab TWICE A DAY ORAL 08/26/16 18:00 09/25/16 17:59 09/15/16 08:42 Lactulose (Cephulac) 30 gm Q4H PRN ORAL constipation 09/04/16 09:15 10/04/16 09:14 Levofloxacin (Levaquin) 500 mg DAILY ORAL 09/14/16 13:00 09/21/16 12:59 09/15/16 08:43 Magnesium Hydroxide (Mom) 30 ml HSPRN PRN ORAL Constipation 08/26/16 14:45 09/25/16 14:44 09/05/16 01:47 Ondansetron HCl (Zofran) 4 mg Q6H PRN IVP Nausea & Vomiting 08/31/16 17:45 09/30/16 17:44 09/14/16 02:15 Oxycodone/ Acetaminophen (Percocet 10/325) 1 tab Q4H PRN ORAL for breakthrough pain 09/14/16 15:23 09/21/16 15:22 09/15/16 08:43 Polyethylene Glycol (Miralax) 17 gm HSPRN PRN ORAL Constipation 09/04/16 09:29 09/25/16 14:44 09/11/16 08:25 Silver Sulfadiazine (Silvadene Cream 25gm) 1 applic DAILY TOPIC 09/02/16 14:00 10/02/16 13:59 09/15/16 08:44 Trimethoprim/ Sulfamethoxazole (Bactrim-DS) 1 ea TWICE A DAY ORAL 09/14/16 18:00 09/21/16 17:59 09/15/16 08:42 BLU KATHLEEN Sep 15, 2016 11:02
[2016-09-15 11:04] LABS: EOSINOPHILS % (AUTO) 6.5 % (0.0-3.0); LYMPHOCYTES % (AUTO) 36.1 % (20.0-45.0); MEAN CORPUSCULAR HEMOGLOBIN 28.5 PG (27.0-31.0); MEAN CORPUSCULAR HGB CONC 31.8 G/DL (32.0-36.0); MEAN CORPUSCULAR VOLUME 90 FL (80-99); MONOCYTES % (AUTO) 5.7 % (1.0-10.0); NEUTROPHILS % (AUTO) 50.7 % (45.0-75.0); PLATELET COUNT 302 K/UL (150-450); RED BLOOD COUNT 3.28 M/UL (4.20-5.40); RED CELL DISTRIBUTION WIDTH 14.6 % (11.6-14.8); WHITE BLOOD COUNT 8.5 K/UL (4.8-10.8)
[2016-09-15 11:20] LABS: ANION GAP 11 (5-15); CALCIUM 8.7 mg/dL (8.6-10.2); CARBON DIOXIDE 28 mEQ/L (20-30); CHLORIDE 99 mEQ/L (98-107); CREATININE 0.8 mg/dL (0.5-0.9); GLOMERULAR FILTRATION RATE > 60 mL/min (>60); HEMOLYSIS 1; POTASSIUM 3.6 mEQ/L (3.4-4.9); SODIUM 138 mEQ/L (135-145)
[2016-09-15 12:00] VITALS: BP 133/84
--- NOTE | 2016-09-15 12:07 | Pre-Procedure Note/Attestation ---
Pre-Procedure Note/Attestation Complete Prior to Procedure Planned Procedure: right Procedure Narrative: exploration, washout, possible debridement, possible partial wound closure, VAC change to right buttock open wound Indications for Procedure Pre-Operative Diagnosis: Buttocks Infection, Collection, Abscess Attestation I attest that I discussed the nature of the procedure; its benefits; risks and complications; and alternatives (and the risks and benefits of such alternatives ), prior to the procedure, with the patient (or the patient's legal denial management representative). I attest that, if there was a reasonable possibility of needing a blood transfusion, the patient (or the patient's legal denial management representative) was given the [place] Department [employer] standardized written summary, pursuant to the [place] Blood Safety Act ([place] Health and Safety Code # 1645, as amended). I attest that I re-evaluated the patient just prior to the surgery and that there has been no change in the patient's H&P, except as documented below: Bebo Cabral M.D. (Steven) Sep 15, 2016 12:07
--- NOTE | 2016-09-15 12:16 | General Progress Note ---
Progress Note Progress Note Pt seen and examined and chart reviewed. Pt doing better today. AF/VSS WBC nml PE: RIght buttock 13 x 6 cm open wound w/ wound VAC in place two small right buttock incisions covered with xeroform (-) erythema (-)collections; decreased tenderness Left buttock incision healing well A/P 1. cont Abx per ID 2. DVT ppx/ OOB 3. to OR tmw with for washout/debridement/possible partial wound closure/ VAC change 4. will need to be evaluated by SW for SNF transfer when clinically appropriate 5. d/w pt unknown number of future operations and unknown time till healing and all questions answered Betty Chance M.D. Sep 15, 2016 12:16
--- NOTE | 2016-09-15 13:52 | General Progress Note ---
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 Pain well controlled, no diaphoresis No further feelings of RLE numbness/tingling, her nausea/vomiting are much improved. Objective Last 24 Hour Vital Signs Date Time Temp Pulse Resp B/P Pulse Ox O2 Delivery O2 Flow Rate FiO2 09/15/16 12:00 97.7 85 20 133/84 99 Room Air 09/15/16 08:00 97.5 79 20 133/77 96 Room Air 09/15/16 01:42 97.7 09/15/16 00:04 97.7 86 18 128/71 96 Room Air 09/14/16 20:02 98.1 76 19 123/73 98 Room Air 09/14/16 17:57 68 20 98 09/14/16 16:00 98.1 82 20 129/70 98 Room Air Intake and Output 09/14/16 09/15/16 19:00 07:00 Intake Total 1685.000 ml 875 ml Output Total 135 ml 145 ml Balance 1550.000 ml 730 ml Intake Oral 480 ml IV Total 1205.000 ml 875 ml Drainage Total 135 ml 145 ml # Voids 3 4 # Bowel Movements 1 Laboratory Tests 09/15/16 10:05: White Blood Count 8.5, Red Blood Count 3.28L, Hemoglobin 9.4L, Hematocrit 29.4L , Mean Corpuscular Volume 90, Mean Corpuscular Hemoglobin 28.5, Mean Corpuscular Hemoglobin Concent 31.8L, Red Cell Distribution Width 14.6, Platelet Count 302, Mean Platelet Volume 6.0L, Neutrophils (%) (Auto) 50.7, Lymphocytes (%) (Auto) 36.1, Monocytes (%) (Auto) 5.7, Eosinophils (%) (Auto) 6.5H, Basophils (%) (Auto) 1.0, Sodium Level 138, Potassium Level 3.6, Chloride Level 99, Carbon Dioxide Level 28, Anion Gap 11, Blood Urea Nitrogen 5L, Creatinine 0.8, Estimat Glomerular Filtration Rate > 60, Glucose Level 81, Calcium Level 8.7 Height (Feet): 5 Height (Inches): 3.00 Weight (Pounds): 130 Objective General: alert, cooperative, no distress, appears stated age Head: normocephalic, without obvious abnormality, atraumatic Eyes: conjunctivae/corneas clear. PERRL, EOM's intact Throat: lips, mucosa, and tongue normal. MMM Neck: supple, symmetrical, trachea midline, and no JVD Lungs: clear to auscultation bilaterally Heart: regular rate and rhythm, S1, S2 normal, no murmur, click, rub or gallop Abdomen: soft, non-tender, non-distended, bowel sounds normal; no masses or organomegaly Extremities: dressing appear clean/dry/intact, +wound vac Pulses: 2+ and symmetric Skin: skin color, texture, turgor normal; no rashes or lesions Neurologic: 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, no focal deficits PETERSON COTTO Sep 15, 2016 13:51
[2016-09-15] MEDS: Fluconazole 100mg tab ORAL SCH (14:05)
[2016-09-15 16:00] VITALS: BP 137/87
[2016-09-15 20:08] VITALS: BP 145/82
[2016-09-16] VITALS (11 sets, daily range): BP systolic 109–150; BP diastolic 62–90
[2016-09-16] MEDS: LR 1000ml 1,000 ML IV SCH ×3 (00:05→15:00)
[2016-09-16] MEDS: Heparin 5000 units/ml inj SUBQ SCH ×3 (05:44→21:16)
[2016-09-16 07:45] LABS: BASOPHILS % (AUTO) 1.2 % (0.0-2.0); EOSINOPHILS % (AUTO) 10.9 % (0.0-3.0); LYMPHOCYTES % (AUTO) 28.8 % (20.0-45.0); MEAN CORPUSCULAR HEMOGLOBIN 28.1 PG (27.0-31.0); MEAN CORPUSCULAR VOLUME 91 FL (80-99); MEAN PLATELET VOLUME 6.2 FL (6.5-10.1); MONOCYTES % (AUTO) 8.8 % (1.0-10.0); NEUTROPHILS % (AUTO) 50.3 % (45.0-75.0); PLATELET COUNT 321 K/UL (150-450); RED CELL DISTRIBUTION WIDTH 14.4 % (11.6-14.8); WHITE BLOOD COUNT 7.8 K/UL (4.8-10.8)
[2016-09-16] MEDS: Lactobacillus-GG tablet ORAL SCH ×2 (09:00→17:29)
[2016-09-16] MEDS: Docusate 100mg cap ORAL SCH ×2 (09:00→21:15)
[2016-09-16] MEDS: Levofloxacin 500mg tab ORAL SCH (09:00)
[2016-09-16] MEDS: Silver Sulfadiazine Cream 25gm TOPIC SCH (09:00)
[2016-09-16] MEDS: Fluconazole 100mg tab ORAL SCH (09:00)
[2016-09-16] MEDS: Bactrim DS (160mg/800mg) tab ORAL SCH ×2 (09:00→17:29)
[2016-09-16 09:10] LABS: ANION GAP 15 (5-15); CALCIUM 8.9 mg/dL (8.6-10.2); CARBON DIOXIDE 26 mEQ/L (20-30); CHLORIDE 99 mEQ/L (98-107); CREATININE 0.8 mg/dL (0.5-0.9); GLOMERULAR FILTRATION RATE > 60 mL/min (>60); HEMOLYSIS 2; POTASSIUM 3.8 mEQ/L (3.4-4.9); SODIUM 140 mEQ/L (135-145)
--- NOTE | 2016-09-16 09:28 | General Progress Note ---
Assessment/Plan Assessment/Plan (1) Bilateral buttock soft tissue necrosis, cellulitis, open wounds buttocks (2) Abscess (3) Intractable pain (4) Staged debridement of bilateral buttock necrotic soft tissue, flap delay The patient is to be continued on the Dilaudid and Percocet. The patient was discussed with Dr. Singh and concurred. Subjective Date patient seen: Sep 16, 2016 Time patient seen: 08:00 - am Allergies: Coded Allergies: IODINE (Verified Allergy, Unknown, 08/26/16) PENICILLINS (Verified Allergy, Unknown, 08/26/16) Subjective Constitutional: Reports: no symptoms HEENT: Reports: no symptoms Cardiovascular: Reports: no symptoms Respiratory: Reports: no symptoms Gastrointestinal/Abdominal: Reports: no symptoms Genitourinary: Reports: no symptoms Neurologic/Psychiatric: Reports: weakness Endocrine: Reports: no symptoms Hematologic/Lymphatic: Reports: no symptoms Subjective Pt reports that she is doing well and tolerating the pain on the Dilaudid 6 doses and Percocet 3 doses in the last 24hrs. She will be going for surgery later today. Objective Last 24 Hour Vital Signs Date Time Temp Pulse Resp B/P Pulse Ox O2 Delivery O2 Flow Rate FiO2 09/16/16 04:00 98.2 81 20 150/90 99 Room Air 09/16/16 00:04 97.3 91 20 131/79 99 Room Air 09/15/16 20:08 98.4 77 18 145/82 98 Room Air 09/15/16 17:22 94 Nasal Cannula 2.0 28 09/15/16 17:22 Nasal Cannula 2.0 28 09/15/16 16:00 97.9 83 18 137/87 100 Room Air 09/15/16 12:00 97.7 85 20 133/84 99 Room Air Intake and Output 09/15/16 09/16/16 19:00 07:00 Intake Total 740 ml 0 ml Output Total 205 ml 100 ml Balance 535 ml -100 ml Intake Oral 440 ml 0 ml IV Total 300 ml Drainage Total 205 ml 100 ml # Voids 3 4 Laboratory Tests 09/15/16 10:05: White Blood Count 8.5, Red Blood Count 3.28L, Hemoglobin 9.4L, Hematocrit 29.4L , Mean Corpuscular Volume 90, Mean Corpuscular Hemoglobin 28.5, Mean Corpuscular Hemoglobin Concent 31.8L, Red Cell Distribution Width 14.6, Platelet Count 302, Mean Platelet Volume 6.0L, Neutrophils (%) (Auto) 50.7, Lymphocytes (%) (Auto) 36.1, Monocytes (%) (Auto) 5.7, Eosinophils (%) (Auto) 6.5H, Basophils (%) (Auto) 1.0, Sodium Level 138, Potassium Level 3.6, Chloride Level 99, Carbon Dioxide Level 28, Anion Gap 11, Blood Urea Nitrogen 5L, Creatinine 0.8, Estimat Glomerular Filtration Rate > 60, Glucose Level 81, Calcium Level 8.7 09/16/16 06:10: White Blood Count 7.8, Red Blood Count 3.50L, Hemoglobin 9.8L, Hematocrit 31.7L , Mean Corpuscular Volume 91, Mean Corpuscular Hemoglobin 28.1, Mean Corpuscular Hemoglobin Concent 31.0L, Red Cell Distribution Width 14.4, Platelet Count 321, Mean Platelet Volume 6.2L, Neutrophils (%) (Auto) 50.3, Lymphocytes (%) (Auto) 28.8, Monocytes (%) (Auto) 8.8, Eosinophils (%) (Auto) 10.9H, Basophils (%) (Auto) 1.2, Sodium Level [Pending], Potassium Level [ Pending], Chloride Level [Pending], Carbon Dioxide Level [Pending], Blood Urea Nitrogen [Pending], Creatinine [Pending], Estimat Glomerular Filtration Rate [ Pending], Glucose Level [Pending], Calcium Level [Pending] Height (Feet): 5 Height (Inches): 3.00 Weight (Pounds): 130 Objective General Appearance: no apparent distress, alert EENT: PERRL/EOMI, normal ENT inspection Neck: non-tender, normal alignment Cardiovascular: normal rate, regular rhythm Respiratory/Chest: lungs clear, normal breath sounds Abdomen: non tender, soft Extremities: non-tender Edema: no edema noted Arm (L), no edema noted Arm (R), no edema noted Leg (L), no edema noted Leg (R), no edema noted Pedal (L), no edema noted Pedal (R), no edema noted Generalized Neurologic: alert, oriented x 3 Skin: other - bandages applied to buttock area with tenderness to palpation ZEDNER,NELLY N. P.A. Sep 16, 2016 09:28
[2016-09-16] MEDS ORDERED: Propofol 10mg/ml 20ml IV ONE (11:08)
--- NOTE | 2016-09-16 11:51 | General Progress Note ---
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 Pain well controlled, no diaphoresis No further feelings of RLE numbness/tingling, her nausea/vomiting are much improved. Objective Last 24 Hour Vital Signs Date Time Temp Pulse Resp B/P Pulse Ox O2 Delivery O2 Flow Rate FiO2 09/16/16 10:34 98.1 87 18 146/90 99 Room Air 09/16/16 04:00 98.2 81 20 150/90 99 Room Air 09/16/16 00:04 97.3 91 20 131/79 99 Room Air 09/15/16 20:08 98.4 77 18 145/82 98 Room Air 09/15/16 17:22 94 Nasal Cannula 2.0 28 09/15/16 17:22 Nasal Cannula 2.0 28 09/15/16 16:00 97.9 83 18 137/87 100 Room Air 09/15/16 12:00 97.7 85 20 133/84 99 Room Air Intake and Output 09/15/16 09/16/16 19:00 07:00 Intake Total 740 ml 100 ml Output Total 205 ml 100 ml Balance 535 ml 0 ml Intake Oral 440 ml 0 ml IV Total 300 ml 100 ml Drainage Total 205 ml 100 ml # Voids 3 4 Laboratory Tests 09/16/16 06:10: White Blood Count 7.8, Red Blood Count 3.50L, Hemoglobin 9.8L, Hematocrit 31.7L , Mean Corpuscular Volume 91, Mean Corpuscular Hemoglobin 28.1, Mean Corpuscular Hemoglobin Concent 31.0L, Red Cell Distribution Width 14.4, Platelet Count 321, Mean Platelet Volume 6.2L, Neutrophils (%) (Auto) 50.3, Lymphocytes (%) (Auto) 28.8, Monocytes (%) (Auto) 8.8, Eosinophils (%) (Auto) 10.9H, Basophils (%) (Auto) 1.2, Sodium Level 140, Potassium Level 3.8, Chloride Level 99, Carbon Dioxide Level 26, Anion Gap 15, Blood Urea Nitrogen 3L , Creatinine 0.8, Estimat Glomerular Filtration Rate > 60, Glucose Level 83, Calcium Level 8.9 Height (Feet): 5 Height (Inches): 3.00 Weight (Pounds): 130 Objective General: alert, cooperative, no distress, appears stated age Head: normocephalic, without obvious abnormality, atraumatic Eyes: conjunctivae/corneas clear. PERRL, EOM's intact Throat: lips, mucosa, and tongue normal. MMM Neck: supple, symmetrical, trachea midline, and no JVD Lungs: clear to auscultation bilaterally Heart: regular rate and rhythm, S1, S2 normal, no murmur, click, rub or gallop Abdomen: soft, non-tender, non-distended, bowel sounds normal; no masses or organomegaly Extremities: dressing appear clean/dry/intact, +wound vac Pulses: 2+ and symmetric Skin: skin color, texture, turgor normal; no rashes or lesions Neurologic: 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, no focal deficits PETERSON COTTO Sep 16, 2016 11:51
--- NOTE | 2016-09-16 13:24 | Anethesia Preoperative Eval ---
Anesthesia Pre-op PMH/ROS General Date of Evaluation: Sep 16, 2016 Anesthesiologist: Dexter ASA Score: ASA 1 Mallampati Score Class I : Soft palate, uvula, fauces, pillars visible Class II: Soft palate, uvula, fauces visible Class III: Soft palate, base of uvula visible Class IV: Only hard plate visible Mallampati Classification: Class II Surgeon: Robson Diagnosis: Gluteal abscess Surgical Procedure: Gluteal abscess I&D and wound vac Anesthesia History: none Family History: no anesthesia problems Allergies: Coded Allergies: IODINE (Verified Allergy, Unknown, 08/26/16) PENICILLINS (Verified Allergy, Unknown, 08/26/16) Medications: see eMAR Past Medical History Cardiovascular: Denies: CAD, HTN, LA, arrhythmia, other, valve dz Pulmonary: Denies: COPD, NORBERT, asthma, other Gastrointestinal/Genitourinary: Denies: CRI, ESRD, GERD, other Neurologic/Psychiatric: Denies: CVA, TIA, dementia, depression/anxiety, other Endocrine: Denies: DM, hypothyroidism, other, steroids HEENT: Denies: [place] (L), [place] (R), cataract (L), cataract (R), glaucoma, other Hematology/Immune: Denies: DVT, anemia, bleeding disorder, other Musculoskeletal/Integumentary: Denies: DDD, DJD, OA, RA, edema, other PSxH Narrative: multiple gluteal I&D, c/s, sinus sx Anesthesia Pre-op Phys. Exam Physician Exam Last Vital Signs Date Time Temp Pulse Resp B/P Pulse Ox O2 Delivery O2 Flow Rate FiO2 09/16/16 12:00 98.0 74 20 131/80 99 Room Air 09/15/16 17:22 2.0 28 Constitutional: NAD Cardiovascular: RRR Respiratory: CTA Airway Exam Mallampati Score: Class II MO: full ROM: full Teeth: intact Anesthesia Pre-op A/P Labs Hematology Test 09/16/16 06:10 White Blood Count 7.8 K/UL (4.8-10.8) Red Blood Count 3.50 M/UL (4.20-5.40) L Hemoglobin 9.8 G/DL (12.0-16.0) L Hematocrit 31.7 % (37.0-47.0) L Mean Corpuscular Volume 91 FL (80-99) Mean Corpuscular Hemoglobin 28.1 PG (27.0-31.0) Mean Corpuscular Hemoglobin Concent 31.0 G/DL (32.0-36.0) L Red Cell Distribution Width 14.4 % (11.6-14.8) Platelet Count 321 K/UL (150-450) Mean Platelet Volume 6.2 FL (6.5-10.1) L Neutrophils (%) (Auto) 50.3 % (45.0-75.0) Lymphocytes (%) (Auto) 28.8 % (20.0-45.0) Monocytes (%) (Auto) 8.8 % (1.0-10.0) Eosinophils (%) (Auto) 10.9 % (0.0-3.0) H Basophils (%) (Auto) 1.2 % (0.0-2.0) Chemistry Test 09/16/16 06:10 Sodium Level 140 mEQ/L (135-145) Potassium Level 3.8 mEQ/L (3.4-4.9) Chloride Level 99 mEQ/L (98-107) Carbon Dioxide Level 26 mEQ/L (20-30) Anion Gap 15 (5-15) Blood Urea Nitrogen 3 mg/dL (7-23) L Creatinine 0.8 mg/dL (0.5-0.9) Estimat Glomerular Filtration Rate > 60 mL/min (>60) Glucose Level 83 mg/dL (74-106) Calcium Level 8.9 mg/dL (8.6-10.2) Studies Pre-op Studies: EKG - sr Risk Assessment & Plan Assessment: ASA IE Plan: GA Status Change Before Surgery: No Pre-Antibiotics Drug: Fluconazole and unasyn Given Within 1 Hr of Incision: LETTY Corral M.D. Sep 16, 2016 13:24
[2016-09-16] MEDS ORDERED: LR 1000ml 1,000 ML IVLG SCH (13:26)
[2016-09-16] MEDS ORDERED: DiphenhydrAMINE 50mg/ml Inj IVP PRN (13:30)
[2016-09-16] MEDS ORDERED: Metoclopramide 10mg/2ml Inj IVP PRN (13:30)
[2016-09-16] MEDS ORDERED: fentaNYL 100 mcg/2 mL IV PRN (13:30)
[2016-09-16] MEDS ORDERED: Midazolam 2mg/2ml Inj IVP PRN (13:30)
[2016-09-16] MEDS ORDERED: Hydromorphone 0.5mg/0.5ml inj IVP PRN (13:30)
[2016-09-16] MEDS ORDERED: Morphine Sulfate 10mg/ml Inj ONE (14:00)
[2016-09-16] MEDS ORDERED: Dexamethasone 4mg/ml vial ONE (14:00)
[2016-09-16] MEDS ORDERED: Oxycodone/Acetaminophen 5-325 ORAL PRN (14:00)
[2016-09-16] MEDS ORDERED: LR 1000ml ONE (14:00)
[2016-09-16] MEDS ORDERED: Lidocaine 1% MPF 10mg/ml 5ml ONE (14:00)
[2016-09-16] MEDS ORDERED: NS Irrig 1000ml ONE (14:00)
[2016-09-16] MEDS ORDERED: Midazolam 2mg/2ml Inj ONE (14:00)
[2016-09-16] MEDS ORDERED: Bacitracin Oint 15gm Tube TOPIC ONE (14:00)
[2016-09-16] MEDS ORDERED: Bacitracin 50000 Units Vial ONE (14:00)
[2016-09-16] MEDS ORDERED: Metoclopramide 10mg/2ml Inj ONE (14:00)
--- NOTE | 2016-09-16 14:05 | Operative Note - PDOC ---
Operative Note Operative Note Pre-op Diagnosis: Buttocks Infection, Collection, Abscess Procedure: Right Buttock Exploration, Irrigation, Debridement, Wash-out and Placement of Wound Vac; partial wound closure Post-op Diagnosis: Same Post-op Diagnosis: same as pre-op Surgeon: Marianna Menhaden Vessel Pilot: tricia Anesthesiologist: anastacio Anesthesia: general Specimen: yes - b/l buttock and back necrotic soft tissue and skin Complications: none Condition: stable Estimated Blood Loss: minimal - 50 Drains: wound vac - x5 Indications for Procedure open right buttock wound for infection/necrotic tissue Description of Procedure see dictation Bebo Cabral M.D. (Steven) Sep 16, 2016 14:05
--- NOTE | 2016-09-16 15:29 | Immediate Post-Op Evaluation ---
Immediate Post-Op Evalulation Immediate Post-Op Evalulation Procedure: Debridement of necrotic tissue bilateral buttocks, closure Date of Evaluation: Sep 16, 2016 Time of Evaluation: 15:29 IV Fluids: 500 Blood Products: 0 Estimated Blood Loss: 20 Urinary Output: 0 Blood Pressure Systolic: 109 Blood Pressure Diastolic: 62 Pulse Rate: 103 Respiratory Rate: 16 O2 Sat by Pulse Oximetry: 99 Temperature (Fahrenheit): 98.9 Pain Score (1-10): 0 Nausea: No Vomiting: No Complications 0 Patient Status: awake, reacts, patent, none Hydration Status: adequate Drug: On floor Given Within 1 Hr of Incision: Yes LETTY BUENROSTRO M.D. Sep 16, 2016 15:29
[2016-09-17 00:29] VITALS: BP 137/85
[2016-09-17] MEDS: LR 1000ml 1,000 ML IV SCH ×3 (01:11→21:54)
[2016-09-17 04:12] VITALS: BP 123/88
[2016-09-17] MEDS: Heparin 5000 units/ml inj SUBQ SCH ×3 (06:02→21:56)
[2016-09-17 06:51] LABS: ANION GAP 14 (5-15); CALCIUM 9.9 mg/dL (8.6-10.2); CARBON DIOXIDE 27 mEQ/L (20-30); CHLORIDE 98 mEQ/L (98-107); CREATININE 0.7 mg/dL (0.5-0.9); GLOMERULAR FILTRATION RATE > 60 mL/min (>60); HEMOLYSIS 0; POTASSIUM 4.1 mEQ/L (3.4-4.9); SODIUM 139 mEQ/L (135-145)
[2016-09-17 07:08] LABS: BASOPHILS % (AUTO) 0.5 % (0.0-2.0); LYMPHOCYTES % (AUTO) 19.3 % (20.0-45.0); MEAN CORPUSCULAR HEMOGLOBIN 29.2 PG (27.0-31.0); MEAN CORPUSCULAR HGB CONC 32.6 G/DL (32.0-36.0); MEAN CORPUSCULAR VOLUME 90 FL (80-99); MEAN PLATELET VOLUME 5.8 FL (6.5-10.1); MONOCYTES % (AUTO) 6.5 % (1.0-10.0); NEUTROPHILS % (AUTO) 72.8 % (45.0-75.0); PLATELET COUNT 328 K/UL (150-450); RED BLOOD COUNT 3.66 M/UL (4.20-5.40); RED CELL DISTRIBUTION WIDTH 14.6 % (11.6-14.8); WHITE BLOOD COUNT 11.6 K/UL (4.8-10.8)
[2016-09-17 08:00] VITALS: BP 126/68
[2016-09-17] MEDS: Docusate 100mg cap ORAL SCH ×2 (08:23→21:53)
[2016-09-17] MEDS: Levofloxacin 500mg tab ORAL SCH (08:23)
[2016-09-17] MEDS: Silver Sulfadiazine Cream 25gm TOPIC SCH (08:24)
[2016-09-17] MEDS: Bactrim DS (160mg/800mg) tab ORAL SCH (08:24)
[2016-09-17] MEDS: Fluconazole 100mg tab ORAL SCH (08:24)
[2016-09-17] MEDS: Lactobacillus-GG tablet ORAL SCH ×2 (08:24→17:54)
[2016-09-17 12:00] VITALS: BP 122/79
--- NOTE | 2016-09-17 12:38 | Infectious Diseases Prog Note ---
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 Christiansen and surgery 5) orders noted and entered 6) on diflucan for possible vaginal yeast infection - pt says persists and will increase dose of diflucan Subjective HEENT: Denies: congestion Respiratory: Denies: shortness of breath Gastrointestinal/Abdominal: Denies: diarrhea, nausea, vomiting Genitourinary: Denies: hematuria, nocturia Neurologic: Denies: headache Psychiatric: Denies: depression Skin: Reports: other - wounds intact , Denies: rash Hematologic: Denies: bleeding Musculoskeletal: Denies: pain Allergies: Coded Allergies: IODINE (Verified Allergy, Unknown, 08/26/16) PENICILLINS (Verified Allergy, Unknown, 08/26/16) Objective Vital Signs Last 24 Hour Vital Signs Date Time Temp Pulse Resp B/P Pulse Ox O2 Delivery O2 Flow Rate FiO2 09/17/16 08:00 97.7 89 18 126/68 98 Room Air 09/17/16 07:27 Room Air 09/17/16 07:27 99 Room Air 09/17/16 04:12 97.5 83 18 123/88 100 Room Air 09/17/16 00:29 97.7 77 19 137/85 100 Room Air 09/16/16 20:09 98.1 91 17 120/65 100 Nasal Cannula 3.0 09/16/16 20:06 Nasal Cannula 2.0 28 09/16/16 20:05 99 Nasal Cannula 2.0 28 09/16/16 16:30 99.0 09/16/16 16:15 99.0 84 12 131/84 100 Nasal Cannula 3.0 09/16/16 16:00 81 11 130/87 100 Nasal Cannula 3.0 09/16/16 15:45 85 11 136/85 100 Nasal Cannula 3.0 09/16/16 15:34 89 23 128/81 100 Simple Mask 6.0 09/16/16 15:29 96 13 119/77 100 Simple Mask 6.0 09/16/16 15:29 103 16 99 09/16/16 15:24 98.9 94 21 109/62 100 Simple Mask 6.0 Height (Feet): 5 Height (Inches): 3.00 Weight (Pounds): 130 General Appearance: no acute distress HEENT: normocephalic, atraumatic, anicteric, mucous membranes moist, PERRL, EOMI, pharynx normal, supple, no JVD Respiratory/Chest: lungs clear, normal breath sounds, no respiratory distress Cardiovascular: normal rate, regular rhythm, no gallop/murmur, no JVD Abdomen: normal bowel sounds, soft, non tender, no organomegaly, non distended Genitourinary: other - no beltre Extremities: no cyanosis Skin: no rash Neurologic/Psychiatric: 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 specialist II-XII 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, alert, oriented x 3, responsive Lymphatic: no neck adenopathy Musculoskeletal: no effusion Objective Labs Test 08/31/16 05:50 08/31/16 08:31 09/01/16 07:05 09/02/16 10:36 White Blood Count 18.8 K/UL (4.8-10.8) 17.2 K/UL (4.8-10.8) 13.8 K/UL (4.8-10.8) Red Blood Count 2.95 M/UL (4.20-5.40) 2.98 M/UL (4.20-5.40) 3.11 M/UL (4.20-5.40) Hemoglobin 8.4 G/DL (12.0-16.0) 8.7 G/DL (12.0-16.0) 8.4 G/DL (12.0-16.0) Hematocrit 25.3 % (37.0-47.0) 26.0 % (37.0-47.0) 26.3 % (37.0-47.0) Mean Corpuscular Volume 86 FL (80-99) 87 FL (80-99) 84 FL (80-99) Mean Corpuscular Hemoglobin 28.3 PG (27.0-31.0) 29.3 PG (27.0-31.0) 27.1 PG (27.0-31.0) Mean Corpuscular Hemoglobin Concent 33.1 G/DL (32.0-36.0) 33.6 G/DL (32.0-36.0) 32.1 G/DL (32.0-36.0) Red Cell Distribution Width 12.8 % (11.6-14.8) 12.6 % (11.6-14.8) 12.5 % (11.6-14.8) Platelet Count 178 K/UL (150-450) 183 K/UL (150-450) 258 K/UL (150-450) Mean Platelet Volume 6.0 FL (6.5-10.1) 5.1 FL (6.5-10.1) 6.2 FL (6.5-10.1) Neutrophils (%) (Auto) % (45.0-75.0) 72.6 % (45.0-75.0) 75.9 % (45.0-75.0) Lymphocytes (%) (Auto) % (20.0-45.0) 15.0 % (20.0-45.0) 9.3 % (20.0-45.0) Monocytes (%) (Auto) % (1.0-10.0) 9.1 % (1.0-10.0) 10.6 % (1.0-10.0) Eosinophils (%) (Auto) % (0.0-3.0) 2.5 % (0.0-3.0) 3.0 % (0.0-3.0) Basophils (%) (Auto) % (0.0-2.0) 0.9 % (0.0-2.0) 1.3 % (0.0-2.0) Differential Total Cells Counted 100 Neutrophils % (Manual) 70 % (45-75) Lymphocytes % (Manual) 16 % (20-45) Monocytes % (Manual) 11 % (1-10) Eosinophils % (Manual) 2 % (0-3) Basophils % (Manual) 0 % (0-2) Band Neutrophils 1 % (0-8) Platelet Estimate Adequate Platelet Morphology Normal Hypochromasia 1+ Sodium Level 130 mEQ/L (135-145) 135 mEQ/L (135-145) 135 mEQ/L (135-145) Potassium Level 3.5 mEQ/L (3.4-4.9) 3.8 mEQ/L (3.4-4.9) 3.7 mEQ/L (3.4-4.9) Chloride Level 92 mEQ/L (98-107) 94 mEQ/L (98-107) 94 mEQ/L (98-107) Carbon Dioxide Level 27 mEQ/L (20-30) 29 mEQ/L (20-30) 27 mEQ/L (20-30) Anion Gap 11 (5-15) 12 (5-15) 14 (5-15) Blood Urea Nitrogen 6 mg/dL (7-23) 5 mg/dL (7-23) 7 mg/dL (7-23) Creatinine 0.8 mg/dL (0.5-0.9) 0.8 mg/dL (0.5-0.9) 0.7 mg/dL (0.5-0.9) Estimat Glomerular Filtration Rate > 60 mL/min (>60) > 60 mL/min (>60) > 60 mL/min (>60) Glucose Level 116 mg/dL (74-106) 112 mg/dL (74-106) 116 mg/dL (74-106) Calcium Level 8.3 mg/dL (8.6-10.2) 8.8 mg/dL (8.6-10.2) 8.8 mg/dL (8.6-10.2) Urine Color Pale yellow Urine Appearance Clear Urine pH 7 (4.5-8.0) Urine Specific [place] 1.005 (1.005-1.035) Urine Protein Negative (NEGATIVE) Urine Glucose (UA) Negative (NEGATIVE) Urine Ketones Negative (NEGATIVE) Urine Occult Blood 2+ (NEGATIVE) Urine Nitrite Negative (NEGATIVE) Urine Bilirubin Negative (NEGATIVE) Urine Urobilinogen Normal MG/DL (0.0-1.0) Urine Leukocyte Esterase 1+ (NEGATIVE) Urine RBC 2-4 /HPF (0 - 2) Urine WBC 2-4 /HPF (0 - 2) Urine Squamous Epithelial Cells Few /LPF (NONE/OCC) Urine Bacteria Few /HPF (NONE) Total Bilirubin 0.3 mg/dL (0.0-1.2) Aspartate Amino Transf (AST/SGOT) 31 U/L (5-40) Alanine Aminotransferase (ALT/SGPT) 51 U/L (3-33) Alkaline Phosphatase 74 U/L (35-104) Total Protein 6.3 g/dL (6.6-8.7) Albumin 2.9 g/dL (3.5-5.2) Globulin 3.4 g/dL Albumin/Globulin Ratio 0.8 (1.0-2.7) chest x-ray - negative mri pelvis - report noted \ 09/04 - pelvic ct - no abscess 09/04 - chest x-ray - negative for pna v/q scan - low probability for PE Microbiology Date/Time Source Procedure Growth Status 09/04/16 16:45 Blood Blood Culture - Final NO GROWTH AFTER 5 DAYS Complete 09/05/16 11:00 Wound Gram Stain - Final Complete 09/05/16 11:00 Wound Culture - Final Pseudomonas Aeruginosa Staphylococcus Sp Coag Neg Complete 08/31/16 08:31 Urine,Clean Catch Urine Culture - Final Diphtheroids Complete 09/13/16 20:00 Buttock Right Gram Stain - Final Resulted 09/13/16 20:00 Aerobic Culture - Preliminary Staphylococcus Aureus Staphylococcus Sp Coag Neg Resulted 09/13/16 20:00 Buttock Right Anaerobic Culture - Preliminary NO GROWTH Resulted Laboratory Tests Test 09/17/16 05:35 White Blood Count 11.6 K/UL (4.8-10.8) H Red Blood Count 3.66 M/UL (4.20-5.40) L Hemoglobin 10.7 G/DL (12.0-16.0) L Hematocrit 32.7 % (37.0-47.0) L Mean Corpuscular Volume 90 FL (80-99) Mean Corpuscular Hemoglobin 29.2 PG (27.0-31.0) Mean Corpuscular Hemoglobin Concent 32.6 G/DL (32.0-36.0) Red Cell Distribution Width 14.6 % (11.6-14.8) Platelet Count 328 K/UL (150-450) Mean Platelet Volume 5.8 FL (6.5-10.1) L Neutrophils (%) (Auto) 72.8 % (45.0-75.0) Lymphocytes (%) (Auto) 19.3 % (20.0-45.0) L Monocytes (%) (Auto) 6.5 % (1.0-10.0) Eosinophils (%) (Auto) 1.0 % (0.0-3.0) Basophils (%) (Auto) 0.5 % (0.0-2.0) Sodium Level 139 mEQ/L (135-145) Potassium Level 4.1 mEQ/L (3.4-4.9) Chloride Level 98 mEQ/L (98-107) Carbon Dioxide Level 27 mEQ/L (20-30) Anion Gap 14 (5-15) Blood Urea Nitrogen 4 mg/dL (7-23) L Creatinine 0.7 mg/dL (0.5-0.9) Estimat Glomerular Filtration Rate > 60 mL/min (>60) Glucose Level 98 mg/dL (74-106) Calcium Level 9.9 mg/dL (8.6-10.2) Current Medications Medications (Trade) Dose Ordered Sig/Yamileth Route PRN Reason Start Time Stop Time Status Last Admin Dose Admin Acetaminophen (Tylenol) 650 mg Q4H PRN ORAL fever 08/26/16 14:45 09/25/16 14:44 09/04/16 15:13 Acetaminophen (Tylenol) 650 mg Q4H PRN ORAL Mild Pain (Pain Scale 1-3) 08/26/16 14:45 09/25/16 14:44 09/12/16 03:20 Acetaminophen/ Butalbital/ Caffeine (Fioricet) 1 tab Q6H PRN ORAL For headache 09/12/16 08:45 10/12/16 08:44 09/15/16 20:12 Al Hydroxide/Mg Hydroxide (Mylanta II) 30 ml Q6H PRN ORAL dyspepsia 08/26/16 14:45 09/25/16 14:44 Bisacodyl (Dulcolax) 10 mg HSPRN PRN RECTAL Constipation 09/04/16 09:28 09/25/16 14:44 Dextrose (Dextrose 50%) STAT PRN IV Hypoglycemia 08/26/16 14:45 09/25/16 14:44 Docusate Sodium (Colace) 100 mg EVERY 12 HOURS ORAL 08/26/16 21:00 09/25/16 20:59 09/17/16 08:23 Ferrous Sulfate (Feosol) 325 mg THREE TIMES A DAY ORAL 09/02/16 18:00 10/02/16 17:59 09/17/16 08:23 Fluconazole (Diflucan) 100 mg DAILY ORAL 09/15/16 13:00 09/22/16 12:59 09/17/16 08:24 Gabapentin (Neurontin) 300 mg BEDTIME ORAL 08/30/16 21:00 09/29/16 20:59 09/16/16 21:15 Heparin Sodium (Porcine) (Heparin 5000 units/ml) 5,000 units EVERY 8 HOURS SUBQ 09/16/16 14:00 10/16/16 13:59 09/17/16 06:02 Hydromorphone HCl (Dilaudid) 2 mg Q4H PRN IVP for severe 7-10 pain 09/14/16 15:23 09/21/16 15:22 09/17/16 08:25 Hydromorphone HCl (Dilaudid) 2 mg Q6H PRN IVP Severe Breakthru Pain (>7) 09/16/16 14:00 09/23/16 13:59 Lactated Ringer's (Lactated Ringer's 1000ml) 1,000 ml @ 100 mls/hr Q10H IV 09/16/16 15:00 10/16/16 14:59 09/17/16 11:41 Lactobacillus Acidophilus (Culturelle) 1 tab TWICE A DAY ORAL 08/26/16 18:00 09/25/16 17:59 09/17/16 08:24 Lactulose (Cephulac) 30 gm Q4H PRN ORAL constipation 09/04/16 09:15 10/04/16 09:14 Levofloxacin (Levaquin) 500 mg DAILY ORAL 09/14/16 13:00 09/21/16 12:59 09/17/16 08:23 Magnesium Hydroxide (Mom) 30 ml HSPRN PRN ORAL Constipation 08/26/16 14:45 09/25/16 14:44 09/05/16 01:47 Ondansetron HCl (Zofran) 4 mg Q6H PRN IVP Nausea & Vomiting 08/31/16 17:45 09/30/16 17:44 09/15/16 17:18 Oxycodone/ Acetaminophen (Percocet 5-325) 2 tab Q4H PRN ORAL Moderate Pain (Pain Scale 4-6) 09/16/16 14:00 09/23/16 13:59 Oxycodone/ Acetaminophen 1 tab 1 tab Q4H PRN ORAL for breakthrough pain 09/14/16 15:23 09/21/16 15:22 09/16/16 21:15 Polyethylene Glycol (Miralax) 17 gm HSPRN PRN ORAL Constipation 09/04/16 09:29 09/25/16 14:44 09/11/16 08:25 Silver Sulfadiazine (Silvadene Cream 25gm) 1 applic DAILY TOPIC 09/02/16 14:00 10/02/16 13:59 09/17/16 08:24 Trimethoprim/ Sulfamethoxazole (Bactrim-DS) 1 ea TWICE A DAY ORAL 09/14/16 18:00 09/21/16 17:59 09/17/16 08:24 BLU KATHLEEN Sep 17, 2016 12:38
--- NOTE | 2016-09-17 13:20 | 48 Hour Post Anesthesia Eval ---
Post Anesthesia Evaluation Procedure: Debridement of necrotic tissue bilateral buttocks, closure Date of Evaluation: Sep 17, 2016 Time of Evaluation: 13:18 Blood Pressure Systolic: 124 0: 57 Pulse Rate: 74 Respiratory Rate: 20 Temperature (Fahrenheit): 97.6 O2 Sat by Pulse Oximetry: 99 Airway: patent Nausea: No Vomiting: No Pain Intensity: 3 Hydration Status: adequate Cardiopulmonary Status: stable Mental Status/LOC: patient returned to baseline Follow-up Care/Observations: n/a Post-Anesthesia Complications: none Follow-up care needed: N/A RAVI BALDWIN M.D. Sep 17, 2016 13:20
[2016-09-17] MEDS: Aztreonam Inj 2 GM in D5W 110 ML IVPB SCH ×2 (13:53→21:54)
[2016-09-17] MEDS ORDERED: Aztreonam Inj 1 GM in D5W 55 ML IVPB SCH (14:00)
[2016-09-17] MEDS ORDERED: Fluconazole 100mg tab ORAL SCH (14:00)
--- NOTE | 2016-09-17 15:26 | General Progress Note ---
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 Pain well controlled, no diaphoresis Objective Last 24 Hour Vital Signs Date Time Temp Pulse Resp B/P Pulse Ox O2 Delivery O2 Flow Rate FiO2 09/17/16 13:20 74 20 99 09/17/16 12:00 97.5 89 18 122/79 94 Room Air 89 09/17/16 08:00 97.7 89 18 126/68 98 Room Air 09/17/16 07:27 Room Air 09/17/16 07:27 99 Room Air 09/17/16 04:12 97.5 83 18 123/88 100 Room Air 09/17/16 00:29 97.7 77 19 137/85 100 Room Air 09/16/16 20:09 98.1 91 17 120/65 100 Nasal Cannula 3.0 09/16/16 20:06 Nasal Cannula 2.0 28 09/16/16 20:05 99 Nasal Cannula 2.0 28 09/16/16 16:30 99.0 09/16/16 16:15 99.0 84 12 131/84 100 Nasal Cannula 3.0 09/16/16 16:00 81 11 130/87 100 Nasal Cannula 3.0 09/16/16 15:45 85 11 136/85 100 Nasal Cannula 3.0 09/16/16 15:34 89 23 128/81 100 Simple Mask 6.0 09/16/16 15:29 96 13 119/77 100 Simple Mask 6.0 09/16/16 15:29 103 16 99 Intake and Output 09/16/16 09/17/16 19:00 07:00 Intake Total 1200 ml 2340 ml Output Total 170 ml 840 ml Balance 1030 ml 1500 ml Intake Oral 1040 ml IV Total 1200 ml 1300 ml Output Urine Total 800 ml Drainage Total 150 ml 40 ml Estimated Blood Loss 20 ml # Voids 1 6 Laboratory Tests 09/17/16 05:35: White Blood Count 11.6H, Red Blood Count 3.66L, Hemoglobin 10.7L, Hematocrit 32.7L, Mean Corpuscular Volume 90, Mean Corpuscular Hemoglobin 29.2, Mean Corpuscular Hemoglobin Concent 32.6, Red Cell Distribution Width 14.6, Platelet Count 328, Mean Platelet Volume 5.8L, Neutrophils (%) (Auto) 72.8, Lymphocytes ( %) (Auto) 19.3L, Monocytes (%) (Auto) 6.5, Eosinophils (%) (Auto) 1.0, Basophils (%) (Auto) 0.5, Sodium Level 139, Potassium Level 4.1, Chloride Level 98, Carbon Dioxide Level 27, Anion Gap 14, Blood Urea Nitrogen 4L, Creatinine 0.7, Estimat Glomerular Filtration Rate > 60, Glucose Level 98, Calcium Level 9.9 Height (Feet): 5 Height (Inches): 3.00 Weight (Pounds): 130 Objective General: alert, cooperative, no distress, appears stated age Head: normocephalic, without obvious abnormality, atraumatic Eyes: conjunctivae/corneas clear. PERRL, EOM's intact Throat: lips, mucosa, and tongue normal. MMM Neck: supple, symmetrical, trachea midline, and no JVD Lungs: clear to auscultation bilaterally Heart: regular rate and rhythm, S1, S2 normal, no murmur, click, rub or gallop Abdomen: soft, non-tender, non-distended, bowel sounds normal; no masses or organomegaly Extremities: dressing appear clean/dry/intact, +wound vac Pulses: 2+ and symmetric Skin: skin color, texture, turgor normal; no rashes or lesions Neurologic: 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, no focal deficits PETERSON COTTO Sep 17, 2016 15:26
[2016-09-17 16:00] VITALS: BP 118/72
[2016-09-17] MEDS: Vancomycin 1250mg/D5W 275ml IVPB SCH ×2 (16:09)
--- NOTE | 2016-09-17 17:44 | General Progress Note ---
Assessment/Plan Assessment/Plan (1) Bilateral buttock soft tissue necrosis, cellulitis, open wounds buttocks (2) Abscess (3) Intractable pain (4) Staged debridement of bilateral buttock necrotic soft tissue, flap delay The patient is to be continued on the Dilaudid and Percocet. The patient was discussed with Dr. Singh and concurred. Subjective Date patient seen: Sep 18, 2016 Time patient seen: 05:15 - pm Allergies: Coded Allergies: IODINE (Verified Allergy, Unknown, 08/26/16) PENICILLINS (Verified Allergy, Unknown, 08/26/16) Subjective Constitutional: Reports: no symptoms HEENT: Reports: no symptoms Cardiovascular: Reports: no symptoms Respiratory: Reports: no symptoms Gastrointestinal/Abdominal: Reports: no symptoms Genitourinary: Reports: no symptoms Neurologic/Psychiatric: Reports: weakness Endocrine: Reports: no symptoms Hematologic/Lymphatic: Reports: no symptoms Subjective Pain has been stable and tolerated on the Dilaudid and Percocet. She explains that the pain is worse with laying down. Fritz is reduced from a 10/10 to a 4/10. Objective Last 24 Hour Vital Signs Date Time Temp Pulse Resp B/P Pulse Ox O2 Delivery O2 Flow Rate FiO2 09/17/16 16:00 97.7 81 17 118/72 98 Room Air 09/17/16 13:20 74 20 99 09/17/16 12:00 97.5 89 18 122/79 94 Room Air 89 09/17/16 08:00 97.7 89 18 126/68 98 Room Air 09/17/16 07:27 Room Air 09/17/16 07:27 99 Room Air 09/17/16 04:12 97.5 83 18 123/88 100 Room Air 09/17/16 00:29 97.7 77 19 137/85 100 Room Air 09/16/16 20:09 98.1 91 17 120/65 100 Nasal Cannula 3.0 09/16/16 20:06 Nasal Cannula 2.0 28 09/16/16 20:05 99 Nasal Cannula 2.0 28 Intake and Output 09/16/16 09/17/16 19:00 07:00 Intake Total 1200 ml 2340 ml Output Total 170 ml 840 ml Balance 1030 ml 1500 ml Intake Oral 1040 ml IV Total 1200 ml 1300 ml Output Urine Total 800 ml Drainage Total 150 ml 40 ml Estimated Blood Loss 20 ml # Voids 1 6 Laboratory Tests 09/17/16 05:35: White Blood Count 11.6H, Red Blood Count 3.66L, Hemoglobin 10.7L, Hematocrit 32.7L, Mean Corpuscular Volume 90, Mean Corpuscular Hemoglobin 29.2, Mean Corpuscular Hemoglobin Concent 32.6, Red Cell Distribution Width 14.6, Platelet Count 328, Mean Platelet Volume 5.8L, Neutrophils (%) (Auto) 72.8, Lymphocytes ( %) (Auto) 19.3L, Monocytes (%) (Auto) 6.5, Eosinophils (%) (Auto) 1.0, Basophils (%) (Auto) 0.5, Sodium Level 139, Potassium Level 4.1, Chloride Level 98, Carbon Dioxide Level 27, Anion Gap 14, Blood Urea Nitrogen 4L, Creatinine 0.7, Estimat Glomerular Filtration Rate > 60, Glucose Level 98, Calcium Level 9.9 Height (Feet): 5 Height (Inches): 3.00 Weight (Pounds): 130 Objective General Appearance: no apparent distress, alert EENT: PERRL/EOMI, normal ENT inspection Neck: non-tender, normal alignment Cardiovascular: normal rate, regular rhythm Respiratory/Chest: lungs clear, normal breath sounds Abdomen: non tender, soft Extremities: non-tender Edema: no edema noted Arm (L), no edema noted Arm (R), no edema noted Leg (L), no edema noted Leg (R), no edema noted Pedal (L), no edema noted Pedal (R), no edema noted Generalized Neurologic: alert, oriented x 3 Skin: other - bandages applied to buttock area with tenderness to palpation NELLY JACK Sep 17, 2016 17:44
[2016-09-17 20:30] VITALS: BP 130/78
--- NOTE | 2016-09-17 22:48 | General Progress Note ---
Subjective Date patient seen: Sep 17, 2016 Allergies: Coded Allergies: IODINE (Verified Allergy, Unknown, 08/26/16) PENICILLINS (Verified Allergy, Unknown, 08/26/16) Subjective (POD #1) Patient seen and examined. PE: Wound of the right buttocks approx. 7 cm by 3 cm with exposed muscle underneath , wound undermines 15 cm to gluteal fold. Wound Vac intact with serosanginous drainage. Skin soft, some some tenderness at wound edge. Impression: Patient with complicated open deep buttocks wound with exposed muscle with cultures now growing Staph (possible MRSA). Plan: Patient is not ready for d/c given her state of her wound and the wound cultures. Patients needs a wound vac change which may need to be performed in the OR if she cannot tolerate the pain. Continue antibiotics and wound care. Objective Last 24 Hour Vital Signs Date Time Temp Pulse Resp B/P Pulse Ox O2 Delivery O2 Flow Rate FiO2 09/17/16 20:30 97.8 83 18 130/78 97 Room Air 09/17/16 16:00 97.7 81 17 118/72 98 Room Air 09/17/16 13:20 74 20 99 09/17/16 12:00 97.5 89 18 122/79 94 Room Air 89 09/17/16 08:00 97.7 89 18 126/68 98 Room Air 09/17/16 07:27 Room Air 09/17/16 07:27 99 Room Air 09/17/16 04:12 97.5 83 18 123/88 100 Room Air 09/17/16 00:29 97.7 77 19 137/85 100 Room Air Intake and Output 09/16/16 09/17/16 19:00 07:00 Intake Total 1200 ml 2340 ml Output Total 170 ml 840 ml Balance 1030 ml 1500 ml Intake Oral 1040 ml IV Total 1200 ml 1300 ml Output Urine Total 800 ml Drainage Total 150 ml 40 ml Estimated Blood Loss 20 ml # Voids 1 6 Laboratory Tests 09/17/16 05:35: White Blood Count 11.6H, Red Blood Count 3.66L, Hemoglobin 10.7L, Hematocrit 32.7L, Mean Corpuscular Volume 90, Mean Corpuscular Hemoglobin 29.2, Mean Corpuscular Hemoglobin Concent 32.6, Red Cell Distribution Width 14.6, Platelet Count 328, Mean Platelet Volume 5.8L, Neutrophils (%) (Auto) 72.8, Lymphocytes ( %) (Auto) 19.3L, Monocytes (%) (Auto) 6.5, Eosinophils (%) (Auto) 1.0, Basophils (%) (Auto) 0.5, Sodium Level 139, Potassium Level 4.1, Chloride Level 98, Carbon Dioxide Level 27, Anion Gap 14, Blood Urea Nitrogen 4L, Creatinine 0.7, Estimat Glomerular Filtration Rate > 60, Glucose Level 98, Calcium Level 9.9 Height (Feet): 5 Height (Inches): 3.00 Weight (Pounds): 130 Bebo Cabral M.D. ([place]) Sep 17, 2016 22:48
[2016-09-18 00:12] VITALS: BP 122/78
[2016-09-18] MEDS: Vancomycin 1250mg/D5W 275ml IVPB SCH ×4 (03:26→15:38)
[2016-09-18 04:00] VITALS: BP 135/81
[2016-09-18] MEDS: LR 1000ml 1,000 ML IV SCH ×2 (06:30→17:06)
[2016-09-18] MEDS: Aztreonam Inj 2 GM in D5W 110 ML IVPB SCH ×3 (06:33→20:51)
[2016-09-18] MEDS: Heparin 5000 units/ml inj SUBQ SCH ×3 (06:37→20:53)
--- NOTE | 2016-09-18 08:48 | General Progress Note ---
Assessment/Plan Assessment/Plan (1) Bilateral buttock soft tissue necrosis, cellulitis, open wounds buttocks (2) Abscess (3) Intractable pain (4) Staged debridement of bilateral buttock necrotic soft tissue, flap delay The patient is to be continued on the Dilaudid and Percocet. The patient was discussed with Dr. Singh and concurred. Subjective Date patient seen: Sep 18, 2016 Time patient seen: 08:45 - am Allergies: Coded Allergies: IODINE (Verified Allergy, Unknown, 08/26/16) PENICILLINS (Verified Allergy, Unknown, 08/26/16) Subjective Constitutional: Reports: no symptoms HEENT: Reports: no symptoms Cardiovascular: Reports: no symptoms Respiratory: Reports: no symptoms Gastrointestinal/Abdominal: Reports: no symptoms Genitourinary: Reports: no symptoms Neurologic/Psychiatric: Reports: weakness Endocrine: Reports: no symptoms Hematologic/Lymphatic: Reports: no symptoms Subjective Her pain has been unchanged and continued to be tolerated on the Percocet and Dilaudid. Objective Last 24 Hour Vital Signs Date Time Temp Pulse Resp B/P Pulse Ox O2 Delivery O2 Flow Rate FiO2 09/18/16 07:58 Room Air 09/18/16 07:57 97 Room Air 09/18/16 04:00 98.2 71 18 135/81 96 Room Air 09/18/16 00:12 98.1 74 19 122/78 100 Room Air 09/17/16 20:30 97.8 83 18 130/78 97 Room Air 09/17/16 19:00 Room Air 09/17/16 19:00 96 Room Air 09/17/16 16:00 97.7 81 17 118/72 98 Room Air 09/17/16 13:20 74 20 99 09/17/16 12:00 97.5 89 18 122/79 94 Room Air 89 Intake and Output 09/17/16 09/18/16 19:00 07:00 Intake Total 1450 ml 1860 ml Output Total 27 ml 30 ml Balance 1423 ml 1830 ml Intake Oral 450 ml 560 ml IV Total 1000 ml 1300 ml Drainage Total 27 ml 30 ml # Voids 2 5 Height (Feet): 5 Height (Inches): 3.00 Weight (Pounds): 130 Objective General Appearance: no apparent distress, alert EENT: PERRL/EOMI, normal ENT inspection Neck: non-tender, normal alignment Cardiovascular: normal rate, regular rhythm Respiratory/Chest: lungs clear, normal breath sounds Abdomen: non tender, soft Extremities: non-tender Edema: no edema noted Arm (L), no edema noted Arm (R), no edema noted Leg (L), no edema noted Leg (R), no edema noted Pedal (L), no edema noted Pedal (R), no edema noted Generalized Neurologic: alert, oriented x 3 Skin: other - bandages applied to buttock area with tenderness to palpation NELLY JACK. Sep 18, 2016 08:48
[2016-09-18] MEDS: Docusate 100mg cap ORAL SCH ×2 (09:00→20:50)
[2016-09-18] MEDS: Lactobacillus-GG tablet ORAL SCH ×2 (09:00→17:06)
[2016-09-18] MEDS: Silver Sulfadiazine Cream 25gm TOPIC SCH (09:00)
[2016-09-18 12:00] VITALS: BP 126/93
--- NOTE | 2016-09-18 14:02 | General Progress Note ---
Subjective Date patient seen: Sep 18, 2016 Time patient seen: 13:00 Allergies: Coded Allergies: IODINE (Verified Allergy, Unknown, 08/26/16) PENICILLINS (Verified Allergy, Unknown, 08/26/16) Subjective (POD #2) Patient seen and examined Patient is having wound vac changed today PE: Wound of the right buttocks approx. 7 cm by 3 cm with exposed muscle underneath , granulation on the muscle with some serosanginous drainage. Skin soft, some some tenderness at wound edge. Impression: Patient with complicated open deep buttocks wound with exposed muscle. Plan: Bedside wound vac change today. Patient is not ready for d/c given her state of her wound and the wound cultures. Waiting for official cultures Continue antibiotics and wound care. Objective Last 24 Hour Vital Signs Date Time Temp Pulse Resp B/P Pulse Ox O2 Delivery O2 Flow Rate FiO2 09/18/16 12:00 97.9 81 18 126/93 100 Room Air 09/18/16 07:58 Room Air 09/18/16 07:57 97 Room Air 09/18/16 04:00 98.2 71 18 135/81 96 Room Air 09/18/16 00:12 98.1 74 19 122/78 100 Room Air 09/17/16 20:30 97.8 83 18 130/78 97 Room Air 09/17/16 19:00 Room Air 09/17/16 19:00 96 Room Air 09/17/16 16:00 97.7 81 17 118/72 98 Room Air Intake and Output 09/17/16 09/18/16 19:00 07:00 Intake Total 1450 ml 1960 ml Output Total 27 ml 30 ml Balance 1423 ml 1930 ml Intake Oral 450 ml 560 ml IV Total 1000 ml 1400 ml Drainage Total 27 ml 30 ml # Voids 2 5 Height (Feet): 5 Height (Inches): 3.00 Weight (Pounds): 130 Bebo Cabral M.D. ([place]) Sep 18, 2016 14:02
[2016-09-18] MEDS ORDERED: Tubing IV Secondary IV ONE (15:51)
[2016-09-18 16:00] VITALS: BP 109/63
--- NOTE | 2016-09-18 19:38 | General Progress Note ---
Assessment/Plan Problem List: (1) Abscess Assessment & Plan: s/p debridement and washout and partial closure POD#2 s/p recurrent I+D, wound vac placement POD#5 Cont wound packing, drain care per surgery, s/p vac change. 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 Cabral earlier today, no fevers/chills, feels better overall. Pain well controlled, no diaphoresis Objective Last 24 Hour Vital Signs Date Time Temp Pulse Resp B/P Pulse Ox O2 Delivery O2 Flow Rate FiO2 09/18/16 16:00 98.0 93 18 109/63 100 Room Air 09/18/16 12:00 97.9 81 18 126/93 100 Room Air 09/18/16 07:58 Room Air 09/18/16 07:57 97 Room Air 09/18/16 04:00 98.2 71 18 135/81 96 Room Air 09/18/16 00:12 98.1 74 19 122/78 100 Room Air 09/17/16 20:30 97.8 83 18 130/78 97 Room Air Intake and Output 09/17/16 09/18/16 19:00 07:00 Intake Total 1450 ml 1960 ml Output Total 27 ml 30 ml Balance 1423 ml 1930 ml Intake Oral 450 ml 560 ml IV Total 1000 ml 1400 ml Drainage Total 27 ml 30 ml # Voids 2 5 Height (Feet): 5 Height (Inches): 3.00 Weight (Pounds): 130 Objective General: alert, cooperative, no distress, appears stated age Head: normocephalic, without obvious abnormality, atraumatic Eyes: conjunctivae/corneas clear. PERRL, EOM's intact Throat: lips, mucosa, and tongue normal. MMM Neck: supple, symmetrical, trachea midline, and no JVD Lungs: clear to auscultation bilaterally Heart: regular rate and rhythm, S1, S2 normal, no murmur, click, rub or gallop Abdomen: soft, non-tender, non-distended, bowel sounds normal; no masses or organomegaly Extremities: dressing appear clean/dry/intact, +wound vac Pulses: 2+ and symmetric Skin: skin color, texture, turgor normal; no rashes or lesions Neurologic: 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, no focal deficits PETERSON COTTO Sep 18, 2016 19:38
[2016-09-18 20:00] VITALS: BP 141/68
[2016-09-18 21:40] VITALS: BP 141/68
[2016-09-19] VITALS: BP 127/80
[2016-09-19] MEDS: LR 1000ml 1,000 ML IV SCH ×2 (03:00→14:48)
[2016-09-19 03:06] LABS: BASOPHILS % (AUTO) 1.4 % (0.0-2.0); EOSINOPHILS % (AUTO) 13.9 % (0.0-3.0); LYMPHOCYTES % (AUTO) 32.3 % (20.0-45.0); MEAN CORPUSCULAR HEMOGLOBIN 28.9 PG (27.0-31.0); MEAN CORPUSCULAR HGB CONC 32.5 G/DL (32.0-36.0); MEAN CORPUSCULAR VOLUME 89 FL (80-99); MEAN PLATELET VOLUME 6.8 FL (6.5-10.1); MONOCYTES % (AUTO) 8.6 % (1.0-10.0); NEUTROPHILS % (AUTO) 43.7 % (45.0-75.0); PLATELET COUNT 290 K/UL (150-450); RED BLOOD COUNT 3.53 M/UL (4.20-5.40); RED CELL DISTRIBUTION WIDTH 14.5 % (11.6-14.8); WHITE BLOOD COUNT 9.5 K/UL (4.8-10.8)
[2016-09-19 03:21] LABS: ANION GAP 12 (5-15); CALCIUM 9.2 mg/dL (8.6-10.2); CARBON DIOXIDE 29 mEQ/L (20-30); CHLORIDE 98 mEQ/L (98-107); CREATININE 0.8 mg/dL (0.5-0.9); GLOMERULAR FILTRATION RATE > 60 mL/min (>60); HEMOLYSIS 4; POTASSIUM 3.9 mEQ/L (3.4-4.9); SODIUM 139 mEQ/L (135-145)
[2016-09-19] MEDS: Vancomycin 1250mg/D5W 275ml IVPB SCH ×4 (03:54→16:26)
[2016-09-19 04:00] VITALS: BP 134/65
[2016-09-19] MEDS: Aztreonam Inj 2 GM in D5W 110 ML IVPB SCH (05:43)
[2016-09-19] MEDS: Heparin 5000 units/ml inj SUBQ SCH ×2 (06:03→14:53)
[2016-09-19 08:00] VITALS: BP 128/101
--- NOTE | 2016-09-19 08:41 | General Progress Note ---
Assessment/Plan Assessment/Plan (1) Bilateral buttock soft tissue necrosis, cellulitis, open wounds buttocks (2) Abscess (3) Intractable pain (4) Staged debridement of bilateral buttock necrotic soft tissue, flap delay The patient is to be continued on the Dilaudid and Percocet. The patient was discussed with Dr. Singh and concurred. Subjective Date patient seen: Sep 19, 2016 Time patient seen: 08:15 - am Allergies: Coded Allergies: IODINE (Verified Allergy, Unknown, 08/26/16) PENICILLINS (Verified Allergy, Unknown, 08/26/16) Subjective Constitutional: Reports: no symptoms HEENT: Reports: no symptoms Cardiovascular: Reports: no symptoms Respiratory: Reports: no symptoms Gastrointestinal/Abdominal: Reports: no symptoms Genitourinary: Reports: no symptoms Neurologic/Psychiatric: Reports: weakness Endocrine: Reports: no symptoms Hematologic/Lymphatic: Reports: no symptoms Subjective She continues to c/o pain which is in her buttocks and is worse with movement The pain has been reduced on the Percocet and Dilaudid as needed. Objective Last 24 Hour Vital Signs Date Time Temp Pulse Resp B/P Pulse Ox O2 Delivery O2 Flow Rate FiO2 09/19/16 08:00 97.9 107 20 128/101 99 Room Air 09/19/16 06:30 98.0 09/19/16 04:42 98.0 09/19/16 04:00 97.9 71 18 134/65 98 Room Air 09/19/16 00:00 97.8 70 16 127/80 92 Room Air 09/18/16 21:53 Room Air 09/18/16 21:53 100 Room Air 09/18/16 20:00 97.9 81 18 141/68 99 Room Air 09/18/16 16:00 98.0 93 18 109/63 100 Room Air 09/18/16 12:00 97.9 81 18 126/93 100 Room Air Intake and Output 09/18/16 09/19/16 19:00 07:00 Intake Total 1620 ml 1940.000 ml Output Total 52 ml 40 ml Balance 1568 ml 1900.000 ml Intake Oral 720 ml 520 ml IV Total 900 ml 1420.000 ml Drainage Total 52 ml 40 ml # Voids 4 2 Laboratory Tests 09/19/16 02:05: White Blood Count 9.5, Red Blood Count 3.53L, Hemoglobin 10.2L, Hematocrit 31.4L , Mean Corpuscular Volume 89, Mean Corpuscular Hemoglobin 28.9, Mean Corpuscular Hemoglobin Concent 32.5, Red Cell Distribution Width 14.5, Platelet Count 290, Mean Platelet Volume 6.8, Neutrophils (%) (Auto) 43.7L, Lymphocytes ( %) (Auto) 32.3, Monocytes (%) (Auto) 8.6, Eosinophils (%) (Auto) 13.9H, Basophils (%) (Auto) 1.4, Sodium Level 139, Potassium Level 3.9, Chloride Level 98, Carbon Dioxide Level 29, Anion Gap 12, Blood Urea Nitrogen 8, Creatinine 0.8 , Estimat Glomerular Filtration Rate > 60, Glucose Level 114H, Calcium Level 9.2 , Vancomycin Level Trough 12.8H Height (Feet): 5 Height (Inches): 3.00 Weight (Pounds): 130 Objective General Appearance: no apparent distress, alert EENT: PERRL/EOMI, normal ENT inspection Neck: non-tender, normal alignment Cardiovascular: normal rate, regular rhythm Respiratory/Chest: lungs clear, normal breath sounds Abdomen: non tender, soft Extremities: non-tender Edema: no edema noted Arm (L), no edema noted Arm (R), no edema noted Leg (L), no edema noted Leg (R), no edema noted Pedal (L), no edema noted Pedal (R), no edema noted Generalized Neurologic: alert, oriented x 3 Skin: other - bandages applied to buttock area with tenderness to palpation NELLY JACK Sep 19, 2016 08:41
[2016-09-19] MEDS: Silver Sulfadiazine Cream 25gm TOPIC SCH (09:00)
[2016-09-19] MEDS: Lactobacillus-GG tablet ORAL SCH ×2 (09:00→18:25)
[2016-09-19] MEDS: Docusate 100mg cap ORAL SCH ×2 (09:59→21:00)
[2016-09-19 11:39] VITALS: BP 122/78
--- NOTE | 2016-09-19 13:25 | Infectious Diseases Prog Note ---
Assessment/Plan Assessment/Plan A) 1) s/p right buttock exploration, debridement and wound vac - wound culture with staph aureus, pseudomonas and cell assembly pinner 2) s/p debridement of bilateral buttock necrosis with cellulitis 3) nausea and vomiting better 4) hx gluteal silicone infections 5) recent terminated 6) r/u AURORA autoimmune syndrome 7) pain mgt, anemia, hyponatremia 8) allergies - pcn and iodine, sh-negative, mar noted, notes and records reviewed 9) d/w RN P) 1) vancomycin plus levofloxacin 2) check labs, cr, wbc 3) surgery f/u on wounds and wound care 4) continue treatment per Dr. Christiansen and surgery 5) orders noted and entered 6) possible vaginal yeast infection - diflucan ordered Subjective Constitutional: Denies: fever HEENT: Denies: congestion Respiratory: Denies: shortness of breath Cardiovascular: Denies: chest pain Gastrointestinal/Abdominal: Denies: diarrhea, nausea, vomiting Genitourinary: Reports: other - no beltre Neurologic: Denies: headache Psychiatric: Denies: depression Skin: Denies: rash Hematologic: Denies: bleeding Musculoskeletal: Denies: pain Allergies: Coded Allergies: IODINE (Verified Allergy, Unknown, 08/26/16) PENICILLINS (Verified Allergy, Unknown, 08/26/16) Objective Vital Signs Last 24 Hour Vital Signs Date Time Temp Pulse Resp B/P Pulse Ox O2 Delivery O2 Flow Rate FiO2 09/19/16 11:39 97.9 90 20 122/78 97 Room Air 09/19/16 08:00 97.9 107 20 128/101 99 Room Air 09/19/16 06:30 98.0 09/19/16 04:42 98.0 09/19/16 04:00 97.9 71 18 134/65 98 Room Air 09/19/16 00:00 97.8 70 16 127/80 92 Room Air 09/18/16 21:53 Room Air 09/18/16 21:53 100 Room Air 09/18/16 20:00 97.9 81 18 141/68 99 Room Air 09/18/16 16:00 98.0 93 18 109/63 100 Room Air Height (Feet): 5 Height (Inches): 3.00 Weight (Pounds): 130 General Appearance: no acute distress HEENT: normocephalic, atraumatic, anicteric, mucous membranes moist, PERRL, EOMI, pharynx normal, supple, no JVD Respiratory/Chest: lungs clear, normal breath sounds, no accessory muscle use, respiratory distress Cardiovascular: normal peripheral pulses, normal rate, regular rhythm, no gallop/murmur, no JVD Abdomen: normal bowel sounds, soft, non tender, no organomegaly, non distended Genitourinary: other - no beltre Extremities: no cyanosis Skin: no rash, other - wounds covered 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/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, alert, oriented x 3, responsive Lymphatic: no neck adenopathy Musculoskeletal: no effusion Objective Labs Test 08/31/16 05:50 08/31/16 08:31 09/01/16 07:05 09/02/16 10:36 White Blood Count 18.8 K/UL (4.8-10.8) 17.2 K/UL (4.8-10.8) 13.8 K/UL (4.8-10.8) Red Blood Count 2.95 M/UL (4.20-5.40) 2.98 M/UL (4.20-5.40) 3.11 M/UL (4.20-5.40) Hemoglobin 8.4 G/DL (12.0-16.0) 8.7 G/DL (12.0-16.0) 8.4 G/DL (12.0-16.0) Hematocrit 25.3 % (37.0-47.0) 26.0 % (37.0-47.0) 26.3 % (37.0-47.0) Mean Corpuscular Volume 86 FL (80-99) 87 FL (80-99) 84 FL (80-99) Mean Corpuscular Hemoglobin 28.3 PG (27.0-31.0) 29.3 PG (27.0-31.0) 27.1 PG (27.0-31.0) Mean Corpuscular Hemoglobin Concent 33.1 G/DL (32.0-36.0) 33.6 G/DL (32.0-36.0) 32.1 G/DL (32.0-36.0) Red Cell Distribution Width 12.8 % (11.6-14.8) 12.6 % (11.6-14.8) 12.5 % (11.6-14.8) Platelet Count 178 K/UL (150-450) 183 K/UL (150-450) 258 K/UL (150-450) Mean Platelet Volume 6.0 FL (6.5-10.1) 5.1 FL (6.5-10.1) 6.2 FL (6.5-10.1) Neutrophils (%) (Auto) % (45.0-75.0) 72.6 % (45.0-75.0) 75.9 % (45.0-75.0) Lymphocytes (%) (Auto) % (20.0-45.0) 15.0 % (20.0-45.0) 9.3 % (20.0-45.0) Monocytes (%) (Auto) % (1.0-10.0) 9.1 % (1.0-10.0) 10.6 % (1.0-10.0) Eosinophils (%) (Auto) % (0.0-3.0) 2.5 % (0.0-3.0) 3.0 % (0.0-3.0) Basophils (%) (Auto) % (0.0-2.0) 0.9 % (0.0-2.0) 1.3 % (0.0-2.0) Differential Total Cells Counted 100 Neutrophils % (Manual) 70 % (45-75) Lymphocytes % (Manual) 16 % (20-45) Monocytes % (Manual) 11 % (1-10) Eosinophils % (Manual) 2 % (0-3) Basophils % (Manual) 0 % (0-2) Band Neutrophils 1 % (0-8) Platelet Estimate Adequate Platelet Morphology Normal Hypochromasia 1+ Sodium Level 130 mEQ/L (135-145) 135 mEQ/L (135-145) 135 mEQ/L (135-145) Potassium Level 3.5 mEQ/L (3.4-4.9) 3.8 mEQ/L (3.4-4.9) 3.7 mEQ/L (3.4-4.9) Chloride Level 92 mEQ/L (98-107) 94 mEQ/L (98-107) 94 mEQ/L (98-107) Carbon Dioxide Level 27 mEQ/L (20-30) 29 mEQ/L (20-30) 27 mEQ/L (20-30) Anion Gap 11 (5-15) 12 (5-15) 14 (5-15) Blood Urea Nitrogen 6 mg/dL (7-23) 5 mg/dL (7-23) 7 mg/dL (7-23) Creatinine 0.8 mg/dL (0.5-0.9) 0.8 mg/dL (0.5-0.9) 0.7 mg/dL (0.5-0.9) Estimat Glomerular Filtration Rate > 60 mL/min (>60) > 60 mL/min (>60) > 60 mL/min (>60) Glucose Level 116 mg/dL (74-106) 112 mg/dL (74-106) 116 mg/dL (74-106) Calcium Level 8.3 mg/dL (8.6-10.2) 8.8 mg/dL (8.6-10.2) 8.8 mg/dL (8.6-10.2) Urine Color Pale yellow Urine Appearance Clear Urine pH 7 (4.5-8.0) Urine Specific [place] 1.005 (1.005-1.035) Urine Protein Negative (NEGATIVE) Urine Glucose (UA) Negative (NEGATIVE) Urine Ketones Negative (NEGATIVE) Urine Occult Blood 2+ (NEGATIVE) Urine Nitrite Negative (NEGATIVE) Urine Bilirubin Negative (NEGATIVE) Urine Urobilinogen Normal MG/DL (0.0-1.0) Urine Leukocyte Esterase 1+ (NEGATIVE) Urine RBC 2-4 /HPF (0 - 2) Urine WBC 2-4 /HPF (0 - 2) Urine Squamous Epithelial Cells Few /LPF (NONE/OCC) Urine Bacteria Few /HPF (NONE) Total Bilirubin 0.3 mg/dL (0.0-1.2) Aspartate Amino Transf (AST/SGOT) 31 U/L (5-40) Alanine Aminotransferase (ALT/SGPT) 51 U/L (3-33) Alkaline Phosphatase 74 U/L (35-104) Total Protein 6.3 g/dL (6.6-8.7) Albumin 2.9 g/dL (3.5-5.2) Globulin 3.4 g/dL Albumin/Globulin Ratio 0.8 (1.0-2.7) chest x-ray - negative mri pelvis - report noted \ 09/04 - pelvic ct - no abscess 09/04 - chest x-ray - negative for pna v/q scan - low probability for PE Laboratory Tests Test 09/19/16 02:05 White Blood Count 9.5 K/UL (4.8-10.8) Red Blood Count 3.53 M/UL (4.20-5.40) L Hemoglobin 10.2 G/DL (12.0-16.0) L Hematocrit 31.4 % (37.0-47.0) L Mean Corpuscular Volume 89 FL (80-99) Mean Corpuscular Hemoglobin 28.9 PG (27.0-31.0) Mean Corpuscular Hemoglobin Concent 32.5 G/DL (32.0-36.0) Red Cell Distribution Width 14.5 % (11.6-14.8) Platelet Count 290 K/UL (150-450) Mean Platelet Volume 6.8 FL (6.5-10.1) Neutrophils (%) (Auto) 43.7 % (45.0-75.0) L Lymphocytes (%) (Auto) 32.3 % (20.0-45.0) Monocytes (%) (Auto) 8.6 % (1.0-10.0) Eosinophils (%) (Auto) 13.9 % (0.0-3.0) H Basophils (%) (Auto) 1.4 % (0.0-2.0) Sodium Level 139 mEQ/L (135-145) Potassium Level 3.9 mEQ/L (3.4-4.9) Chloride Level 98 mEQ/L (98-107) Carbon Dioxide Level 29 mEQ/L (20-30) Anion Gap 12 (5-15) Blood Urea Nitrogen 8 mg/dL (7-23) Creatinine 0.8 mg/dL (0.5-0.9) Estimat Glomerular Filtration Rate > 60 mL/min (>60) Glucose Level 114 mg/dL (74-106) H Calcium Level 9.2 mg/dL (8.6-10.2) Vancomycin Level Trough 12.8 ug/mL (5.0-12.0) H Current Medications Medications (Trade) Dose Ordered Sig/Yamileth Route PRN Reason Start Time Stop Time Status Last Admin Dose Admin Acetaminophen (Tylenol) 650 mg Q4H PRN ORAL fever 08/26/16 14:45 09/25/16 14:44 09/04/16 15:13 Acetaminophen (Tylenol) 650 mg Q4H PRN ORAL Mild Pain (Pain Scale 1-3) 08/26/16 14:45 09/25/16 14:44 09/12/16 03:20 Acetaminophen/ Butalbital/ Caffeine (Fioricet) 1 tab Q6H PRN ORAL For headache 09/12/16 08:45 10/12/16 08:44 09/15/16 20:12 Al Hydroxide/Mg Hydroxide (Mylanta II) 30 ml Q6H PRN ORAL dyspepsia 08/26/16 14:45 09/25/16 14:44 Bisacodyl (Dulcolax) 10 mg HSPRN PRN RECTAL Constipation 09/04/16 09:28 09/25/16 14:44 Dextrose (Dextrose 50%) STAT PRN IV Hypoglycemia 08/26/16 14:45 09/25/16 14:44 Docusate Sodium (Colace) 100 mg EVERY 12 HOURS ORAL 08/26/16 21:00 09/25/16 20:59 09/19/16 09:59 Ferrous Sulfate (Feosol) 325 mg THREE TIMES A DAY ORAL 09/02/16 18:00 10/02/16 17:59 09/19/16 09:59 Gabapentin (Neurontin) 300 mg BEDTIME ORAL 08/30/16 21:00 09/29/16 20:59 09/18/16 20:50 Heparin Sodium (Porcine) (Heparin 5000 units/ml) 5,000 units EVERY 8 HOURS SUBQ 09/16/16 14:00 10/16/16 13:59 09/19/16 06:03 Hydromorphone HCl (Dilaudid) 2 mg Q4H PRN IVP for severe 7-10 pain 09/14/16 15:23 09/21/16 15:22 09/19/16 10:14 Lactated Ringer's (Lactated Ringer's 1000ml) 1,000 ml @ 100 mls/hr Q10H IV 09/16/16 15:00 10/16/16 14:59 09/19/16 03:00 Lactobacillus Acidophilus (Culturelle) 1 tab TWICE A DAY ORAL 08/26/16 18:00 09/25/16 17:59 09/19/16 09:00 Lactulose (Cephulac) 30 gm Q4H PRN ORAL constipation 09/04/16 09:15 10/04/16 09:14 Levofloxacin (Levaquin) 750 mg QPM ORAL 09/18/16 16:30 09/25/16 16:29 09/18/16 16:57 Magnesium Hydroxide (Mom) 30 ml HSPRN PRN ORAL Constipation 08/26/16 14:45 09/25/16 14:44 09/05/16 01:47 Ondansetron HCl (Zofran) 4 mg Q6H PRN IVP Nausea & Vomiting 08/31/16 17:45 09/30/16 17:44 09/15/16 17:18 Oxycodone/ Acetaminophen 1 tab 1 tab Q4H PRN ORAL for breakthrough pain 09/14/16 15:23 09/21/16 15:22 09/19/16 03:43 Polyethylene Glycol (Miralax) 17 gm HSPRN PRN ORAL Constipation 09/04/16 09:29 09/25/16 14:44 09/11/16 08:25 Silver Sulfadiazine (Silvadene Cream 25gm) 1 applic DAILY TOPIC 09/02/16 14:00 10/02/16 13:59 09/19/16 09:00 Vancomycin HCl 1 ea 1 ea DAILY PRN MISC Per rx protocol 09/17/16 12:15 10/17/16 12:14 Vancomycin HCl/ Dextrose (Vancomycin/D5W) 275 ml @ 183.333 mls/hr Q12HR@0300,1500 IVPB 09/17/16 15:00 09/22/16 14:59 09/19/16 03:54 BLU KATHLEEN Sep 19, 2016 13:25
[2016-09-19] MEDS ORDERED: Fluconazole 100mg tab ORAL ONE (14:00)
--- NOTE | 2016-09-19 15:45 | General Progress Note ---
Assessment/Plan Problem List: (1) Abscess Assessment & Plan: s/p debridement and washout and partial closure POD#3 s/p recurrent I+D, wound vac placement POD#6 Cont wound care per surgery, s/p vac change. 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 Pain well controlled, no diaphoresis Objective Last 24 Hour Vital Signs Date Time Temp Pulse Resp B/P Pulse Ox O2 Delivery O2 Flow Rate FiO2 09/19/16 11:39 97.9 90 20 122/78 97 Room Air 09/19/16 08:00 97.9 107 20 128/101 99 Room Air 09/19/16 06:30 98.0 09/19/16 04:42 98.0 09/19/16 04:00 97.9 71 18 134/65 98 Room Air 09/19/16 00:00 97.8 70 16 127/80 92 Room Air 09/18/16 21:53 Room Air 09/18/16 21:53 100 Room Air 09/18/16 20:00 97.9 81 18 141/68 99 Room Air 09/18/16 16:00 98.0 93 18 109/63 100 Room Air Intake and Output 09/18/16 09/19/16 19:00 07:00 Intake Total 1620 ml 1940.000 ml Output Total 52 ml 40 ml Balance 1568 ml 1900.000 ml Intake Oral 720 ml 520 ml IV Total 900 ml 1420.000 ml Drainage Total 52 ml 40 ml # Voids 4 2 Laboratory Tests 09/19/16 02:05: White Blood Count 9.5, Red Blood Count 3.53L, Hemoglobin 10.2L, Hematocrit 31.4L , Mean Corpuscular Volume 89, Mean Corpuscular Hemoglobin 28.9, Mean Corpuscular Hemoglobin Concent 32.5, Red Cell Distribution Width 14.5, Platelet Count 290, Mean Platelet Volume 6.8, Neutrophils (%) (Auto) 43.7L, Lymphocytes ( %) (Auto) 32.3, Monocytes (%) (Auto) 8.6, Eosinophils (%) (Auto) 13.9H, Basophils (%) (Auto) 1.4, Sodium Level 139, Potassium Level 3.9, Chloride Level 98, Carbon Dioxide Level 29, Anion Gap 12, Blood Urea Nitrogen 8, Creatinine 0.8 , Estimat Glomerular Filtration Rate > 60, Glucose Level 114H, Calcium Level 9.2 , Vancomycin Level Trough 12.8H Height (Feet): 5 Height (Inches): 3.00 Weight (Pounds): 130 Objective General: alert, cooperative, no distress, appears stated age Head: normocephalic, without obvious abnormality, atraumatic Eyes: conjunctivae/corneas clear. PERRL, EOM's intact Throat: lips, mucosa, and tongue normal. MMM Neck: supple, symmetrical, trachea midline, and no JVD Lungs: clear to auscultation bilaterally Heart: regular rate and rhythm, S1, S2 normal, no murmur, click, rub or gallop Abdomen: soft, non-tender, non-distended, bowel sounds normal; no masses or organomegaly Extremities: +wound vac Pulses: 2+ and symmetric Skin: skin color, texture, turgor normal; no rashes or lesions Neurologic: 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, no focal deficits PETERSON COTTO Sep 19, 2016 15:45
[2016-09-19 15:57] VITALS: BP 120/64
[2016-09-20] VITALS: BP 117/78
[2016-09-20] MEDS: LR 1000ml 1,000 ML IV SCH ×2 (00:57→09:00)
[2016-09-20] MEDS: Heparin 5000 units/ml inj SUBQ SCH ×3 (01:04→17:05)
[2016-09-20] MEDS: Vancomycin 1250mg/D5W 275ml IVPB SCH ×2 (03:10)
[2016-09-20 04:03] VITALS: BP 117/74
[2016-09-20 08:05] VITALS: BP 124/78
[2016-09-20 08:36] LABS: EOSINOPHILS % (AUTO) 16.4 % (0.0-3.0); LYMPHOCYTES % (AUTO) 28.2 % (20.0-45.0); MEAN CORPUSCULAR HEMOGLOBIN 28.5 PG (27.0-31.0); MEAN CORPUSCULAR HGB CONC 31.4 G/DL (32.0-36.0); MEAN CORPUSCULAR VOLUME 91 FL (80-99); NEUTROPHILS % (AUTO) 44.6 % (45.0-75.0); PLATELET COUNT 301 K/UL (150-450); RED CELL DISTRIBUTION WIDTH 14.3 % (11.6-14.8); WHITE BLOOD COUNT 8.8 K/UL (4.8-10.8)
--- NOTE | 2016-09-20 08:47 | General Progress Note ---
Assessment/Plan Assessment/Plan (1) Bilateral buttock soft tissue necrosis, cellulitis, open wounds buttocks (2) Abscess (3) Intractable pain (4) Staged debridement of bilateral buttock necrotic soft tissue, flap delay The patient is to be continued on the Dilaudid and discontinue Percocet. We will start [place] 10/325mg PO 1 tab Q4H PRN moderate pain. The patient was discussed with Dr. Singh and concurred. Subjective Date patient seen: Sep 20, 2016 Time patient seen: 07:00 - am Allergies: Coded Allergies: IODINE (Verified Allergy, Unknown, 08/26/16) PENICILLINS (Verified Allergy, Unknown, 08/26/16) Subjective Constitutional: Reports: no symptoms HEENT: Reports: no symptoms Cardiovascular: Reports: no symptoms Respiratory: Reports: no symptoms Gastrointestinal/Abdominal: Reports: no symptoms Genitourinary: Reports: no symptoms Neurologic/Psychiatric: Reports: weakness Endocrine: Reports: no symptoms Hematologic/Lymphatic: Reports: no symptoms Subjective Pt is laying in bed and continued to c/o pain in her buttock area. I d/w her about try Hartleton in place of Percocet and she agrees. Objective Last 24 Hour Vital Signs Date Time Temp Pulse Resp B/P Pulse Ox O2 Delivery O2 Flow Rate FiO2 09/20/16 08:05 98.4 69 20 124/78 100 Room Air 09/20/16 04:03 97.8 76 16 117/74 98 Room Air 09/20/16 00:00 98.2 88 16 117/78 99 Room Air 09/19/16 19:46 Room Air 09/19/16 19:46 99 Room Air 09/19/16 15:57 96.6 91 20 120/64 99 Room Air 09/19/16 11:39 97.9 90 20 122/78 97 Room Air Intake and Output 09/19/16 09/20/16 19:00 07:00 Intake Total 240 ml Output Total 100 ml 0 ml Balance -100 ml 240 ml Intake Oral 240 ml Drainage Total 100 ml 0 ml # Voids 13 4 # Bowel Movements 1 Laboratory Tests 09/20/16 07:55: White Blood Count 8.8, Red Blood Count 3.80L, Hemoglobin 10.8L, Hematocrit 34.4L , Mean Corpuscular Volume 91, Mean Corpuscular Hemoglobin 28.5, Mean Corpuscular Hemoglobin Concent 31.4L, Red Cell Distribution Width 14.3, Platelet Count 301, Mean Platelet Volume 7.0, Neutrophils (%) (Auto) 44.6L, Lymphocytes (%) (Auto) 28.2, Monocytes (%) (Auto) 10.0, Eosinophils (%) (Auto) 16.4H, Basophils (%) (Auto) 1.0 Height (Feet): 5 Height (Inches): 3.00 Weight (Pounds): 130 Objective General Appearance: no apparent distress, alert EENT: PERRL/EOMI, normal ENT inspection Neck: non-tender, normal alignment Cardiovascular: normal rate, regular rhythm Respiratory/Chest: lungs clear, normal breath sounds Abdomen: non tender, soft Extremities: non-tender Edema: no edema noted Arm (L), no edema noted Arm (R), no edema noted Leg (L), no edema noted Leg (R), no edema noted Pedal (L), no edema noted Pedal (R), no edema noted Generalized Neurologic: alert, oriented x 3 Skin: other - bandages applied to buttock area with tenderness to palpation NELLY JACK Sep 20, 2016 08:47
[2016-09-20] MEDS: Lactobacillus-GG tablet ORAL SCH ×2 (09:00→16:53)
[2016-09-20] MEDS: Silver Sulfadiazine Cream 25gm TOPIC SCH ×2 (09:00→13:50)
[2016-09-20] MEDS: Docusate 100mg cap ORAL SCH ×2 (11:47→20:45)
[2016-09-20 11:51] VITALS: BP 130/80
[2016-09-20 15:57] VITALS: BP 127/79
[2016-09-20] MEDS: Bactrim DS (160mg/800mg) tab ORAL SCH (16:49)
[2016-09-20 20:00] VITALS: BP 131/78
--- NOTE | 2016-09-20 22:16 | General Progress Note ---
Assessment/Plan Problem List: (1) Abscess Assessment & Plan: s/p debridement and washout and partial closure POD#4 s/p recurrent I+D, wound vac placement POD#7 Cont wound care per surgery, s/p vac change. 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 Pain well controlled, no diaphoresis Objective Last 24 Hour Vital Signs Date Time Temp Pulse Resp B/P Pulse Ox O2 Delivery O2 Flow Rate FiO2 09/20/16 20:00 98.1 82 18 131/78 100 Room Air 09/20/16 15:57 97.1 92 20 127/79 99 Room Air 09/20/16 11:51 98.9 65 19 130/80 97 Room Air 09/20/16 08:05 98.4 69 20 124/78 100 Room Air 09/20/16 04:03 97.8 76 16 117/74 98 Room Air 09/20/16 00:00 98.2 88 16 117/78 99 Room Air Intake and Output 09/19/16 09/20/16 19:00 07:00 Intake Total 240 ml Output Total 100 ml 0 ml Balance -100 ml 240 ml Intake Oral 240 ml Drainage Total 100 ml 0 ml # Voids 13 4 # Bowel Movements 1 Laboratory Tests 09/20/16 07:55: White Blood Count 8.8, Red Blood Count 3.80L, Hemoglobin 10.8L, Hematocrit 34.4L , Mean Corpuscular Volume 91, Mean Corpuscular Hemoglobin 28.5, Mean Corpuscular Hemoglobin Concent 31.4L, Red Cell Distribution Width 14.3, Platelet Count 301, Mean Platelet Volume 7.0, Neutrophils (%) (Auto) 44.6L, Lymphocytes (%) (Auto) 28.2, Monocytes (%) (Auto) 10.0, Eosinophils (%) (Auto) 16.4H, Basophils (%) (Auto) 1.0 Height (Feet): 5 Height (Inches): 3.00 Weight (Pounds): 130 Objective General: alert, cooperative, no distress, appears stated age Head: normocephalic, without obvious abnormality, atraumatic Eyes: conjunctivae/corneas clear. PERRL, EOM's intact Throat: lips, mucosa, and tongue normal. MMM Neck: supple, symmetrical, trachea midline, and no JVD Lungs: clear to auscultation bilaterally Heart: regular rate and rhythm, S1, S2 normal, no murmur, click, rub or gallop Abdomen: soft, non-tender, non-distended, bowel sounds normal; no masses or organomegaly Extremities: +wound vac Pulses: 2+ and symmetric Skin: skin color, texture, turgor normal; no rashes or lesions Neurologic: 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, no focal deficits PETERSON COTTO Sep 20, 2016 22:16
[2016-09-21] MEDS: Norco 10mg/325mg tab ORAL PRN ×2 (00:05→04:52)
[2016-09-21] MEDS: Heparin 5000 units/ml inj SUBQ SCH ×3 (00:10→17:00)
[2016-09-21 00:37] VITALS: BP 117/76
[2016-09-21] MEDS: HYDROmorphone 1mg/ml Carpuject IVP PRN ×2 (01:14→11:30)
[2016-09-21 04:00] VITALS: BP 115/62
[2016-09-21 07:07] LABS: ANION GAP 16 (5-15); CALCIUM 9.9 mg/dL (8.6-10.2); CARBON DIOXIDE 26 mEQ/L (20-30); CHLORIDE 93 mEQ/L (98-107); CREATININE 0.8 mg/dL (0.5-0.9); GLOMERULAR FILTRATION RATE > 60 mL/min (>60); HEMOLYSIS 22; POTASSIUM 4.5 mEQ/L (3.4-4.9); SODIUM 135 mEQ/L (135-145)
--- NOTE | 2016-09-21 09:23 | General Progress Note ---
Assessment/Plan Assessment/Plan (1) Bilateral buttock soft tissue necrosis, cellulitis, open wounds buttocks (2) Abscess (3) Intractable pain (4) Staged debridement of bilateral buttock necrotic soft tissue, flap delay The patient is to be continued on the Dilaudid and Barry. The patient was discussed with Dr. Singh and concurred. Subjective Date patient seen: Sep 21, 2016 Time patient seen: 07:45 - am Allergies: Coded Allergies: IODINE (Verified Allergy, Unknown, 08/26/16) PENICILLINS (Verified Allergy, Unknown, 08/26/16) Subjective Constitutional: Reports: no symptoms HEENT: Reports: no symptoms Cardiovascular: Reports: no symptoms Respiratory: Reports: no symptoms Gastrointestinal/Abdominal: Reports: no symptoms Genitourinary: Reports: no symptoms Neurologic/Psychiatric: Reports: weakness Endocrine: Reports: no symptoms Hematologic/Lymphatic: Reports: no symptoms Subjective She is in no acute distress, pain has been unchanged and states that it has been a difficult change to the tabs however it has been reduced on the Barry and Dilaudid. Objective Last 24 Hour Vital Signs Date Time Temp Pulse Resp B/P Pulse Ox O2 Delivery O2 Flow Rate FiO2 09/21/16 04:00 97.9 81 18 115/62 98 Room Air 09/21/16 00:37 98.2 76 18 117/76 96 Room Air 09/20/16 20:00 98.1 82 18 131/78 100 Room Air 09/20/16 15:57 97.1 92 20 127/79 99 Room Air 09/20/16 11:51 98.9 65 19 130/80 97 Room Air Intake and Output 09/20/16 09/21/16 19:00 07:00 Intake Total 925 ml 800 ml Output Total 400 ml Balance 925 ml 400 ml Intake Oral 925 ml 800 ml Output Urine Total 400 ml # Voids 2 3 Laboratory Tests 09/21/16 05:50: Sodium Level 135, Potassium Level 4.5, Chloride Level 93L, Carbon Dioxide Level 26, Anion Gap 16H, Blood Urea Nitrogen 11, Creatinine 0.8, Estimat Glomerular Filtration Rate > 60, Glucose Level 91, Calcium Level 9.9 Height (Feet): 5 Height (Inches): 3.00 Weight (Pounds): 130 Objective General Appearance: no apparent distress, alert EENT: PERRL/EOMI, normal ENT inspection Neck: non-tender, normal alignment Cardiovascular: normal rate, regular rhythm Respiratory/Chest: lungs clear, normal breath sounds Abdomen: non tender, soft Extremities: non-tender Edema: no edema noted Arm (L), no edema noted Arm (R), no edema noted Leg (L), no edema noted Leg (R), no edema noted Pedal (L), no edema noted Pedal (R), no edema noted Generalized Neurologic: alert, oriented x 3 Skin: other - bandages applied to buttock area with tenderness to palpation NELLY JACK Sep 21, 2016 09:23
[2016-09-21] MEDS: Bactrim DS (160mg/800mg) tab ORAL SCH ×2 (09:54→18:47)
[2016-09-21] MEDS: Silver Sulfadiazine Cream 25gm TOPIC SCH (09:54)
[2016-09-21] MEDS: Docusate 100mg cap ORAL SCH ×2 (09:55→21:00)
[2016-09-21] MEDS: Lactobacillus-GG tablet ORAL SCH ×2 (09:55→18:47)
[2016-09-21 12:00] VITALS: BP 127/80
--- NOTE | 2016-09-21 15:59 | Infectious Diseases Prog Note ---
Assessment/Plan Assessment/Plan A) 1) s/p right buttock exploration, debridement and wound vac - wound culture with staph aureus, pseudomonas and transition social worker (transition social worker likely colonizer) 2) s/p debridement of bilateral buttock necrosis with cellulitis 3) nausea and vomiting better 4) hx gluteal silicone infections 5) recent terminated 6) r/u AURORA autoimmune syndrome 7) pain mgt, anemia, hyponatremia 8) allergies - pcn and iodine, sh-negative, mar noted, notes and records reviewed 9) d/w RN P) 1) bactrim plus levofloxacin - day # 5 abx post surgery (09/16/16), plan on 14 days abx post-surgery 2) check labs, cr, wbc 3) surgery f/u on wounds and wound care 4) continue treatment per Dr. Christiansen and surgery 5) orders noted and entered 6) diflucan for vaginal yeast infection as needed Subjective Constitutional: Denies: fever HEENT: Denies: congestion Respiratory: Denies: shortness of breath Cardiovascular: Denies: chest pain Gastrointestinal/Abdominal: Reports: nausea, other - no abominal pain, vomiting Neurologic: Denies: headache Psychiatric: Denies: depression Skin: Denies: rash Hematologic: Denies: bleeding Musculoskeletal: Denies: pain Allergies: Coded Allergies: IODINE (Verified Allergy, Unknown, 08/26/16) PENICILLINS (Verified Allergy, Unknown, 08/26/16) Objective Vital Signs Last 24 Hour Vital Signs Date Time Temp Pulse Resp B/P Pulse Ox O2 Delivery O2 Flow Rate FiO2 09/21/16 12:00 98.0 108 20 127/80 99 Room Air 09/21/16 04:00 97.9 81 18 115/62 98 Room Air 09/21/16 00:37 98.2 76 18 117/76 96 Room Air 09/20/16 20:00 98.1 82 18 131/78 100 Room Air 09/20/16 15:57 97.1 92 20 127/79 99 Room Air Height (Feet): 5 Height (Inches): 3.00 Weight (Pounds): 130 General Appearance: no acute distress HEENT: normocephalic, atraumatic, anicteric, mucous membranes moist, PERRL, EOMI, pharynx normal, supple, no JVD Respiratory/Chest: lungs clear, normal breath sounds, no respiratory distress, no accessory muscle use Cardiovascular: normal rate, regular rhythm, no gallop/murmur, no JVD Abdomen: normal bowel sounds, soft, non tender, no organomegaly, non distended Genitourinary: other - no beltre Extremities: no cyanosis Skin: no rash, other - wounds covered 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, alert, oriented x 3, responsive Lymphatic: no neck adenopathy Musculoskeletal: no effusion Objective Microbiology Date/Time Source Procedure Growth Status 09/04/16 16:45 Blood Blood Culture - Final NO GROWTH AFTER 5 DAYS Complete 09/05/16 11:00 Wound Gram Stain - Final Complete 09/05/16 11:00 Wound Culture - Final Pseudomonas Aeruginosa Staphylococcus Sp Coag Neg Complete 08/31/16 08:31 Urine,Clean Catch Urine Culture - Final Diphtheroids Complete 09/13/16 20:00 Buttock Right Gram Stain - Final Complete 09/13/16 20:00 Aerobic Culture - Final Staphylococcus Aureus Staphylococcus Sp Coag Neg Complete 09/13/16 20:00 Buttock Right Anaerobic Culture - Final NO ANAEROBES ISOLATED Complete Labs Test 08/31/16 05:50 08/31/16 08:31 09/01/16 07:05 09/02/16 10:36 White Blood Count 18.8 K/UL (4.8-10.8) 17.2 K/UL (4.8-10.8) 13.8 K/UL (4.8-10.8) Red Blood Count 2.95 M/UL (4.20-5.40) 2.98 M/UL (4.20-5.40) 3.11 M/UL (4.20-5.40) Hemoglobin 8.4 G/DL (12.0-16.0) 8.7 G/DL (12.0-16.0) 8.4 G/DL (12.0-16.0) Hematocrit 25.3 % (37.0-47.0) 26.0 % (37.0-47.0) 26.3 % (37.0-47.0) Mean Corpuscular Volume 86 FL (80-99) 87 FL (80-99) 84 FL (80-99) Mean Corpuscular Hemoglobin 28.3 PG (27.0-31.0) 29.3 PG (27.0-31.0) 27.1 PG (27.0-31.0) Mean Corpuscular Hemoglobin Concent 33.1 G/DL (32.0-36.0) 33.6 G/DL (32.0-36.0) 32.1 G/DL (32.0-36.0) Red Cell Distribution Width 12.8 % (11.6-14.8) 12.6 % (11.6-14.8) 12.5 % (11.6-14.8) Platelet Count 178 K/UL (150-450) 183 K/UL (150-450) 258 K/UL (150-450) Mean Platelet Volume 6.0 FL (6.5-10.1) 5.1 FL (6.5-10.1) 6.2 FL (6.5-10.1) Neutrophils (%) (Auto) % (45.0-75.0) 72.6 % (45.0-75.0) 75.9 % (45.0-75.0) Lymphocytes (%) (Auto) % (20.0-45.0) 15.0 % (20.0-45.0) 9.3 % (20.0-45.0) Monocytes (%) (Auto) % (1.0-10.0) 9.1 % (1.0-10.0) 10.6 % (1.0-10.0) Eosinophils (%) (Auto) % (0.0-3.0) 2.5 % (0.0-3.0) 3.0 % (0.0-3.0) Basophils (%) (Auto) % (0.0-2.0) 0.9 % (0.0-2.0) 1.3 % (0.0-2.0) Differential Total Cells Counted 100 Neutrophils % (Manual) 70 % (45-75) Lymphocytes % (Manual) 16 % (20-45) Monocytes % (Manual) 11 % (1-10) Eosinophils % (Manual) 2 % (0-3) Basophils % (Manual) 0 % (0-2) Band Neutrophils 1 % (0-8) Platelet Estimate Adequate Platelet Morphology Normal Hypochromasia 1+ Sodium Level 130 mEQ/L (135-145) 135 mEQ/L (135-145) 135 mEQ/L (135-145) Potassium Level 3.5 mEQ/L (3.4-4.9) 3.8 mEQ/L (3.4-4.9) 3.7 mEQ/L (3.4-4.9) Chloride Level 92 mEQ/L (98-107) 94 mEQ/L (98-107) 94 mEQ/L (98-107) Carbon Dioxide Level 27 mEQ/L (20-30) 29 mEQ/L (20-30) 27 mEQ/L (20-30) Anion Gap 11 (5-15) 12 (5-15) 14 (5-15) Blood Urea Nitrogen 6 mg/dL (7-23) 5 mg/dL (7-23) 7 mg/dL (7-23) Creatinine 0.8 mg/dL (0.5-0.9) 0.8 mg/dL (0.5-0.9) 0.7 mg/dL (0.5-0.9) Estimat Glomerular Filtration Rate > 60 mL/min (>60) > 60 mL/min (>60) > 60 mL/min (>60) Glucose Level 116 mg/dL (74-106) 112 mg/dL (74-106) 116 mg/dL (74-106) Calcium Level 8.3 mg/dL (8.6-10.2) 8.8 mg/dL (8.6-10.2) 8.8 mg/dL (8.6-10.2) Urine Color Pale yellow Urine Appearance Clear Urine pH 7 (4.5-8.0) Urine Specific [place] 1.005 (1.005-1.035) Urine Protein Negative (NEGATIVE) Urine Glucose (UA) Negative (NEGATIVE) Urine Ketones Negative (NEGATIVE) Urine Occult Blood 2+ (NEGATIVE) Urine Nitrite Negative (NEGATIVE) Urine Bilirubin Negative (NEGATIVE) Urine Urobilinogen Normal MG/DL (0.0-1.0) Urine Leukocyte Esterase 1+ (NEGATIVE) Urine RBC 2-4 /HPF (0 - 2) Urine WBC 2-4 /HPF (0 - 2) Urine Squamous Epithelial Cells Few /LPF (NONE/OCC) Urine Bacteria Few /HPF (NONE) Total Bilirubin 0.3 mg/dL (0.0-1.2) Aspartate Amino Transf (AST/SGOT) 31 U/L (5-40) Alanine Aminotransferase (ALT/SGPT) 51 U/L (3-33) Alkaline Phosphatase 74 U/L (35-104) Total Protein 6.3 g/dL (6.6-8.7) Albumin 2.9 g/dL (3.5-5.2) Globulin 3.4 g/dL Albumin/Globulin Ratio 0.8 (1.0-2.7) chest x-ray - negative mri pelvis - report noted pelvic ct - no abscess 09/04 - chest x-ray - negative for pna v/q scan - low probability for PE Microbiology Date/Time Source Procedure Growth Status 09/04/16 16:45 Blood Blood Culture - Final NO GROWTH AFTER 5 DAYS Complete 09/05/16 11:00 Wound Gram Stain - Final Complete 09/05/16 11:00 Wound Culture - Final Pseudomonas Aeruginosa Staphylococcus Sp Coag Neg Complete 08/31/16 08:31 Urine,Clean Catch Urine Culture - Final Diphtheroids Complete 09/13/16 20:00 Buttock Right Gram Stain - Final Complete 09/13/16 20:00 Aerobic Culture - Final Staphylococcus Aureus Staphylococcus Sp Coag Neg Complete 09/13/16 20:00 Buttock Right Anaerobic Culture - Final NO ANAEROBES ISOLATED Complete Laboratory Tests Test 09/21/16 05:50 Sodium Level 135 mEQ/L (135-145) Potassium Level 4.5 mEQ/L (3.4-4.9) Chloride Level 93 mEQ/L (98-107) L Carbon Dioxide Level 26 mEQ/L (20-30) Anion Gap 16 (5-15) H Blood Urea Nitrogen 11 mg/dL (7-23) Creatinine 0.8 mg/dL (0.5-0.9) Estimat Glomerular Filtration Rate > 60 mL/min (>60) Glucose Level 91 mg/dL (74-106) Calcium Level 9.9 mg/dL (8.6-10.2) wbc - 8.8 hgb - 10.8 Current Medications Medications (Trade) Dose Ordered Sig/Yamileth Route PRN Reason Start Time Stop Time Status Last Admin Dose Admin Acetaminophen (Tylenol) 650 mg Q4H PRN ORAL fever 08/26/16 14:45 09/25/16 14:44 09/04/16 15:13 Acetaminophen (Tylenol) 650 mg Q4H PRN ORAL Mild Pain (Pain Scale 1-3) 08/26/16 14:45 09/25/16 14:44 09/12/16 03:20 Acetaminophen/ Butalbital/ Caffeine (Fioricet) 1 tab Q6H PRN ORAL For headache 09/12/16 08:45 10/12/16 08:44 09/15/16 20:12 Acetaminophen/ Hydrocodone Bitart ([place] 10/325) 1 ea Q4H PRN ORAL Moderate Pain (Pain Scale 4-6) 09/20/16 10:06 09/27/16 10:05 09/21/16 04:52 Al Hydroxide/Mg Hydroxide (Mylanta II) 30 ml Q6H PRN ORAL dyspepsia 08/26/16 14:45 09/25/16 14:44 Bisacodyl (Dulcolax) 10 mg HSPRN PRN RECTAL Constipation 09/04/16 09:28 09/25/16 14:44 Dextrose (Dextrose 50%) STAT PRN IV Hypoglycemia 08/26/16 14:45 09/25/16 14:44 Docusate Sodium (Colace) 100 mg EVERY 12 HOURS ORAL 08/26/16 21:00 09/25/16 20:59 09/21/16 09:55 Ferrous Sulfate (Feosol) 325 mg THREE TIMES A DAY ORAL 09/02/16 18:00 10/02/16 17:59 09/21/16 11:23 Gabapentin (Neurontin) 300 mg BEDTIME ORAL 08/30/16 21:00 09/29/16 20:59 09/20/16 20:45 Heparin Sodium (Porcine) (Heparin 5000 units/ml) 5,000 units 0100,0900,1700 SUBQ 09/20/16 09:00 10/20/16 08:59 09/21/16 09:56 Hydromorphone HCl (Dilaudid) 1 mg Q4H PRN IVP Severe Pain (Pain Scale 7-10) 09/20/16 10:06 09/27/16 10:05 09/21/16 11:30 Hydromorphone HCl (Dilaudid) 2 mg Q4H PRN IVP Severe Breakthru Pain (>7) 09/20/16 10:06 09/27/16 10:05 09/20/16 20:46 Lactobacillus Acidophilus (Culturelle) 1 tab TWICE A DAY ORAL 08/26/16 18:00 09/25/16 17:59 09/21/16 09:55 Lactulose (Cephulac) 30 gm Q4H PRN ORAL constipation 09/04/16 09:15 10/04/16 09:14 Levofloxacin (Levaquin) 750 mg Q24H ORAL 09/20/16 17:00 09/27/16 16:59 09/20/16 16:50 Magnesium Hydroxide (Mom) 30 ml HSPRN PRN ORAL Constipation 08/26/16 14:45 09/25/16 14:44 09/05/16 01:47 Ondansetron HCl (Zofran) 4 mg Q6H PRN IVP Nausea & Vomiting 08/31/16 17:45 09/30/16 17:44 09/21/16 12:53 Polyethylene Glycol (Miralax) 17 gm HSPRN PRN ORAL Constipation 09/04/16 09:29 09/25/16 14:44 09/11/16 08:25 Silver Sulfadiazine (Silvadene Cream 25gm) 1 applic DAILY TOPIC 09/02/16 14:00 10/02/16 13:59 09/21/16 09:54 Trimethoprim/ Sulfamethoxazole (Bactrim-DS) 1 ea TWICE A DAY ORAL 09/20/16 18:00 09/27/16 17:59 09/21/16 09:54 BLU KATHLEEN Sep 21, 2016 15:59
[2016-09-21 16:46] VITALS: BP 133/84
[2016-09-21] MEDS ORDERED: Transderm Scop 1.5mg TDERMAL ONE (17:00)
[2016-09-21 20:12] VITALS: BP 120/78
--- NOTE | 2016-09-21 21:35 | General Progress Note ---
Subjective Date patient seen: Sep 21, 2016 Allergies: Coded Allergies: IODINE (Verified Allergy, Unknown, 08/26/16) PENICILLINS (Verified Allergy, Unknown, 08/26/16) Subjective (POD #5) Patient seen and examined Patient is having wound vac changed today by PE: Wound of the right buttocks approx. 5.5 cm by 2.5 cm still with exposed muscle underneath, granulation on the muscle with more serous drainage. Skin soft, some some tenderness at wound edge. Impression: Patient with complicated open deep buttocks wound with exposed muscle. Wound is making slow progress with contraction in size. Wounds is still tenuous and not ready to be closed. Any attempt to close at this time will have high likelihood of failure. I anticipate that the wound will continue to contract the wound. When the wound is ready, then closure will have a higher likelihood of remaining close. Plan: Left ILIANA removed. Bedside wound vac change today. Anticipate another change on Saturday and hopefully closure on Saturday. Patient is not ready for d/c yet. Continue antibiotics and wound care. Objective Last 24 Hour Vital Signs Date Time Temp Pulse Resp B/P Pulse Ox O2 Delivery O2 Flow Rate FiO2 09/21/16 20:12 97.7 104 20 120/78 98 Room Air 09/21/16 16:46 98.1 67 20 133/84 96 Room Air 09/21/16 12:00 98.0 108 20 127/80 99 Room Air 09/21/16 04:00 97.9 81 18 115/62 98 Room Air 09/21/16 00:37 98.2 76 18 117/76 96 Room Air Intake and Output 09/20/16 09/21/16 19:00 07:00 Intake Total 925 ml 800 ml Output Total 400 ml Balance 925 ml 400 ml Intake Oral 925 ml 800 ml Output Urine Total 400 ml # Voids 2 3 Laboratory Tests 09/21/16 05:50: Sodium Level 135, Potassium Level 4.5, Chloride Level 93L, Carbon Dioxide Level 26, Anion Gap 16H, Blood Urea Nitrogen 11, Creatinine 0.8, Estimat Glomerular Filtration Rate > 60, Glucose Level 91, Calcium Level 9.9 Height (Feet): 5 Height (Inches): 3.00 Weight (Pounds): 130 Bebo Cabral M.D. (Steven) Sep 21, 2016 21:35
[2016-09-22 00:04] VITALS: BP 125/70
[2016-09-22] MEDS: Heparin 5000 units/ml inj SUBQ SCH ×3 (00:58→17:00)
[2016-09-22 04:19] VITALS: BP 128/72
[2016-09-22] MEDS: HYDROmorphone 1mg/ml Carpuject IVP PRN ×3 (06:58→18:30)
[2016-09-22 08:00] VITALS: BP 108/67
[2016-09-22] MEDS: Bactrim DS (160mg/800mg) tab ORAL SCH ×2 (10:19→17:25)
[2016-09-22] MEDS: Lactobacillus-GG tablet ORAL SCH ×2 (10:19→17:23)
[2016-09-22] MEDS: Docusate 100mg cap ORAL SCH ×2 (10:19→21:12)
[2016-09-22 12:00] VITALS: BP 113/72
--- NOTE | 2016-09-22 13:20 | General Progress Note ---
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 Pain well controlled, no diaphoresis,.n/v better with ATC reglan ordered yesterday along with scopolamine patch Objective Last 24 Hour Vital Signs Date Time Temp Pulse Resp B/P Pulse Ox O2 Delivery O2 Flow Rate FiO2 09/22/16 11:00 98.2 09/22/16 08:00 98.2 68 19 108/67 100 Room Air 09/22/16 04:19 98.1 98 18 128/72 95 Room Air 09/22/16 00:04 97.9 100 19 125/70 96 Room Air 09/21/16 20:12 97.7 104 20 120/78 98 Room Air 09/21/16 16:46 98.1 67 20 133/84 96 Room Air Intake and Output 09/21/16 09/22/16 19:00 07:00 Intake Total 480 ml 240 ml Output Total 50 ml 200 ml Balance 430 ml 40 ml Intake Oral 480 ml 240 ml Emesis 200 ml Drainage Total 50 ml # Voids 2 2 Height (Feet): 5 Height (Inches): 3.00 Weight (Pounds): 130 Objective General: alert, cooperative, no distress, appears stated age Head: normocephalic, without obvious abnormality, atraumatic Eyes: conjunctivae/corneas clear. PERRL, EOM's intact Throat: lips, mucosa, and tongue normal. MMM Neck: supple, symmetrical, trachea midline, and no JVD Lungs: clear to auscultation bilaterally Heart: regular rate and rhythm, S1, S2 normal, no murmur, click, rub or gallop Abdomen: soft, non-tender, non-distended, bowel sounds normal; no masses or organomegaly Extremities: +wound vac, +dressings c/d/i Pulses: 2+ and symmetric Skin: skin color, texture, turgor normal; no rashes or lesions Neurologic: 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, no focal deficits PETERSON COTTO Sep 22, 2016 13:20
[2016-09-22] MEDS: Silver Sulfadiazine Cream 25gm TOPIC SCH (13:32)
[2016-09-22 16:41] VITALS: BP 100/50
[2016-09-22 20:00] VITALS: BP 106/74
--- NOTE | 2016-09-22 22:26 | General Progress Note ---
Assessment/Plan Assessment/Plan (1) Bilateral buttock soft tissue necrosis, cellulitis, open wounds buttocks (2) Abscess (3) Intractable pain (4) Staged debridement of bilateral buttock necrotic soft tissue, flap delay The patient is to be continued on the Dilaudid and [place]. The patient was discussed with Dr. Singh and concurred. Subjective Date patient seen: Sep 22, 2016 Time patient seen: 10:15 - pm Allergies: Coded Allergies: IODINE (Verified Allergy, Unknown, 08/26/16) PENICILLINS (Verified Allergy, Unknown, 08/26/16) Subjective Constitutional: Reports: no symptoms HEENT: Reports: no symptoms Cardiovascular: Reports: no symptoms Respiratory: Reports: no symptoms Gastrointestinal/Abdominal: Reports: no symptoms Genitourinary: Reports: no symptoms Neurologic/Psychiatric: Reports: weakness Endocrine: Reports: no symptoms Hematologic/Lymphatic: Reports: no symptoms Subjective Patient is laying in bed. She continues to c/o buttock and back pain The pain is reduced on the medications. She has used 5 doses of Dilaudid 1mg 3 doses of 2 mg and 2 [place] in the last 24hrs. Objective Last 24 Hour Vital Signs Date Time Temp Pulse Resp B/P Pulse Ox O2 Delivery O2 Flow Rate FiO2 09/22/16 20:00 97.9 78 18 106/74 96 Room Air 09/22/16 19:00 93.7 09/22/16 16:41 93.7 72 19 100/50 96 Room Air 09/22/16 14:37 98.1 09/22/16 14:13 98.2 09/22/16 12:00 95.2 82 19 113/72 97 Room Air 09/22/16 08:00 98.2 68 19 108/67 100 Room Air 09/22/16 04:19 98.1 98 18 128/72 95 Room Air 09/22/16 00:04 97.9 100 19 125/70 96 Room Air Intake and Output 09/21/16 09/22/16 19:00 07:00 Intake Total 480 ml 240 ml Output Total 50 ml 200 ml Balance 430 ml 40 ml Intake Oral 480 ml 240 ml Emesis 200 ml Drainage Total 50 ml # Voids 2 2 Height (Feet): 5 Height (Inches): 3.00 Weight (Pounds): 130 Objective General Appearance: no apparent distress, alert EENT: PERRL/EOMI, normal ENT inspection Neck: non-tender, normal alignment Cardiovascular: normal rate, regular rhythm Respiratory/Chest: lungs clear, normal breath sounds Abdomen: non tender, soft Extremities: non-tender Edema: no edema noted Arm (L), no edema noted Arm (R), no edema noted Leg (L), no edema noted Leg (R), no edema noted Pedal (L), no edema noted Pedal (R), no edema noted Generalized Neurologic: alert, oriented x 3 Skin: other - bandages applied to buttock area with tenderness to palpation NELLY JACK Sep 22, 2016 22:26
[2016-09-23] VITALS: BP 117/76
[2016-09-23] MEDS: Heparin 5000 units/ml inj SUBQ SCH ×3 (01:00→17:38)
[2016-09-23] MEDS: HYDROmorphone 1mg/ml Carpuject IVP PRN ×2 (02:24→09:48)
[2016-09-23 08:00] VITALS: BP 112/64
[2016-09-23] MEDS: Silver Sulfadiazine Cream 25gm TOPIC SCH (09:45)
[2016-09-23] MEDS: Docusate 100mg cap ORAL SCH ×2 (09:49→21:08)
[2016-09-23] MEDS: Lactobacillus-GG tablet ORAL SCH ×2 (09:49→17:35)
[2016-09-23] MEDS: Bactrim DS (160mg/800mg) tab ORAL SCH ×2 (09:56→17:34)
[2016-09-23] MEDS: Miralax 17gm pkt ORAL PRN (10:06)
--- NOTE | 2016-09-23 10:40 | Infectious Diseases Prog Note ---
Assessment/Plan Assessment/Plan A) 1) s/p right buttock exploration, debridement and wound vac - wound culture with staph aureus, pseudomonas and shop hand (shop hand likely colonizer) 2) s/p debridement of bilateral buttock necrosis with cellulitis 3) nausea and vomiting better 4) hx gluteal silicone infections 5) recent terminated 6) r/u AURORA autoimmune syndrome 7) pain mgt, anemia, hyponatremia 8) allergies - pcn and iodine, sh-negative, mar noted, notes and records reviewed 9) d/w RN P) 1) bactrim plus levofloxacin - day # 7 abx post surgery (09/16/16) 2) check labs, cr, wbc 3) surgery f/u on wounds and wound care 4) continue treatment per Dr. Christiansen and surgery 5) orders noted and entered 6) diflucan for vaginal yeast infection as needed Subjective Constitutional: Denies: fever HEENT: Denies: congestion Respiratory: Denies: shortness of breath Cardiovascular: Denies: chest pain Gastrointestinal/Abdominal: Denies: nausea, vomiting Genitourinary: Reports: other - no beltre, Denies: dysuria, frequency, hematuria Psychiatric: Denies: depression Skin: Denies: rash Hematologic: Denies: bleeding Musculoskeletal: Denies: pain Allergies: Coded Allergies: IODINE (Verified Allergy, Unknown, 08/26/16) PENICILLINS (Verified Allergy, Unknown, 08/26/16) Objective Vital Signs Last 24 Hour Vital Signs Date Time Temp Pulse Resp B/P Pulse Ox O2 Delivery O2 Flow Rate FiO2 09/23/16 08:00 97.9 113 17 112/64 99 Room Air 09/23/16 05:49 97.3 09/23/16 02:54 97.3 09/23/16 00:00 97.3 69 18 117/76 96 Room Air 09/22/16 20:00 97.9 78 18 106/74 96 Room Air 09/22/16 16:41 93.7 72 19 100/50 96 Room Air 09/22/16 14:37 98.1 09/22/16 12:00 95.2 82 19 113/72 97 Room Air Height (Feet): 5 Height (Inches): 3.00 Weight (Pounds): 130 General Appearance: no acute distress HEENT: normocephalic, atraumatic, anicteric, mucous membranes moist, PERRL, EOMI, pharynx normal, supple, no JVD Respiratory/Chest: lungs clear, normal breath sounds, no respiratory distress, no accessory muscle use Cardiovascular: normal rate, regular rhythm, no gallop/murmur, no JVD Abdomen: normal bowel sounds, soft, non tender, no organomegaly, non distended Genitourinary: other - no beltre Extremities: no cyanosis Skin: no rash, other - wound coverd Neurologic/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: 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, alert, oriented x 3, responsive Lymphatic: no neck adenopathy Musculoskeletal: no effusion Objective Microbiology Date/Time Source Procedure Growth Status 09/04/16 16:45 Blood Blood Culture - Final NO GROWTH AFTER 5 DAYS Complete 09/05/16 11:00 Wound Gram Stain - Final Complete 09/05/16 11:00 Wound Culture - Final Pseudomonas Aeruginosa Staphylococcus Sp Coag Neg Complete 08/31/16 08:31 Urine,Clean Catch Urine Culture - Final Diphtheroids Complete 09/13/16 20:00 Buttock Right Gram Stain - Final Complete 09/13/16 20:00 Aerobic Culture - Final Staphylococcus Aureus Staphylococcus Sp Coag Neg Complete 09/13/16 20:00 Buttock Right Anaerobic Culture - Final NO ANAEROBES ISOLATED Complete Labs Test 08/31/16 05:50 08/31/16 08:31 09/01/16 07:05 09/02/16 10:36 White Blood Count 18.8 K/UL (4.8-10.8) 17.2 K/UL (4.8-10.8) 13.8 K/UL (4.8-10.8) Red Blood Count 2.95 M/UL (4.20-5.40) 2.98 M/UL (4.20-5.40) 3.11 M/UL (4.20-5.40) Hemoglobin 8.4 G/DL (12.0-16.0) 8.7 G/DL (12.0-16.0) 8.4 G/DL (12.0-16.0) Hematocrit 25.3 % (37.0-47.0) 26.0 % (37.0-47.0) 26.3 % (37.0-47.0) Mean Corpuscular Volume 86 FL (80-99) 87 FL (80-99) 84 FL (80-99) Mean Corpuscular Hemoglobin 28.3 PG (27.0-31.0) 29.3 PG (27.0-31.0) 27.1 PG (27.0-31.0) Mean Corpuscular Hemoglobin Concent 33.1 G/DL (32.0-36.0) 33.6 G/DL (32.0-36.0) 32.1 G/DL (32.0-36.0) Red Cell Distribution Width 12.8 % (11.6-14.8) 12.6 % (11.6-14.8) 12.5 % (11.6-14.8) Platelet Count 178 K/UL (150-450) 183 K/UL (150-450) 258 K/UL (150-450) Mean Platelet Volume 6.0 FL (6.5-10.1) 5.1 FL (6.5-10.1) 6.2 FL (6.5-10.1) Neutrophils (%) (Auto) % (45.0-75.0) 72.6 % (45.0-75.0) 75.9 % (45.0-75.0) Lymphocytes (%) (Auto) % (20.0-45.0) 15.0 % (20.0-45.0) 9.3 % (20.0-45.0) Monocytes (%) (Auto) % (1.0-10.0) 9.1 % (1.0-10.0) 10.6 % (1.0-10.0) Eosinophils (%) (Auto) % (0.0-3.0) 2.5 % (0.0-3.0) 3.0 % (0.0-3.0) Basophils (%) (Auto) % (0.0-2.0) 0.9 % (0.0-2.0) 1.3 % (0.0-2.0) Differential Total Cells Counted 100 Neutrophils % (Manual) 70 % (45-75) Lymphocytes % (Manual) 16 % (20-45) Monocytes % (Manual) 11 % (1-10) Eosinophils % (Manual) 2 % (0-3) Basophils % (Manual) 0 % (0-2) Band Neutrophils 1 % (0-8) Platelet Estimate Adequate Platelet Morphology Normal Hypochromasia 1+ Sodium Level 130 mEQ/L (135-145) 135 mEQ/L (135-145) 135 mEQ/L (135-145) Potassium Level 3.5 mEQ/L (3.4-4.9) 3.8 mEQ/L (3.4-4.9) 3.7 mEQ/L (3.4-4.9) Chloride Level 92 mEQ/L (98-107) 94 mEQ/L (98-107) 94 mEQ/L (98-107) Carbon Dioxide Level 27 mEQ/L (20-30) 29 mEQ/L (20-30) 27 mEQ/L (20-30) Anion Gap 11 (5-15) 12 (5-15) 14 (5-15) Blood Urea Nitrogen 6 mg/dL (7-23) 5 mg/dL (7-23) 7 mg/dL (7-23) Creatinine 0.8 mg/dL (0.5-0.9) 0.8 mg/dL (0.5-0.9) 0.7 mg/dL (0.5-0.9) Estimat Glomerular Filtration Rate > 60 mL/min (>60) > 60 mL/min (>60) > 60 mL/min (>60) Glucose Level 116 mg/dL (74-106) 112 mg/dL (74-106) 116 mg/dL (74-106) Calcium Level 8.3 mg/dL (8.6-10.2) 8.8 mg/dL (8.6-10.2) 8.8 mg/dL (8.6-10.2) Urine Color Pale yellow Urine Appearance Clear Urine pH 7 (4.5-8.0) Urine Specific [place] 1.005 (1.005-1.035) Urine Protein Negative (NEGATIVE) Urine Glucose (UA) Negative (NEGATIVE) Urine Ketones Negative (NEGATIVE) Urine Occult Blood 2+ (NEGATIVE) Urine Nitrite Negative (NEGATIVE) Urine Bilirubin Negative (NEGATIVE) Urine Urobilinogen Normal MG/DL (0.0-1.0) Urine Leukocyte Esterase 1+ (NEGATIVE) Urine RBC 2-4 /HPF (0 - 2) Urine WBC 2-4 /HPF (0 - 2) Urine Squamous Epithelial Cells Few /LPF (NONE/OCC) Urine Bacteria Few /HPF (NONE) Total Bilirubin 0.3 mg/dL (0.0-1.2) Aspartate Amino Transf (AST/SGOT) 31 U/L (5-40) Alanine Aminotransferase (ALT/SGPT) 51 U/L (3-33) Alkaline Phosphatase 74 U/L (35-104) Total Protein 6.3 g/dL (6.6-8.7) Albumin 2.9 g/dL (3.5-5.2) Globulin 3.4 g/dL Albumin/Globulin Ratio 0.8 (1.0-2.7) chest x-ray - negative mri pelvis - report noted pelvic ct - no abscess 09/04 - chest x-ray - negative for pna v/q scan - low probability for PE Microbiology Date/Time Source Procedure Growth Status 09/04/16 16:45 Blood Blood Culture - Final NO GROWTH AFTER 5 DAYS Complete 09/05/16 11:00 Wound Gram Stain - Final Complete 09/05/16 11:00 Wound Culture - Final Pseudomonas Aeruginosa Staphylococcus Sp Coag Neg Complete 08/31/16 08:31 Urine,Clean Catch Urine Culture - Final Diphtheroids Complete 09/13/16 20:00 Buttock Right Gram Stain - Final Complete 09/13/16 20:00 Aerobic Culture - Final Staphylococcus Aureus Staphylococcus Sp Coag Neg Complete 09/13/16 20:00 Buttock Right Anaerobic Culture - Final NO ANAEROBES ISOLATED Complete Labs Test 09/21/16 05:50 Sodium Level 135 mEQ/L (135-145) Potassium Level 4.5 mEQ/L (3.4-4.9) Chloride Level 93 mEQ/L (98-107) Carbon Dioxide Level 26 mEQ/L (20-30) Anion Gap 16 (5-15) Blood Urea Nitrogen 11 mg/dL (7-23) Creatinine 0.8 mg/dL (0.5-0.9) Estimat Glomerular Filtration Rate > 60 mL/min (>60) Glucose Level 91 mg/dL (74-106) Calcium Level 9.9 mg/dL (8.6-10.2) wbc - 8.8 hgb - 10.8 Current Medications Medications (Trade) Dose Ordered Sig/Yamileth Route PRN Reason Start Time Stop Time Status Last Admin Dose Admin Acetaminophen (Tylenol) 650 mg Q4H PRN ORAL fever 08/26/16 14:45 09/25/16 14:44 09/04/16 15:13 Acetaminophen (Tylenol) 650 mg Q4H PRN ORAL Mild Pain (Pain Scale 1-3) 08/26/16 14:45 09/25/16 14:44 09/12/16 03:20 Acetaminophen/ Butalbital/ Caffeine (Fioricet) 1 tab Q6H PRN ORAL For headache 09/12/16 08:45 10/12/16 08:44 09/15/16 20:12 Acetaminophen/ Hydrocodone Bitart ([place] 10/325) 1 ea Q4H PRN ORAL Moderate Pain (Pain Scale 4-6) 09/20/16 10:06 09/27/16 10:05 09/21/16 04:52 Al Hydroxide/Mg Hydroxide (Mylanta II) 30 ml Q6H PRN ORAL dyspepsia 08/26/16 14:45 09/25/16 14:44 Bisacodyl (Dulcolax) 10 mg HSPRN PRN RECTAL Constipation 09/04/16 09:28 09/25/16 14:44 Dextrose (Dextrose 50%) STAT PRN IV Hypoglycemia 08/26/16 14:45 09/25/16 14:44 Docusate Sodium (Colace) 100 mg EVERY 12 HOURS ORAL 08/26/16 21:00 09/25/16 20:59 09/23/16 09:49 Ferrous Sulfate (Feosol) 325 mg THREE TIMES A DAY ORAL 09/02/16 18:00 10/02/16 17:59 09/23/16 09:48 Gabapentin (Neurontin) 300 mg BEDTIME ORAL 08/30/16 21:00 09/29/16 20:59 09/22/16 21:12 Heparin Sodium (Porcine) (Heparin 5000 units/ml) 5,000 units 0100,0900,1700 SUBQ 09/20/16 09:00 10/20/16 08:59 09/23/16 09:50 Hydromorphone HCl (Dilaudid) 1 mg Q4H PRN IVP Severe Pain (Pain Scale 7-10) 09/20/16 10:06 09/27/16 10:05 09/23/16 09:48 Hydromorphone HCl (Dilaudid) 2 mg Q4H PRN IVP Severe [place] Pain (>7) 09/20/16 10:06 09/27/16 10:05 09/23/16 05:19 Lactobacillus Acidophilus (Culturelle) 1 tab TWICE A DAY ORAL 08/26/16 18:00 09/25/16 17:59 09/23/16 09:49 Lactulose (Cephulac) 30 gm Q4H PRN ORAL constipation 09/04/16 09:15 10/04/16 09:14 Levofloxacin (Levaquin) 750 mg Q24H ORAL 09/20/16 17:00 09/27/16 16:59 09/22/16 17:21 Magnesium Hydroxide (Mom) 30 ml HSPRN PRN ORAL Constipation 08/26/16 14:45 09/25/16 14:44 09/05/16 01:47 Metoclopramide HCl (Reglan) 10 mg THREE TIMES A DAY ORAL 09/21/16 18:00 10/21/16 17:59 09/23/16 09:48 Ondansetron HCl (Zofran) 4 mg Q4H PRN IVP Nausea & Vomiting 09/21/16 17:00 10/21/16 16:59 09/23/16 09:48 Polyethylene Glycol (Miralax) 17 gm HSPRN PRN ORAL Constipation 09/04/16 09:29 09/25/16 14:44 09/23/16 10:06 Silver Sulfadiazine (Silvadene Cream 25gm) 1 applic DAILY TOPIC 09/02/16 14:00 10/02/16 13:59 09/23/16 09:45 Trimethoprim/ Sulfamethoxazole (Bactrim-DS) 1 ea TWICE A DAY ORAL 09/20/16 18:00 09/27/16 17:59 09/23/16 09:56 BLU KATHLEEN Sep 23, 2016 10:40
--- NOTE | 2016-09-23 11:00 | General Progress Note ---
Assessment/Plan Problem List: (1) Buttock pain ICD Codes: M79.1 - Myalgia SNOMED: 705379725 (2) Abscess ICD Codes: L02.91 - Cutaneous abscess, unspecified SNOMED: [id number] Status: doing well, stable Status Narrative Pain is controlled. Discharge plan for meds was discussed with pt. Will continue Dilaudid and [place]. Subjective Constitutional: Denies: chills, diaphoresis, fever, malaise, no symptoms, other , weakness HEENT: Denies: blurred vision, double vision, ear discharge, ear pain, eye pain , mouth pain, mouth swelling, no symptoms, nose congestion, nose pain, other, tearing, throat pain, throat swelling Cardiovascular: Denies: chest pain, edema, irregular heart rate, lightheadedness, no symptoms, other, palpitations, syncope Respiratory: Denies: SOB at rest, SOB with excertion, cough, no symptoms, orthopnea, other, shortness of breath, sputum, stridor, wheezing Gastrointestinal/Abdominal: Denies: abdomen distended, abdominal pain, black stools, blood in stool, constipated, diarrhea, difficulty swallowing, nausea, no symptoms, other, poor appetite, poor fluid intake, rectal bleeding, tarry stools, vomiting Neurologic/Psychiatric: Denies: anxiety, depressed, emotional problems, headache, no symptoms, numbness, other, paresthesia, pre-existing deficit, seizure, tingling, tremors, weakness Hematologic/Lymphatic: Denies: anemia, easy bleeding, easy bruising, no symptoms, other Allergies: Coded Allergies: IODINE (Verified Allergy, Unknown, 08/26/16) PENICILLINS (Verified Allergy, Unknown, 08/26/16) Subjective Pain is at buttock. Pain is controlled mainly on Dilaudid. Pt has taken 3 Dilaudid 1 mg and 2 Dilaudid 2 mg yesterday. She didn't use any [place]. She used only one Neurontin yesterday. She is comfortable on current regimen. Objective Last 24 Hour Vital Signs Date Time Temp Pulse Resp B/P Pulse Ox O2 Delivery O2 Flow Rate FiO2 09/23/16 10:15 97.9 09/23/16 08:00 97.9 113 17 112/64 99 Room Air 09/23/16 05:49 97.3 09/23/16 00:00 97.3 69 18 117/76 96 Room Air 09/22/16 20:00 97.9 78 18 106/74 96 Room Air 09/22/16 16:41 93.7 72 19 100/50 96 Room Air 09/22/16 14:37 98.1 09/22/16 12:00 95.2 82 19 113/72 97 Room Air Intake and Output 09/22/16 09/23/16 19:00 07:00 Intake Total 600 ml Balance 600 ml Intake Oral 600 ml # Voids 3 1 Height (Feet): 5 Height (Inches): 3.00 Weight (Pounds): 130 General Appearance: WD/WN EENT: PERRL/EOMI Neck: non-tender, supple Cardiovascular: normal rate, regular rhythm Respiratory/Chest: lungs clear, normal breath sounds Abdomen: normal bowel sounds, non tender, soft Genitourinary/Rectal: other - Dressing in place on buttock with tenderness. 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
[2016-09-23 12:00] VITALS: BP 125/81
[2016-09-23 16:27] VITALS: BP 109/64
--- NOTE | 2016-09-23 16:56 | General Progress Note ---
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 Subjective Date patient seen: Sep 23, 2016 Time patient seen: 13:00 ROS Limited/Unobtainable: No Constitutional: Reports: no symptoms HEENT: Reports: no symptoms Cardiovascular: Reports: no symptoms Respiratory: Reports: no symptoms Gastrointestinal/Abdominal: Reports: no symptoms Genitourinary: Reports: no symptoms Neurologic/Psychiatric: Reports: no symptoms Endocrine: Reports: no symptoms Hematologic/Lymphatic: Reports: no symptoms Allergies: Coded Allergies: IODINE (Verified Allergy, Unknown, 08/26/16) PENICILLINS (Verified Allergy, Unknown, 08/26/16) All Systems: reviewed and negative except above Subjective Doing well Pain controlled Denies f/c, n/v, d/c, chest pain, SOB, abd pain Objective Last 24 Hour Vital Signs Date Time Temp Pulse Resp B/P Pulse Ox O2 Delivery O2 Flow Rate FiO2 09/23/16 16:27 97.7 91 18 109/64 96 Room Air 09/23/16 13:50 97.9 09/23/16 12:00 97.9 81 17 125/81 98 Room Air 09/23/16 10:15 97.9 09/23/16 08:00 97.9 113 17 112/64 99 Room Air 09/23/16 00:00 97.3 69 18 117/76 96 Room Air 09/22/16 20:00 97.9 78 18 106/74 96 Room Air Intake and Output 09/22/16 09/23/16 19:00 07:00 Intake Total 600 ml Balance 600 ml Intake Oral 600 ml # Voids 3 1 Height (Feet): 5 Height (Inches): 3.00 Weight (Pounds): 130 Objective General: alert, cooperative, no distress, appears stated age Head: normocephalic, without obvious abnormality, atraumatic Eyes: conjunctivae/corneas clear. PERRL, EOM's intact Throat: lips, mucosa, and tongue normal. MMM Neck: supple, symmetrical, trachea midline, and no JVD Lungs: clear to auscultation bilaterally Heart: regular rate and rhythm, S1, S2 normal, no murmur, click, rub or gallop Abdomen: soft, non-tender, non-distended, bowel sounds normal; no masses or organomegaly Extremities: extremities normal, atraumatic, no cyanosis or edema +ILIANA drains w/ ss drainage Dressings c/d/i Pulses: 2+ and symmetric Skin: skin color, texture, turgor normal; no rashes or lesions Neurologic: 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, no focal deficits Gabriela Shi M.D. Sep 23, 2016 16:56
[2016-09-23 20:00] VITALS: BP 101/40
[2016-09-24] VITALS: BP 151/75
[2016-09-24] MEDS: Heparin 5000 units/ml inj SUBQ SCH ×3 (00:59→17:00)
[2016-09-24 04:00] VITALS: BP 107/62
--- NOTE | 2016-09-24 07:45 | General Progress Note ---
Assessment/Plan Problem List: (1) Buttock pain ICD Codes: M79.1 - Myalgia SNOMED: 661029263 (2) Abscess ICD Codes: L02.91 - Cutaneous abscess, unspecified SNOMED: [id number] Status: doing well Assessment/Plan Pain is controlled. Will plan for tapering marnie. Subjective Constitutional: Denies: chills, diaphoresis, fever, malaise, no symptoms, other , weakness HEENT: Denies: blurred vision, double vision, ear discharge, ear pain, eye pain , mouth pain, mouth swelling, no symptoms, nose congestion, nose pain, other, tearing, throat pain, throat swelling Cardiovascular: Denies: chest pain, edema, irregular heart rate, lightheadedness, no symptoms, other, palpitations, syncope Respiratory: Denies: SOB at rest, SOB with excertion, cough, no symptoms, orthopnea, other, shortness of breath, sputum, stridor, wheezing Gastrointestinal/Abdominal: Denies: abdomen distended, abdominal pain, black stools, blood in stool, constipated, diarrhea, difficulty swallowing, nausea, no symptoms, other, poor appetite, poor fluid intake, rectal bleeding, tarry stools, vomiting Neurologic/Psychiatric: Denies: anxiety, depressed, emotional problems, headache, no symptoms, numbness, other, paresthesia, pre-existing deficit, seizure, tingling, tremors, weakness Endocrine: Denies: excessive sweating, flushing, increased hunger, increased thirst, increased urine, intolerance to cold, intolerance to heat, no symptoms, other, unexplained weight gain, unexplained weight loss Hematologic/Lymphatic: Denies: anemia, easy bleeding, easy bruising, no symptoms, other Allergies: Coded Allergies: IODINE (Verified Allergy, Unknown, 08/26/16) PENICILLINS (Verified Allergy, Unknown, 08/26/16) Subjective Pain is at buttock at the site of abcess. Pain is controlled mainly on Dilaudid. Pt has taken 2 Dilaudid 1 mg and 3 Dilaudid 2 mg yesterday. She didn' t use any [place] again. Pain is stable on current regimen. Objective Last 24 Hour Vital Signs Date Time Temp Pulse Resp B/P Pulse Ox O2 Delivery O2 Flow Rate FiO2 09/24/16 04:00 97.8 73 18 107/62 100 Room Air 09/24/16 01:28 98.1 09/24/16 00:00 97.5 78 18 151/75 97 Room Air 09/23/16 20:00 98.1 88 18 101/40 93 Room Air 09/23/16 16:27 97.7 91 18 109/64 96 Room Air 09/23/16 12:00 97.9 81 17 125/81 98 Room Air 09/23/16 10:15 97.9 09/23/16 08:00 97.9 113 17 112/64 99 Room Air Intake and Output 09/23/16 09/24/16 19:00 07:00 Intake Total 240 ml Balance 240 ml Intake Oral 240 ml # Voids 5 3 Height (Feet): 5 Height (Inches): 3.00 Weight (Pounds): 130 General Appearance: WD/WN, alert EENT: PERRL/EOMI Neck: non-tender, supple Cardiovascular: normal rate, regular rhythm Respiratory/Chest: lungs clear Abdomen: non tender, soft Genitourinary/Rectal: other - Dressing over buttock with tenderness. 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
[2016-09-24 08:21] VITALS: BP 107/67
[2016-09-24 08:48] LABS: BASOPHILS % (AUTO) 1.7 % (0.0-2.0); EOSINOPHILS % (AUTO) 14.2 % (0.0-3.0); LYMPHOCYTES % (AUTO) 29.7 % (20.0-45.0); MEAN CORPUSCULAR HGB CONC 32.4 G/DL (32.0-36.0); MEAN CORPUSCULAR VOLUME 90 FL (80-99); MEAN PLATELET VOLUME 6.3 FL (6.5-10.1); MONOCYTES % (AUTO) 12.7 % (1.0-10.0); NEUTROPHILS % (AUTO) 41.7 % (45.0-75.0); PLATELET COUNT 310 K/UL (150-450); RED CELL DISTRIBUTION WIDTH 14.1 % (11.6-14.8); WHITE BLOOD COUNT 7.8 K/UL (4.8-10.8)
[2016-09-24 08:55] LABS: ANION GAP 11 (5-15); CARBON DIOXIDE 28 mEQ/L (20-30); CHLORIDE 94 mEQ/L (98-107); CREATININE 1.1 mg/dL (0.5-0.9); GLOMERULAR FILTRATION RATE > 60 mL/min (>60); HEMOLYSIS 8; POTASSIUM 4.5 mEQ/L (3.4-4.9); SODIUM 133 mEQ/L (135-145)
[2016-09-24] MEDS: Bactrim DS (160mg/800mg) tab ORAL SCH (09:00)
[2016-09-24] MEDS: Silver Sulfadiazine Cream 25gm TOPIC SCH (09:00)
[2016-09-24] MEDS: Docusate 100mg cap ORAL SCH ×2 (09:00→20:33)
[2016-09-24] MEDS: Lactobacillus-GG tablet ORAL SCH ×2 (09:00→17:39)
[2016-09-24] MEDS ORDERED: Tubing Blood Filter IV ONE (09:05)
[2016-09-24] MEDS ORDERED: LR 1000ml ONE (09:05)
[2016-09-24 11:49] VITALS: BP 123/80
[2016-09-24 16:08] VITALS: BP 119/76
[2016-09-24] MEDS: Levofloxacin 500mg tab ORAL SCH (17:00)
--- NOTE | 2016-09-24 18:36 | Infectious Diseases Prog Note ---
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 bactrim 4) hx gluteal silicone infections 5) recent terminated 6) r/u AUR[facility]A autoimmune syndrome 7) pain mgt, anemia, hyponatremia 8) allergies - pcn and iodine, sh-negative, mar noted, notes and records reviewed 9) d/w RN P) 1) change to levofloxacin plus doxycycline - day # 8 abx post surgery (), plan on 14 days treatment post-operative 2) check labs, cr, wbc 3) surgery f/u on wounds and wound care 4) continue treatment per Dr. Christiansen and surgery 5) orders noted and entered 6) diflucan for vaginal yeast infection as needed 7) d/w Dr. Christiansen Subjective Constitutional: Denies: fever HEENT: Denies: congestion Respiratory: Denies: shortness of breath Cardiovascular: Denies: chest pain Gastrointestinal/Abdominal: Denies: nausea, vomiting Neurologic: Denies: headache Psychiatric: Denies: depression Skin: Denies: rash Hematologic: Denies: bleeding Allergies: Coded Allergies: IODINE (Verified Allergy, Unknown, 08/26/16) PENICILLINS (Verified Allergy, Unknown, 08/26/16) Objective Vital Signs Last 24 Hour Vital Signs Date Time Temp Pulse Resp B/P Pulse Ox O2 Delivery O2 Flow Rate FiO2 09/24/16 16:08 97.6 92 20 119/76 100 Room Air 09/24/16 11:49 97.1 88 20 123/80 96 Room Air 09/24/16 08:21 98.2 70 20 107/67 97 Room Air 09/24/16 04:00 97.8 73 18 107/62 100 Room Air 09/24/16 01:28 98.1 09/24/16 00:00 97.5 78 18 151/75 97 Room Air 09/23/16 20:00 98.1 88 18 101/40 93 Room Air Height (Feet): 5 Height (Inches): 3.00 Weight (Pounds): 130 General Appearance: no acute distress HEENT: normocephalic, atraumatic, anicteric, mucous membranes moist Respiratory/Chest: lungs clear, normal breath sounds, no respiratory distress Cardiovascular: normal rate, regular rhythm Abdomen: normal bowel sounds, soft, non tender, no organomegaly Objective Microbiology Date/Time Source Procedure Growth Status 09/04/16 16:45 Blood Blood Culture - Final NO GROWTH AFTER 5 DAYS Complete 09/05/16 11:00 Wound Gram Stain - Final Complete 09/05/16 11:00 Wound Culture - Final Pseudomonas Aeruginosa Staphylococcus Sp Coag Neg Complete 08/31/16 08:31 Urine,Clean Catch Urine Culture - Final Diphtheroids Complete 09/13/16 20:00 Buttock Right Gram Stain - Final Complete 09/13/16 20:00 Aerobic Culture - Final Staphylococcus Aureus Staphylococcus Sp Coag Neg Complete 09/13/16 20:00 Buttock Right Anaerobic Culture - Final NO ANAEROBES ISOLATED Complete Labs Test 08/31/16 05:50 08/31/16 08:31 09/01/16 07:05 09/02/16 10:36 White Blood Count 18.8 K/UL (4.8-10.8) 17.2 K/UL (4.8-10.8) 13.8 K/UL (4.8-10.8) Red Blood Count 2.95 M/UL (4.20-5.40) 2.98 M/UL (4.20-5.40) 3.11 M/UL (4.20-5.40) Hemoglobin 8.4 G/DL (12.0-16.0) 8.7 G/DL (12.0-16.0) 8.4 G/DL (12.0-16.0) Hematocrit 25.3 % (37.0-47.0) 26.0 % (37.0-47.0) 26.3 % (37.0-47.0) Mean Corpuscular Volume 86 FL (80-99) 87 FL (80-99) 84 FL (80-99) Mean Corpuscular Hemoglobin 28.3 PG (27.0-31.0) 29.3 PG (27.0-31.0) 27.1 PG (27.0-31.0) Mean Corpuscular Hemoglobin Concent 33.1 G/DL (32.0-36.0) 33.6 G/DL (32.0-36.0) 32.1 G/DL (32.0-36.0) Red Cell Distribution Width 12.8 % (11.6-14.8) 12.6 % (11.6-14.8) 12.5 % (11.6-14.8) Platelet Count 178 K/UL (150-450) 183 K/UL (150-450) 258 K/UL (150-450) Mean Platelet Volume 6.0 FL (6.5-10.1) 5.1 FL (6.5-10.1) 6.2 FL (6.5-10.1) Neutrophils (%) (Auto) % (45.0-75.0) 72.6 % (45.0-75.0) 75.9 % (45.0-75.0) Lymphocytes (%) (Auto) % (20.0-45.0) 15.0 % (20.0-45.0) 9.3 % (20.0-45.0) Monocytes (%) (Auto) % (1.0-10.0) 9.1 % (1.0-10.0) 10.6 % (1.0-10.0) Eosinophils (%) (Auto) % (0.0-3.0) 2.5 % (0.0-3.0) 3.0 % (0.0-3.0) Basophils (%) (Auto) % (0.0-2.0) 0.9 % (0.0-2.0) 1.3 % (0.0-2.0) Differential Total Cells Counted 100 Neutrophils % (Manual) 70 % (45-75) Lymphocytes % (Manual) 16 % (20-45) Monocytes % (Manual) 11 % (1-10) Eosinophils % (Manual) 2 % (0-3) Basophils % (Manual) 0 % (0-2) Band Neutrophils 1 % (0-8) Platelet Estimate Adequate Platelet Morphology Normal Hypochromasia 1+ Sodium Level 130 mEQ/L (135-145) 135 mEQ/L (135-145) 135 mEQ/L (135-145) Potassium Level 3.5 mEQ/L (3.4-4.9) 3.8 mEQ/L (3.4-4.9) 3.7 mEQ/L (3.4-4.9) Chloride Level 92 mEQ/L (98-107) 94 mEQ/L (98-107) 94 mEQ/L (98-107) Carbon Dioxide Level 27 mEQ/L (20-30) 29 mEQ/L (20-30) 27 mEQ/L (20-30) Anion Gap 11 (5-15) 12 (5-15) 14 (5-15) Blood Urea Nitrogen 6 mg/dL (7-23) 5 mg/dL (7-23) 7 mg/dL (7-23) Creatinine 0.8 mg/dL (0.5-0.9) 0.8 mg/dL (0.5-0.9) 0.7 mg/dL (0.5-0.9) Estimat Glomerular Filtration Rate > 60 mL/min (>60) > 60 mL/min (>60) > 60 mL/min (>60) Glucose Level 116 mg/dL (74-106) 112 mg/dL (74-106) 116 mg/dL (74-106) Calcium Level 8.3 mg/dL (8.6-10.2) 8.8 mg/dL (8.6-10.2) 8.8 mg/dL (8.6-10.2) Urine Color Pale yellow Urine Appearance Clear Urine pH 7 (4.5-8.0) Urine Specific [place] 1.005 (1.005-1.035) Urine Protein Negative (NEGATIVE) Urine Glucose (UA) Negative (NEGATIVE) Urine Ketones Negative (NEGATIVE) Urine Occult Blood 2+ (NEGATIVE) Urine Nitrite Negative (NEGATIVE) Urine Bilirubin Negative (NEGATIVE) Urine Urobilinogen Normal MG/DL (0.0-1.0) Urine Leukocyte Esterase 1+ (NEGATIVE) Urine RBC 2-4 /HPF (0 - 2) Urine WBC 2-4 /HPF (0 - 2) Urine Squamous Epithelial Cells Few /LPF (NONE/OCC) Urine Bacteria Few /HPF (NONE) Total Bilirubin 0.3 mg/dL (0.0-1.2) Aspartate Amino Transf (AST/SGOT) 31 U/L (5-40) Alanine Aminotransferase (ALT/SGPT) 51 U/L (3-33) Alkaline Phosphatase 74 U/L (35-104) Total Protein 6.3 g/dL (6.6-8.7) Albumin 2.9 g/dL (3.5-5.2) Globulin 3.4 g/dL Albumin/Globulin Ratio 0.8 (1.0-2.7) chest x-ray - negative mri pelvis - report noted pelvic ct - no abscess 09/04 - chest x-ray - negative for pna v/q scan - low probability for PE Laboratory Tests Test 09/24/16 07:50 White Blood Count 7.8 K/UL (4.8-10.8) Red Blood Count 4.30 M/UL (4.20-5.40) Hemoglobin 12.5 G/DL (12.0-16.0) Hematocrit 38.6 % (37.0-47.0) Mean Corpuscular Volume 90 FL (80-99) Mean Corpuscular Hemoglobin 29.0 PG (27.0-31.0) Mean Corpuscular Hemoglobin Concent 32.4 G/DL (32.0-36.0) Red Cell Distribution Width 14.1 % (11.6-14.8) Platelet Count 310 K/UL (150-450) Mean Platelet Volume 6.3 FL (6.5-10.1) L Neutrophils (%) (Auto) 41.7 % (45.0-75.0) L Lymphocytes (%) (Auto) 29.7 % (20.0-45.0) Monocytes (%) (Auto) 12.7 % (1.0-10.0) H Eosinophils (%) (Auto) 14.2 % (0.0-3.0) H Basophils (%) (Auto) 1.7 % (0.0-2.0) Sodium Level 133 mEQ/L (135-145) L Potassium Level 4.5 mEQ/L (3.4-4.9) Chloride Level 94 mEQ/L (98-107) L Carbon Dioxide Level 28 mEQ/L (20-30) Anion Gap 11 (5-15) Blood Urea Nitrogen 15 mg/dL (7-23) Creatinine 1.1 mg/dL (0.5-0.9) H Estimat Glomerular Filtration Rate > 60 mL/min (>60) Glucose Level 89 mg/dL (74-106) Calcium Level 10.0 mg/dL (8.6-10.2) Current Medications Medications (Trade) Dose Ordered Sig/Yamileth Route PRN Reason Start Time Stop Time Status Last Admin Dose Admin Acetaminophen (Tylenol) 650 mg Q4H PRN ORAL fever 08/26/16 14:45 09/25/16 14:44 09/04/16 15:13 Acetaminophen (Tylenol) 650 mg Q4H PRN ORAL Mild Pain (Pain Scale 1-3) 08/26/16 14:45 09/25/16 14:44 09/12/16 03:20 Acetaminophen/ Butalbital/ Caffeine (Fioricet) 1 tab Q6H PRN ORAL For headache 09/12/16 08:45 10/12/16 08:44 09/15/16 20:12 Acetaminophen/ Hydrocodone Bitart ([place] 10/325) 1 ea Q4H PRN ORAL Moderate Pain (Pain Scale 4-6) 09/20/16 10:06 09/27/16 10:05 09/21/16 04:52 Al Hydroxide/Mg Hydroxide (Mylanta II) 30 ml Q6H PRN ORAL dyspepsia 08/26/16 14:45 09/25/16 14:44 Bisacodyl (Dulcolax) 10 mg HSPRN PRN RECTAL Constipation 09/04/16 09:28 09/25/16 14:44 Dextrose (Dextrose 50%) STAT PRN IV Hypoglycemia 08/26/16 14:45 09/25/16 14:44 Docusate Sodium (Colace) 100 mg EVERY 12 HOURS ORAL 08/26/16 21:00 09/25/16 20:59 09/24/16 09:00 Doxycycline Monohydrate (Vibramycin) 100 mg EVERY 12 HOURS ORAL 09/24/16 21:00 10/01/16 20:59 Ferrous Sulfate (Feosol) 325 mg THREE TIMES A DAY ORAL 09/02/16 18:00 10/02/16 17:59 09/24/16 17:39 Gabapentin (Neurontin) 300 mg BEDTIME ORAL 08/30/16 21:00 09/29/16 20:59 09/23/16 21:08 Heparin Sodium (Porcine) (Heparin 5000 units/ml) 5,000 units 0100,0900,1700 SUBQ 09/20/16 09:00 10/20/16 08:59 09/24/16 17:00 Hydromorphone HCl (Dilaudid) 1 mg Q4H PRN IVP Severe Pain (Pain Scale 7-10) 09/20/16 10:06 09/27/16 10:05 09/23/16 09:48 Hydromorphone HCl (Dilaudid) 2 mg Q4H PRN IVP Severe Breakthru Pain (>7) 09/20/16 10:06 09/27/16 10:05 09/24/16 14:37 Lactobacillus Acidophilus (Culturelle) 1 tab TWICE A DAY ORAL 08/26/16 18:00 09/25/16 17:59 09/24/16 17:39 Lactulose (Cephulac) 30 gm Q4H PRN ORAL constipation 09/04/16 09:15 10/04/16 09:14 Levofloxacin (Levaquin) 500 mg Q24H ORAL 09/24/16 17:00 10/01/16 16:59 09/24/16 17:00 Magnesium Hydroxide (Mom) 30 ml HSPRN PRN ORAL Constipation 08/26/16 14:45 09/25/16 14:44 09/05/16 01:47 Metoclopramide HCl (Reglan) 10 mg THREE TIMES A DAY ORAL 09/21/16 18:00 10/21/16 17:59 09/24/16 17:39 Ondansetron HCl (Zofran) 4 mg Q4H PRN IVP Nausea & Vomiting 09/21/16 17:00 10/21/16 16:59 09/24/16 14:38 Polyethylene Glycol (Miralax) 17 gm HSPRN PRN ORAL Constipation 09/04/16 09:29 09/25/16 14:44 09/23/16 10:06 Silver Sulfadiazine (Silvadene Cream 25gm) 1 applic DAILY TOPIC 09/02/16 14:00 10/02/16 13:59 09/24/16 09:00 BLU KATHLEEN Sep 24, 2016 18:36
[2016-09-24] MEDS: HYDROmorphone 1mg/ml Carpuject IVP PRN (19:09)
[2016-09-24 20:00] VITALS: BP 119/69
[2016-09-25] VITALS (7 sets, daily range): BP systolic 110–133; BP diastolic 53–69
[2016-09-25] MEDS: Heparin 5000 units/ml inj SUBQ SCH ×3 (00:33→17:00)
[2016-09-25 07:43] LABS: ANION GAP 9 (5-15); CALCIUM 9.6 mg/dL (8.6-10.2); CARBON DIOXIDE 26 mEQ/L (20-30); CHLORIDE 97 mEQ/L (98-107); GLOMERULAR FILTRATION RATE > 60 mL/min (>60); HEMOLYSIS 4; POTASSIUM 4.4 mEQ/L (3.4-4.9); SODIUM 132 mEQ/L (135-145)
[2016-09-25] MEDS: Docusate 100mg cap ORAL SCH (08:55)
[2016-09-25] MEDS: Lactobacillus-GG tablet ORAL SCH (08:55)
[2016-09-25] MEDS: Silver Sulfadiazine Cream 25gm TOPIC SCH (08:57)
--- NOTE | 2016-09-25 10:20 | General Progress Note ---
Assessment/Plan Problem List: (1) Buttock pain ICD Codes: M79.1 - Myalgia SNOMED: 779476404 (2) Abscess ICD Codes: L02.91 - Cutaneous abscess, unspecified SNOMED: 803636771 Assessment/Plan Pain is controlled. I will prescribe for [place] for discharge. Pt was advised not to take narcotics when driving and to exceed the prescribed dose.. Subjective Constitutional: Denies: chills, diaphoresis, fever, malaise, no symptoms, other , weakness HEENT: Denies: blurred vision, double vision, ear discharge, ear pain, eye pain , mouth pain, mouth swelling, no symptoms, nose congestion, nose pain, other, tearing, throat pain, throat swelling Cardiovascular: Denies: chest pain, edema, irregular heart rate, lightheadedness, no symptoms, other, palpitations, syncope Respiratory: Denies: SOB at rest, SOB with excertion, cough, no symptoms, orthopnea, other, shortness of breath, sputum, stridor, wheezing Gastrointestinal/Abdominal: Denies: abdomen distended, abdominal pain, black stools, blood in stool, constipated, diarrhea, difficulty swallowing, nausea, no symptoms, other, poor appetite, poor fluid intake, rectal bleeding, tarry stools, vomiting Genitourinary: Denies: burning, discharge, flank pain, frequency, hematuria, incontinence, no symptoms, other, pain, urgency Neurologic/Psychiatric: Denies: anxiety, depressed, emotional problems, headache, no symptoms, numbness, other, paresthesia, pre-existing deficit, seizure, tingling, tremors, weakness Endocrine: Denies: excessive sweating, flushing, increased hunger, increased thirst, increased urine, intolerance to cold, intolerance to heat, no symptoms, other, unexplained weight gain, unexplained weight loss Hematologic/Lymphatic: Denies: anemia, easy bleeding, easy bruising, no symptoms, other Allergies: Coded Allergies: IODINE (Verified Allergy, Unknown, 08/26/16) PENICILLINS (Verified Allergy, Unknown, 08/26/16) Subjective Pain is at buttocks. Pt has taken 1 Dilaudid 1 mg and 4 Dilaudid 2 mg yesterday. She didn't use any [place] yesterday. Pt will be discharged tomorrow and needs prescription. She reports that Percocet makes her nauseated. She rathers [place]. Objective Last 24 Hour Vital Signs Date Time Temp Pulse Resp B/P Pulse Ox O2 Delivery O2 Flow Rate FiO2 09/25/16 08:32 97.6 67 19 110/55 99 Room Air 09/25/16 04:00 96.7 87 18 111/53 99 Room Air 09/25/16 00:00 97.8 85 18 133/68 93 Room Air 09/24/16 20:00 97.6 98 18 119/69 99 Room Air 09/24/16 16:08 97.6 92 20 119/76 100 Room Air 09/24/16 11:49 97.1 88 20 123/80 96 Room Air Intake and Output 09/24/16 09/25/16 19:00 07:00 Intake Total 1065 ml Output Total 10 ml Balance 1065 ml -10 ml Intake Oral 1065 ml Drainage Total 10 ml # Voids 3 Laboratory Tests 09/25/16 06:40: Sodium Level 132L, Potassium Level 4.4, Chloride Level 97L, Carbon Dioxide Level 26, Anion Gap 9, Blood Urea Nitrogen 15, Creatinine 1.0H, Estimat Glomerular Filtration Rate > 60, Glucose Level 88, Calcium Level 9.6 Height (Feet): 5 Height (Inches): 3.00 Weight (Pounds): 130 General Appearance: WD/WN, alert EENT: PERRL/EOMI Neck: non-tender, supple Cardiovascular: normal rate, regular rhythm Respiratory/Chest: lungs clear Abdomen: non tender, soft Genitourinary/Rectal: other - Wound vac at right buttock and left buttock incision is closed. Positive tenderness. 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
--- NOTE | 2016-09-25 13:43 | General Progress Note ---
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 Subjective Date patient seen: Sep 25, 2016 Time patient seen: 13:43 ROS Limited/Unobtainable: No Constitutional: Reports: no symptoms HEENT: Reports: no symptoms Cardiovascular: Reports: no symptoms Respiratory: Reports: no symptoms Gastrointestinal/Abdominal: Reports: no symptoms Genitourinary: Reports: no symptoms Neurologic/Psychiatric: Reports: no symptoms Endocrine: Reports: no symptoms Hematologic/Lymphatic: Reports: no symptoms Allergies: Coded Allergies: IODINE (Verified Allergy, Unknown, 08/26/16) PENICILLINS (Verified Allergy, Unknown, 08/26/16) Subjective Doing well Pain controlled Denies f/c, n/v, d/c, chest pain, SOB, abd pain Objective Last 24 Hour Vital Signs Date Time Temp Pulse Resp B/P Pulse Ox O2 Delivery O2 Flow Rate FiO2 09/25/16 11:35 97.7 90 20 116/69 96 Room Air 09/25/16 08:32 97.6 67 19 110/55 99 Room Air 09/25/16 04:00 96.7 87 18 111/53 99 Room Air 09/25/16 00:00 97.8 85 18 133/68 93 Room Air 09/24/16 20:00 97.6 98 18 119/69 99 Room Air 09/24/16 16:08 97.6 92 20 119/76 100 Room Air Intake and Output 09/24/16 09/25/16 19:00 07:00 Intake Total 1065 ml Output Total 10 ml Balance 1065 ml -10 ml Intake Oral 1065 ml Drainage Total 10 ml # Voids 3 Laboratory Tests 09/25/16 06:40: Sodium Level 132L, Potassium Level 4.4, Chloride Level 97L, Carbon Dioxide Level 26, Anion Gap 9, Blood Urea Nitrogen 15, Creatinine 1.0H, Estimat Glomerular Filtration Rate > 60, Glucose Level 88, Calcium Level 9.6 Height (Feet): 5 Height (Inches): 3.00 Weight (Pounds): 130 Objective General: alert, cooperative, no distress, appears stated age Head: normocephalic, without obvious abnormality, atraumatic Eyes: conjunctivae/corneas clear. PERRL, EOM's intact Throat: lips, mucosa, and tongue normal. MMM Neck: supple, symmetrical, trachea midline, and no JVD Lungs: clear to auscultation bilaterally Heart: regular rate and rhythm, S1, S2 normal, no murmur, click, rub or gallop Abdomen: soft, non-tender, non-distended, bowel sounds normal; no masses or organomegaly Extremities: extremities normal, atraumatic, no cyanosis or edema +ILIANA drains w/ ss drainage Dressings c/d/i Pulses: 2+ and symmetric Skin: skin color, texture, turgor normal; no rashes or lesions Neurologic: 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, no focal deficits Gabriela Shi M.D. Sep 25, 2016 13:43
--- NOTE | 2016-09-25 16:31 | Infectious Diseases Prog Note ---
Assessment/Plan Assessment/Plan A) 1) s/p right buttock exploration, debridement and wound vac - wound culture with staph aureus, pseudomonas and social work specialist (social work specialist likely colonizer) 2) s/p debridement of bilateral buttock necrosis with cellulitis 3) some increase in cr - ? bactrim 4) hx gluteal silicone infections 5) recent terminated 6) r/u AURORA autoimmune syndrome 7) pain mgt, anemia, hyponatremia 8) allergies - pcn and iodine, sh-negative, mar noted, notes and records reviewed 9) d/w RN P) 1) levofloxacin plus doxycycline - day # 10 abx post surgery (09/16/16), plan on 14 days treatment post-operative 2) check labs, cr, wbc 3) surgery f/u on wounds and wound care 4) continue treatment per Dr. Christiansen and surgery 5) orders noted and entered 6) diflucan for vaginal yeast infection as needed 7) d/w patient Subjective Constitutional: Denies: fever HEENT: Denies: congestion Respiratory: Denies: shortness of breath Cardiovascular: Denies: chest pain Gastrointestinal/Abdominal: Denies: diarrhea, nausea, vomiting Neurologic: Denies: headache Psychiatric: Denies: depression Skin: Denies: rash Hematologic: Denies: bleeding Musculoskeletal: Denies: pain Allergies: Coded Allergies: IODINE (Verified Allergy, Unknown, 08/26/16) PENICILLINS (Verified Allergy, Unknown, 08/26/16) Objective Vital Signs Last 24 Hour Vital Signs Date Time Temp Pulse Resp B/P Pulse Ox O2 Delivery O2 Flow Rate FiO2 09/25/16 15:16 97.1 83 21 112/67 96 Room Air 09/25/16 11:35 97.7 90 20 116/69 96 Room Air 09/25/16 08:32 97.6 67 19 110/55 99 Room Air 09/25/16 04:00 96.7 87 18 111/53 99 Room Air 09/25/16 00:00 97.8 85 18 133/68 93 Room Air 09/24/16 20:00 97.6 98 18 119/69 99 Room Air Height (Feet): 5 Height (Inches): 3.00 Weight (Pounds): 130 General Appearance: no acute distress HEENT: normocephalic, atraumatic, anicteric, mucous membranes moist, PERRL, EOMI, pharynx normal, supple, no JVD Respiratory/Chest: lungs clear, normal breath sounds, no respiratory distress, no accessory muscle use Cardiovascular: normal rate, regular rhythm, no gallop/murmur, no JVD Abdomen: normal bowel sounds, soft, non tender, no organomegaly, non distended Genitourinary: other - no beltre Extremities: no cyanosis Skin: no rash, other - + wound vac Neurologic/Psychiatric: epic cadence specialists II-XII 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, alert, oriented x 3, responsive Lymphatic: no neck adenopathy Musculoskeletal: no effusion Objective Microbiology Date/Time Source Procedure Growth Status 09/04/16 16:45 Blood Blood Culture - Final NO GROWTH AFTER 5 DAYS Complete 09/05/16 11:00 Wound Gram Stain - Final Complete 09/05/16 11:00 Wound Culture - Final Pseudomonas Aeruginosa Staphylococcus Sp Coag Neg Complete 08/31/16 08:31 Urine,Clean Catch Urine Culture - Final Diphtheroids Complete 09/13/16 20:00 Buttock Right Gram Stain - Final Complete 09/13/16 20:00 Aerobic Culture - Final Staphylococcus Aureus Staphylococcus Sp Coag Neg Complete 09/13/16 20:00 Buttock Right Anaerobic Culture - Final NO ANAEROBES ISOLATED Complete Labs Test 08/31/16 05:50 08/31/16 08:31 09/01/16 07:05 09/02/16 10:36 White Blood Count 18.8 K/UL (4.8-10.8) 17.2 K/UL (4.8-10.8) 13.8 K/UL (4.8-10.8) Red Blood Count 2.95 M/UL (4.20-5.40) 2.98 M/UL (4.20-5.40) 3.11 M/UL (4.20-5.40) Hemoglobin 8.4 G/DL (12.0-16.0) 8.7 G/DL (12.0-16.0) 8.4 G/DL (12.0-16.0) Hematocrit 25.3 % (37.0-47.0) 26.0 % (37.0-47.0) 26.3 % (37.0-47.0) Mean Corpuscular Volume 86 FL (80-99) 87 FL (80-99) 84 FL (80-99) Mean Corpuscular Hemoglobin 28.3 PG (27.0-31.0) 29.3 PG (27.0-31.0) 27.1 PG (27.0-31.0) Mean Corpuscular Hemoglobin Concent 33.1 G/DL (32.0-36.0) 33.6 G/DL (32.0-36.0) 32.1 G/DL (32.0-36.0) Red Cell Distribution Width 12.8 % (11.6-14.8) 12.6 % (11.6-14.8) 12.5 % (11.6-14.8) Platelet Count 178 K/UL (150-450) 183 K/UL (150-450) 258 K/UL (150-450) Mean Platelet Volume 6.0 FL (6.5-10.1) 5.1 FL (6.5-10.1) 6.2 FL (6.5-10.1) Neutrophils (%) (Auto) % (45.0-75.0) 72.6 % (45.0-75.0) 75.9 % (45.0-75.0) Lymphocytes (%) (Auto) % (20.0-45.0) 15.0 % (20.0-45.0) 9.3 % (20.0-45.0) Monocytes (%) (Auto) % (1.0-10.0) 9.1 % (1.0-10.0) 10.6 % (1.0-10.0) Eosinophils (%) (Auto) % (0.0-3.0) 2.5 % (0.0-3.0) 3.0 % (0.0-3.0) Basophils (%) (Auto) % (0.0-2.0) 0.9 % (0.0-2.0) 1.3 % (0.0-2.0) Differential Total Cells Counted 100 Neutrophils % (Manual) 70 % (45-75) Lymphocytes % (Manual) 16 % (20-45) Monocytes % (Manual) 11 % (1-10) Eosinophils % (Manual) 2 % (0-3) Basophils % (Manual) 0 % (0-2) Band Neutrophils 1 % (0-8) Platelet Estimate Adequate Platelet Morphology Normal Hypochromasia 1+ Sodium Level 130 mEQ/L (135-145) 135 mEQ/L (135-145) 135 mEQ/L (135-145) Potassium Level 3.5 mEQ/L (3.4-4.9) 3.8 mEQ/L (3.4-4.9) 3.7 mEQ/L (3.4-4.9) Chloride Level 92 mEQ/L (98-107) 94 mEQ/L (98-107) 94 mEQ/L (98-107) Carbon Dioxide Level 27 mEQ/L (20-30) 29 mEQ/L (20-30) 27 mEQ/L (20-30) Anion Gap 11 (5-15) 12 (5-15) 14 (5-15) Blood Urea Nitrogen 6 mg/dL (7-23) 5 mg/dL (7-23) 7 mg/dL (7-23) Creatinine 0.8 mg/dL (0.5-0.9) 0.8 mg/dL (0.5-0.9) 0.7 mg/dL (0.5-0.9) Estimat Glomerular Filtration Rate > 60 mL/min (>60) > 60 mL/min (>60) > 60 mL/min (>60) Glucose Level 116 mg/dL (74-106) 112 mg/dL (74-106) 116 mg/dL (74-106) Calcium Level 8.3 mg/dL (8.6-10.2) 8.8 mg/dL (8.6-10.2) 8.8 mg/dL (8.6-10.2) Urine Color Pale yellow Urine Appearance Clear Urine pH 7 (4.5-8.0) Urine Specific [place] 1.005 (1.005-1.035) Urine Protein Negative (NEGATIVE) Urine Glucose (UA) Negative (NEGATIVE) Urine Ketones Negative (NEGATIVE) Urine Occult Blood 2+ (NEGATIVE) Urine Nitrite Negative (NEGATIVE) Urine Bilirubin Negative (NEGATIVE) Urine Urobilinogen Normal MG/DL (0.0-1.0) Urine Leukocyte Esterase 1+ (NEGATIVE) Urine RBC 2-4 /HPF (0 - 2) Urine WBC 2-4 /HPF (0 - 2) Urine Squamous Epithelial Cells Few /LPF (NONE/OCC) Urine Bacteria Few /HPF (NONE) Total Bilirubin 0.3 mg/dL (0.0-1.2) Aspartate Amino Transf (AST/SGOT) 31 U/L (5-40) Alanine Aminotransferase (ALT/SGPT) 51 U/L (3-33) Alkaline Phosphatase 74 U/L (35-104) Total Protein 6.3 g/dL (6.6-8.7) Albumin 2.9 g/dL (3.5-5.2) Globulin 3.4 g/dL Albumin/Globulin Ratio 0.8 (1.0-2.7) chest x-ray - negative mri pelvis - report noted pelvic ct - no abscess 09/04 - chest x-ray - negative for pna v/q scan - low probability for PE Microbiology Date/Time Source Procedure Growth Status 09/04/16 16:45 Blood Blood Culture - Final NO GROWTH AFTER 5 DAYS Complete 09/05/16 11:00 Wound Gram Stain - Final Complete 09/05/16 11:00 Wound Culture - Final Pseudomonas Aeruginosa Staphylococcus Sp Coag Neg Complete 08/31/16 08:31 Urine,Clean Catch Urine Culture - Final Diphtheroids Complete 09/13/16 20:00 Buttock Right Gram Stain - Final Complete 09/13/16 20:00 Aerobic Culture - Final Staphylococcus Aureus Staphylococcus Sp Coag Neg Complete 09/13/16 20:00 Buttock Right Anaerobic Culture - Final NO ANAEROBES ISOLATED Complete Laboratory Tests Test 09/25/16 06:40 Sodium Level 132 mEQ/L (135-145) L Potassium Level 4.4 mEQ/L (3.4-4.9) Chloride Level 97 mEQ/L (98-107) L Carbon Dioxide Level 26 mEQ/L (20-30) Anion Gap 9 (5-15) Blood Urea Nitrogen 15 mg/dL (7-23) Creatinine 1.0 mg/dL (0.5-0.9) H Estimat Glomerular Filtration Rate > 60 mL/min (>60) Glucose Level 88 mg/dL (74-106) Calcium Level 9.6 mg/dL (8.6-10.2) Current Medications Medications (Trade) Dose Ordered Sig/Yamileth Route PRN Reason Start Time Stop Time Status Last Admin Dose Admin Acetaminophen/ Butalbital/ Caffeine (Fioricet) 1 tab Q6H PRN ORAL For headache 09/12/16 08:45 10/12/16 08:44 09/15/16 20:12 Acetaminophen/ Hydrocodone Bitart ([place]rill 10/325) 1 ea Q4H PRN ORAL Moderate Pain (Pain Scale 4-6) 09/20/16 10:06 09/27/16 10:05 09/21/16 04:52 Docusate Sodium (Colace) 100 mg EVERY 12 HOURS ORAL 08/26/16 21:00 09/25/16 20:59 09/25/16 08:55 Doxycycline Monohydrate (Vibramycin) 100 mg EVERY 12 HOURS ORAL 09/24/16 21:00 10/01/16 20:59 09/25/16 08:54 Ferrous Sulfate (Feosol) 325 mg THREE TIMES A DAY ORAL 09/02/16 18:00 10/02/16 17:59 09/24/16 17:39 Gabapentin (Neurontin) 300 mg BEDTIME ORAL 08/30/16 21:00 09/29/16 20:59 09/24/16 20:33 Heparin Sodium (Porcine) (Heparin 5000 units/ml) 5,000 units 0100,0900,1700 SUBQ 09/20/16 09:00 10/20/16 08:59 09/25/16 00:33 Hydromorphone HCl (Dilaudid) 1 mg Q4H PRN IVP Severe Pain (Pain Scale 7-10) 09/20/16 10:06 09/27/16 10:05 09/24/16 19:09 Hydromorphone HCl (Dilaudid) 2 mg Q4H PRN IVP Severe Breakthru Pain (>7) 09/20/16 10:06 09/27/16 10:05 09/25/16 12:45 Lactobacillus Acidophilus (Culturelle) 1 tab TWICE A DAY ORAL 08/26/16 18:00 09/25/16 17:59 09/25/16 08:55 Lactulose (Cephulac) 30 gm Q4H PRN ORAL constipation 09/04/16 09:15 10/04/16 09:14 Levofloxacin (Levaquin) 500 mg Q24H ORAL 09/24/16 17:00 10/01/16 16:59 09/24/16 17:00 Metoclopramide HCl (Reglan) 10 mg THREE TIMES A DAY ORAL 09/21/16 18:00 10/21/16 17:59 09/25/16 13:29 Ondansetron HCl (Zofran) 4 mg Q4H PRN IVP Nausea & Vomiting 09/21/16 17:00 10/21/16 16:59 09/24/16 14:38 Silver Sulfadiazine (Silvadene Cream 25gm) 1 applic DAILY TOPIC 09/02/16 14:00 10/02/16 13:59 09/25/16 08:57 BLU KATHLEEN Sep 25, 2016 16:31
[2016-09-25] MEDS: Levofloxacin 500mg tab ORAL SCH (18:02)
[2016-09-26] VITALS: BP 119/70
[2016-09-26] MEDS: Heparin 5000 units/ml inj SUBQ SCH ×2 (00:04→09:23)
[2016-09-26] MEDS: HYDROmorphone 1mg/ml Carpuject IVP PRN (03:53)
[2016-09-26 04:00] VITALS: BP 135/80
[2016-09-26] MEDS: Norco 10mg/325mg tab ORAL PRN (05:24)
[2016-09-26 07:51] LABS: ANION GAP 10 (5-15); CALCIUM 10.1 mg/dL (8.6-10.2); CARBON DIOXIDE 28 mEQ/L (20-30); CHLORIDE 97 mEQ/L (98-107); CREATININE 0.8 mg/dL (0.5-0.9); GLOMERULAR FILTRATION RATE > 60 mL/min (>60); HEMOLYSIS 2; SODIUM 135 mEQ/L (135-145)
[2016-09-26 08:00] VITALS: BP 116/67
--- NOTE | 2016-09-26 08:10 | General Progress Note ---
Assessment/Plan Assessment/Plan (1) Bilateral buttock soft tissue necrosis, cellulitis, open wounds buttocks (2) Abscess (3) Intractable pain (4) Staged debridement of bilateral buttock necrotic soft tissue, flap delay The patient is to be continued on the Dilaudid and [place]. The patient was discussed with Dr. Singh and concurred. Subjective Date patient seen: Sep 26, 2016 Time patient seen: 07:00 - am Allergies: Coded Allergies: IODINE (Verified Allergy, Unknown, 08/26/16) PENICILLINS (Verified Allergy, Unknown, 08/26/16) Subjective Constitutional: Reports: no symptoms HEENT: Reports: no symptoms Cardiovascular: Reports: no symptoms Respiratory: Reports: no symptoms Gastrointestinal/Abdominal: Reports: no symptoms Genitourinary: Reports: no symptoms Neurologic/Psychiatric: Reports: weakness Endocrine: Reports: no symptoms Hematologic/Lymphatic: Reports: no symptoms Subjective Patient is laying in bed. Her pain has been well tolerated on the medication and is looking forward to being discharged home. Objective Last 24 Hour Vital Signs Date Time Temp Pulse Resp B/P Pulse Ox O2 Delivery O2 Flow Rate FiO2 09/26/16 04:00 97.9 90 18 135/80 99 Room Air 09/26/16 00:00 98.2 81 20 119/70 99 Room Air 09/25/16 20:00 97.9 74 18 110/62 97 Room Air 09/25/16 15:16 97.1 83 21 112/67 96 Room Air 09/25/16 11:35 97.7 90 20 116/69 96 Room Air 09/25/16 08:32 97.6 67 19 110/55 99 Room Air Intake and Output 09/25/16 09/26/16 19:00 07:00 Intake Total 1465 ml 300 ml Output Total 10 ml Balance 1465 ml 290 ml Intake Oral 1465 ml 300 ml Drainage Total 10 ml # Voids 3 2 Laboratory Tests 09/26/16 05:35: Sodium Level 135, Potassium Level 4.0, Chloride Level 97L, Carbon Dioxide Level 28, Anion Gap 10, Blood Urea Nitrogen 13, Creatinine 0.8, Estimat Glomerular Filtration Rate > 60, Glucose Level 103, Calcium Level 10.1 Height (Feet): 5 Height (Inches): 3.00 Weight (Pounds): 130 Objective General Appearance: no apparent distress, alert EENT: PERRL/EOMI, normal ENT inspection Neck: non-tender, normal alignment Cardiovascular: normal rate, regular rhythm Respiratory/Chest: lungs clear, normal breath sounds Abdomen: non tender, soft Extremities: non-tender Edema: no edema noted Arm (L), no edema noted Arm (R), no edema noted Leg (L), no edema noted Leg (R), no edema noted Pedal (L), no edema noted Pedal (R), no edema noted Generalized Neurologic: alert, oriented x 3 Skin: other - bandages applied to buttock area with tenderness to palpation NELLY JACK Sep 26, 2016 08:10
[2016-09-26] MEDS ORDERED: HYDROmorphone 1mg/ml Carpuject IVP PRN (08:15)
[2016-09-26] MEDS: Silver Sulfadiazine Cream 25gm TOPIC SCH (09:25)
[2016-09-26] MEDS ORDERED: Norco 10mg/325mg tab ORAL PRN (10:06)
[2016-09-26] MEDS ORDERED: Lidocaine 1% 10mg/ml/Epi 0.005mg/ml 30ml vial INJ ONE (10:45)
[2016-09-26] MEDS ORDERED: Lidocaine/Epi 1% 10ml vial INJ ONE (10:45)
[2016-09-26] MEDS ORDERED: Betadine 4oz Bottle TOPIC ONE (10:45)
[2016-09-26 12:00] VITALS: BP 108/64
--- NOTE | 2016-09-26 13:03 | General Progress Note ---
Subjective Date patient seen: Sep 26, 2016 Allergies: Coded Allergies: IODINE (Verified Allergy, Unknown, 08/26/16) PENICILLINS (Verified Allergy, Unknown, 08/26/16) Subjective Patient seen and examined Patient is having wound closed today by PE: Wound of the right buttocks approx. 5.0 cm by 2.5 cm with granulation on the muscle with min serous drainage. Skin soft, less tenderness at wound edge. Impression: Patient with complicated open deep buttocks wound with exposed muscle. Wound is making progress with contraction in size. Wounds is ready to be closed. Plan: Wound closed by bedside (Vertical mattress sutures) Anticipate D/C on antibx Min pressure on buttocks Objective Last 24 Hour Vital Signs Date Time Temp Pulse Resp B/P Pulse Ox O2 Delivery O2 Flow Rate FiO2 09/26/16 12:00 97.7 72 17 108/64 98 Room Air 09/26/16 08:00 97.3 86 17 116/67 98 Room Air 09/26/16 04:00 97.9 90 18 135/80 99 Room Air 09/26/16 00:00 98.2 81 20 119/70 99 Room Air 09/25/16 20:00 97.9 74 18 110/62 97 Room Air 09/25/16 15:16 97.1 83 21 112/67 96 Room Air Intake and Output 09/25/16 09/26/16 19:00 07:00 Intake Total 1465 ml 300 ml Output Total 10 ml Balance 1465 ml 290 ml Intake Oral 1465 ml 300 ml Drainage Total 10 ml # Voids 3 2 Laboratory Tests 09/26/16 05:35: Sodium Level 135, Potassium Level 4.0, Chloride Level 97L, Carbon Dioxide Level 28, Anion Gap 10, Blood Urea Nitrogen 13, Creatinine 0.8, Estimat Glomerular Filtration Rate > 60, Glucose Level 103, Calcium Level 10.1 Height (Feet): 5 Height (Inches): 3.00 Weight (Pounds): 130 Bebo Cabral M.D. (Steven) Sep 26, 2016 13:03
--- NOTE | 2016-09-26 13:55 | General Progress Note ---
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 My associate alerter me there was no note for September 24. The pt was seen by me on that date however I forgot to place a note. s/p dressing and wound vac change by surgery, no fevers/chills, feels better overall. Pain well controlled, no diaphoresis, n/v better with ATC reglan and scopolamine patch Objective Last 24 Hour Vital Signs Date Time Temp Pulse Resp B/P Pulse Ox O2 Delivery O2 Flow Rate FiO2 09/26/16 12:00 97.7 72 17 108/64 98 Room Air 09/26/16 08:00 97.3 86 17 116/67 98 Room Air 09/26/16 04:00 97.9 90 18 135/80 99 Room Air 09/26/16 00:00 98.2 81 20 119/70 99 Room Air 09/25/16 20:00 97.9 74 18 110/62 97 Room Air 09/25/16 15:16 97.1 83 21 112/67 96 Room Air Intake and Output 09/25/16 09/26/16 19:00 07:00 Intake Total 1465 ml 300 ml Output Total 10 ml Balance 1465 ml 290 ml Intake Oral 1465 ml 300 ml Drainage Total 10 ml # Voids 3 2 Laboratory Tests 09/26/16 05:35: Sodium Level 135, Potassium Level 4.0, Chloride Level 97L, Carbon Dioxide Level 28, Anion Gap 10, Blood Urea Nitrogen 13, Creatinine 0.8, Estimat Glomerular Filtration Rate > 60, Glucose Level 103, Calcium Level 10.1 Height (Feet): 5 Height (Inches): 3.00 Weight (Pounds): 130 Objective General: alert, cooperative, no distress, appears stated age Head: normocephalic, without obvious abnormality, atraumatic Eyes: conjunctivae/corneas clear. PERRL, EOM's intact Throat: lips, mucosa, and tongue normal. MMM Neck: supple, symmetrical, trachea midline, and no JVD Lungs: clear to auscultation bilaterally Heart: regular rate and rhythm, S1, S2 normal, no murmur, click, rub or gallop Abdomen: soft, non-tender, non-distended, bowel sounds normal; no masses or organomegaly Extremities: +wound vac, +dressings c/d/i Pulses: 2+ and symmetric Skin: skin color, texture, turgor normal; no rashes or lesions Neurologic: 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, no focal deficits PETERSON COTTO Sep 26, 2016 13:55
[2016-09-26] MEDS ORDERED: DOXYCYCLINE HY100 M2 ORAL (13:57)
--- NOTE | 2016-09-27 17:25 | Discharge Summary ---
Discharge Summary Hospital Course Date of Admission Aug 26, 2016 at 11:25 Date of Discharge Sep 26, 2016 at 15:40 Admitting Diagnosis Foreign body reaction, bilateral soft tissue necrosis with associated cellulitis Reason for Hospitalization: r/o abscess, as above HPI Brennan Balbuena is a 31 year old female who was admitted on Aug 26, 2016 at 11 :25 for Foreign body reaction, bilateral soft tissue necrosis with associated cellulitis Consultations ID Surgery Pain Management Procedures See Operative reports Hospital Course 31 y/o female with hx of silicone injections into the buttocks region several years ago, presented to the ED, referred by her surgeon, with multiple complaints including gluteal pain, fevers, and low back pain with numbness/ tingling radiating down her legs. She and her surgeon were concerned about a gluteal infection s/p silicone injections 2 years ago for gluteal enhancement. She endorsed a few days of worsening pain in the buttocks, fever measured 102F at home, and "pustules that keep busting" on the right buttock. She also c/o severe fatigue/malaise, headaches, numbness/tingling down her legs, and dyspnea on exertion. She later relayed to me that she had been to a local ER with similar complaints multiple times in the past 6 months and both times she was dced home from the ED due to not knowing what to do regarding her condition. Her exam was significant for tender nodules on the buttocks along with rubor. She was admitted initially for IV abx and workup with further imaging. She had an MRI pelvis and lumbar spine that fortunately did not show a fluid collection but did show soft tissue necrosis, along with inflammation locally. Surgical consult was called, who requested a preop workup along with psychiatry consultation prior to surgery due to the fact that the pt injected silicone in her buttocks and recently had a voluntary . After psychiatry established capacity and pt was seen by Obgyn, pt was taken to OR after evaluation by the surgeon for surgical debridement of the gluteal region with removal of silicone nodules and granulomas. Postop course was complicated by wound infection, as the pt became septic with an abscess in the buttock area, initially growing pseudomonas, then subsequently staph aureus. The pt remained in the hospital for wound care, IV abx, and pain control, which proved very challenging, and was seen by pain management. Control of nausea/vomiting was very challenging as well, requiring multiple antiemetics. Eventually, the pt wound was closed, wound vac removed, and the pt was dced home without any need for home health, and on 5 days of levaquin/doxy. She will f/u with her surgeon in 1-2 weeks for postop followup. Discharge Medications New Medications: Doxycycline Hyclate (Doxycycline Hyclate) 100 Mg Capsule 100 MG ORAL EVERY 12 HOURS for 5 Days, #10 CAP Continued Medications: Levofloxacin* (Levaquin*) 500 Mg Tablet 500 MG ORAL DAILY, TAB Ondansetron Odt* (Zofran Odt*) 4 Mg Tab.rapdis 4 MG ORAL Q6H PRN for Nausea & Vomiting, #30 TAB Oxycodone Hcl/Acetaminophen 10-325 Mg Tablet (Percocet 10-325 Mg Tablet*) 1 Each Tablet 1 TAB ORAL Q4H PRN for For Pain, TAB Discontinued Medications: Trimethoprim/Sulfamethoxazole 160/800* (Bactrim Ds Tablet*) 1 Each Tablet 1 TAB ORAL TWICE A DAY, TAB Discharge Condition Upon Discharge: stable Discharge Disposition Patient was discharged to Home Discharge Diagnoses: (1) Necrotizing soft tissue infection (2) Residual foreign body in soft tissue (3) Abscess (4) Sepsis PETERSON COTTO Sep 27, 2016 17:25
--- NOTE | 2016-09-30 18:00 | Operative Note - Dictated ---
DATE OF OPERATION: 09/26/2016 SURGEON: Bebo Cabral M.D. ANESTHESIA: Local. PREOPERATIVE DIAGNOSES: 1. An 8 x 6 cm open wound, right buttock. 2. Right buttock abscess status post incision and drainage and debridement. POSTOPERATIVE DIAGNOSES: 1. An 8 x 6 cm open wound, right buttock. 2. Right buttock abscess status post incision and drainage and debridement. PROCEDURES PERFORMED: 1. Complex closure of 8 cm right buttock open wound. 2. Exploration of right buttock. INDICATION FOR PROCEDURE: This is a 31-year-old female, who was operated on multiple times. She has had multiple bedside VAC changes in the last couple of weeks. [place] and at this point, I explained to the patient after removing the wound VAC, I would see if this is amenable for closure. I explained to the patient that her skin is extremely paper thin and ideally, I would like to wait for the wound to granulate in a little bit more and then either do a skin graft or flap closure. However given the patient's insistence on faster closure option and returning back home, I agreed to close the wound if it looks free of infection. I explained to the patient that it is a very high risk of wound dehiscence and then when she gets back home, she should find a plastic surgeon to get some wound care. The other two wounds that were closed prior have stayed closed and free of infection. It was explained to the patient when I probe and close the superior wound, the other wounds may open. At that point, she may need extended wound care and perhaps secondary procedures such as further washout, debridement, VAC, flap closure, or skin grafts in the future. The patient understood this and wished to proceed. Description Of Procedure: I removed the wound VAC at the bedside after giving intravenous pain medicine. The patient was placed in a prone position. I then explored the wound by making incision slightly larger. There is no signs of any infection. There was great granulation tissue and there was a significant amount of the space that has closed. The skin was still very thin. Some of the dermis was thicker. I explained to the patient that after local anesthesia, I will close this wound, but again wonder, there is a significant chance of wound dehiscence and need for further care when she gets back home. She wished to proceed. I then gave 30 mL of 1% lidocaine with 1:100,000 epinephrine locally and prepped and draped the area in the usual clean and sterile manner. I then used #0 Vicryl sutures to lineup to approximate Alfredo's fascia in the deep dermis in interrupted fashion. I then closed the epidermis with vertical mattress 2-0 Prolene sutures. After doing this, I got the wound closure with minimal attention. Bacitracin, Xeroform, Telfa, and Tegaderm was placed over the incision. The other wounds were also dressed. The patient tolerated the procedure well. Findings as above. DRAINS: None. COMPLICATIONS: None. CONDITION: Stable. ESTIMATED BLOOD LOSS: Minimal. Bebo Cabral M.D. DR: ZACHARY JOB#: [id number] CC:
--- NOTE | 2016-09-30 23:00 | Operative Note - Dictated ---
DATE OF OPERATION: 09/21/2016 SURGEON: Bebo Cabral M.D. ANESTHESIA: IV pain medicine. PREOPERATIVE DIAGNOSES: 1. An 8 x 6 cm open wound of right buttock. 2. Right buttock abscess, status post incision and drainage and debridement. POSTOPERATIVE DIAGNOSES: 1. An 8 x 6 cm open wound of right buttock. 2. Right buttock abscess status post incision and drainage and debridement. PROCEDURE PERFORMED: 1. An 8 x 6, a 48 square centimeter wound preparation on right buttock for eventual flap closure. 2. Wound VAC change to right buttock. INDICATION OF PROCEDURE: This is a 31-year-old female, who I have operated on multiple times. Today, I was doing a bedside VAC change and wound preparation for eventual flap closure. It was explained to the patient, we would change the VAC and explore the wound and when it is ready for closure, we would proceed. We explained to the patient, we do not know when that would be as long as there is granulation tissue around and it is free of infection. The patient understood this and wished to proceed. DESCRIPTION OF PROCEDURE: The patient was given intravenous pain medicine and then placed in the prone position. The wound VAC was changed. The wound was explored. There was an 8 x 6 cm open wound of the right medial buttock. There was good granulation tissue. There is no signs of any infection. The wound was scraped to stimulate bleeding and granulation tissue for eventual flap closure. I then placed a VAC sponge inside the wound, embedded to 125 mmHg. There was no leak. The patient tolerated the procedure well. FINDINGS: As above. SPECIMENS: None. DRAINS: Wound VAC ___. COMPLICATIONS: None. CONDITION: Stable. ESTIMATED BLOOD LOSS: Minimal. Bebo Cabral M.D. DR: ZACHARY JOB#: [id number] CC:
--- NOTE | 2016-10-02 13:31 | Operative Note - Dictated ---
DATE OF OPERATION: 09/16/2016 SURGEON: Bebo Cabral M.D. ANESTHESIOLOGIST: Daysi Moore M.D ANESTHESIA: General endotracheal tube and general anesthesia. PREOPERATIVE DIAGNOSES: As follows: 1. A 15 x 6 centimeter open wound, right buttock. 2. Right buttock abscess, status post drainage and debridement. POSTOPERATIVE DIAGNOSES: 1. A 15 x 6 centimeter open wound, right buttock. 2. Right buttock abscess, status post drainage and debridement. PROCEDURE PERFORMED: As follows: 1. 15 x 16 90 square centimeters wound preparation, right buttock open wound. 2. Debridement of necrotic tissue from right buttock. 3. Complex closure of 8 centimeter partial wound closure right buttock. 4. Pulse jet lavage irrigation right buttock open wound. 5. VAC change right buttock open wound. 6. Exploration of right buttock. INDICATIONS FOR PROCEDURE: This is a 31-year-old female, who has been previously operated multiple times. The patient is going back to the operating room today for VAC change, debridement, washout, and partial wound closure. The patient has been IV antibiotics per the Infectious Disease team and receiving appropriate medical care. Risks and benefits of the operation including, but not limited to, need for multiple operations, wound dehiscence, poor scarring, infection, hematoma, seroma, infection were discussed, poor cosmetic outcome, and all questions were answered. PROCEDURE: The patient was placed under general anesthesia, was placed in the decubitus position. The wound VAC was then taken off. The area was prepped and draped in the usual sterile manner. Perioperative antibiotics were confirmed. SCDs were placed on bilateral lower extremities. I started the operation after removing the wound VAC first exploring for any pus or any nidus of infection. There was nothing. There was some necrotic soft tissue, which was debrided with scissor and scalpel technique. I then pulse jet lavage and took two liters of antibiotic irrigation. I then scraped the remaining 15 x 6 cm open wound, which consisted of gluteus frank muscle and some granulation tissue with a curette for eventual flap or a skin graft closure. After doing this, the lateral eight centimeters of the wound after debriding the skin edges and undermining were closed in a complex manner, 0 Vicryl sutures were used to approximate the Alfredo's fascia in interrupted fashion, 2-0 Vicryl sutures were used in layer to approximate the deep dermis, interrupted fashion. Then a 3-0 Monocryl subcuticular suture was placed in a running 2-0 Prolene suture for the 8 centimeter would. I then placed a wound VAC in the medial aspect of the wound, which was still open about 7 centimeters and secured to the VAC machine at 125 mmHg. There was no leak. The patient was then put on a side, extubated and transferred to recovery in stable condition with findings as above. ESTIMATED BLOOD LOSS: Estimated blood loss was 20 mL. SPECIMENS: Debrided soft tissue right buttock. DRAINS: Wound VAC, right buttock. COMPLICATIONS: None. Bebo Cabral M.D. DR: Edith JOB#: [id number] CC:
== END 2016-09-26 15:40 | disposition home or self-care (01) | DRG 573 ==
LOC: EDBEDREQ 10:48 → EMR 11:05 → 4E 11:25 → EDBEDREQ 13:53 → 3E 08-27 06:48
PROC: 0JC90ZZ Extirpation of Matter from Buttock Subcutaneous Tissue and Fascia, Open Approach (ICD-10-PCS; principal; 2016-08-27 14:00)
PROC: 0KBN0ZZ Excision of Right Hip Muscle, Open Approach (ICD-10-PCS; principal; 2016-08-27 14:00)
PROC: 0H88XZZ Division of Buttock Skin, External Approach (ICD-10-PCS; principal; 2016-08-27 14:00)
PROC: 0KBP0ZZ Excision of Left Hip Muscle, Open Approach (ICD-10-PCS; principal; 2016-08-27 14:00)
PROC: 0JX90ZC Transfer Buttock Subcutaneous Tissue and Fascia with Skin, Subcutaneous Tissue and Fascia, Open Approach (ICD-10-PCS; 2016-08-29)
PROC: 0JC90ZZ Extirpation of Matter from Buttock Subcutaneous Tissue and Fascia, Open Approach (ICD-10-PCS; 2016-08-29)
PROC: 0JB90ZZ Excision of Buttock Subcutaneous Tissue and Fascia, Open Approach (ICD-10-PCS; 2016-09-05)
PROC: 0JC90ZZ Extirpation of Matter from Buttock Subcutaneous Tissue and Fascia, Open Approach (ICD-10-PCS; 2016-09-13)
PROC: 0JB90ZZ Excision of Buttock Subcutaneous Tissue and Fascia, Open Approach (ICD-10-PCS; 2016-09-13)
PROC: 0KBN0ZZ Excision of Right Hip Muscle, Open Approach (ICD-10-PCS; 2016-09-16)
DX: L03.317 Cellulitis of buttock (principal); A41.9 Sepsis, unspecified organism; I96 Gangrene, not elsewhere classified; E87.1 Hypo-osmolality and hyponatremia; B37.3 Candidiasis of vulva and vagina; T81.4XXA Infection following a procedure, initial encounter; D64.9 Anemia, unspecified; Z88.0 Allergy status to penicillin; Z91.041 Radiographic dye allergy status; R11.2 Nausea with vomiting, unspecified; K21.9 Gastro-esophageal reflux disease without esophagitis; B96.5 Pseudomonas (aeruginosa) (mallei) (pseudomallei) as the cause of diseases classified elsewhere; B95.61 Methicillin susceptible Staphylococcus aureus infection as the cause of diseases classified elsewhere; T49.3X5A Adverse effect of emollients, demulcents and protectants, initial encounter; Y92.89 Other specified places as the place of occurrence of the external cause; L02.31 Cutaneous abscess of buttock; Y83.8 Other surgical procedures as the cause of abnormal reaction of the patient, or of later complication, without mention of misadventure at the time of the procedure; Y92.230 Patient room in hospital as the place of occurrence of the external cause
CPT/HCPCS: 36415; 71010; 72148; 72192; 72195; 78579; 78580; 80048; 80053; 80202; 81001; 81003; 81025; 82784; 83690; 84702; 85007; 85025; 85610; 85613; 85651; 85730; 86039; 86140; 86334; 86360; 86850; 86900; 86901; 86920; 87040; 87070; 87075; 87086; 87181; 87205; 93005; 93970; 94003; 94150; 94760; A4246; A9503; J2180; J2250; J2405; J2710; J2765; S0077